=== PATIENT | male | born 1945 | race Caucasian/White ===

== ENCOUNTER → 2018-01-19 10:12 | Outpatient (CLI) | payer MEDICARE, OTHER, SELFPAY ==
[2018-01-19 12:08] LABS: Hemoglobin A1c 5.3 % (4.2-6.3)
[2018-01-19 12:09] LABS: Anion Gap 8 (5-15); BUN 17 mg/dL (7-18); BUN/Creat Ratio 15.7 RATIO (10-20); Calcium,Total 8.6 mg/dL (8.5-10.1); Chloride 106 mmol/L (98-107); Cholesterol 190 mg/dL (200); Creatinine, Serum 1.08 mg/dL (0.70-1.30); EST Glomerular Filtration Rate 71 mL/min (>60); Est Glom Filt Rate - Afr Amer 86 mL/min (>60); Glucose 92 mg/dL (74-106); High Density Lipoprotein 50 mg/dL; Sodium Level 140 mmol/L (136-145); Triglycerides 97 mg/dL; Very Low Density Lipoprotein 19 mg/dL (5-40)
== END ==
PROVIDERS: Family Provider Family Medicine; PCP Family Medicine; Visit Provider Family Medicine
DX: I10 Essential (primary) hypertension (principal); R73.09 Other abnormal glucose; E78.00 Pure hypercholesterolemia, unspecified
CPT/HCPCS: 36415; 80048; 80061; 83036

== ENCOUNTER → 2019-01-24 | Outpatient (CLI) | payer MEDICARE, OTHER, SELFPAY ==
[2019-01-24 10:56] LABS: Anion Gap 7 (5-15); BUN 27 mg/dL (7-18); BUN/Creat Ratio 25.7 RATIO (10-20); Calcium,Total 9.2 mg/dL (8.5-10.1); Chloride 109 mmol/L (98-107); Cholesterol 191 mg/dL (200); Creatinine, Serum 1.05 mg/dL (0.70-1.30); EST Glomerular Filtration Rate 73 mL/min (>60); Est Glom Filt Rate - Afr Amer 89 mL/min (>60); Glucose 107 mg/dL (74-106); High Density Lipoprotein 55 mg/dL; PSA,Total - Annual Screen 1.14 ng/mL (0.00-4.00); Potassium 4.3 mmol/L (3.5-5.1); Sodium Level 141 mmol/L (136-145); Triglycerides 72 mg/dL; Very Low Density Lipoprotein 14 mg/dL (5-40)
== END | disposition home or self-care (01) ==
LOC: MFPLAB 09:31
PROVIDERS: Family Medicine; Visit Provider Family Medicine
DX: R73.09 Other abnormal glucose (principal); E78.00 Pure hypercholesterolemia, unspecified; I10 Essential (primary) hypertension; Z12.5 Encounter for screening for malignant neoplasm of prostate
CPT/HCPCS: 36415; 80048; 80061; 83036; 84153; G0103

== ENCOUNTER → 2019-02-10 09:29 | Outpatient (CLI) | payer MEDICARE, OTHER, SELFPAY ==
[2019-02-10 10:43] LABS: Vitamin D,25 Hydroxy 49.8 ng/mL (29.95-100.01)
[2019-02-10 10:52] LABS: T4 Free Direct 0.88 ng/dL (0.76-1.46); Thyroid Stim Hormone (TSH) 1.64 uIU/mL (0.358-3.74)
== END ==
PROVIDERS: Family Provider Family Medicine; PCP Family Medicine; Referring Provider Family Medicine; Visit Provider Family Medicine
DX: E04.1 Nontoxic single thyroid nodule (principal); E55.9 Vitamin D deficiency, unspecified
CPT/HCPCS: 36415; 82306; 84439; 84443

== ENCOUNTER → 2019-02-15 11:06 | Outpatient (CLI) | payer MEDICARE, OTHER, SELFPAY ==
--- NOTE | 2019-02-15 11:08 | US_ITS ---
STUDY: THYROID ULTRASOUND REASON FOR EXAM: Male, 73 years old. TECHNIQUE: Ultrasound evaluation of the thyroid was performed with real-time and static cormier-scale imaging. COMPARISON: None. FINDINGS: RIGHT LOBE: The right lobe of the thyroid gland measures 5.2 x 1.9 x 1.2 cm cm. There is a heterogeneous echotexture. There is 1.5 x 1.2 x 0.9 cm nodule in the more inferior central echo-free area that is irregular in shape and vascular for which FNA is recommended. LEFT LOBE: The left lobe of the thyroid gland measures 4.6 x 1.7 x 1.8 cm cm. There is a heterogeneous echotexture. There are no demonstrated solid, cystic or complex lesions. ISTHMUS: The isthmus measures 0.2 mm . The regional lymph nodes are normal. US/Thyroid IMPRESSION: Small solid nodule upper aspect of the right lobe of the thyroid with central anechoic area. As mentioned. Electronically Signed: Margarette Wilkes, at 8:43 EST Tel , Service support ,
== END ==
PROVIDERS: Family Provider Family Medicine; PCP Family Medicine; Referring Provider Family Medicine; Visit Provider Family Medicine
DX: E04.1 Nontoxic single thyroid nodule (principal)
CPT/HCPCS: 76536

== ENCOUNTER → 2019-02-28 15:56 | Outpatient (CLI) | payer MEDICARE, OTHER, SELFPAY ==
--- NOTE | 2019-02-28 14:00 | ASPS_PTH ---
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 Jakob Jolly MD : 1945 BED: DIS: SPEC #: [id number] RECD: 02/28/19 15:35 STATUS: CHAD RAHEL #: [id number] CLEOPATRA: 02/28/19 14:[address]: Jakob Jolly DEPT: CYTOLOGY RECD BY: Donald Lynn ENTERED: 03/01/19 11:34 SP TYPE: ASPIRATION OTHR DR: Dr. Isaias Nuñez MD Tissues: Thyroid gland, NOS Procedures: Special Stain Group II Cytology Other HEADER OPERATION: Ultrasound guided fine needle aspiration, right thyroid PRE-OP DIAGNOSIS: Uninodular goiter E04.1 TISSUE SUBMITTED: Fine needle aspiration, right thyroid DIAGNOSIS CYTOLOGY Right thyroid nodule, ultrasound-guided fine needle aspiration (smear): Benign follicular nodule with cystic changes. Adequate for evaluation. See comment. SJ:penny 03/02/19 COMMENT Immediate cytologic evaluation to determine adequacy is not applicable. Correlation with clinical, radiologic findings and appropriate followup are necessary. CYTOLOGY STUDY Slides are reviewed. CYTOLOGY GROSS Received are 12 smears labeled with the patient's name and designated per the requisition as FNA right thyroid. Submitted for staining. RB:lizbeth 03/01/19 TC: 5 CPT: 01100
[2019-02-28 14:01] VITALS: BMI 32.6
== END ==
PROVIDERS: Family Provider Family Medicine; PCP Family Medicine; Referring Provider Surgery; Visit Provider Surgery
DX: E04.1 Nontoxic single thyroid nodule (principal)
CPT/HCPCS: 88161; 88313

== ENCOUNTER → 2019-12-05 09:45 | Outpatient (CLI) | payer MEDICARE, OTHER, SELFPAY ==
[2019-02-28 14:01] VITALS: BMI 32.6
[2019-12-05 09:51] LABS: Bacteria 0 SEEN /hpf (None Seen); Mucous, Urine 0 SEEN /hpf (<or=2+); Red Blood Cells-Urine 0 SEEN /hpf (0-5); White Blood Cells 0 SEEN /hpf (0-5)
[2019-12-05 12:13] LABS: Absolute Lymphocyte Count 1.06 X10^3/uL (0.83-4.51); Absolute Neutrophil Count 3.6 X10^3/uL (2.0-7.7); Basophil# 0.03 X10^3/uL; Basophil% 0.6 % (0-1); Eosinophil# 0.11 X10^3/uL; Eosinophils% 2.1 % (0-5); Hematocrit 42.7 % (40-54); Hemoglobin 14.2 g/dL (13.0-16.5); Lymphocyte # 1.06 X10^3/ul (4.0); Lymphocyte % 19.9 % (19-41); Mean Corp Hgb Conc 33.3 g/dL (32-36); Mean Corpuscular Hgb 32.1 pg (27.0-32.0); Mean Corpuscular Volume 96.6 fL (80-94); Mean Platelet Vol. 11.6 fl (6.2-12.0); Monocyte# 0.51 X10^3/uL; Monocyte% 9.6 % (0-10); NRBC Flagged by Analyzer 0 % (0-5); Neutrophil # 3.61 X10^3/uL (2.7-7.7); Neutrophil % 67.4 % (47-70); Platelet Count 151 K/mm3 (150-450); RBC Distribution Width CV 13.5 % (11.6-14.6); Red Blood Count 4.42 M/mm3 (4.6-6.2); White Blood Count 5.3 K/mm3 (4.4-11.0)
[2019-12-05 12:29] LABS: Color, Urine Yellow (Yellow); Glucose, Dipstick Normal (Normal); Ketone-Dipstick Negative (Negative); Leukocyte Esterase-Dipstick Negative /ul (Negative); Nitrite-Dipstick Negative (Negative); Occult Blood-Urine Negative /ul (Negative); Protein-Dipstick Negative (Negative); Urine Bilirubin Dipstick Negative (Negative); Urine Clarity Sl. Cloudy (Clear); Urine Urobilinogen Normal (Normal)
[2019-12-05 12:40] LABS: Squamous Epithelial Cells - UA 0-5 SEEN /hpf (0-5)
[2019-12-05 12:51] LABS: ALB/GLOB Ratio 1.1 RATIO (0.9-2.4); AST(SGOT) 30 U/L (15-37); Alanine Aminotransfer ALT/SGPT 46 U/L (16-61); Albumin, Serum 3.7 g/dL (3.2-5.0); Alkaline Phosphatase 68 U/L (45-117); Anion Gap 3 (5-15); BUN 25 mg/dL (7-18); BUN/Creat Ratio 21.2 RATIO (10-20); Calcium,Total 9.1 mg/dL (8.5-10.1); Chloride 111 mmol/L (98-107); Creatinine, Serum 1.18 mg/dL (0.70-1.30); EST Glomerular Filtration Rate 64 mL/min (>60); Est Glom Filt Rate - Afr Amer 77 mL/min (>60); Globulin 3.4 g/dL (2.2-4.2); Glucose 101 mg/dL (74-106); Potassium 4.8 mmol/L (3.5-5.1); Protein, Total 7.1 g/dL (6.4-8.2); Sodium Level 140 mmol/L (136-145)
== END ==
PROVIDERS: PCP Family Medicine; Referring Provider Family Medicine; Visit Provider Family Medicine
DX: I10 Essential (primary) hypertension (principal); E55.9 Vitamin D deficiency, unspecified
CPT/HCPCS: 36415; 80053; 81001; 82306; 85025

== ENCOUNTER → 2020-02-13 08:31 | Outpatient (CLI) | payer MEDICARE, OTHER, SELFPAY ==
[2019-02-28 14:01] VITALS: BMI 32.6
--- NOTE | 2020-02-13 08:38 | US_ITS ---
INDICATION: NODULE EXAMINATION: Ultrasound US Thyroid (eg thyroid, parathyroid, parotid) TECHNIQUE: Olmedo scale and color doppler imaging was performed of the thyroid gland. COMPARISON: Previous thyroid ultrasound obtained on 04/17/2018 FINDINGS: RIGHT THYROID LOBE: Measures 5.3 x 2.0 x 1.8 cm size.. Homogeneous echotexture with normal vascularity. A stable thyroid nodule measuring 1.6 x 0.9 cm in size seen in the mid right thyroid lobe which was previously identified and is unchanged. This probably represents a benign colloid nodule.. LEFT THYROID LOBE: Measures 4.7 x 2.2 x 1.8 cm in size.. Homogeneous echotexture with normal vascularity. [No thyroid nodules are present. ISTHMUS: Measures 0.4 cm in size . No thyroid nodules are present. US/Thyroid IMPRESSION: A stable probably benign thyroid colloid nodule is noted in the right thyroid lobe. Electronically Signed: Isaias Arias, at 16:23 EST Tel , Service support ,
== END ==
PROVIDERS: PCP Family Medicine; Referring Provider Family Medicine; Visit Provider Family Medicine
DX: E04.1 Nontoxic single thyroid nodule (principal)
CPT/HCPCS: 76536

== ENCOUNTER → 2020-06-13 08:47 | Outpatient (CLI) | payer MEDICARE, OTHER, SELFPAY ==
[2019-02-28 14:01] VITALS: BMI 32.6
[2020-06-13 11:00] LABS: PSA,Total - Annual Screen 1.05 ng/mL (0.00-4.00)
== END ==
PROVIDERS: PCP Family Medicine; Referring Provider Family Medicine; Visit Provider Family Medicine
DX: Z12.5 Encounter for screening for malignant neoplasm of prostate (principal)
CPT/HCPCS: 36415; 84153; G0103

== ENCOUNTER → 2020-10-15 09:58 | Outpatient (CLI) | payer MEDICARE, OTHER, SELFPAY ==
[2019-02-28 14:01] VITALS: BMI 32.6
[2020-10-15 12:17] LABS: Absolute Lymphocyte Count 0.94 X10^3/uL (0.83-4.51); Absolute Neutrophil Count 2.9 X10^3/uL (2.0-7.7); Basophil# 0.03 X10^3/uL; Basophil% 0.7 % (0-1); Eosinophil# 0.11 X10^3/uL; Eosinophils% 2.5 % (0-5); Hematocrit 42.2 % (40-54); Hemoglobin 14.3 g/dL (13.0-16.5); Lymphocyte # 0.94 X10^3/ul (0.83-4.51); Lymphocyte % 21.3 % (19-41); Mean Corp Hgb Conc 33.9 g/dL (32-36); Mean Corpuscular Volume 94.4 fL (80-94); Mean Platelet Vol. 11.6 fl (6.2-12.0); Monocyte# 0.43 X10^3/uL; Monocyte% 9.8 % (0-10); NRBC Flagged by Analyzer 0 % (0-5); Neutrophil # 2.89 X10^3/uL (2.7-7.7); Neutrophil % 65.5 % (47-70); Platelet Count 143 K/mm3 (150-450); RBC Distribution Width CV 13.8 % (11.6-14.6); RBC Distribution Width SD 47.6 fl (35.1-43.9); Red Blood Count 4.47 M/mm3 (4.6-6.2); White Blood Count 4.4 K/mm3 (4.4-11.0)
[2020-10-15 12:41] LABS: Vitamin D,25 Hydroxy 49.5 ng/mL
[2020-10-15 12:44] LABS: Hemoglobin A1c 5.1 % (3.8-5.6)
[2020-10-15 12:44] LABS: Microalbumin,Random Urine 16.2 mg/L (NO RANGE EST.)
[2020-10-15 13:05] LABS: ALB/GLOB Ratio 1.2 RATIO (0.9-2.4); AST(SGOT) 31 U/L (15-37); Alanine Aminotransfer ALT/SGPT 42 U/L (16-61); Albumin, Serum 3.8 g/dL (3.2-5.0); Alkaline Phosphatase 70 U/L (45-117); Anion Gap 7 (5-15); BUN 19 mg/dL (7-18); BUN/Creat Ratio 19.2 RATIO (10-20); Calcium,Total 8.9 mg/dL (8.5-10.1); Chloride 107 mmol/L (98-107); Cholesterol 182 mg/dL (200); Creatinine, Serum 0.99 mg/dL (0.70-1.30); EST Glomerular Filtration Rate 78 mL/min (>60); Est Glom Filt Rate - Afr Amer 94 mL/min (>60); Globulin 3.3 g/dL (2.2-4.2); Glucose 105 mg/dL (74-106); High Density Lipoprotein 60 mg/dL; Potassium 4.4 mmol/L (3.5-5.1); Protein, Total 7.1 g/dL (6.4-8.2); Sodium Level 136 mmol/L (136-145); Thyroid Stim Hormone (TSH) 1.43 uIU/mL (0.358-3.74); Triglycerides 60 mg/dL; Very Low Density Lipoprotein 12 mg/dL (5-40)
== END ==
PROVIDERS: PCP Family Medicine; Visit Provider Family Medicine
DX: I10 Essential (primary) hypertension (principal); R73.09 Other abnormal glucose; E55.9 Vitamin D deficiency, unspecified
CPT/HCPCS: 36415; 80053; 80061; 82043; 82306; 82570; 83036; 84443; 85025

== ENCOUNTER → 2021-03-18 17:15 | Outpatient (CLI) | payer MEDICARE, OTHER, SELFPAY | PROVIDERS: PCP Family Medicine; Referring Provider Family Medicine; Visit Provider Family Medicine | DX: U07.1 COVID-19 (principal) | CPT/HCPCS: 87635; U0005; U0003 ==

== ENCOUNTER 2021-03-20 08:27 | Outpatient (CLI) | payer MEDICARE, OTHER, SELFPAY ==
[2021-03-20 08:41] VITALS: BP 134/88; PULSE 77; RESP 16; TEMP 36.8; O2SAT 98; BMI 31.8
[2021-03-20] MEDS: 0.9% Saline Lock 10 ML Syringe IV (08:47)
[2021-03-20 09:25] VITALS: BP 135/79; PULSE 68; RESP 16; TEMP 36.9; O2SAT 98
[2021-03-20 10:27] VITALS: BP 139/82; PULSE 64; RESP 16; TEMP 36.9; O2SAT 99
== END 2021-03-20 10:37 | disposition home or self-care (01) ==
LOC: MS3OUT 08:28 → MS3 08:28
PROVIDERS: PCP Family Medicine; Visit Provider Nurse Practitioner Adult Health
DX: Z23 Encounter for immunization (principal); U07.1 COVID-19
CPT/HCPCS: J7050; M0245; Q0245; A4216

== ENCOUNTER 2021-04-18 14:34 | Outpatient (CLI) | payer MEDICARE, OTHER, SELFPAY ==
--- NOTE | 2021-04-18 14:40 | RAD_ITS ---
STUDY: X-RAY CHEST REASON FOR EXAM: Male, 75 years old. BRONCHITIS TECHNIQUE: PA and lateral views of the chest. COMPARISON: None. FINDINGS: There is hyperinflation of the lungs consistent with chronic obstructive lung disease (COPD). There is no demonstrated pleural abnormality. Fine rim calcification of the pericardium. Normal mediastinum and karmen. Normal visualized pulmonary arteries. There is atherosclerotic calcification of the aortic arch with tortuosity. There are diffuse degenerative changes of the visualized thoracic spine. Normal visualized ribs, clavicles, and shoulders. There is no demonstrated abnormality of the visualized soft tissue structures of the upper abdomen. RAD/Chest PA and Lateral IMPRESSION: Hyperinflation. The lungs are clear. Electronically Signed: Abhijeet Whiting MD at 14:28 EST ,
== END 2021-04-18 23:59 | disposition short-term general hospital (02) ==
PROVIDERS: PCP Family Medicine; Referring Provider Family Medicine; Visit Provider Family Medicine
DX: J40 Bronchitis, not specified as acute or chronic (principal)
CPT/HCPCS: 71046

== ENCOUNTER 2021-05-23 13:58 | Outpatient (CLI) | payer MEDICARE, OTHER, SELFPAY ==
[2021-05-23 15:27] LABS: Absolute Lymphocyte Count 0.99 X10^3/uL (0.83-4.51); Absolute Neutrophil Count 3.9 X10^3/uL (2.0-7.7); Basophil# 0.03 X10^3/uL; Basophil% 0.5 % (0-1); Eosinophil# 0.07 X10^3/uL; Eosinophils% 1.3 % (0-5); Hematocrit 42.7 % (40-54); Hemoglobin 14.3 g/dL (13.0-16.5); Lymphocyte # 0.99 X10^3/ul (0.83-4.51); Mean Corp Hgb Conc 33.5 g/dL (32-36); Mean Corpuscular Hgb 32.3 pg (27.0-32.0); Mean Corpuscular Volume 96.4 fL (80-94); Mean Platelet Vol. 11.1 fl (6.2-12.0); Monocyte# 0.46 X10^3/uL; Monocyte% 8.4 % (0-10); NRBC Flagged by Analyzer 0 % (0-5); Neutrophil # 3.93 X10^3/uL (2.7-7.7); Neutrophil % 71.4 % (47-70); Platelet Count 156 K/mm3 (150-450); RBC Distribution Width CV 13.7 % (11.6-14.6); Red Blood Count 4.43 M/mm3 (4.6-6.2); White Blood Count 5.5 K/mm3 (4.4-11.0)
[2021-05-23 15:46] LABS: Hemoglobin A1c 5.1 % (3.8-5.6)
[2021-05-23 16:12] LABS: AST(SGOT) 25 U/L (15-37); Alanine Aminotransfer ALT/SGPT 40 U/L (16-61); Albumin, Serum 3.6 g/dL (3.2-5.0); Alkaline Phosphatase 68 U/L (45-117); Anion Gap 4 (5-15); BUN 18 mg/dL (7-18); Calcium,Total 9.1 mg/dL (8.5-10.1); Chloride 107 mmol/L (98-107); EST Glomerular Filtration Rate 77 mL/min (>60); Est Glom Filt Rate - Afr Amer 93 mL/min (>60); Globulin 3.5 g/dL (2.2-4.2); Glucose 110 mg/dL (74-106); Potassium 4.4 mmol/L (3.5-5.1); Protein, Total 7.1 g/dL (6.4-8.2); Sodium Level 137 mmol/L (136-145); T4 Free Direct 0.93 ng/dL (0.76-1.46); Thyroid Stim Hormone (TSH) 1.34 uIU/mL (0.358-3.74)
[2021-05-23 16:15] LABS: Vitamin B12 317 pg/mL (211-911)
== END 2021-05-23 23:59 | disposition home or self-care (01) ==
PROVIDERS: PCP Family Medicine; Referring Provider Family Medicine; Visit Provider Family Medicine
DX: R53.83 Other fatigue (principal); R73.09 Other abnormal glucose
CPT/HCPCS: 36415; 80053; 82607; 83036; 84439; 84443; 85025

== ENCOUNTER 2021-05-29 11:13 | Outpatient (CLI) | payer MEDICARE, OTHER, SELFPAY ==
--- NOTE | 2021-05-29 11:15 | US_ITS ---
STUDY: THYROID ULTRASOUND REASON FOR EXAM: Male, 75 years old. Nodule TECHNIQUE: Ultrasound evaluation of the thyroid was performed with real-time and static cormier-scale imaging. COMPARISON: February 13, 2020 thyroid ultrasound FINDINGS: RIGHT LOBE: The right lobe of the thyroid gland measures 5.4 x 1.7 x 1.8 cm. There is a heterogeneous echotexture. There is a solid-appearing nodule right thyroid measuring 1.6 x 1.2 x 0.9 cm with visualized increased vascularity.. LEFT LOBE: The left lobe of the thyroid gland measures 4.5 x 1.7 x 1.9 cm. There is a heterogeneous echotexture. There are no demonstrated solid, cystic or complex lesions. ISTHMUS: The isthmus measures 3 mm . The regional lymph nodes are normal. US/Thyroid IMPRESSION: Borderline enlarged bilateral thyroid gland. Stable dominant vascular mixed echogenicity nodule right thyroid relatively unchanged since prior studies of February 15, 2019 allowing For differences in measuring technique. Electronically Signed: Maia Gregory MD at 3:06 EST ,
== END 2021-05-29 23:59 | disposition home or self-care (01) ==
LOC: US 11:15
PROVIDERS: PCP Family Medicine; Referring Provider Family Medicine; Visit Provider Family Medicine
DX: E04.1 Nontoxic single thyroid nodule (principal)
CPT/HCPCS: 76536

== ENCOUNTER → 2021-08-30 | Outpatient (CLI) | payer MEDICARE, OTHER, SELFPAY ==
[2021-08-30 09:11] LABS: Bacteria 0 SEEN /hpf (None Seen); Mucous, Urine 0 SEEN /hpf (<or=2+); Red Blood Cells-Urine 0 SEEN /hpf (0-5); Squamous Epithelial Cells - UA 0 SEEN /hpf (0-5); White Blood Cells 0 SEEN /hpf (0-5)
[2021-08-30 10:08] LABS: Color, Urine Yellow (Yellow); Glucose, Dipstick Normal (Normal); Ketone-Dipstick Negative (Negative); Leukocyte Esterase-Dipstick Negative /ul (Negative); Nitrite-Dipstick Negative (Negative); Occult Blood-Urine Negative /ul (Negative); Protein-Dipstick Negative (Negative); Urine Bilirubin Dipstick Negative (Negative); Urine Clarity Clear (Clear); Urine Urobilinogen Normal (Normal)
[2021-08-30 10:09] LABS: Absolute Lymphocyte Count 1.06 X10^3/uL (0.83-4.51); Absolute Neutrophil Count 2.7 X10^3/uL (2.0-7.7); Basophil# 0.03 X10^3/uL; Basophil% 0.7 % (0-1); Eosinophil# 0.13 X10^3/uL; Hematocrit 41.8 % (40-54); Hemoglobin 14.3 g/dL (13.0-16.5); Lymphocyte # 1.06 X10^3/ul (0.83-4.51); Lymphocyte % 24.1 % (19-41); Mean Corp Hgb Conc 34.2 g/dL (32-36); Mean Corpuscular Hgb 32.6 pg (27.0-32.0); Mean Corpuscular Volume 95.4 fL (80-94); Mean Platelet Vol. 11.4 fl (6.2-12.0); Monocyte# 0.45 X10^3/uL; Monocyte% 10.3 % (0-10); NRBC Flagged by Analyzer 0 % (0-5); Neutrophil # 2.71 X10^3/uL (2.7-7.7); Neutrophil % 61.7 % (47-70); Platelet Count 141 K/mm3 (150-450); RBC Distribution Width CV 13.5 % (11.6-14.6); RBC Distribution Width SD 47.5 fl (35.1-43.9); Red Blood Count 4.38 M/mm3 (4.6-6.2); White Blood Count 4.4 K/mm3 (4.4-11.0)
[2021-08-30 10:25] LABS: Vitamin D,25 Hydroxy 55.9 ng/mL
[2021-08-30 10:29] LABS: ALB/GLOB Ratio 1.2 RATIO (0.9-2.4); AST(SGOT) 26 U/L (15-37); Alanine Aminotransfer ALT/SGPT 43 U/L (16-61); Albumin, Serum 3.8 g/dL (3.2-5.0); Alkaline Phosphatase 63 U/L (45-117); BUN 18 mg/dL (7-18); BUN/Creat Ratio 16.7 RATIO (10-20); Calcium,Total 9.4 mg/dL (8.5-10.1); Chloride 109 mmol/L (98-107); Cholesterol 176 mg/dL (200); Creatinine, Serum 1.08 mg/dL (0.70-1.30); EST Glomerular Filtration Rate 70 mL/min (>60); Est Glom Filt Rate - Afr Amer 85 mL/min (>60); Globulin 3.2 g/dL (2.2-4.2); Glucose 112 mg/dL (74-106); Potassium 4.6 mmol/L (3.5-5.1); Sodium Level 140 mmol/L (136-145); Triglycerides 64 mg/dL
[2021-08-30 10:30] LABS: Anion Gap 5 (5-15); High Density Lipoprotein 60 mg/dL; PSA,Total - Annual Screen 1.83 ng/mL (0.00-4.00); Thyroid Stim Hormone (TSH) 1.85 uIU/mL (0.358-3.74); Very Low Density Lipoprotein 13 mg/dL (5-40)
[2021-09-02 15:54] LABS: Hemoglobin A1c 5.1 % (3.8-5.6)
== END | disposition home or self-care (01) ==
LOC: MFPLAB 08:52
PROVIDERS: PCP Family Medicine; Referring Provider Family Medicine; Visit Provider Family Medicine
DX: R73.09 Other abnormal glucose (principal); E55.9 Vitamin D deficiency, unspecified; I10 Essential (primary) hypertension; Z12.5 Encounter for screening for malignant neoplasm of prostate
CPT/HCPCS: 36415; 80053; 80061; 81001; 82306; 83036; 84153; 84443; 85025; G0103

== ENCOUNTER → 2022-08-26 | Outpatient (CLI) | payer MEDICARE, OTHER, SELFPAY ==
[2022-08-26 14:49] LABS: Bacteria 0 SEEN /hpf (None Seen); Mucous, Urine 0 SEEN /hpf (<or=2+); Red Blood Cells-Urine 0 SEEN /hpf (0-5); Squamous Epithelial Cells - UA 0 SEEN /hpf (0-5); White Blood Cells 0 SEEN /hpf (0-5)
[2022-08-26 17:48] LABS: Absolute Lymphocyte Count 1.18 X10^3/uL (0.83-4.51); Absolute Neutrophil Count 3.4 X10^3/uL (2.0-7.7); Basophil# 0.02 X10^3/uL; Basophil% 0.4 % (0-1); Eosinophil# 0.09 X10^3/uL; Eosinophils% 1.7 % (0-5); Hematocrit 43.2 % (40-54); Hemoglobin 14.8 g/dL (13.0-16.5); Lymphocyte # 1.18 X10^3/ul (0.83-4.51); Lymphocyte % 22.5 % (19-41); Mean Corp Hgb Conc 34.3 g/dL (32-36); Mean Corpuscular Hgb 32.8 pg (27.0-32.0); Mean Corpuscular Volume 95.8 fL (80-94); Mean Platelet Vol. 11.5 fl (6.2-12.0); Monocyte# 0.52 X10^3/uL; Monocyte% 9.9 % (0-10); NRBC Flagged by Analyzer 0 % (0-5); Neutrophil # 3.42 X10^3/uL (2.7-7.7); Neutrophil % 65.3 % (47-70); Platelet Count 149 K/mm3 (150-450); RBC Distribution Width CV 13.2 % (11.6-14.6); RBC Distribution Width SD 46.6 fl (35.1-43.9); Red Blood Count 4.51 M/mm3 (4.6-6.2); White Blood Count 5.2 K/mm3 (4.4-11.0)
[2022-08-26 17:58] LABS: Color, Urine Yellow (Yellow); Glucose, Dipstick Normal (Normal); Ketone-Dipstick Negative (Negative); Leukocyte Esterase-Dipstick Negative /ul (Negative); Nitrite-Dipstick Negative (Negative); Occult Blood-Urine Negative /ul (Negative); Protein-Dipstick Negative (Negative); Specific Gravity, Urine 1.015 (1.002-1.030); Urine Bilirubin Dipstick Negative (Negative); Urine Clarity Clear (Clear); Urine Urobilinogen Normal (Normal)
[2022-08-26 19:04] LABS: ALB/GLOB Ratio 1.2 RATIO (0.9-2.4); AST(SGOT) 34 U/L (15-37); Alanine Aminotransfer ALT/SGPT 53 U/L (16-61); Albumin, Serum 3.9 g/dL (3.2-5.0); Alkaline Phosphatase 76 U/L (45-117); Anion Gap 6 (5-15); BUN 23 mg/dL (7-18); BUN/Creat Ratio 21.9 RATIO (10-20); Calcium,Total 8.9 mg/dL (8.5-10.1); Chloride 105 mmol/L (98-107); Cholesterol 185 mg/dL (200); Creatinine, Serum 1.05 mg/dL (0.70-1.30); EST Glomerular Filtration Rate 72 mL/min (>60); Est Glom Filt Rate - Afr Amer 88 mL/min (>60); Globulin 3.3 g/dL (2.2-4.2); Glucose 92 mg/dL (74-106); High Density Lipoprotein 63 mg/dL; Potassium 4.7 mmol/L (3.5-5.1); Protein, Total 7.2 g/dL (6.4-8.2); Sodium Level 134 mmol/L (136-145); Thyroid Stim Hormone (TSH) 1.49 uIU/mL (0.358-3.74); Triglycerides 57 mg/dL; Very Low Density Lipoprotein 11 mg/dL (5-40)
[2022-08-26 19:11] LABS: Vitamin D,25 Hydroxy 61.3 ng/mL
== END | disposition home or self-care (01) ==
LOC: MFPLAB 14:44
PROVIDERS: PCP Family Medicine; Visit Provider Family Medicine
DX: I10 Essential (primary) hypertension (principal); E55.9 Vitamin D deficiency, unspecified
CPT/HCPCS: 36415; 80053; 80061; 81001; 82306; 84443; 85025

== ENCOUNTER → 2023-02-25 | Outpatient (CLI) | payer MEDICARE, OTHER, SELFPAY ==
[2023-02-25 09:09] LABS: Bacteria 0 SEEN /hpf (None Seen); Mucous, Urine 0 SEEN /hpf (<or=2+); Red Blood Cells-Urine 0 SEEN /hpf (0-5); White Blood Cells 0 SEEN /hpf (0-5)
[2023-02-25 10:43] LABS: Color, Urine Yellow (Yellow); Glucose, Dipstick Normal (Normal); Ketone-Dipstick 5 mg/dl (Negative); Leukocyte Esterase-Dipstick Negative /ul (Negative); Nitrite-Dipstick Negative (Negative); Occult Blood-Urine Negative /ul (Negative); Protein-Dipstick Negative (Negative); Urine Bilirubin Dipstick Negative (Negative); Urine Clarity Sl. Cloudy (Clear); Urine Urobilinogen Normal (Normal)
[2023-02-25 10:50] LABS: Squamous Epithelial Cells - UA 0-5 SEEN /hpf (0-5)
[2023-02-25 11:03] LABS: Absolute Lymphocyte Count 0.98 X10^3/uL (0.83-4.51); Absolute Neutrophil Count 3.2 X10^3/uL (2.0-7.7); Basophil# 0.04 X10^3/uL; Basophil% 0.8 % (0-1); Eosinophil# 0.12 X10^3/uL; Eosinophils% 2.5 % (0-5); Hematocrit 41.9 % (40-54); Hemoglobin 13.9 g/dL (13.0-16.5); Lymphocyte # 0.98 X10^3/ul (0.83-4.51); Lymphocyte % 20.5 % (19-41); Mean Corp Hgb Conc 33.2 g/dL (32-36); Mean Corpuscular Hgb 32.2 pg (27.0-32.0); Mean Platelet Vol. 11.7 fl (6.2-12.0); Monocyte# 0.46 X10^3/uL; Monocyte% 9.6 % (0-10); NRBC Flagged by Analyzer 0 % (0-5); Neutrophil # 3.17 X10^3/uL (2.7-7.7); Neutrophil % 66.2 % (47-70); Platelet Count 128 K/mm3 (150-450); RBC Distribution Width CV 13.7 % (11.6-14.6); RBC Distribution Width SD 48.8 fl (35.1-43.9); Red Blood Count 4.32 M/mm3 (4.6-6.2); White Blood Count 4.8 K/mm3 (4.4-11.0)
[2023-02-25 11:41] LABS: Vitamin D,25 Hydroxy 48.3 ng/mL
[2023-02-25 12:04] LABS: ALB/GLOB Ratio 1.1 RATIO (0.9-2.4); AST(SGOT) 32 U/L (15-37); Alanine Aminotransfer ALT/SGPT 41 U/L (16-61); Albumin, Serum 3.6 g/dL (3.2-5.0); Alkaline Phosphatase 70 U/L (45-117); Anion Gap 6 (5-15); BUN 16 mg/dL (7-18); BUN/Creat Ratio 15.8 RATIO (10-20); Calcium,Total 8.5 mg/dL (8.5-10.1); Chloride 109 mmol/L (98-107); Cholesterol 170 mg/dL (200); Creatinine, Serum 1.01 mg/dL (0.70-1.30); EST Glomerular Filtration Rate 76 mL/min (>60); Est Glom Filt Rate - Afr Amer 92 mL/min (>60); Globulin 3.2 g/dL (2.2-4.2); Glucose 110 mg/dL (74-106); High Density Lipoprotein 59 mg/dL; Potassium 4.3 mmol/L (3.5-5.1); Protein, Total 6.8 g/dL (6.4-8.2); Sodium Level 139 mmol/L (136-145); Triglycerides 62 mg/dL; Very Low Density Lipoprotein 12 mg/dL (5-40)
== END | disposition home or self-care (01) ==
LOC: MFPLAB 09:06
PROVIDERS: PCP Family Medicine; Visit Provider Family Medicine
DX: I10 Essential (primary) hypertension (principal); E55.9 Vitamin D deficiency, unspecified
CPT/HCPCS: 36415; 80053; 80061; 81001; 82306; 85025

== ENCOUNTER → 2023-03-05 | Outpatient (CLI) | payer MEDICARE, OTHER, SELFPAY ==
[2023-03-05 11:05] LABS: ALB/GLOB Ratio 1.2 RATIO (0.9-2.4); AST(SGOT) 34 U/L (15-37); Alanine Aminotransfer ALT/SGPT 42 U/L (16-61); Albumin, Serum 3.6 g/dL (3.2-5.0); Alkaline Phosphatase 76 U/L (45-117); Anion Gap 5 (5-15); BUN 29 mg/dL (7-18); Calcium,Total 9.5 mg/dL (8.5-10.1); Chloride 109 mmol/L (98-107); Creatinine, Serum 1.16 mg/dL (0.70-1.30); EST Glomerular Filtration Rate 65 mL/min (>60); Est Glom Filt Rate - Afr Amer 78 mL/min (>60); Globulin 3.1 g/dL (2.2-4.2); Glucose 128 mg/dL (74-106); Potassium 4.8 mmol/L (3.5-5.1); Protein, Total 6.7 g/dL (6.4-8.2); Sodium Level 140 mmol/L (136-145)
== END | disposition home or self-care (01) ==
LOC: MFPLAB 09:09
PROVIDERS: PCP Family Medicine; Visit Provider Family Medicine
DX: R73.09 Other abnormal glucose (principal); I10 Essential (primary) hypertension
CPT/HCPCS: 36415; 80053; 83036

== ENCOUNTER 2023-04-12 20:59 | Observation (INO) | payer MEDICARE, OTHER, SELFPAY ==
[2023-04-12] VITALS (9 sets, daily range): BP systolic 133–159; BP diastolic 73–78; PULSE 65–90; RESP 15–21; TEMP 36.6; O2SAT 94–98; BMI 31.9; BMI 32.1
--- NOTE | 2023-04-12 21:04 | ED.RN ---
PER DR UNDERWOOD AT BEDSIDE, NO STROKE ALERT.
--- NOTE | 2023-04-12 21:07 | CT_ITS ---
EXAM: CT HEAD WITHOUT INTRAVENOUS CONTRAST CLINICAL INDICATION: Neuro deficit, acute, stroke suspected TECHNIQUE: Multiple axial images were obtained of the head without intravenous contrast. CTDIvol = ( 45 ) mGy, DLP = ( 863 ) mGycm This CT exam was performed using one or more of the following dose reduction techniques: automated exposure control, adjustment of the mA and/or kV according to patient size, and/or use of iterative reconstruction technique. COMPARISON: No relevant prior studies available. FINDINGS: BRAIN AND EXTRA-AXIAL SPACES: Unremarkable. No intra- or extra-axial hemorrhage. No evidence of acute infarct. No intracranial mass or mass effect. There is preservation of the cormier/white matter interface. Posterior fossa structures are unremarkable. Ventricles are appropriate for age. No hydrocephalus. Basal cisterns are patent. BONES/JOINTS: Unremarkable. No discrete lytic or blastic abnormalities. SINUSES: Unremarkable as visualized. Clear. MASTOID AIR CELLS: Unremarkable. Clear. ORBITS: Visualized globes, extraocular muscles, optic nerves and retrobulbar fat appear unremarkable. CT/Brain/Head without Contrast IMPRESSION: Negative head/brain CT without intravenous contrast. Electronically Signed: Jake Bo MD at 22:27 EST ,
--- NOTE | 2023-04-12 21:07 | RAD_ITS ---
EXAM: XR CHEST, 1 VIEW CLINICAL INDICATION: Neuro deficit, acute, stroke suspected TECHNIQUE: Frontal view of the chest. COMPARISON: 04.18.21 FINDINGS: LUNGS AND PLEURAL SPACES: Unremarkable. No consolidation or edema. No pneumothorax. No effusion. HEART: Unremarkable. Cardiac silhouette not enlarged. MEDIASTINUM: Central airways and mediastinal contour are unremarkable. BONES/JOINTS: Unremarkable. No acute fracture. SOFT TISSUES: Unremarkable. RAD/Chest 1 View IMPRESSION: No radiographic evidence of acute cardiopulmonary disease. Electronically Signed: Roni Mensah MD at 21:32 EST ,
--- NOTE | 2023-04-12 21:08 | ED.VIS.STROK ---
HPI History of Present Illness Chief Complaint: Neuro S/Sx Narrative Narrative: 77-year-old male past medical history of hypertension, presents with dizziness and ataxic gait that he had started 45 minutes ago. He states that he had just gotten done eating dinner, and was trying to get up. He was trying to hide it from his son-in-law that he was dizzy and was having problems ambulating. He denies any headache. No chest pain, no other symptoms. PFSH PFSH Medical History HTN (hypertension) Pericardial calcification Uninodular goiter Vitamin D deficiency Home Medications aspirin 81 mg tablet,delayed release 81 mg PO DAILY 02/22/19 [History Last Taken Unknown] cholecalciferol (vitamin D3) 25 mcg (1,000 unit) capsule 1,000 unit PO DAILY 02/22/19 [History Last Taken Unknown] lisinopril 10 mg tablet 10 mg PO DAILY 02/22/19 [History Last Taken Unknown] omega-3 fatty acids 1,000 mg capsule (Fish Oil Concentrate) 1,000 mg PO DAILY 02/22/19 [History Last Taken Unknown] sod fluoride-Ca carbonate 3.75 mg (8.25)-145 mg (364) capsule (Florical) 1 cap PO DAILY 02/22/19 [History Last Taken Unknown] multivitamin (Daily Multi-Vitamin tablet) 1 tab PO DAILY 04/12/23 [History Last Taken Unknown] Allergy/AdvReac Type Severity Reaction Status Date / Time Sulfa (Sulfonamide Allergy Mild Rash Verified 03/19/21 15:23 Antibiotics) Family History Father Cancer Mother Hypertension Surgical History History of umbilical hernia History of uvulectomy s/p stapedectomy Social History Smoking Status: Former smoker alcohol intake: current alcohol intake frequency: holidays/special occasions only ROS ROS ED ROS Narrative Constitutional: No fever, no chills. HEENT: No sore throat. No neck pain. No loss of vision. No rhinorrhea. Cardiovascular: No chest pain. No palpitations. No pedal edema. Respiratory: No cough, no shortness of breath. Abdominal: No abdominal pain. No nausea. No vomiting. Genitourinary: No dysuria. No hematuria. Musculoskeletal: No myalgias. No arthralgias. Neurologic: No headaches. Positive dizziness, affecting gait. No lightheadedness. Skin: No rash. No change in color. Psychiatric: No depression. No anxiety. EXAM Physical Exam Narrative Exam Narrative: Afebrile. Vital signs noted. HEENT: Normocephalic. Atraumatic. PERRL, EOMI. Neck soft and supple. No point tenderness or step off. Cardiovascular: Regular rate and rhythm. No murmurs, rubs, or gallops appreciated. Respiratory: No tachypnea. Lungs clear to auscultation bilaterally. Gastrointestinal: Abdomen soft, nontender, with normoactive bowel sounds. No rebound or guarding. Neurological: Awake. Alert. Nonfocal, nonlateralizing. NIH stroke scale is 0. Skin: No rash. Normal color. No pallor. Musculoskeletal: No pedal edema. Full range of motion extremities. Const Vital Signs: 04/12/23 20:59 04/12/23 21:07 04/12/23 21:07 Temperature 97.8 F Temperature Source Temporal Pulse Rate 90 78 Respiratory Rate 20 H 15 Blood Pressure 159/73 H 159/73 H Blood Pressure Mean 101 101 Pulse Ox 94 95 95 Oxygen Delivery Method Room Air Room Air Room Air 04/12/23 21:37 04/12/23 22:07 04/12/23 22:30 Temperature Temperature Source Pulse Rate 80 72 70 Respiratory Rate 17 19 H 16 Blood Pressure 143/75 H 133/76 H 140/78 H Blood Pressure Mean 97 95 98 Pulse Ox 97 97 96 Oxygen Delivery Method Room Air Room Air Room Air 04/12/23 21:59 Temperature Temperature Source Pulse Rate 73 Respiratory Rate 16 Blood Pressure 140/78 H Blood Pressure Mean 98 Pulse Ox 95 Oxygen Delivery Method Room Air MDM MDM MDM Narrative Medical decision making narrative: I do not feel stroke team is indicated. Although his onset was approximately 45 minutes ago, his NIH stroke scale is 0. However, stroke order set will be utilized to obtain CT of the brain, and generalized workup for his reported gait instability. He was only slightly dizzy he said but he denies headache or other symptoms. Additionally, his cerebellar functioning is normal currently. EKG was obtained and interpreted by myself independently as normal sinus rhythm at 77 bpm without ectopy or acute ST changes. No STEMI. Reviewed his laboratory work and he has normal white count of 7.3, platelet count slightly low at 144 which I think is nonspecific, hemoglobin normal at 14.3. Sodium is normal at 138 with potassium 4.3, chloride 107, BUN is slightly elevated at 21 and creatinine 1.19. Glucose is appropriately elevated at 109. [id number] glucose was 111. High-sensitivity troponin is 6. I reviewed the radiology report of the CT of the brain which shows no acute process. While the patient was able to ambulate here in the emergency department, his daughter who is familiar with him states that he is not quite 100% and his gait may have. Slightly unsteady. She is concerned as the patient lives alone. Although his NIH is 0 as workup is negative, patient was discussed with Dr. Robb for observation in PCU. Patient is in stable condition. History & Record Review Discussion w/independent historian: Patient and Family Lab Data Attestation: I reviewed the patient's lab results. Labs: Laboratory Results - last 24 hr 04/12/23 04/12/23 21:00 21:02 WBC 7.3 RBC 4.33 L Hgb 14.3 Hct 41.6 MCV 96.1 H MCH 33.0 H MCHC 34.4 RDW Std Deviation 48.0 H RDW Coeff of Umm 13.6 Plt Count 144 L MPV 11.4 Immature Gran % (Auto) 0.300 Neut % (Auto) 67.5 Lymph % (Auto) 20.9 Sweet Grass % (Auto) 9.0 Eos % (Auto) 1.6 Baso % (Auto) 0.7 Absolute Neuts (auto) 4.9 Absolute Lymphs (auto) 1.53 Nucleated RBC % 0 PT 13.0 INR 1.0 APTT 24.2 Sodium 138 Potassium 4.3 Chloride 107 Carbon Dioxide 26.0 Anion Gap 5 BUN 21 H Creatinine 1.19 Estim Creat Clear Calc 67.29 Est GFR (MDRD) Af Amer 76 Est GFR (MDRD) Non-Af 63 BUN/Creatinine Ratio 17.6 Glucose 109 H Calcium 9.5 Troponin I High Sens 6 POC Glucose 111 H Radiography Diagnostic Testing: Clinical Impression(s) from Imaging Studies Brain CT 04/12/23 21:07 IMPRESSION: Negative head/brain CT without intravenous contrast. Electronically Signed: Jake Bo MD at 22:27 EST , Chest X-Ray 04/12/23 21:07 IMPRESSION: No radiographic evidence of acute cardiopulmonary disease. Electronically Signed: Roni Mensah MD at 21:32 EST , Management Discussion w/another healthcare provider: Hospitalist Discharge Plan Dx/Rx/DC Orders Clinical Impression: Dizziness, Gait disturbance Disposition Disposition: Acute Care [facility]
[2023-04-12 21:21] LABS: Bedside Glucose 111 mg/dL (74-106)
[2023-04-12 21:26] LABS: Absolute Lymphocyte Count 1.53 X10^3/uL (0.83-4.51); Absolute Neutrophil Count 4.9 X10^3/uL (2.0-7.7); Basophil# 0.05 X10^3/uL; Basophil% 0.7 % (0-1); Eosinophil# 0.12 X10^3/uL; Eosinophils% 1.6 % (0-5); Hematocrit 41.6 % (40-54); Hemoglobin 14.3 g/dL (13.0-16.5); Lymphocyte # 1.53 X10^3/ul (0.83-4.51); Lymphocyte % 20.9 % (19-41); Mean Corp Hgb Conc 34.4 g/dL (32-36); Mean Corpuscular Volume 96.1 fL (80-94); Mean Platelet Vol. 11.4 fl (6.2-12.0); Monocyte# 0.66 X10^3/uL; NRBC Flagged by Analyzer 0 % (0-5); Neutrophil # 4.94 X10^3/uL (2.7-7.7); Neutrophil % 67.5 % (47-70); Platelet Count 144 K/mm3 (150-450); RBC Distribution Width CV 13.6 % (11.6-14.6); Red Blood Count 4.33 M/mm3 (4.6-6.2); White Blood Count 7.3 K/mm3 (4.4-11.0)
[2023-04-12 21:37] LABS: Partial Thromboplast Time 24.2 Seconds (24.1-36.2)
--- OUTSIDE RECORDS SUMMARY | 2023-04-12 21:40 | XMS RPT_ITS | CCD ---
Author Name Unknown Address [address] [place] [address] Organization [facility] Care Team Providers Care Customer Relations Specialist Name Role Phone Isaias Walker Primary Care Provider Allergies Allergy Classification Reported Allergen(s) Allergy Type Date of Onset Reaction(s) Facility (1 source) Sulfonamides (Antibiotic) Propensity to adverse reactions 6 [facility] Problems Problem Classification Problem Date Documented Da te Episodic/Chronic Diverticulosis and diverticulitis (1 source) Diverticulosis of colon; Translations: [Diverticulosis of colon (without mention of hemorrhage)] 04-03-2006 Hemorrhoids (1 source) Internal hemorrhoids; Translations: [Internal hemorrhoids without mention of complication] 04-03-2006 Episodic Results Test Name Value Interpretation Reference Range Facil ity Encounters Encounter Date Encounter Type Care Provider Facility Start: 05-14-2000 End: 05-14-2000 Patient encounter procedure Josejolie Hickey Davymarily [facility] Start: 05-14-2000 Results Only [address] [facility] Procedures Date Procedure Procedure Detail Performing Clinician Start: 05-07-2016 Colonoscopy Jose Hinton Start: 05-14-2000 CONVERTED SURGICAL PATHOLOGY Jose Ruperto Davymarily Plan of Treatment Date Care Activity Detail Author Start: 05-07-2026 Colonoscopy COLONOSCOPY [facility] Start: 11-22-2019 Influenza vaccination INFLUENZA (#1) [facility] Start: 11-19-2018 DIABETES SCREEN DIABETES SCREEN [facility] Start: 09-19-2008 ADVANCE DIRECTIVE DISCUSSION ADVANCE DIRECTIVE DISCUSSION [facility] Start: 09-19-2008 PNEUMOVAX AGE 65 AND OVER WITH 5YR LOOKBACK (#1) PNEUMOVAX AGE 65 AND OVER WITH 5YR LOOKBACK (#1) [facility] Start: 09-19-1993 SHINGRIX VACCINE (1 of 2) MURRAY GRIX VACCINE (1 of 2) [facility] Start: 09-19-1978 LIPID SCREEN LIPID SCREEN [facility] Start: 09-19-1962 Urine microalbumin profile DTAP,TDAP ,TD (1 - Tdap) [facility] Start: 09-19-1961 HEPATITIS C SCREENING HEPATITIS C [facility] Social History Date Type Detail Facility Tobacco smoking status NHIS Unknown if ev er smoked [facility] Sex Assigned At Not on file [facility] Advance Directives Documents on File Type Date Recorded 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 This clinical summary was aggregated from multiple sources. Caution should be exercised in using it in the provision of clinical care. This summary normalizes information from multiple sources, and as a consequence, information in this document may materially change the coding, format and clinical context of patient data. In addition, data may be omitted in some cases. CLINICAL DECISIONS SHOULD BE BASED ON THE PRIMARY CLINICAL RECORDS. [employer] [facility]. provides no warranty or guarantee of the accuracy or completeness of information in this document.
[2023-04-12 21:57] LABS: Anion Gap 5 (5-15); BUN 21 mg/dL (7-18); BUN/Creat Ratio 17.6 RATIO (10-20); Calcium,Total 9.5 mg/dL (8.5-10.1); Chloride 107 mmol/L (98-107); Creatinine, Serum 1.19 mg/dL (0.70-1.30); EST Glomerular Filtration Rate 63 mL/min (>60); Est Glom Filt Rate - Afr Amer 76 mL/min (>60); Estimated Creatinine Clearance 67.29 ml/min; Glucose 109 mg/dL (74-106); Potassium 4.3 mmol/L (3.5-5.1); Sodium Level 138 mmol/L (136-145); Troponin-I HS 6 pg/mL (3.0-78.0)
--- NOTE | 2023-04-12 23:30 | PCM.HP.STD ---
[facility] - General General Date of Admission: 04/13/23 Date of Service: 04/12/23 Chief Complaint: Dizziness and ataxic gait. HPI Narrative INGE WEEMS, is a 77 M with a past medical history of essential hypertension, obesity; with BMI of 32 present on admission, history of tobacco abuse, history of unilobular goiter, history of uvulectomy, history of umbilical hernia, history of COVID-19 and history of (suspected right) stapedectomy (~1985); with chronic tinnitus and impaired hearing who presents to [facility] ER complaining of dizziness and ataxic gait. Mr. Weems reports his symptoms began approximately 45 minutes prior to arrival after he had just got done eating dinner and when he was trying to get up when he suddenly moved his head quickly and then became very dizzy and had obvious difficulty ambulating. He then quickly recovered with a complete resolution of his symptoms by the time he came to the ER. He denies associated fever, chills, nausea, vomiting, headache, chest pain or SOB but he does admit to a history of mild vertigo though he has never been formally diagnosed with a BPPV. He has an appointment to be evaluated by an employee operations examiner on April 28, 2023. In the ER he was noted to have a negative head CT and no signs of acute neurovascular insult with an NIH score of 0 and he was then admitted to the CDU under observation status for ongoing care and a TIA workup for a stay that is expected to be less than 48 hours. [facility] Medical History HTN (hypertension) Pericardial calcification Uninodular goiter Vitamin D deficiency Home Medications aspirin 81 mg tablet,delayed release 81 mg PO DAILY 02/22/19 [History Last Taken Unknown] cholecalciferol (vitamin D3) 25 mcg (1,000 unit) capsule 1,000 unit PO DAILY 02/22/19 [History Last Taken Unknown] lisinopril 10 mg tablet 10 mg PO DAILY 02/22/19 [History Last Taken Unknown] omega-3 fatty acids 1,000 mg capsule (Fish Oil Concentrate) 1,000 mg PO DAILY 02/22/19 [History Last Taken Unknown] sod fluoride-Ca carbonate 3.75 mg (8.25)-145 mg (364) capsule (Florical) 1 cap PO DAILY 02/22/19 [History Last Taken Unknown] multivitamin (Daily Multi-Vitamin tablet) 1 tab PO DAILY 04/12/23 [History Last Taken Unknown] Allergy/AdvReac Type Severity Reaction Status Date / Time Sulfa (Sulfonamide Allergy Mild Rash Verified 03/19/21 15:23 Antibiotics) Family History Father Cancer Mother Hypertension Surgical History History of umbilical hernia History of uvulectomy s/p stapedectomy Social History Smoking Status: Former smoker alcohol intake: current alcohol intake frequency: holidays/special occasions only ROS ROS Narrative Review of systems: General: Patient denies fever or chills. HENT: Patient admits to chronically impaired hearing and tinnitus in the right ear. Denies headache, denies stuffy nose, denies sore throat. EYES: Denies changes in vision Resp: Denies cough, denies shortness of breath Cardiac: Denies chest pain or palpitations GI: Denies abdominal pain, denies changes in bowel, Denies nausea or vomiting. : Denies changes in urination Extremity: Denies swelling Musculoskeletal: Patient denies arthralgias and myalgias. Neuro: Positive transient dizziness with ataxic gait but no headache or lightheadedness. Heme: Denies any bleeding or bruising Skin: Denies rashes Psychiatric: No complaints voiced related to uncontrolled depression or anxiety. Endocrine: No polyuria, polyphagia or polydipsia. The rest of the 14 point ROS was negative except for positives in HPI. Vital Signs Vital Signs Vital Signs: 04/12/23 20:59 04/12/23 21:07 04/12/23 21:07 Temperature 97.8 F Temperature Source Temporal Pulse Rate 90 78 Respiratory Rate 20 H 15 Blood Pressure 159/73 H 159/73 H Blood Pressure Mean 101 101 Pulse Ox 94 95 95 Oxygen Delivery Method Room Air Room Air Room Air 04/12/23 21:37 04/12/23 22:07 04/12/23 22:30 Temperature Temperature Source Pulse Rate 80 72 70 Respiratory Rate 17 19 H 16 Blood Pressure 143/75 H 133/76 H 140/78 H Blood Pressure Mean 97 95 98 Pulse Ox 97 97 96 Oxygen Delivery Method Room Air Room Air Room Air 04/12/23 21:59 Temperature Temperature Source Pulse Rate 73 Respiratory Rate 16 Blood Pressure 140/78 H Blood Pressure Mean 98 Pulse Ox 95 Oxygen Delivery Method Room Air Weight Weight: 249 lb 1.957 oz Body Mass Index (BMI) 31.9 Physical Exam Const alert, oriented x3, no apparent distress, average body habitus and healthy appearing General Appearance: cooperative HEENT normocephalic, head/scalp atraumatic, hearing grossly normal bilaterally and moist oral mucous membranes Eyes PERRL and EOMs intact bilaterally Neck no lymphadenopathy and supple Resp normal respiratory effort, no retractions, no use of accessory muscles and clear to auscultation bilaterally Cardio regular rate and regular rhythm GI normal to inspection, nondistended, normoactive bowel sounds, soft to palpation, non-tender and non-distended Extremity normal to inspection and full ROM Skin Skin Narrative: Patient has no evidence of rash or wounds at this time. Neuro oriented x3, CN's II-XII intact bilaterally, moves all extremities and no focal motor deficits Sensorium / Orientation: awake, alert, oriented to person, oriented to place and oriented to time Speech: speech normal Motor Exam: strength 5/5 throughout Psych affect normal Results Medical Records Data Attestation: I reviewed the patient's medical records Lab / Micro Data Attestation: I reviewed the patient's lab results. 04/12/23 21:00 04/12/23 21:00 Labs: Laboratory Results - last 24 hr 04/12/23 21:00: WBC 7.3, RBC 4.33 L, Hgb 14.3, Hct 41.6, MCV 96.1 H, MCH 33.0 H, MCHC 34.4, RDW Std Deviation 48.0 H, RDW Coeff of Umm 13.6, Plt Count 144 L, MPV 11.4, Immature Gran % (Auto) 0.300, Neut % (Auto) 67.5, Lymph % (Auto) 20.9, [place] % (Auto) 9.0, Eos % (Auto) 1.6, Baso % (Auto) 0.7, Absolute Neuts (auto) 4.9, Absolute Lymphs (auto) 1.53, Nucleated RBC % 0, PT 13.0, INR 1.0, APTT 24.2, Sodium 138, Potassium 4.3, Chloride 107, Carbon Dioxide 26.0, Anion Gap 5, BUN 21 H, Creatinine 1.19, Estim Creat Clear Calc 67.29, Est GFR (MDRD) Af Amer 76, Est GFR (MDRD) Non-Af 63, BUN/Creatinine Ratio 17.6, Glucose 109 H, Calcium 9.5, Troponin I High Sens 6 04/12/23 21:02: POC Glucose 111 H Imagaing Radiology Impression Brain CT 04/12/23 21:07 IMPRESSION: Negative head/brain CT without intravenous contrast. Electronically Signed: Jake Bo MD at 22:27 EST , Chest X-Ray 04/12/23 21:07 IMPRESSION: No radiographic evidence of acute cardiopulmonary disease. Electronically Signed: Roni Mensah MD at 21:32 EST , Assessment & Plan Assessment/Plan (1) Gait disturbance: (2) Dizziness: (3) TIA (transient ischemic attack): PLAN: Plan 1. TIA; with transient dizziness and ataxic gait - Admit to CDU under observation status. Check MRI of the brain to assess for evidence of potential injury. Check carotid doppler to evaluate for stenosis. Check echocardiogram to evaluate LVEF. Finally, we will consult [facility] to see this patient in the AM on-rounds with help appreciated in advance. 2. Suspected BPPV in the setting of previous stapedectomy on the right ear (~1985) with chronic tinnitus and impaired hearing in the right ear likely causing #1 - Give Antivert as needed breakthrough symptoms. Also give Zofran as needed nausea. Patient has verbalized that he would like a prescription for these medications to be able to manage his condition at home if possible. He may also benefit from vestibular rehabilitation. 3. Essential hypertension - Hold scheduled antihypertensives until CVA definitively ruled out on MRI. 4. Obesity; with BMI of 32 present on admission - Weight loss will be recommended. Check TSH. 5. History of tobacco abuse - Noted. 6. History of unilobular goiter - Noted. 7. History of uvulectomy - Noted. 8. History of umbilical hernia - Stable. 9. History of COVID-19 - Noted. 10. DVT prophylaxis - Lovenox 40 mg sq daily. Total time: Approximately 45 minutes. Charges/Coding Visit Charges OBSV E&M: 25874 Observ/hosp same date L1
[2023-04-13] VITALS (9 sets, daily range): BP systolic 127–152; BP diastolic 67–85; PULSE 63–76; RESP 15–18; TEMP 36.3–36.7; O2SAT 95–99; BMI 32.1
--- NOTE | 2023-04-13 01:10 | CDU_ITS ---
Reason For Study: TIA Rt. Velocities/BP Lt. Velocities/BP Prox CCA 112.1/23.7 cm/sec. Prox CCA 135.7/27.9 cm/sec. Mid CCA 98.6/20 cm/sec. Mid CCA 115.6/26.1 cm/sec. Dist CCA 83.9/22.5 cm/sec. Dist CCA 86.4/1.8.8 cm/sec. Prox ICA 55.3/14.6 cm/sec. Prox ICA 70/17 cm/sec. Mid ICA 67.4/23.4 cm/sec. Mid ICA 91.9/33.4 cm/sec. Dist ICA 88.3/33.3 cm/sec. Dist ICA 80.9/27.9 cm/sec. Rt. ICA/CCA = 0.90. Lt. ICA/CCA = 0.79. Prox ECA 83.9/12.6 cm/sec. Prox ECA 84.6/13.3 cm/sec. Rt. Vert. 51.3/13.5 cm/sec. Lt. Vert. 63.6/16.6 cm/sec. Right Extracranial There is homogeneous, smooth atherosclerotic plaque noted in the right common carotid artery. There is homogeneous, smooth atherosclerotic plaque noted in the right internal carotid artery. There is heterogeneous, irregular atherosclerotic plaque noted in the right external carotid artery. Antegrade flow is noted in the right vertebral artery. Left Extracranial There is homogeneous, smooth atherosclerotic plaque noted in the left common carotid artery. There is homogeneous, smooth atherosclerotic plaque noted in the left internal carotid artery. There is homogeneous, smooth atherosclerotic plaque noted in the left external carotid artery. Antegrade flow is noted in the left vertebral artery. Procedure Carotid Duplex 52036. This is a Carotid Duplex examination using B-mode, color flow and specral Doppler. Exam performed portable in patient room. VL/Carotid Duplex Ultrasound Interpretation Summary Mild (<50%) stenosis right extracranial internal carotid. Mild (<50%) stenosis left extracranial internal carotid. Patent and antegrade vertebrals bilaterally. Ordering Physician: Saji Erazo Referring Physician: Isaias Nuñez Performed By: Rosa Rodriguez RVT
--- NOTE | 2023-04-13 01:10 | ECHOD_ITS ---
Reason For Study: TIA/CVA Procedure This was a 2D Doppler, Color Flow transthoracic echocardiogram. Exam performed portable in patient room. Left Ventricle Normal LV size. Left ventricular systolic function is normal. The estimated ejection fraction is 55 %. No regional wall motion abnormalities noted. Right Ventricle Normal RV size. Normal systolic function. Atria Normal left atrium. Normal right atrium. Bubble contrast study negative for right to left interatrial shunt. Mitral Valve Normal mitral valve. Tricuspid Valve Normal tricuspid valve. Mild tricuspid valve insufficiency. Aortic Valve Trisinus/trileaflet aortic valve. Mild focal aortic valve calcification. Pulmonic Valve Normal pulmonic valve. Great Vessels Normal aortic root. The pulmonary artery is normal size. Normal inferior vena cava. Pericardium/Pleural No pericardial effusion. Medication Performed a rapid injection of agitated mix of 9 cc saline and 1cc air to assess for atrial septal defect. MMode/2D Measurements & Calculations LVIDd: 4.5 cm IVSd: 1.0 cm Ao root diam: 3.5 cm LVIDs: 2.7 cm LVPWd: 1.1 cm RVDd: 3.4 cm FS: 38.3 % LAV(MOD-bp): 43.7 ml LVAd ap4: 24.9 cm2 LVAd ap2: 27.5 cm2 LAV(MOD-bp) Indexed: 18.5 ml/m2 LVLd ap4: 8.3 cm LVLd ap2: 8.3 cm LAV(MOD-sp2): 49.6 ml EDV(MOD-sp4): 64.3 ml EDV(MOD-sp2): 76.2 ml LAV(MOD-sp4): 38.1 ml EDV(sp4-el): 63.5 ml EDV(sp2-el): 77.3 ml LVAs ap4: 15.4 cm2 LVAs ap2: 13.5 cm2 LVLs ap4: 7.3 cm LVLs ap2: 7.3 cm ESV(MOD-sp4): 28.8 ml ESV(MOD-sp2): 22.2 ml ESV(sp4-el): 27.7 ml ESV(sp2-el): 21.2 ml EF(MOD-sp4): 55.2 % EF(MOD-sp2): 70.9 % EF(sp4-el): 56.4 % SV(MOD-sp4): 35.5 ml SV(MOD-sp2): 54.0 ml SV(sp4-el): 35.8 ml LA A4 area: 16.2 cm2 LA dimension(2D): 4.0 cm RA A4 area: 17.9 cm2 TAPSE: 2.1 cm Time Measurements MV dec time: 0.21 sec Doppler Measurements & Calculations MV E max jarad: 55.9 cm/sec Lat Peak E' Jarad: 8.3 cm/sec Med Peak E' Jarad: 9.2 cm/sec MV A max jarad: 48.9 cm/sec E/E' lat: 6.7 E/E' med: 6.1 MV E/A: 1.1 Ao V2 max: 148.5 cm/sec LV V1 max: 103.9 cm/sec MV dec slope: 265.9 cm/sec2 Ao max P.8 mmHg LV V1 max P.3 mmHg PA V2 max: 76.4 cm/sec TR max jarad: 216.7 cm/sec TR max P.8 mmHg ECHO/Echo Complete Interpretation Summary Normal LV size. Left ventricular systolic function is normal. The estimated ejection fraction is 55 %. Mild tricuspid valve insufficiency. Bubble contrast study negative for right to left interatrial shunt. Ordering Physician: Saji Erazo Referring Physician: Isaias Nuñez Performed By: Alysha Vazquez RDCS
--- OUTSIDE RECORDS SUMMARY | 2023-04-13 01:22 | XMS RPT_ITS | CCD ---
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 Problems Problem Classification Problem Date Documented Da [...] 05-14-2000 Patient encounter procedure Josejolie Hickey Davymarily [facility] Start: 05-14-2000 Results Only Jose Sheppard [facility] Procedures Date Procedure Procedure Detail Performing Clinician Start: 05-07-2016 Colonoscopy Jose Hinton Start: 05-14-2000 CONVERTED SURGICAL PATHOLOGY Jose Ruperto Davymarily Plan of Treatment Date Care Activity Detail Author Start: 05-07-2026 Colonoscopy COLONOSCOPY [facility] Start: 11-22-2019 Influenza vaccination INFLUENZA (#1) [facility] Start: 11-19-2018 DIABETES SCREEN DIABETES SCREEN [facility] Start: 09-19-2008 ADVANCE DIRECTIVE DISCUSSION ADVANCE DIRECTIVE DISCUSSION [facility] Start: 09-19-2008 PNEUMOVAX AGE 65 AND OVER WITH 5YR LOOKBACK (#1) PNEUMOVAX AGE 65 AND OVER WITH 5YR LOOKBACK (#1) [facility] Start: 09-19-1993 SHINGRIX VACCINE (1 of 2) MURRAY GRIX VACCINE (1 of 2) [facility] Start: 09-19-1978 LIPID SCREEN LIPID SCREEN [facility] Start: 09-19-1962 Urine microalbumin profile DTAP,TDAP ,TD (1 - Tdap) [facility] Start: 09-19-1961 HEPATITIS C SCREENING HEPATITIS C [facility] Social History Date Type Detail Facility Tobacco smoking status NHIS Unknown if ev er smoked 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 FOR RECORDS PERTAINING TO PATIENTS WHO ARE [...] BE BASED ON THE PRIMARY CLINICAL RECORDS. [employer] [facility]. provides no warranty or guarantee of the accuracy or completeness of information in this document.
[2023-04-13 01:31] LABS: Alcohol, Blood (Medical)-Serum < 3.0 mg/dL
[2023-04-13 01:42] LABS: Thyroid Stim Hormone (TSH) 1.61 uIU/mL (0.358-3.74)
[2023-04-13] MEDS: 0.9% Normal Saline (1000mL) 1,000 ML 70 ML IV (03:20)
[2023-04-13 07:00] LABS: Cholesterol 198 mg/dL (200); High Density Lipoprotein 72 mg/dL; Triglycerides 97 mg/dL; Very Low Density Lipoprotein 19 mg/dL (5-40)
[2023-04-13] MEDS: Multivitamins,Therapeutic Tablet 1 TABLET PO (09:50)
[2023-04-13] MEDS: Omega-3 Acid Ethyl Esters 1 GM Capsule PO (09:50)
[2023-04-13] MEDS: Cholecalciferol (VIT D3) 25 MCG TABLET (1,000 UNITS) PO (09:50)
[2023-04-13] MEDS: Aspirin E.C. 81 MG Tablet PO (09:50)
--- NOTE | 2023-04-13 12:48 | NEURO.CONS ---
Assessment and Plan: Neuro Assessment/Plan INGE FISHER is a 77 M with a past medical history of HTN with a hx of R stapedectomy with impaired hearing loss and chronic tinnitus, being evaluated by Teleneurology for sudden onset of dizziness (head fogginess) with imbalance. symptoms resolved in 45 min after getting into the hospital Diagnosis: TIA is on the differential diagnosis but also need to rule out ear related etiology like BPPV vs labyrinthitis vs vestibular neuritis Plan: 1. Please obtain brain MRI Wo contrast and MRA head Wo contrast, MRA neck with contrast to complete TIA/Stroke evaluation 2. Follow up on TTE read 3. Continue ASA, LDL was 107, recommend Atorvastatin 40 mg qhs if no contraindications. Check Hgb A1c 4. Target normal BP 5. Patient has a follow up appointment with his ENT on 04/28, recommend keeping that appt I personally attended this patient and spent a total time of 71 minutes evaluating this patient including clinical assessment, review of chart, medical history imaging, and determining appropriate treatment and workup. HPI Consult Data Date of Consult: 04/13/23 HPI Narrative HPI Narrative: INGE FISHER, is a 77 M with a hx of HTN with a hx of R stapedectomy with impaired hearing loss and chronic tinnitus with LKW on 04/12/23 around 20:00. He was eating dinner and watching TV when he suddenly looked at the TV and reported a sudden onset of dizziness (head fogginess) with imbalance. He came in to the ED for further evaluation. CTH was negative for bleed or large territory infarction. He reported that his symptoms resolved in 45 min after getting into the hospital. No associated SOB, chest pain, weakness, numbness, nausea or emesis. Neurovascular was consulted for further evaluation [facility] Medical History HTN (hypertension) Pericardial calcification Uninodular goiter Vitamin D deficiency Home Medications aspirin 81 mg tablet,delayed release 81 mg PO DAILY 02/22/19 [History Last Taken Unknown] cholecalciferol (vitamin D3) 25 mcg (1,000 unit) capsule 1,000 unit PO DAILY 02/22/19 [History Last Taken Unknown] lisinopril 10 mg tablet 10 mg PO DAILY 02/22/19 [History Last Taken Unknown] omega-3 fatty acids 1,000 mg capsule (Fish Oil Concentrate) 1,000 mg PO DAILY 02/22/19 [History Last Taken Unknown] sod fluoride-Ca carbonate 3.75 mg (8.25)-145 mg (364) capsule (Florical) 1 cap PO DAILY 02/22/19 [History Last Taken Unknown] multivitamin (Daily Multi-Vitamin tablet) 1 tab PO DAILY 04/12/23 [History Last Taken Unknown] Allergy/AdvReac Type Severity Reaction Status Date / Time Sulfa (Sulfonamide Allergy Mild Rash Verified 03/19/21 15:23 Antibiotics) Family History Father Cancer Mother Hypertension Surgical History History of umbilical hernia History of uvulectomy s/p stapedectomy Social History Smoking Status: Former smoker alcohol intake: current alcohol intake frequency: holidays/special occasions only Vital Signs Vital Signs Vital Signs: 04/12/23 20:59 04/12/23 21:07 04/12/23 21:07 Temperature 97.8 F Temperature Source Temporal Pulse Rate 90 78 Respiratory Rate 20 H 15 Respiratory Effort Respiratory Depth Respiratory Pattern Blood Pressure 159/73 H 159/73 H Blood Pressure Mean 101 101 Blood Pressure Source Blood Pressure Position Blood Pressure Location Pulse Ox 94 95 95 Oxygen Delivery Method Room Air Room Air Room Air 04/12/23 21:37 04/12/23 22:07 04/12/23 22:30 Temperature Temperature Source Pulse Rate 80 72 70 Respiratory Rate 17 19 H 16 Respiratory Effort Respiratory Depth Respiratory Pattern Blood Pressure 143/75 H 133/76 H 140/78 H Blood Pressure Mean 97 95 98 Blood Pressure Source Blood Pressure Position Blood Pressure Location Pulse Ox 97 97 96 Oxygen Delivery Method Room Air Room Air Room Air 04/12/23 21:59 04/12/23 23:00 04/12/23 23:30 Temperature Temperature Source Pulse Rate 73 68 65 Respiratory Rate 16 21 H 15 Respiratory Effort Respiratory Depth Respiratory Pattern Blood Pressure 140/78 H 143/74 H 156/77 H Blood Pressure Mean 98 97 103 Blood Pressure Source Blood Pressure Position Blood Pressure Location Pulse Ox 95 96 98 Oxygen Delivery Method Room Air Room Air Room Air 04/12/23 23:44 04/13/23 00:00 04/13/23 00:30 Temperature 97.8 F Temperature Source Pulse Rate 70 66 67 Respiratory Rate 17 15 15 Respiratory Effort Respiratory Depth Respiratory Pattern Blood Pressure 156/77 H 151/74 H 146/83 H Blood Pressure Mean 103 99 104 Blood Pressure Source Blood Pressure Position Blood Pressure Location Pulse Ox 97 96 96 Oxygen Delivery Method Room Air Room Air 04/13/23 01:00 04/13/23 03:00 04/13/23 03:16 Temperature 97.5 F L Temperature Source Oral Pulse Rate 63 66 Respiratory Rate 15 16 Respiratory Effort Normal Non-Labored Respiratory Depth Normal Respiratory Pattern Normal Blood Pressure 136/82 H 152/85 H Blood Pressure Mean 100 107 Blood Pressure Source Monitor Blood Pressure Position Semi-Fowlers Blood Pressure Location Right Arm Pulse Ox 96 99 Oxygen Delivery Method Room Air Room Air Room Air 04/13/23 03:11 04/13/23 06:05 04/13/23 09:38 Temperature 97.4 F L Temperature Source Oral Pulse Rate 63 Respiratory Rate 18 Respiratory Effort Normal Non-Labored Respiratory Depth Normal Respiratory Pattern Normal Blood Pressure 127/68 H Blood Pressure Mean 87 Blood Pressure Source Monitor Blood Pressure Position Semi-Fowlers Blood Pressure Location Right Arm Pulse Ox 99 98 Oxygen Delivery Method Room Air Room Air Room Air 04/13/23 09:43 04/13/23 07:21 Temperature 97.8 F Temperature Source Oral Pulse Rate 67 Respiratory Rate 16 Respiratory Effort Respiratory Depth Respiratory Pattern Blood Pressure 137/77 H Blood Pressure Mean 97 Blood Pressure Source Monitor Blood Pressure Position Semi-Fowlers Blood Pressure Location Right Arm Pulse Ox 95 98 Oxygen Delivery Method Room Air Room Air Weight Weight: 110.5 kg Body Mass Index (BMI) 32.1 NIHSS NIHSS Nursing Documentation NIHSS Nursing Documentation: NIH Stroke Scale Start: 04/12/23 21:05 Freq: Status: Discharge Protocol: Activity Type Activity Date Activity User E-sign Co-sign Detail Recorded Client Recorded Date Recorded By Document 04/12/23 21:01 ML Desktop 04/12/23 21:06 ML 04/12/23 21:01 NIH Stroke Scale [NIHSS] A score of 0 is normal or asymptomatic . Total possible score is 42. Inpatient: RN or Physician to activate a stroke alert for onset of new stroke symptoms or with NIHSS increase >/= 3 points. Following change in neurological status, NIHSS will be performed per physician order or more frequently PRN. -1a. Level of Consciousness Alert; keenly responsive -1b. LOC Questions Answers BOTH questions correctly. -1c. LOC Commands Performs both tasks correctly . -2. Best Gaze Normal -3. Visual No visual loss -4. Facial Palsy Normal symmetrical movements -5a. Left Arm No drift; arm holds 90 (or 45 ) degrees for full 10 seconds -5b. Right Arm No drift; arm holds 90 (or 45 ) degrees for full 10 seconds -6a. Left Leg No drift; leg holds 30-degree position for full 5 seconds -6b. Right Leg No drift; leg holds 30-degree position for full 5 seconds -7. Limb Ataxia Absent -8. Sensory Normal; no sensory loss -9. Best Language No aphasia; normal -10. Dysarthria Normal -11. Extinction and Inattention No abnormality -Total 0 Query Text:A score of 0 is normal or asymptomatic. Total possible score is 42 . ED: Notify Physician for NIHSS increase by > / = 3 points. Inpatient: RN or Physician to activate a stroke alert for NIHSS increase of > / = 3 points. NIHSS: Ischemic Stroke/TIA Start: 04/13/23 02:29 Text: For PCU Patients: NIH and Neuro Check every 4 Status: Active hours and PRN Freq: [id number] Protocol: Activity Type Activity Date Activity User E-sign Co-sign Detail Recorded Client Recorded Date Recorded By Document 04/13/23 09:43 MS Desktop 04/13/23 09:48 MS 04/13/23 09:43 -1a. Level of Consciousness Alert; keenly responsive -1b. LOC Questions Answers BOTH questions correctly. -1c. LOC Commands Performs both tasks correctly . -2. Best Gaze Normal -3. Visual No visual loss -4. Facial Palsy Normal symmetrical movements -5a. Left Arm No drift; arm holds 90 (or 45 ) degrees for full 10 seconds -5b. Right Arm No drift; arm holds 90 (or 45 ) degrees for full 10 seconds -6a. Left Leg No drift; leg holds 30-degree position for full 5 seconds -6b. Right Leg No drift; leg holds 30-degree position for full 5 seconds -7. Limb Ataxia Absent -8. Sensory Normal; no sensory loss -9. Best Language No aphasia; normal -10. Dysarthria Normal -11. Extinction and Inattention No abnormality -Total 0 Query Text:A score of 0 is normal or asymptomatic. Total possible score is 42 . ED: Notify Physician for NIHSS increase by > / = 3 points. Inpatient: RN or Physician to activate a stroke alert for NIHSS increase of > / = 3 points. Coma Scale [Assess] -Eye Opening Spontaneous -Motor Obeys Commands -Verbal Oriented [Total] -Coma Scale Total 15 NIHSS 1a. Level of Consciousness: Alert; keenly responsive 1b. LOC Questions: Answers BOTH questions correctly. 1c. LOC Commands: Performs both tasks correctly. 2. Best Gaze: Normal 3. Visual: No visual loss 4. Facial Palsy: Normal symmetrical movements 5a. Left Arm: No drift; arm holds 90 (or 45) degrees for full 10 seconds 5b. Right Arm: No drift; arm holds 90 (or 45) degrees for full 10 seconds 6a. Left Leg: No drift; leg holds 30-degree position for full 5 seconds 6b. Right Leg: No drift; leg holds 30-degree position for full 5 seconds 8. Sensory: Normal; no sensory loss 9. Best Language: No aphasia; normal 10. Dysarthria: Normal 11. Extinction and Inattention: No abnormality Total: 0 Physical Exam Const General Appearance: cooperative and comfortable Neck General: normal visual inspection Neuro Neuro Narrative: R sided hearing loss Sensory Exam: double simultaneous stimulation for sensation normal Motor Exam: strength 5/5 throughout Coordination: [id number] test normal Lab / Micro Data 04/12/23 21:00 04/12/23 21:00 Labs: Laboratory Results - last 24 hr 04/12/23 21:00: WBC 7.3, RBC 4.33 L, Hgb 14.3, Hct 41.6, MCV 96.1 H, MCH 33.0 H, MCHC 34.4, RDW Std Deviation 48.0 H, RDW Coeff of Umm 13.6, Plt Count 144 L, MPV 11.4, Immature Gran % (Auto) 0.300, Neut % (Auto) 67.5, Lymph % (Auto) 20.9, Meigs % (Auto) 9.0, Eos % (Auto) 1.6, Baso % (Auto) 0.7, Absolute Neuts (auto) 4.9, Absolute Lymphs (auto) 1.53, Nucleated RBC % 0, PT 13.0, INR 1.0, APTT 24.2, Sodium 138, Potassium 4.3, Chloride 107, Carbon Dioxide 26.0, Anion Gap 5, BUN 21 H, Creatinine 1.19, Estim Creat Clear Calc 67.29, Est GFR (MDRD) Af Amer 76, Est GFR (MDRD) Non-Af 63, BUN/Creatinine Ratio 17.6, Glucose 109 H, Calcium 9.5, Troponin I High Sens 6, TSH 1.61, Ethyl Alcohol < 3.0 04/12/23 21:02: POC Glucose 111 H 04/13/23 05:20: Triglycerides 97, Cholesterol 198, LDL Cholesterol 107, VLDL Cholesterol 19, HDL Cholesterol 72 Imagaing Radiology Impression Brain CT 04/12/23 21:07 IMPRESSION: Negative head/brain CT without intravenous contrast. Electronically Signed: Jake Bo MD at 22:27 EST Reading Location ID and State: [facility] - [place] / [place] Tel , Service support , ADDENDUM: 04/13/23 0836 IMPRESSION: undefined Chest X-Ray 04/12/23 21:07 IMPRESSION: No radiographic evidence of acute cardiopulmonary disease. Electronically Signed: Roni Mensah MD at 21:32 EST , Active Medications Active Medications Active Medications: Current Medications Generic Name Dose Route Start Last Admin Trade Name Freq PRN Reason Stop Dose Admin Acetaminophen 650 mg 04/13/23 02:29 Acetaminophen 325 Mg Tablet PO Q4H PRN PRN Pain 1-10 Or Fever>99.6 Aspirin 81 mg 04/13/23 08:00 04/13/23 09:50 Aspirin E.C. 81 Mg Tablet PO 81 mg DAILYCM [facility] Administration Atorvastatin Calcium 40 mg 04/13/23 22:00 Atorvastatin Calcium 40 Mg Tablet PO QHS [facility] Cholecalciferol 25 mcg 04/13/23 10:00 04/13/23 09:50 Cholecalciferol (Vit D3) 25 Mcg Tablet (1,000 Units) PO 25 mcg DAILY [facility] Administration Sodium Chloride 1,000 mls @ 70 mls/hr 04/13/23 02:29 04/13/23 03:20 IV 70 mls/hr .[id number] [facility] Administration Meclizine HCl 25 mg 04/13/23 06:44 Meclizine Hcl 25 Mg Tablet PO TID PRN PRN VERTIGO Multivitamins 1 tablet 04/13/23 08:00 04/13/23 09:50 Multivitamins,Therapeutic Tablet PO 1 tablet DAILYCM [facility] Administration Qcoci-4-Ixqm Ethyl Esters 1 gm 04/13/23 10:00 04/13/23 09:50 Ferriday-3 Acid Ethyl Esters 1 Gm Capsule PO 1 gm DAILY [facility] Administration Ondansetron HCl 4 mg 04/13/23 06:45 Ondansetron Odt 4 Mg Tablet PO Q8H PRN PRN NAUSEA Sodium Chloride 10 - 40 ml 04/13/23 02:37 0.9% Saline Lock 10 Ml Syringe IV UD PRN SALINE FLUSH
--- NOTE | 2023-04-13 14:50 | PN_ITS ---
Subjective Subjective Patient seen and examined. He had no active complaints. He was admitted with a complaint of dizziness and unsteady gait. These have resolved. He is being managed for TIA. CT of the brain showed no acute intracranial pathology. Objective Data Objective Data Vital Signs: Vital Signs Temp Pulse Resp BP Pulse Ox O2 Del Method 98.0 F 76 16 143/67 H 95 Room Air 04/13/23 13:32 04/13/23 13:32 04/13/23 13:32 04/13/23 13:32 04/13/23 13:32 04/13/23 13:32 Oxygen Delivery Method Room Air Weight: 243 lb 9.773 oz Body Mass Index (BMI) 32.1 Intake & Output: Intake and Output for Last 24 Hours 04/11/23 04/12/23 04/13/23 23:59 23:59 23:59 Intake Total 150 / 150 Balance 150 / 150 Lab / Micro Data 04/12/23 21:00 04/12/23 21:00 Labs: Laboratory Results - last 24 hr 04/12/23 21:00: WBC 7.3, RBC 4.33 L, Hgb 14.3, Hct 41.6, MCV 96.1 H, MCH 33.0 H, MCHC 34.4, RDW Std Deviation 48.0 H, RDW Coeff of Umm 13.6, Plt Count 144 L, MPV 11.4, Immature Gran % (Auto) 0.300, Neut % (Auto) 67.5, Lymph % (Auto) 20.9, Morrison % (Auto) 9.0, Eos % (Auto) 1.6, Baso % (Auto) 0.7, Absolute Neuts (auto) 4.9, Absolute Lymphs (auto) 1.53, Nucleated RBC % 0, PT 13.0, INR 1.0, APTT 24.2, Sodium 138, Potassium 4.3, Chloride 107, Carbon Dioxide 26.0, Anion Gap 5, BUN 21 H, Creatinine 1.19, Estim Creat Clear Calc 67.29, Est GFR (MDRD) Af Amer 76, Est GFR (MDRD) Non-Af 63, BUN/Creatinine Ratio 17.6, Glucose 109 H, Calcium 9.5, Troponin I High Sens 6, TSH 1.61, Ethyl Alcohol < 3.0 04/12/23 21:02: POC Glucose 111 H 04/13/23 05:20: Triglycerides 97, Cholesterol 198, LDL Cholesterol 107, VLDL Cholesterol 19, HDL Cholesterol 72 Radiography Diagnostic Testing: Radiology Impression Brain CT 04/12/23 21:07 IMPRESSION: Negative head/brain CT without intravenous contrast. Electronically Signed: Jake Bo MD at 22:27 EST , ADDENDUM: 04/13/23 0836 IMPRESSION: undefined Chest X-Ray 04/12/23 21:07 IMPRESSION: No radiographic evidence of acute cardiopulmonary disease. Electronically Signed: Roni Mensah MD at 21:32 EST , Physical Exam Const alert, oriented x3, no apparent distress and well nourished General Appearance: cooperative and well developed HEENT normocephalic, head/scalp atraumatic, moist oral mucous membranes and oropharynx normal Eyes PERRL and EOMs intact bilaterally Neck no lymphadenopathy, supple and no JVD Lymph Lymphatic: no lymphadenopathy noted and no lymphedema noted Resp normal respiratory effort, normal air movement and clear to auscultation b ilaterally Cardio regular rate, regular rhythm, S1 normal heart sound, S2 normal heart sound and no murmurs Peripheral Pulses: pulses 2+ throughout GI normal to inspection, nondistended, normoactive bowel sounds, soft to palpation, non-tender and non-distended Extremity normal capillary refill, no clubbing, cyanosis or edema and no calf tenderness General Extremity: no tenderness to palpation of joints or extremities Neuro CN's II-XII intact bilaterally, no focal motor deficits, no sensory deficits noted and deep tendon reflexes 2+ bilaterally Motor Exam: strength 5/5 throughout and general weakness Psych thought process normal, cooperative and affect normal Appearance: appropriate Assessment & Plan Assessment/Plan (1) TIA (transient ischemic attack): PLAN: Plan #TIA * admitted with transient dizziness and ataxic gait. * CT of the brain showed no evidence of any stroke. * Patient cannot have an MRI because of presence of evette from remote surgery many years ago. He is unable to give any further information about that. He cannot have an MRI of the head and neck either. * Will get a repeat CT of the brain after 24 hours as well as a CT of the head and neck * 2D echo also ordered. PT OT on board. Fall precautions. * Neurology consulted and recommended MRI of the brain. However, patient cannot have MRI as stated above. 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 * IV Zofran also. * Will benefit from vestibular rehabilitation * #Benign essential hypertension: Blood pressure meds on hold while stroke is being ruled out. #Obesity: BMI is 32. Complicates acute care, expected recovery and prognosis. #History of umbilical hernia: Stable #DVT prophylaxis: Lovenox * . Charges/Coding Visit Charges Inpatient E&M: 89501 Subs Hosp L2
--- NOTE | 2023-04-13 16:20 | CASEMGMT ---
Met with?patietn ? ?to complete TALBERT form. TALBERT form explained to? ? ?who voiced understanding and signed form. Original form placed in pt?s chart and copy provided to? Ju Allison, Discharge Planning Asst
--- NOTE | 2023-04-13 16:20 | CASEMGMT ---
Met with patient to complete TALBERT form. TALBERT form explained to?patient who voiced understanding and signed form. Original form placed in pt?s chart and copy provided to?patient. Ju Allison, Discharge Planning Asst
--- NOTE | 2023-04-13 16:43 | DCINST_ITS ---
Discharge Instructions Diet Discharge Diet: Low fat / Low cholesterol Activity Discharge Activity: Return to Normal Activity Weight Bearing Status: Weight bearing as tolerated Dressing / Incision Call your doctor if you observe: Fever of 101 or Higher, Shortness of breath, Dizziness, Swelling in the ankles and Chest pain Follow Up Care Test Results: Test results from this visit will be discussed in further detail at your follow- up appointment, if applicable. Discharge Plan Admission Admit Date/Time: 04/13/23 01:02 Primary Reason for Your Visit: dizziness, unsteady gait Attending Provider: Adela Salazar Primary Care Provider: Isaias Nuñez Consulting Providers: Dusty Aleman; Nithin Ribeiro; Noelle Kingston; Linda Brown; Ana Hess; Sherman Craft; Rabia Watts; Enmanuel Drew; Elias Blandon; Swati Meeks; Christophe Cervantes; Jeri Jerome; Perez Bates; Amalia Puentes; Toby Harris; Viktor Sauer; Lj Santos; Steffany Andrade; Dora Sauceda; Saji Erazo Instructions Patient Instructions: Dizziness Fainting Causes, BPPV Discharge Orders/Prescriptions Prescriptions: Continued aspirin 81 mg tablet,delayed release (DR/EC) 81 mg PO DAILY omega-3 fatty acids [Fish Oil Concentrate] 1,000 mg capsule 1,000 mg PO DAILY Florical 3.75 (8.25)-145 (364) mg capsule 1 cap PO DAILY lisinopril 10 mg tablet 10 mg PO DAILY cholecalciferol (vitamin D3) 1,000 unit capsule 1,000 unit PO DAILY multivitamin [Daily Multi-Vitamin] Tablet 1 tab PO DAILY Referrals / Follow Up: Isaias Nuñez MD [Primary Care Provider] - Within 1 Week Disposition Disposition (needs filled in before D/C Order can be placed): Home, Self Care
--- NOTE | 2023-04-13 16:44 | DS.PCM_ITS ---
Providers Date of Admission: 04/13/23 Date of Discharge: 04/13/23 Primary Care Physician: Dr. Isaias Nuñez MD Consultations 04/13/23 02:29 Consult: Tele-Neurology Routine Consulting Provider: [facility] Reason for Consult: Acute Ischemic Stroke/TIA EMERGENT Consult: No Notified: Yes Date Notified: 04/13/23 Time Notified: 02:47 Method of Notification: Answering Service Method of Consult:: Telemedicine Comments:: [facility] answering service notified Nursing Unit Staff Notify [facility] of Tele-Neurology Consult: Yes Reason For Visit: TIA Diagnosis Discharge Diagnosis (1) TIA (transient ischemic attack): Status: Acute Code(s): G45.9 - Transient cerebral ischemic attack, unspecified Plan #TIA * admitted with transient dizziness and ataxic gait. * CT of the brain showed no evidence of any stroke. * Patient cannot have an MRI because of presence of evette from remote surgery many years ago. He is unable to give any further information about that. He cannot have an MRI of the head and neck either. * Will get a repeat CT of the brain after 24 hours as well as a CT of the head and neck * 2D echo also ordered. PT OT on board. Fall precautions. * Neurology consulted and recommended MRI of the brain. However, patient cannot have MRI as stated above. 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 * IV Zofran also. * Will benefit from vestibular rehabilitation * #Benign essential hypertension: Blood pressure meds on hold while stroke is being ruled out. #Obesity: BMI is 32. Complicates acute care, expected recovery and prognosis. #History of umbilical hernia: Stable #DVT prophylaxis: Lovenox * . Medications at Discharge Home Medications aspirin 81 mg tablet,delayed release 81 mg PO DAILY 02/22/19 cholecalciferol (vitamin D3) 25 mcg (1,000 unit) capsule 1,000 unit PO DAILY 02/22/19 lisinopril 10 mg tablet 10 mg PO DAILY 02/22/19 omega-3 fatty acids 1,000 mg capsule (Fish Oil Concentrate) 1,000 mg PO DAILY 02/22/19 sod fluoride-Ca carbonate 3.75 mg (8.25)-145 mg (364) capsule (Florical) 1 cap PO DAILY 02/22/19 multivitamin (Daily Multi-Vitamin tablet) 1 tab PO DAILY 04/12/23 meclizine 25 mg tablet 25 mg PO BID PRN dizziness #30 tabs 04/13/23 Hospital Course Operations None Procedures 2-D Echocardiogram Summary of Care Provided Minutes Spent on Discharge: 55 Hospital Course: Patient is a 77-year-old male with a past medical history as outlined was admitted through the ED on 04/13/2023 with a complaint of dizziness and ataxic gait. His symptoms are started about 45 minutes prior to his arrival after he had just finished eating dinner. He tried to get up and moved his head and suddenly started feeling very dizzy and had difficulty ambulation. His symptoms had resolved by the time he came into the ED. He had no associated symptoms. He had never been diagnosed with BPPV. 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 He was supposed to see his ENT physician on April 25, 2023. NIH stroke scale was [address] of the brain was negative. He was admitted and managed for dizziness and ataxia to rule out a stroke. His symptoms were thought to be more in line with TIA and possible BPPV. Patient symptoms did not recur during this admission. Due to his history of stapedectomy with evette from 1985, radiology did not clear patient for MRI. [facility] was consulted and reviewed patient. They had recommended an MRI but after I spoke to the physician who saw him and informed him that patient could not have MRI. Radiology, the neurologist stated that the symptoms were more likely due to BPPV and less likely due to TIA. Neurology therefore did not recommend a repeat CT scan but recommended carotid ultrasound and 2D echo. This had already been ordered. Carotid ultrasound showed less than 50% stenosis of the right and left extracranial internal carotid and patent antegrade vertebrals bilaterally. 2D echo done showed EF of 55% with normal EF and no regional wall motion abnormalities noted. Bubble study was also negative. Patient did well with physical therapy and remained stable. He was discharged home on 04/13/2023. He was discharged on p.o. aspirin 81 mg daily. He is follow-up with his primary care doctor and ENT physician within 1 to 2 weeks. Patient was seen and examined prior to discharge. He felt well and had no complaints. He had an uneventful night. Review of systems otherwise negative. Labs and vitals reviewed. Home medication reviewed and reconciled. Physical Exam Const alert, oriented x3, no apparent distress, average body habitus, healthy appearing and well nourished General Appearance: cooperative, comfortable, well kempt and well developed HEENT normocephalic, head/scalp atraumatic, hearing grossly normal bilaterally, moist oral mucous membranes and oropharynx normal Mouth: oral and palatal mucosa normal Eyes PERRL and EOMs intact bilaterally Neck no lymphadenopathy, supple and no JVD Lymph Lymphatic: no lymphadenopathy noted and no lymphedema noted Resp normal respiratory effort, normal air movement, no retractions, no use of accessory muscles and clear to auscultation bilaterally Cardio regular rate, regular rhythm, S1 normal heart sound, S2 normal heart sound and no murmurs Peripheral Pulses: pulses 2+ throughout GI normal to inspection, nondistended, normoactive bowel sounds, soft to palpation, non-tender and non-distended Extremity normal to inspection, full ROM, normal capillary refill, no clubbing, cyanosis or edema and no calf tenderness General Extremity: no tenderness to palpation of joints or extremities Skin no rashes or lesions noted and no wounds Neuro oriented x3, CN's II-XII intact bilaterally, moves all extremities, no focal motor deficits, no sensory deficits noted and deep tendon reflexes 2+ bilaterally Sensorium / Orientation: awake, alert, oriented to person, oriented to place and oriented to time Speech: speech normal Motor Exam: strength 5/5 throughout and general weakness Psych thought process normal, cooperative and affect normal Appearance: appropriate Weight / BMI Weight Weight: 243 lb 9.773 oz Body Mass Index (BMI) 32.1 ABG / Lab / Microbiology Data 04/12/23 21:00 04/12/23 21:00 Laboratory: Laboratory Results - last 24 hr 04/12/23 21:00: WBC 7.3, RBC 4.33 L, Hgb 14.3, Hct 41.6, MCV 96.1 H, MCH 33.0 H, MCHC 34.4, RDW Std Deviation 48.0 H, RDW Coeff of Umm 13.6, Plt Count 144 L, MPV 11.4, Immature Gran % (Auto) 0.300, Neut % (Auto) 67.5, Lymph % (Auto) 20.9, M luke % (Auto) 9.0, Eos % (Auto) 1.6, Baso % (Auto) 0.7, Absolute Neuts (auto) 4.9, Absolute Lymphs (auto) 1.53, Nucleated RBC % 0, PT 13.0, INR 1.0, APTT 24.2, Sodium 138, Potassium 4.3, Chloride 107, Carbon Dioxide 26.0, Anion Gap 5, BUN 21 H, Creatinine 1.19, Estim Creat Clear Calc 67.29, Est GFR (MDRD) Af Amer 76, Est GFR (MDRD) Non-Af 63, BUN/Creatinine Ratio 17.6, Glucose 109 H, Calcium 9.5, Troponin I High Sens 6, TSH 1.61, Ethyl Alcohol < 3.0 04/12/23 21:02: POC Glucose 111 H 04/13/23 05:20: Triglycerides 97, Cholesterol 198, LDL Cholesterol 107, VLDL Cholesterol 19, HDL Cholesterol 72 Radiography Diagnostic Testing: Radiology Impression Brain CT 04/12/23 21:07 IMPRESSION: Negative head/brain CT without intravenous contrast. Electronically Signed: Jake Bo MD at 22:27 EST , ADDENDUM: 04/13/23 0836 IMPRESSION: undefined Chest X-Ray 04/12/23 21:07 IMPRESSION: No radiographic evidence of acute cardiopulmonary disease. Electronically Signed: Roni Mensah MD at 21:32 EST , Carotid Duplex 04/13/23 01:10 Interpretation Summary Mild (<50%) stenosis right extracranial internal carotid. Mild (<50%) stenosis left extracranial internal carotid. Patent and antegrade vertebrals bilaterally. Ordering Physician: Saji Erazo Referring Physician: Isaias Nuñez Performed By: Rosa Rodriguez RVT Echocardiogram 04/13/23 01:10 Interpretation Summary Normal LV size. Left ventricular systolic function is normal. The estimated ejection fraction is 55 %. Mild tricuspid valve insufficiency. Bubble contrast study negative for right to left interatrial shunt. Ordering Physician: Saji Erazo Referring Physician: Isaias Nuñez Performed By: Alysha Vazquez RDCS D/C Instructions Discharge Diet: Low fat / Low cholesterol Weight Bearing Status: Weight bearing as tolerated Call your doctor if you observe: Fever of 101 or Higher, Shortness of breath, Dizziness, Swelling in the ankles and Chest pain Meaningful Use Info Meaningful Use Diagnoses (Choose all that apply): None applicable Discharge Plan Admission Admit Date/Time: 04/13/23 01:02 Primary Reason for Your Visit: dizziness, unsteady gait Attending Provider: Adela Salazar Primary Care Provider: Isaias Nuñez Consulting Providers: Dusty Aleman; Nithin Ribeiro; Noelle Kingston; Linda Brown; Ana Hess; Sherman Craft; Rabia Watts; Enmanuel Drew; Elias Blandon; Swati Meeks; Christophe Cervantes; Jeri Jerome; Perez Bates; Amalia Puentes; Toby Harris; Viktor Sauer; Lj Santos; Steffany Andrade; Dora Suaceda; Saji Erazo Instructions Patient Instructions: Dizziness Fainting Causes, BPPV Discharge Orders/Prescriptions Prescriptions: New meclizine 25 mg tablet 25 mg PO BID PRN (Reason: dizziness) Qty: 30 1RF Continued aspirin 81 mg tablet,delayed release (DR/EC) 81 mg PO DAILY omega-3 fatty acids [Fish Oil Concentrate] 1,000 mg capsule 1,000 mg PO DAILY Florical 3.75 (8.25)-145 (364) mg capsule 1 cap PO DAILY lisinopril 10 mg tablet 10 mg PO DAILY cholecalciferol (vitamin D3) 1,000 unit capsule 1,000 unit PO DAILY multivitamin [Daily Multi-Vitamin] Tablet 1 tab PO DAILY Referrals / Follow Up: Isaias Nuñez MD [Primary Care Provider] - Within 1 Week Disposition Disposition (needs filled in before D/C Order can be placed): Home, Self Care Charges/Coding Visit Charges Inpatient E&M: 94580 Disch Hosp >30min
== END 2023-04-13 16:43 | disposition home or self-care (01) ==
LOC: ED 23:36 → PCU 04-13 01:20
PROVIDERS: Admitting Provider Internal Medicine; Emergency Provider Emergency Medicine; PCP Family Medicine; Visit Provider Student in an Organized Health Care Education/Training Program
DX: G45.9 Transient cerebral ischemic attack, unspecified (principal); I10 Essential (primary) hypertension; H91.90 Unspecified hearing loss, unspecified ear; Z79.82 Long term (current) use of aspirin; Z87.891 Personal history of nicotine dependence; H93.19 Tinnitus, unspecified ear; R26.81 Unsteadiness on feet; R26.0 Ataxic gait; Z86.16 Personal history of COVID-19; E55.9 Vitamin D deficiency, unspecified; Z79.899 Other long term (current) drug therapy; E66.9 Obesity, unspecified; Z68.32 Body mass index [BMI] 32.0-32.9, adult
CPT/HCPCS: 36415; 70450; 71045; 80048; 80061; 80320; 82962; 84443; 84484; 85025; 85610; 85730; 93005; 93306; 93880; 94762; 97165; 99221; 99284; J7030; A4216; G0378; G0480

== ENCOUNTER → 2023-08-26 | Outpatient (CLI) | payer MEDICARE, OTHER, SELFPAY ==
[2023-08-26 10:14] LABS: Absolute Lymphocyte Count 0.99 X10^3/uL (0.83-4.51); Absolute Neutrophil Count 2.5 X10^3/uL (2.0-7.7); Basophil# 0.02 X10^3/uL; Basophil% 0.5 % (0-1); Eosinophil# 0.17 X10^3/uL; Eosinophils% 4.1 % (0-5); Hematocrit 42.1 % (40-54); Hemoglobin 14.4 g/dL (13.0-16.5); Lymphocyte # 0.99 X10^3/ul (0.83-4.51); Lymphocyte % 24.1 % (19-41); Mean Corp Hgb Conc 34.2 g/dL (32-36); Mean Corpuscular Volume 96.6 fL (80-94); Mean Platelet Vol. 11.4 fl (6.2-12.0); Monocyte% 9.7 % (0-10); NRBC Flagged by Analyzer 0 % (0-5); Neutrophil # 2.52 X10^3/uL (2.7-7.7); Neutrophil % 61.4 % (47-70); Platelet Count 133 K/mm3 (150-450); RBC Distribution Width CV 13.3 % (11.6-14.6); RBC Distribution Width SD 46.7 fl (35.1-43.9); Red Blood Count 4.36 M/mm3 (4.6-6.2); White Blood Count 4.1 K/mm3 (4.4-11.0)
[2023-08-26 10:45] LABS: Vitamin D,25 Hydroxy 55.4 ng/mL
[2023-08-26 10:52] LABS: Cholesterol 169 mg/dL (200); High Density Lipoprotein 55 mg/dL; PSA,Total - Annual Screen 1.65 ng/mL (0.00-4.00); Triglycerides 132 mg/dL; Very Low Density Lipoprotein 26 mg/dL (5-40)
== END | disposition home or self-care (01) ==
LOC: MFPLAB 08:43
PROVIDERS: PCP Family Medicine; Visit Provider Family Medicine
DX: E55.9 Vitamin D deficiency, unspecified (principal); Z12.5 Encounter for screening for malignant neoplasm of prostate; I10 Essential (primary) hypertension
CPT/HCPCS: 36415; 80061; 82306; 84153; 85025; G0103

== ENCOUNTER 2023-09-26 05:24 | Emergency (ER) | payer MEDICARE, OTHER, SELFPAY ==
[2023-09-26 05:25] VITALS: BP 153/84; PULSE 78; RESP 20; TEMP 37.2; O2SAT 90; BMI 31.1
--- NOTE | 2023-09-26 05:40 | CT_ITS ---
STUDY: CT ABDOMEN AND PELVIS WITH CONTRAST REASON FOR EXAM: Male, 78 years old. Abdominal pain and bloating RADIATION DOSAGE (If Supplied By Facility): CTDIvol = ( 21.24 ) mGy, DLP = ( 1206.10 ) mGycm TECHNIQUE: IV 100mL Isovue-300 was administered. Transaxial images were obtained from the dome of the diaphragm to the symphysis pubis. Multiplanar coronal and sagittal images were reformatted. The protocol utilizes one or more of the following dose reduction techniques: automated exposure control, adjustment of mA and/or kV according to patient size,and/or use of iterative reconstruction technique. COMPARISON: No relevant prior comparison study available FINDINGS: The visualized lung bases are unremarkable. Normal heart size. Pericardial calcifications. Nonspecific few small low density lesions in the liver measuring about 5 mm difficult to characterize and likely representing small cysts. Small gallstones are seen Normal spleen. Normal pancreas. Normal bilateral adrenal glands. Small bilateral simple cysts measuring about 1.2 cm on the right side and smaller on the left side for which no further follow-up exam is needed. No evidence of hydronephrosis. Distended stomach. Normal in caliber small bowel loops. Diverticulosis without evidence of acute diverticulitis. The appendix is visualized and appears normal. Atherosclerotic calcifications of the abdominal aorta without evidence of aneurysm. No retroperitoneal adenopathy. Normal urinary bladder. Slightly prominent prostate. No pelvic mass. Normal abdominal wall. Degenerative changes of the spine. CT/Abdomen/Pelvis W IV Cont ONLY IMPRESSION: 1. Distended stomach. 2. Diverticulosis without evidence of acute diverticulitis. 3. Cholelithiasis. 4. Otherwise no focal acute inflammatory process. Electronically Signed: Cuauhtemoc Rea MD at 8:15 EDT ,
[2023-09-26 05:49] LABS: Absolute Lymphocyte Count 1.02 X10^3/uL (0.83-4.51); Absolute Neutrophil Count 3.4 X10^3/uL (2.0-7.7); Basophil# 0.03 X10^3/uL; Basophil% 0.6 % (0-1); Eosinophil# 0.15 X10^3/uL; Hematocrit 42.4 % (40-54); Hemoglobin 14.3 g/dL (13.0-16.5); Lymphocyte # 1.02 X10^3/ul (0.83-4.51); Lymphocyte % 20.3 % (19-41); Mean Corp Hgb Conc 33.7 g/dL (32-36); Mean Corpuscular Hgb 32.8 pg (27.0-32.0); Mean Corpuscular Volume 97.2 fL (80-94); Mean Platelet Vol. 11.2 fl (6.2-12.0); Monocyte# 0.45 X10^3/uL; Monocyte% 8.9 % (0-10); NRBC Flagged by Analyzer 0 % (0-5); Neutrophil # 3.36 X10^3/uL (2.7-7.7); Neutrophil % 66.8 % (47-70); Platelet Count 120 K/mm3 (150-450); RBC Distribution Width CV 13.8 % (11.6-14.6); RBC Distribution Width SD 49.1 fl (35.1-43.9); Red Blood Count 4.36 M/mm3 (4.6-6.2)
[2023-09-26] MEDS: 0.9% Normal Saline (1000mL) 1,000 ML 999 ML IV (05:49)
[2023-09-26] MEDS: Ondansetron 4 MG/2 ML Vial IV (05:49)
[2023-09-26] MEDS: Dicyclomine 20 MG/2 ML Vial IM (05:49)
--- NOTE | 2023-09-26 05:56 | EDS_ITS ---
HPI History of Present Illness Chief Complaint: Abd Pain Informant: patient and family Narrative Narrative: Patient is an 78-year-old male with history of hypertension. He states he went out to eat last night with family and then they went to a theater show. He states he did eat more food than he is typically accustomed to because they were out celebrating his birthday which was [birth year]. He states he went to bed feeling normal then awoke around 2 in the morning with abdominal pain and sensation of distention. He states there has been no vomiting or diarrhea or constipation he denies any dysuria or hematuria. He denies any fevers or chills. He states however that the persistent distention and discomfort sensation has not resolved over the last few hours and secondary to his he comes in for evaluation. He does note that his daughter and grandkids who were present at the dinner and ate essentially the same thing have not had any type of symptoms. [facility] Medical History Uninodular goiter HTN (hypertension) Pericardial calcification Vitamin D deficiency Home Medications ?Medication ?Instructions ?Recorded ?Last Taken ?Type aspirin 81 mg tablet,delayed 81 mg PO DAILY 02/22/19 Unknown History release cholecalciferol (vitamin D3) 25 1,000 unit PO DAILY 02/22/19 Unknown History mcg (1,000 unit) capsule lisinopril 10 mg tablet 10 mg PO DAILY 02/22/19 Unknown History omega-3 fatty acids 1,000 mg 1,000 mg PO DAILY 02/22/19 Unknown History capsule (Fish Oil Concentrate) sod fluoride-Ca carbonate 3.75 mg 1 cap PO DAILY 02/22/19 Unknown History (8.25)-145 mg (364) capsule (Florical) multivitamin (Daily Multi-Vitamin 1 tab PO DAILY 04/12/23 Unknown History tablet) meclizine 25 mg tablet 25 mg PO BID PRN dizziness #30 tabs 04/13/23 Unknown Rx ondansetron 4 mg disintegrating 4 mg PO TID PRN nausea and 09/26/23 Unknown Rx tablet vomiting #21 tabs oxycodone-acetaminophen 5 mg-325 1 tab PO Q6H PRN pain 3 days #12 09/26/23 Unknown Rx mg tablet (Percocet) tabs Allergy/AdvReac Type Severity Reaction Status Date / Time Sulfa (Sulfonamide Allergy Mild Rash Verified 09/26/23 05:31 Antibiotics) Family History Father Cancer Mother Hypertension Surgical History History of umbilical hernia History of uvulectomy s/p stapedectomy Social History Smoking Status: Former smoker alcohol intake: current alcohol intake frequency: holidays/special occasions only ROS ROS ED Constitutional Constitutional ED: Denies chills or fever(s) Eyes Eyes: Denies change in vision ENT ENT ED: Denies rhinorrhea or sore throat Cardiovascular Cardiovascular: Denies chest pain Respiratory/Chest Respiratory/Chest: Denies cough or dyspnea Gastrointestinal Gastrointestinal: Reports abdominal pain and nausea; Denies constipation, diarrhea or vomiting Genitourinary Genitourinary ED: Denies dysuria or hematuria Musculoskeletal Musculoskeletal: Denies back pain or myalgias Integumentary Denies rash Neurologic Neurologic: Denies headache(s) Hematologic/Lymphatic Hematologic/Lymphatic: Denies easy bleeding or easy bruising EXAM Physical Exam Const Vital Signs: 09/26/23 05:25 09/26/23 07:26 09/26/23 07:38 Temperature 99 F 97.3 F L Temperature Source Oral Oral Pulse Rate 78 87 Respiratory Rate 20 H 16 Blood Pressure 153/84 H 168/105 H 129/61 H Blood Pressure Mean 107 126 83 Pulse Ox 90 97 Oxygen Delivery Method Room Air Room Air Positive well nourished, well developed and obese General Appearance ED: well developed; Negative for pallor Nutritional Appearance: obese HEENT Reports moist mucous membranes HEENT Narrative: No tongue or lip swelling no oral lesions no airway edema or compromise No signs of infection noted in the posterior pharynx Eyes PERRL and EOMs intact bilaterally General Eye ED: Negative for scleral icterus Neck supple Neck Narrative: No nuchal rigidity or meningeal signs noted Resp normal respiratory effort and clear to auscultation bilaterally Cardio regular rate and regular rhythm Rate: other Other Details: Heart is regular rate and rhythm without murmurs rubs or gallop Radial and carotid pulses are equal and symmetric GI non-distended and no masses GI Narrative: Abdomen is soft and nondistended with normal active bowel sounds. Patient has pain with palpation mainly in the right upper quadrant with mild/slight vol untary guarding but negative Calvillo sign No pulsatile mass or fluid wave noted. No peritoneal signs Auscultation: normoactive bowel sounds Palpation: soft Back/Spine no CVA tenderness Extremity normal to inspection Neuro oriented x3, CN's II-XII intact bilaterally and no sensory deficits noted Sensorium / Orientation: alert Motor Exam: strength 5/5 throughout Psych mental status grossly normal Skin no rashes or lesions noted General Skin Exam: Negative for jaundice or pallor MDM MDM MDM Narrative Medical decision making narrative: Patient arrived to the ER slightly hypertensive but otherwise with stable vitals. With patient reporting he went out to dinner last night eating a large amount of foods he does not normally ingest and then woke with abdominal pain greatest in the right upper quadrant concern is for biliary colic versus acute cholecystitis versus pancreatitis. There is also potential for atypical kidney stone or UTI/pyelonephritis. There is potential for ileus versus obstruction but patient denies any previous abdominal surgeries placing him at risk for this. Patient blood work with urine sample and CT scan were obtained secondary to this differential. Blood work and urine sample revealed no clinically significant finding. CT scan was performed and it does show gallstones within the gallbladder but no surrounding findings to suggest acute cholecystitis or pancreatitis or obstruction. After receiving morphine patient had resolution of pain. Therefore at this time with blood work showing no elevation to his liver enzymes or leukocytosis or left shift and CT scan showing gallstones without secondary findings to suggest acute cholecystitis and the fact patient is pain- free I feel he can follow-up with the general surgeon on outpatient basis. History & Record Review Discussion w/independent historian: Patient and Family Lab Data Attestation: I reviewed the patient's lab results. Labs: Laboratory Results - last 24 hr 09/26/23 09/26/23 05:35 05:54 WBC 5.0 RBC 4.36 L Hgb 14.3 Hct 42.4 MCV 97.2 H MCH 32.8 H MCHC 33.7 RDW Std Deviation 49.1 H RDW Coeff of Umm 13.8 Plt Count 120 L MPV 11.2 Immature Gran % (Auto) 0.400 Neut % (Auto) 66.8 Lymph % (Auto) 20.3 [place] % (Auto) 8.9 Eos % (Auto) 3.0 Baso % (Auto) 0.6 Absolute Neuts (auto) 3.4 Absolute Lymphs (auto) 1.02 Nucleated RBC % 0 Sodium 141 Potassium 4.0 Chloride 109 H Carbon Dioxide 24.0 Anion Gap 8 BUN 20 H Creatinine 1.08 Estim Creat Clear Calc 70.11 Est GFR (MDRD) Af Amer 85 Est GFR (MDRD) Non-Af 70 BUN/Creatinine Ratio 18.5 Glucose 162 H Calcium 8.8 Total Bilirubin 0.30 Direct Bilirubin 0.09 AST 38 H ALT 43 Alkaline Phosphatase 68 Total Protein 7.0 Albumin 3.7 Globulin 3.3 Lipase 48 Urine Color Yellow Urine Clarity Clear Urine pH 7.0 Ur Specific Rice 1.015 Urine Protein Negative Urine Glucose (UA) 50 H Urine Ketones Negative Urine Occult Blood Negative Urine Nitrite Negative Urine Bilirubin Negative Urine Urobilinogen Normal Ur Leukocyte Esterase Negative Urine RBC 0 SEEN Urine WBC 0 SEEN Ur Squamous Epith Cells 0 SEEN Urine Bacteria 0 SEEN Urine Mucus 0 SEEN Discharge Plan Triage Chief Complaint: Abd Pain ED Provider: Jake Russell Dx/Rx/DC Orders Clinical Impression: Biliary colic, Cholelithiasis, Hypertension Instructions: ED Gallstones with Biliary Colic Prescriptions: New oxycodone-acetaminophen [Percocet] 5-325 mg tablet 1 tab PO Q6H PRN (Reason: pain) 3 Days Qty: 12 0RF ondansetron 4 mg tablet,disintegrating 4 mg PO TID PRN (Reason: nausea and vomiting) Qty: 21 0RF No Action aspirin 81 mg tablet,delayed release (DR/EC) 81 mg PO DAILY omega-3 fatty acids [Fish Oil Concentrate] 1,000 mg capsule 1,000 mg PO DAILY Florical 3.75 (8.25)-145 (364) mg capsule 1 cap PO DAILY lisinopril 10 mg tablet 10 mg PO DAILY cholecalciferol (vitamin D3) 1,000 unit capsule 1,000 unit PO DAILY multivitamin [Daily Multi-Vitamin] Tablet 1 tab PO DAILY meclizine 25 mg tablet 25 mg PO BID PRN (Reason: dizziness) Qty: 30 1RF Primary Care Provider: Isaias Nuñez Referrals: Isaias Nuñez MD [Primary Care Provider] - Ana Martel MD [Med Staff - Active Staff] - Activity Restrictions/Additional Instructions: Please eat smaller more frequent meals that are bland in nature to prevent reoccurrence of your gallbladder spasm. Follow-up with general surgery to discuss further testing such as ultrasound and/or HIDA scan if needed or potential surgical removal of your gallbladder. If your symptoms persist or worsen and do not improve with the prescribed medication or you have any further concerns please return to the ER for repeat evaluation. Print Language: French Disposition Disposition: Home, Self Care
[2023-09-26 06:03] LABS: Bacteria 0 SEEN /hpf (None Seen); Mucous, Urine 0 SEEN /hpf (<or=2+); Red Blood Cells-Urine 0 SEEN /hpf (0-5); Squamous Epithelial Cells - UA 0 SEEN /hpf (0-5); White Blood Cells 0 SEEN /hpf (0-5)
[2023-09-26 06:05] LABS: Color, Urine Yellow (Yellow); Glucose, Dipstick 50 mg/dl (Normal); Ketone-Dipstick Negative (Negative); Leukocyte Esterase-Dipstick Negative /ul (Negative); Nitrite-Dipstick Negative (Negative); Occult Blood-Urine Negative /ul (Negative); Protein-Dipstick Negative (Negative); Specific Gravity, Urine 1.015 (1.002-1.030); Urine Bilirubin Dipstick Negative (Negative); Urine Clarity Clear (Clear); Urine Urobilinogen Normal (Normal)
[2023-09-26 06:07] LABS: AST(SGOT) 38 U/L (15-37); Alanine Aminotransfer ALT/SGPT 43 U/L (16-61); Albumin, Serum 3.7 g/dL (3.2-5.0); Alkaline Phosphatase 68 U/L (45-117); Anion Gap 8 (5-15); BUN 20 mg/dL (7-18); BUN/Creat Ratio 18.5 RATIO (10-20); Bilirubin, Direct 0.09 mg/dL (0.00-0.30); Calcium,Total 8.8 mg/dL (8.5-10.1); Chloride 109 mmol/L (98-107); Creatinine, Serum 1.08 mg/dL (0.70-1.30); EST Glomerular Filtration Rate 70 mL/min (>60); Est Glom Filt Rate - Afr Amer 85 mL/min (>60); Estimated Creatinine Clearance 70.11 ml/min; Globulin 3.3 g/dL (2.2-4.2); Glucose 162 mg/dL (74-106); Lipase 48 U/L (13-75); Sodium Level 141 mmol/L (136-145)
[2023-09-26] MEDS: Morphine 4 MG/ML Syringe IV (06:44)
[2023-09-26 07:26] VITALS: BP 168/105; PULSE 87; RESP 16; TEMP 36.3; O2SAT 97
[2023-09-26 07:38] VITALS: BP 129/61
[2023-09-26 08:38] VITALS: BP 127/66; PULSE 68; RESP 15; TEMP 36.7; O2SAT 98
== END 2023-09-26 08:40 | disposition home or self-care (01) ==
PROVIDERS: Emergency Provider Emergency Medicine; PCP Family Medicine; Visit Provider Emergency Medicine
DX: K80.70 Calculus of gallbladder and bile duct without cholecystitis without obstruction (principal); I10 Essential (primary) hypertension; E55.9 Vitamin D deficiency, unspecified; E66.9 Obesity, unspecified; Z79.899 Other long term (current) drug therapy; Z79.82 Long term (current) use of aspirin; Z87.891 Personal history of nicotine dependence
CPT/HCPCS: 74177; 80048; 80076; 81001; 83690; 85025; 96361; 96372; 96374; 96375; 96376; 99283; J7030; Q9967; A4216; J2405

== ENCOUNTER 2023-09-28 10:44 | Emergency (ER) | payer MEDICARE, OTHER, SELFPAY ==
[2023-09-28 10:44] VITALS: BP 143/84; PULSE 74; RESP 15; TEMP 36.2; O2SAT 94; BMI 31.6
--- NOTE | 2023-09-28 10:54 | US_ITS ---
STUDY: ABDOMINAL ULTRASOUND - RIGHT UPPER QUADRANT REASON FOR VISIT: Male, 78 years old abd pain and hx of gallstones TECHNIQUE: Ultrasound evaluation of the right upper quadrant was performed with real-time and static cormier-scale imaging. TECHNICAL QUALITY: Adequate. COMPARISON: Comparison is made with prior CT scan of the abdomen and pelvis dated September 26, 2023. FINDINGS: Liver: The liver is enlarged and measures 17.6 cm. There is increased echogenicity consistent with fatty infiltration. The bile ducts are within normal limits. There is hepatic color flow. The direction of portal flow is hepatopetal. There is no demonstrated mass lesion. Gallbladder: Normal distended gallbladder. The gallbladder wall is mildly thickened and measures 3.3 mm. There is a negative sonographic Calvillo''s sign. There is no pericholecystic fluid. There are multiple echogenic structures within the gallbladder, consistent with multiple gallstones. Sludge is seen within the gallbladder lumen. Common Bile Duct (C.B.D.): The common bile duct measures 3.9 mm. Pancreas: Normal size of the head, body and tail of the pancreas. There is normal echogenicity of the pancreas. There is no demonstrated pancreatic mass or cyst. Right Kidney: Normal size of the right kidney. The right kidney measures 11.3 cm x 5.2 cm x 5.6 cm. Normal renal cortex. The right cortex measures 1.5 cm. There is a 1.4 cm x 1.4 cm x 1.2 cm right renal cyst. There is no right hydronephrosis. US/Gallbladder IMPRESSION: Mild hepatomegaly and fatty infiltration of the liver. Multiple gallstones and sludge within the gallbladder lumen. Right renal cyst. Electronically Signed: Abhijeet Whiting MD at 12:43 EDT ,
--- NOTE | 2023-09-28 10:55 | EDS_ITS ---
HPI HPI - GI History of Present Illness Chief Complaint: Abd Pain Informant: patient and family Abdominal Pain/Flank Pain Onset: Today Context: Gradual Onset Timing: Continuous Quality: - (Bloating) Location: Diffuse Current Severity: Mild Maximum Severity: Mild Worsened by: Nothing Relieved by: Nothing Nausea/Vomiting/Emesis GI Symptom: Negative for Nausea or Vomiting Diarrhea/Melena/Hematochezia GI Symptom: Negative for Diarrhea, Melena or Hematochezia Associated Symptoms Associated Symptoms: Negative for Dysuria, Frequency, Hematuria or Urgency Narrative Narrative: 78-year-old gentleman complaining of abdominal bloating. Denies nausea, vom iting or diarrhea. No constipation or dysuria. Was seen in the ER on Thursday diagnosed with gallstones. Has a follow-up appointment to see Dr. Dubose her bottom. After eating pizza and a piece of birthday cake ice had more bloating and some upper abdominal cramping today. Denies any fever. Prior similar symptoms: Yes Recent Illness/Hospitalization: No PFSH PFSH Medical History Uninodular goiter HTN (hypertension) Pericardial calcification Vitamin D deficiency Home Medications ?Medication ?Instructions ?Recorded ?Last Taken ?Type aspirin 81 mg tablet,delayed 81 mg PO DAILY 02/22/19 Unknown History release cholecalciferol (vitamin D3) 25 1,000 unit PO DAILY 02/22/19 Unknown History mcg (1,000 unit) capsule lisinopril 10 mg tablet 10 mg PO DAILY 02/22/19 Unknown History omega-3 fatty acids 1,000 mg 1,000 mg PO DAILY 02/22/19 Unknown History capsule (Fish Oil Concentrate) sod fluoride-Ca carbonate 3.75 mg 1 cap PO DAILY 02/22/19 Unknown History (8.25)-145 mg (364) capsule (Florical) multivitamin (Daily Multi-Vitamin 1 tab PO DAILY 04/12/23 Unknown History tablet) meclizine 25 mg tablet 25 mg PO BID PRN dizziness #30 tabs 04/13/23 Unknown Rx ondansetron 4 mg disintegrating 4 mg PO TID PRN nausea and 09/26/23 Unknown Rx tablet vomiting #21 tabs oxycodone-acetaminophen 5 mg-325 1 tab PO Q6H PRN pain 3 days #12 07/06/24 Unknown Rx mg tablet (Percocet) tabs Allergy/AdvReac Type Severity Reaction Status Date / Time Sulfa (Sulfonamide Allergy Mild Rash Verified 09/28/23 10:46 Antibiotics) Family History Father Cancer Mother Hypertension Surgical History s/p stapedectomy History of uvulectomy History of umbilical hernia Social History Smoking Status: Former smoker alcohol intake: current alcohol intake frequency: holidays/special occasions only ROS ROS ED ROS Narrative Abdominal bloating. Review of Systems ROS Unobtainable: Denies due to encephalopathy or other Constitutional Constitutional ED: Denies chills or fever(s) ENT ENT ED: Denies ear pain Cardiovascular Cardiovascular: Denies chest pain or palpitations Respiratory/Chest Respiratory/Chest: Denies cough or dyspnea Gastrointestinal Gastrointestinal: Reports abdominal pain; Denies diarrhea, melena, nausea or vomiting Genitourinary Genitourinary ED: Denies dysuria or hematuria Musculoskeletal Musculoskeletal: Denies arthralgias Integumentary Denies abscess Neurologic Neurologic: Denies headache(s) Psychiatric Psychiatric: Denies anxiety Endocrine Endocrinology: Denies polydipsia or polyphagia Hematologic/Lymphatic Hematologic/Lymphatic: Denies easy bleeding or easy bruising Allergic/Immunologic Allergic/Immunologic ED: Denies mouth swelling, tongue swelling or urticaria EXAM Physical Exam Narrative Exam Narrative: Well-appearing 78-year-old gentleman vital signs stable afebrile. HEENT exam unremarkable. Mytrex membranes. Lungs clear to auscultation bilaterally. Heart regular rhythm no murmur rate about 70. Chest wall and ribs nontender. Abdomen soft nondistended normal bowel sounds no peritoneal signs. Really no reproducible abdominal pain. No pulsatile mass. No hernias. No distention. No specific right upper or right lower quadrant tenderness no Calvillo sign or McBurney's point tenderness. Moving all 4 extremities. Nontender no edema. Back nontender. He is awake and alert. Const Vital Signs: 09/28/23 10:44 09/28/23 12:44 Temperature 97.1 F L Temperature Source Temporal Pulse Rate 74 89 Respiratory Rate 15 17 Blood Pressure 143/84 H 135/75 H Blood Pressure Mean 103 95 Pulse Ox 94 98 Oxygen Delivery Method Room Air Positive well nourished and well developed; Negative for cachectic, contractures or unkempt General Appearance ED: well developed and NAD; Negative for unkempt, cachectic, contractures or pallor Nutritional Appearance: Negative for cachectic HEENT Reports moist mucous membranes normocephalic and atraumatic; Negative for trauma or tenderness Eyes PERRL and EOMs intact bilaterally General Eye ED: Negative for pale conjunctiva or scleral icterus Neck no lymphadenopathy, supple and no JVD General: Negative for tenderness Carotids: Negative for other Lymph Lymphatic: Negative for other Resp normal respiratory effort and clear to auscultation bilaterally Effort and Inspection: Negative for respiratory distress Auscultation: Negative for rales, rhonchi, wheezes or diminished lung sounds Cardio regular rate, regular rhythm, S1 normal heart sound, S2 normal heart sound and no murmurs Rate: Negative for bradycardia or tachycardic Rhythm: Negative for abnormal rhythm GI non-tender, non-distended and no masses Inspection: Negative for abdominal distention Auscultation: normoactive bowel sounds Palpation: soft; Negative for tender, guarding, hernia or rebound tenderness present Back/Spine no CVA tenderness General Back: Negative for CVA tenderness Cervical Spine: Negative for cervical spine tenderness Thoracic Spine / Upper Back: Negative for thoracic spinal tenderness Lumbar Spine / Lower Back: Negative for lumbar spinal tenderness Extremity full ROM General Extremety ED: Negative for edema or tenderness General Extremity: Negative for edema Neuro CN's II-XII intact bilaterally and moves all extremities Sensorium / Orientation: alert, oriented to person, oriented to place and oriented to time; Negative for orientation impaired or confused Motor Exam: strength 5/5 throughout Psych mental status grossly normal and thought process normal Appearance: Negative for unkempt Attitude: No agitated Mood & Affect: Negative for depressed, anxious or tearful Skin no wounds General Skin Exam: Negative for jaundice or pallor Lesions: no lesions Rashes: no rashes Trauma: Negative for abrasion Nails: Negative for discolored MDM MDM MDM Narrative Medical decision making narrative: 78-year-old male diagnosed with gallstones on Thursday with a CAT scan. Having some abdominal bloating. He denies any significant pain. Benign exam. LABS PENDING. HE DID NOT WANT ANYTHING FOR PAIN NOR NAUSEA. Repeat exam patient is doing well at 1:05 PM. Abdomen is completely nontender. Went over his test results. To be discharged home to follow-up with the general surgeon Dr. Em rosen for him to discuss cholecystectomy. He does return if increasing pain fever or intractable vomiting. Currently has no signs of infection or biliary obstruction. History & Record Review Discussion w/independent historian: Patient and Family Additional record(s) reviewed:: Prior inpatient record, Prior outpatient record, Prior ED visit and Prior labs Lab Data Attestation: I reviewed the patient's lab results. Lab results narrative: CBC unremarkable. White count of 4. H&H 14 and 40. Platelets are slightly low at 115. Electrolytes show a gap of 8. Normal BUN and creatinine. Glucose 97. Liver enzymes normal. Lipase normal at 35. Labs: Laboratory Results - last 24 hr 09/28/23 10:55 WBC 4.6 RBC 4.24 L Hgb 14.0 Hct 40.4 MCV 95.3 H MCH 33.0 H MCHC 34.7 RDW Std Deviation 48.2 H RDW Coeff of Umm 13.8 Plt Count 115 L MPV 11.2 Immature Gran % (Auto) 0.400 Neut % (Auto) 66.7 Lymph % (Auto) 21.1 [place] % (Auto) 8.2 Eos % (Auto) 3.0 Baso % (Auto) 0.6 Absolute Neuts (auto) 3.1 Absolute Lymphs (auto) 0.98 Nucleated RBC % 0 Sodium 139 Potassium 4.2 Chloride 108 H Carbon Dioxide 23.0 Anion Gap 8 BUN 17 Creatinine 1.13 Estim Creat Clear Calc 67.47 Est GFR (MDRD) Af Amer 80 Est GFR (MDRD) Non-Af 66 BUN/Creatinine Ratio 15.0 Glucose 97 Calcium 9.5 Total Bilirubin 0.70 AST 39 H ALT 39 Alkaline Phosphatase 71 Total Protein 7.0 Albumin 3.8 Globulin 3.2 Albumin/Globulin Ratio 1.2 Lipase 35 Radiography Diagnostic Testing: Clinical Impression(s) from Imaging Studies Gallbladder Ultrasound 09/28/23 10:54 IMPRESSION: Mild hepatomegaly and fatty infiltration of the liver. Multiple gallstones and sludge within the gallbladder lumen. Right renal cyst. Electronically Signed: Abhijeet Whiting MD at 12:43 EDT , Discharge Plan Triage Chief Complaint: Abd Pain ED Provider: Flo Kennedy Dx/Rx/DC Orders Clinical Impression: Biliary colic, Cholelithiasis Instructions: ED Gallstones with Biliary Colic Prescriptions: No Action aspirin 81 mg tablet,delayed release (DR/EC) 81 mg PO DAILY omega-3 fatty acids [Fish Oil Concentrate] 1,000 mg capsule 1,000 mg PO DAILY Florical 3.75 (8.25)-145 (364) mg capsule 1 cap PO DAILY lisinopril 10 mg tablet 10 mg PO DAILY cholecalciferol (vitamin D3) 1,000 unit capsule 1,000 unit PO DAILY multivitamin [Daily Multi-Vitamin] Tablet 1 tab PO DAILY meclizine 25 mg tablet 25 mg PO BID PRN (Reason: dizziness) Qty: 30 1RF oxycodone-acetaminophen [Percocet] 5-325 mg tablet 1 tab PO Q6H PRN (Reason: pain) 3 Days Qty: 12 0RF ondansetron 4 mg tablet,disintegrating 4 mg PO TID PRN (Reason: nausea and vomiting) Qty: 21 0RF Primary Care Provider: Isaias Nuñez Referrals: Isaias Nuñez MD [Primary Care Provider] - Ana Martel MD [Med Staff - Active Staff] - As soon as possible Activity Restrictions/Additional Instructions: Your labs and ultrasound look good. Call and follow-up with Dr. Ana Madrid and the general surgeon soon as possible. Return if increasing pain, fever or intractable vomiting. Print Language: [place] Disposition Disposition: Home, Self Care
[2023-09-28 11:06] LABS: Absolute Lymphocyte Count 0.98 X10^3/uL (0.83-4.51); Absolute Neutrophil Count 3.1 X10^3/uL (2.0-7.7); Basophil# 0.03 X10^3/uL; Basophil% 0.6 % (0-1); Eosinophil# 0.14 X10^3/uL; Hematocrit 40.4 % (40-54); Lymphocyte # 0.98 X10^3/ul (0.83-4.51); Lymphocyte % 21.1 % (19-41); Mean Corp Hgb Conc 34.7 g/dL (32-36); Mean Corpuscular Volume 95.3 fL (80-94); Mean Platelet Vol. 11.2 fl (6.2-12.0); Monocyte# 0.38 X10^3/uL; Monocyte% 8.2 % (0-10); NRBC Flagged by Analyzer 0 % (0-5); Neutrophil # 3.09 X10^3/uL (2.7-7.7); Neutrophil % 66.7 % (47-70); Platelet Count 115 K/mm3 (150-450); RBC Distribution Width CV 13.8 % (11.6-14.6); RBC Distribution Width SD 48.2 fl (35.1-43.9); Red Blood Count 4.24 M/mm3 (4.6-6.2); White Blood Count 4.6 K/mm3 (4.4-11.0)
[2023-09-28 11:25] LABS: ALB/GLOB Ratio 1.2 RATIO (0.9-2.4); AST(SGOT) 39 U/L (15-37); Alanine Aminotransfer ALT/SGPT 39 U/L (16-61); Albumin, Serum 3.8 g/dL (3.2-5.0); Alkaline Phosphatase 71 U/L (45-117); Anion Gap 8 (5-15); BUN 17 mg/dL (7-18); Calcium,Total 9.5 mg/dL (8.5-10.1); Chloride 108 mmol/L (98-107); Creatinine, Serum 1.13 mg/dL (0.70-1.30); EST Glomerular Filtration Rate 66 mL/min (>60); Est Glom Filt Rate - Afr Amer 80 mL/min (>60); Estimated Creatinine Clearance 67.47 ml/min; Globulin 3.2 g/dL (2.2-4.2); Glucose 97 mg/dL (74-106); Lipase 35 U/L (13-75); Potassium 4.2 mmol/L (3.5-5.1); Sodium Level 139 mmol/L (136-145)
[2023-09-28 12:44] VITALS: BP 135/75; PULSE 89; RESP 17; O2SAT 98
[2023-09-28 13:31] VITALS: BP 155/74; PULSE 64; RESP 17; TEMP 36.3; O2SAT 98
== END 2023-09-28 13:32 | disposition home or self-care (01) ==
PROVIDERS: Emergency Provider Emergency Medicine; PCP Family Medicine; Visit Provider Emergency Medicine
DX: K80.70 Calculus of gallbladder and bile duct without cholecystitis without obstruction (principal); Z87.891 Personal history of nicotine dependence
CPT/HCPCS: 76705; 80053; 83690; 85025; 99283; A4216

== ENCOUNTER → 2024-04-04 | Outpatient (CLI) | payer MEDICARE, OTHER, SELFPAY ==
[2024-04-04 08:58] LABS: Red Blood Cells-Urine 0 SEEN /hpf (0-5); Squamous Epithelial Cells - UA 0 SEEN /hpf (0-5)
[2024-04-04 10:20] LABS: Color, Urine Yellow (Yellow); Glucose, Dipstick Normal (Normal); Ketone-Dipstick Negative (Negative); Leukocyte Esterase-Dipstick 25 /ul (Negative); Nitrite-Dipstick Negative (Negative); Occult Blood-Urine Negative /ul (Negative); Protein-Dipstick 15 mg/dl (Negative); Urine Bilirubin Dipstick Negative (Negative); Urine Clarity Clear (Clear); Urine Urobilinogen Normal (Normal)
[2024-04-04 10:25] LABS: Absolute Lymphocyte Count 0.96 X10^3/uL (0.83-4.51); Absolute Neutrophil Count 3.4 X10^3/uL (2.0-7.7); Basophil# 0.02 X10^3/uL; Basophil% 0.4 % (0-1); Eosinophil# 0.21 X10^3/uL; Eosinophils% 4.1 % (0-5); Hematocrit 39.7 % (40-54); Hemoglobin 13.6 g/dL (13.0-16.5); Lymphocyte # 0.96 X10^3/ul (0.83-4.51); Lymphocyte % 18.8 % (19-41); Mean Corp Hgb Conc 34.3 g/dL (32-36); Mean Corpuscular Hgb 32.9 pg (27.0-32.0); Mean Corpuscular Volume 95.9 fL (80-94); Mean Platelet Vol. 11.9 fl (6.2-12.0); Monocyte# 0.56 X10^3/uL; Monocyte% 10.9 % (0-10); NRBC Flagged by Analyzer 0 % (0-5); Neutrophil # 3.36 X10^3/uL (2.7-7.7); Neutrophil % 65.6 % (47-70); Platelet Count 145 K/mm3 (150-450); RBC Distribution Width SD 48.7 fl (35.1-43.9); Red Blood Count 4.14 M/mm3 (4.6-6.2); White Blood Count 5.1 K/mm3 (4.4-11.0)
[2024-04-04 10:40] LABS: White Blood Cells 0-5 SEEN /hpf (0-5)
[2024-04-04 10:41] LABS: Mucous, Urine 1+ /hpf (<or=2+)
[2024-04-04 10:42] LABS: Bacteria RARE /hpf (None Seen)
[2024-04-04 11:08] LABS: ALB/GLOB Ratio 1.1 RATIO (0.9-2.4); AST(SGOT) 36 U/L (15-37); Alanine Aminotransfer ALT/SGPT 43 U/L (16-61); Albumin, Serum 3.6 g/dL (3.2-5.0); Alkaline Phosphatase 73 U/L (45-117); Anion Gap 4 (5-15); BUN 29 mg/dL (7-18); BUN/Creat Ratio 23.2 RATIO (10-20); Calcium,Total 9.3 mg/dL (8.5-10.1); Chloride 109 mmol/L (98-107); Cholesterol 175 mg/dL (200); Creatinine, Serum 1.25 mg/dL (0.70-1.30); EST Glomerular Filtration Rate 59 mL/min (>60); Est Glom Filt Rate - Afr Amer 71 mL/min (>60); Globulin 3.4 g/dL (2.2-4.2); Glucose 111 mg/dL (74-106); High Density Lipoprotein 61 mg/dL; Magnesium 2.6 mg/dL (1.6-2.6); Potassium 4.5 mmol/L (3.5-5.1); Sodium Level 138 mmol/L (136-145); Triglycerides 86 mg/dL; Very Low Density Lipoprotein 17 mg/dL (5-40)
[2024-04-04 17:22] LABS: Hemoglobin A1c 5.2 % (3.8-5.6)
== END | disposition home or self-care (01) ==
LOC: MFPLAB 08:55
PROVIDERS: PCP Family Medicine; Referring Provider Family Medicine; Visit Provider Family Medicine
DX: I10 Essential (primary) hypertension (principal); R73.09 Other abnormal glucose; E55.9 Vitamin D deficiency, unspecified
CPT/HCPCS: 36415; 80053; 80061; 81001; 82306; 83036; 83735; 84443; 85025

== ENCOUNTER → 2024-05-03 | Outpatient (CLI) | payer MEDICARE, OTHER, SELFPAY ==
--- NOTE | 2024-05-03 10:27 | US_ITS ---
PROCEDURE: THYROID REASON FOR EXAM: 78-year-old male, follow-up thyroid nodule. TECHNIQUE: Thyroid ultrasound COMPARISON: None. FINDINGS: Right thyroid lobe measures 4.9 x 1.9 x 2.3 cm. Left thyroid lobe measures 4.1 x 1.8 x 2.3 cm. Isthmus thickness is0.3 cm. Thyroid Size: Normal Background Echotexture: Normal Thyroid Nodules: Right: One thyroid nodule identified -solid, isoechoic, wider than tall, smooth margins without echogenic foci. Measures 1.9 x 1.2 x 1.4 cm. TR3. US/Thyroid IMPRESSION: Single TI-RADS 3 right thyroid nodule, which meets criteria for 1 year follow-u p. Reading Location: [id number]
== END | disposition home or self-care (01) ==
LOC: US 10:27
PROVIDERS: PCP Family Medicine; Referring Provider Family Medicine; Visit Provider Family Medicine
DX: E04.1 Nontoxic single thyroid nodule (principal)
CPT/HCPCS: 76536

== ENCOUNTER → 2024-06-02 | Outpatient (CLI) | payer MEDICARE, OTHER, SELFPAY ==
--- NOTE | 2024-06-02 09:36 | CDU_ITS ---
Reason For Study Reason For Study: Carotid stenosis Rt. Velocities/BP Lt. Velocities/BP Prox CCA 108.4/18.8 cm/sec. Prox CCA 143/31.6 cm/sec. Mid CCA 97.4/21.2 cm/sec. Mid CCA 119.3/31.6 cm/sec. Dist CCA 75.3/16.3 cm/sec. Dist CCA 84.6/17 cm/sec. Prox ICA 41.9/15.4 cm/sec. Prox ICA 56.4/17.9 cm/sec. Mid ICA 68.3/23.9 cm/sec. Mid ICA 68.5/24.5 cm/sec. Dist ICA 105.8/36.6 cm/sec. Dist ICA 78.4/27.8 cm/sec. Rt. ICA/CCA = 1.09. Lt. ICA/CCA = 0.66. Prox ECA 97.4/17.6 cm/sec. Prox ECA 90/17 cm/sec. Rt. Vert. 48.5/11.6 cm/sec. Lt. Vert. 57.5/20.1 cm/sec. Right Extracranial There is homogeneous, smooth atherosclerotic plaque noted in the right common carotid artery. There is heterogeneous, irregular atherosclerotic plaque noted in the right internal carotid artery. There is intimal thickening but no significant atherosclerotic plaque noted in the right external carotid artery. Antegrade flow is noted in the right vertebral artery. Left Extracranial There is homogeneous, smooth atherosclerotic plaque noted in the left common carotid artery. There is homogeneous, smooth atherosclerotic plaque noted in the left internal carotid artery. There is intimal thickening but no significant atherosclerotic plaque noted in the left external carotid artery. Antegrade flow is noted in the left vertebral artery. Procedure Carotid Duplex [id number]. This is a Carotid Duplex examination using B-mode, color flow and specral Doppler. Exam performed in department. VL/Carotid Duplex Ultrasound Interpretation Summary Mild (<50%) stenosis right extracranial internal carotid. Mild (<50%) stenosis left extracranial internal carotid. Flow within the vertebral arteries is antegrade bilaterally. Ordering Physician: Isaias Nuñez Referring Physician: Isaias Nuñez Performed By: Rosa Rodriguez RVT
== END | disposition home or self-care (01) ==
PROVIDERS: PCP Family Medicine; Referring Provider Family Medicine; Visit Provider Family Medicine
DX: I65.23 Occlusion and stenosis of bilateral carotid arteries (principal)
CPT/HCPCS: 93880

== ENCOUNTER 2024-09-10 14:30 | Emergency (ER) | payer MEDICARE, OTHER, SELFPAY ==
[2024-09-10 14:33] VITALS: BP 153/76; PULSE 86; RESP 18; TEMP 36.7; O2SAT 96
--- NOTE | 2024-09-10 15:10 | ED.RN ---
FAMILY UPSET D/T PT HAVING TO WAIT IN THE WAITING ROOM
[2024-09-10 15:36] VITALS: BP 124/65; PULSE 82; RESP 16; O2SAT 98
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
[2024-09-10 16:00] VITALS: BP 120/80; PULSE 67; RESP 12; O2SAT 98
--- OUTSIDE RECORDS SUMMARY | 2024-09-10 16:13 | XMS RPT_ITS | CCD ---
Author Organization [facility] Care Team Providers Care Circus Hand Name Role Phone Isaias Walker Primary Care Provider Dr. Isaias Nuñez Primary Care Provider Dr. Shekhar Delong Attending Provider Dr. Luis Enrique Avalos Attending Provider [phone] MD Bart Romero Emergency Provider [phone] Saji Erazo Admit Provider Unavailabl e Dr. Saji Erazo Other Provider Unavailabl e MD Dusty Aleman Other Provider Unavailable Dr. Nithin Ribeiro Other Provider MD Noelle Kingston Other Provider Unavailable Dr. Linda Brown Other Provider Dr. Ana Hess Other Provider Dr. Sherman Craft Other Provider [phone] Rabia Watts Other Provider Dr. Enmanuel Drew Other Provider Dr. Elias Blandon Other Provider MD Swati Meeks Other Provider Dr. Christophe Cervantes Other Provider [phone] Jeri Jerome Other Provider Dr. Perez Bates Other Provider Dr. Amalia Puentes Other Provider Dr. Toby Harris Other Provider Dr. Viktor Sauer Other Provider Dr. Lj Santos Other Provider [phone] Steffany Andrade Other Provider Unavailable MD Dora Sauceda Other Provider Unavailable Dr. Adela Salazar Attending Provider [phone] Dr. Adela Salazar Other Provider Savannah HUBBARD, Dr. Isaias Marie Primary Care Provider Savannah HUBBARD, Dr. Isaias Marie Attending Provider [phone] Dr. Isaias Nuñez MD Referring Provider [phone] Isaias Nuñez Attending Unavailable Isaias Nuñez Referring Unavailable Isaias Nuñez Primary Care Unavailable Isaias Nuñez Attending Unavailable Isaias Nuñez Referring Unavailable Isaias Nuñez Primary Care Unavailable Ana Martel Attending Unavailable Isaias Nuñez Referring Unavailable Isaias Nuñez Primary Care Unavailable Ana Martel Attending Unavailable Isaias Nuñez Referring Unavailable Isaias Nuñez Primary Care Unavailable Isaias Nuñez Primary Care Unavailable Isaias Nuñez Attending Unavailable Jake Russell Attending Unavailable Isaias Nuñez Primary Care Unavailable Flo Kennedy Attending Unavailable Isaias Nuñez Primary Care Unavailable Isaias Nuñez Attending Unavailable Isaias Nuñez Referring Unavailable Isaias Nuñez Primary Care Unavailable Allergies Allergy Classification Reported Allergen(s) Allergy Type Date of Onset Reaction(s) Facility (8 sources) Sulfonamides (Antibiotic); Translations: [Sulfa (Sulfonamide Antibiotics)] Propensity to adverse reactions [phone] 6 Rash [facility] Medications Current Medications Medication Drug Class(es) Dates Sig (Normalized) Sig (Original) aspirin 81 mg delayed release oral tablet (6 sources) Platelet Aggregation Inhibitor, Nonsteroidal Anti-inflammatory Drug Start: 02-22-2019 take 1 tablet by mouth once daily Aspirin 81 mg tablet,delayed release (DR/EC) Active 81 mg PO DAILY February 22, 2019 1:00am lisinopril 10 mg oral tablet (6 sources) Angiotensin Converting Enzyme Inhibitor Start: 02-22-2019 take 1 tablet by mouth once daily Lisinopril 10 mg tablet Active 10 mg PO DAILY February 22, 2019 1:00am Multivitamin (Daily Multi-Vitamin) tablet (3 sources) Start: 04-12-2023 Multivitamin (Daily Multi-Vitamin) tablet Active 1 {tbl} PO DAILY April 12, 2023 1:00am Start: 04-12-2023 take 1 tablet by yaz once daily Multivitamin (Daily Multi-Vitamin) tablet Active 1 TABLET PO DAILY April 12, 2023 12:00am [place]-3 Fatty Acids (Fish Oil Concentrate) 1,000 mg capsule (6 sources) Start: 02-22-2019 take 1 capsule by mouth once daily [place]-3 Fatty Acids (Fish Oil Concentrate) 1,000 mg capsule Active 1000 MG PO DAILY February 22, 2019 9:14am Start: 02-22-2019 End: 10-09-2023 take 1 capsule by mouth once daily [place]-3 Fatty Acids (Fish Oil Concentrate) 1,000 mg capsule Discontinued 1000 mg PO DAILY February 22, 2019 1:00am October 09, 2023 9:44am Start: 02-22-2019 take 1 capsule by [facility] once daily [place]-3 Fatty Acids (Fish Oil Concentrate) 1,000 mg capsule Active 1000 MG PO DAILY February 22, 2019 12:00am Start: 02-22-2019 take 1 capsule by [facility] once daily [place]-3 Fatty Acids (Fish Oil Concentrate) 1,000 mg capsule Active 1000 MG PO DAILY February 22, 2019 1:00am omeprazole 40 mg delayed release oral capsule (1 source) Proton Pump Inhibitor Start: 10-09-2023 take 1 capsule by mouth once daily Omeprazole 40 mg capsule,delayed release(DR/EC) Active 40 mg PO daily October 09, 2023 12:00am swallow whole; do not crush, chew, dissolve, cut, break Completed/Discontinued Medications Medication Drug Class(es) Dates Sig (Normalized) Sig (Original) acetaminophen 325 mg / oxyCODONE hydrochloride 5 mg oral tablet (1 source) Opioid Agonist Start: 09-26-2023 End: 10-09-2023 Oxycodone-Acetaminop hen (Percocet) 5-325 mg tablet Discontinued 1 {tbl} PO EVERY 6 HOURS as needed for pain 02 22September 26, 2023 October 09, 2023 9:44am calcium carbonate 364 mg / sodium fluoride 8.3 mg oral capsule (6 sources) Start: 02-22-2019 End: 10-09-2023 take 3.75-145 mg by mouth once daily Sod Fluoride-Ca Carbonate (Florical) 3.75 (8.25)-145 (364) mg capsule Discontinued 1 NMA PO DAILY February 22, 2019 1:00am October 09, 2023 9:44am cholecalciferol 0.025 mg oral capsule (6 sources) Vitamin D Start: 02-22-2019 End: 10-09-2023 take 1 capsule by mouth once daily Cholecalciferol (Vitamin D3) 1,000 unit capsule Discontinued 1000 U PO DAILY February 22, 2019 1:00am October 09, 2023 9:45am meclizine hydrochloride 25 mg oral tablet (2 sources) Antiemetic Start: 04-13-2023 End: 10-09-2023 take 1 tablet by mouth twice daily as needed for dizziness Meclizine 25 mg tablet Discontinued 25 mg PO TWICE A DAY as needed for dizziness April 13, 2023 1:00am October 09, 2023 9:44am ondansetron 4 mg disintegrating oral tablet (1 source) Serotonin-3 Receptor Antagonist Start: 09-26-2023 End: 10-09-2023 take 1 tablet by mouth three times daily as needed for nausea and vomiting Ondansetron 4 mg tablet,disintegratin g Discontinued 4 mg PO THREE TIMES A DAY as needed for nausea and vomiting September 26, 2023 7:23am October 09, 2023 9:44am Problems Active Problems Problem Classification Problem Date Documented Da te Episodic/Chronic Biliary tract disease (3 sources) Gallstone; Translations: [Calculus of gallbladder without cholecystitis without obstruction] 10-09-2023 Episodic Conditions associated with dizziness or vertigo (5 sources) Dizziness; Translations: [Dizziness and giddiness] 04-12-2023 Episodic Diverticulosis and diverticulitis (1 source) Diverticulosis of colon; Translations: [Diverticulosis of colon (without mention of hemorrhage)] 04-03-2006 Essential hypertension (2 sources) Hypertensive disorder; Translations: [Essential (primary) hypertension] Onset: 04-26-2024 10-04-2023 Chronic Hemorrhoids (1 source) Internal hemorrhoids; Translations: [Internal hemorrhoids without mention of complication] 04-03-2006 Episodic Nutritional deficiencies (1 source) Vitamin D deficiency, unspecified; Translations: [Vitamin D deficiency, unspecified] Onset: 09-11-2023 Chronic Occlusion or stenosis of precerebral arteries (1 source) Occlusion and stenosis of bilateral carotid arteries; Translations: [Occlusion and stenosis of bilateral carotid arteries] Onset: 06-11-2024 Chronic Other gastrointestinal disorders (1 source) Abdominal bloating; Translations: [Abdominal distension (gaseous)] 10-28-2023 Episodic Comment on above: Resolved Other nervous system disorders (3 sources) Abnormal gait; Translations: [Unspecified abnormalities of gait and mobility] 04-12-2023 Episodic Other nervous system disorders (2 sources) Unspecified abnormalities of gait and mobility; Translations: [Abnormality of gait] 04-13-2023 Episodic Thyroid disorders (1 source) Nontoxic single thyroid nodule; Translations: [Nontoxic single thyroid nodule] Onset: 05-19-2024 Chronic Transient cerebral ischemia (5 sources) Transient cerebral ischemia; Translations: [Transient cerebral ischemic attack, unspecified] 04-13-2023 Chronic Unclassified (6 sources) Age more than 65 years; Translations: [Over 65 years old] 03-19-2021 Viral infection (6 sources) Disease caused by 2019-nCoV; Translations: [COVID-19] 03-19-2021 Episodic Past or Other Problems Problem Classification Problem Date Documented Da te Episodic/Chronic Abdominal pain (2 sources) Tenderness of epigastrium; Translations: [Epigastric abdominal tenderness] Onset: 10-12-2023 10-28-2023 Episodic Comment on above: Resolved Other gastrointestinal disorders (1 source) Abdominal distension (gaseous); Translations: [Abdominal distension (gaseous)] Onset: 10-15-2023 Episodic Unclassified (5 sources) s/p stapedectomy 10-16-2021 Results Test Name Value Interpretation Reference Range Facility Carotid Duplex Ultrasoundon 06-02-2024 Carotid Duplex Ultrasound [facility] [address] [place] [address] Carotid Duplex Ultrasound 06/02/24 0938 MR#: [id number] Acct: [id number] Name: INGE WEEMS Rep #: [id number] : 1945 78 From: Javon Lieberman MD Attending Dr: Dr. Isaias Nuñez MD Status[facility] Order[facility] Dr: Isaias Nuñez MD Date: 06/02/24 Location: [facility] Sex: M C Admitted: Reason For Study Reason For Study: Carotid stenosis Rt. Velocities/BP Lt. Velocities/BP Prox CCA 108.4/18.8 cm/sec. Prox CCA 143/31.6 cm/sec. Mid CCA 97.4/21.2 cm/sec. Mid CCA 119.3/31.6 cm/sec. Dist CCA 75.3/16.3 cm/sec. Dist CCA 84.6/17 cm/sec. Prox ICA 41.9/15.4 cm/sec. Prox ICA 56.4/17.9 cm/sec. Mid ICA 68.3/23.9 cm/sec. Mid ICA 68.5/24.5 cm/sec. Dist ICA 105.8/36.6 cm/sec. Dist ICA 78.4/27.8 cm/sec. Rt. ICA/CCA = 1.09. Lt. ICA/CCA = 0.66. Prox ECA 97.4/17.6 cm/sec. Prox ECA 90/17 cm/sec. Rt. Vert. 48.5/11.6 cm/sec. Lt. Vert. 57.5/20.1 cm/sec. Right Extracranial There is homogeneous, smooth atherosclerotic plaque noted in the right common carotid artery. There is heterogeneous, irregular atherosclerotic plaque noted in the right internal carotid artery. There is intimal thickening but no significant atherosclerotic plaque noted in the right external carotid artery. Antegrade flow is noted in the right vertebral artery. Left Extracranial There is homogeneous, smooth atherosclerotic plaque noted in the left common carotid artery. There is homogeneous, smooth atherosclerotic plaque noted in the left internal carotid artery. There is intimal thickening but no significant atherosclerotic plaque noted in the left external carotid artery. Antegrade flow is noted in the left vertebral artery. Procedure Carotid Duplex 84771. This is a Carotid Duplex examination using B-mode, color flow and specral Doppler. Exam performed in department. VL/Carotid Duplex Ultrasound Interpretation Summary Mild (<50%) stenosis right extracranial internal carotid. Mild (<50%) stenosis left extracranial internal carotid. Flow within the vertebral arteries is antegrade bilaterally. __ Ordering Physician: Isaias Nuñez Referring Physician: Isaias Nuñez Performed By: Rosa Rodriguez, T 06/02/241641 Date Javon Lieberman MD CC: Dr. Isaias Nuñez MD Date Dictated: 06/02/24937 Date Transcribed: 06/02/241641 Clinical Appeals Auditor: Signed Normal [facility] Duplex ultrasound of carotid artery reportOrdered By: Javon Lieberman on 06-02-2024 Study report [facility] [address] [place] [address] Carotid Duplex Ultrasound 06/02/24937 MR#: [id number] Acct: [id number] Name: INGE WEEMS Rep #:[id number] : 1945 78 From: Javon Lieberman MD Attending Dr: Dr. Isaias Nuñez MD Status: REG CLI Ordering Dr: Isaias Nuñez MD Date: 06/02/24 Location: [facility] Sex: M C Admitted: Reason For Study Reason For Study: Carotid stenosis Rt. Velocities/BP Lt. Velocities/BP Prox CCA 108.4/18.8 cm/sec. Prox CCA 143/31.6 cm/sec. Mid CCA 97.4/21.2 cm/sec. Mid CCA 119.3/31.6 cm/sec. Dist CCA 75.3/16.3 cm/sec. Dist CCA 84.6/17 cm/sec. Prox ICA 41.9/15.4 cm/sec. Prox ICA 56.4/17.9 cm/sec. Mid ICA 68.3/23.9 cm/sec. Mid ICA 68.5/24.5 cm/sec. Dist ICA 105.8/36.6 cm/sec. Dist ICA 78.4/27.8 cm/sec. Rt. ICA/CCA = 1.09. Lt. ICA/CCA = 0.66. Prox ECA 97.4/17.6 cm/sec. Prox ECA 90/17 cm/sec. Rt. Vert. 48.5/11.6 cm/sec. Lt. Vert. 57.5/20.1 cm/sec. Right Extracranial There is homogeneous, smooth atherosclerotic plaque noted in the right common carotid artery. There is heterogeneous, irregular atherosclerotic plaque noted in the right internal carotid artery. There is intimal thickening but no significant atherosclerotic plaque noted in the right external carotid artery. Antegrade flow is noted in the right vertebral artery. Left Extracranial There is homogeneous, smooth atherosclerotic plaque noted in the left common carotid artery. There is homogeneous, smooth atherosclerotic plaque noted in the left internal carotid artery. There is intimal thickening but no significant atherosclerotic plaque noted in the left external carotid artery. Antegrade flowis noted in the left vertebral artery. Procedure Carotid Duplex [id number]. This is a Carotid Duplex examination using B-mode, color flow and specral Doppler. Exam performed in department. VL/Carotid Duplex Ultrasound Interpretation Summary Mild (<50%) stenosis right extracranial internal carotid. Mild (<50%) stenosis left extracranial internal carotid. Flow within the vertebral arteries is antegrade bilaterally. __ Ordering Physician: Isaias Nuñez Referring Physician: Isaias Nuñez Performed By: Rosa Rodriguez RVT 06/02/241641 Date _ Javon Lieberman MD CC: Dr. Isaias Nuñez MD ~ Date Dictated: 06/02/24 0938 Date Transcribed: 06/02/24 164 Clinical Appeals Auditor: Signed [facility] Other Thyroidon 05-03-2024 Thyroid [facility] Imaging Services [address] [place], [place] [address] Thyroid MR#: [id number] Acct: [id number] Name: INGE WEEMS Rep #: [id number] : 1945 M 78 From: Fe Montague nd, MD PCP: Dr. Isaias Nuñez MD Status: DEP CLI Study: Thyroid Date of Exam: 05/03/24 Exam# [id number] Ordering Dr: Isaias Nuñez MD ADDENDUM by Dr. Fe Corado MD on 06/22/24 at 1326 Comparison images obtained and reviewed. No change to follow-up recommendations. Reading Location: [facility] 06/22/24 1327 Date cc: Dr. Isaias Nuñez MD * Signed PROCEDURE: THYROID REASON FOR EXAM: 78-year-old male, follow-up thyroid nodule. TECHNIQUE: Thyroid ultrasound COMPARISON: None. FINDINGS: Right thyroid lobe measures 4.9 x 1.9 x 2.3 cm. Left thyroid lobe measures 4.1 x 1.8 x 2.3 cm. Isthmus thickness is0.3 cm. Thyroid Size: Normal Background Echotexture: Normal Thyroid Nodules: Right: One thyroid nodule identified -solid, isoechoic, wider than tall, smooth margins without echogenic foci. Measures 1.9 x 1.2 x 1.4 cm. TR3. US/Thyroid IMPRESSION: Single TI-RADS 3 right thyroid nodule, which meets criteria for 1 year follow-up. Reading Location: [facility] CC: Dr. Isaias Nuñez MD Clinical Appeals Auditor: Signed Normal [facility] [id number] DOrdered By: Ravi Nuñez on 04-04-2024 Vitamin D 25-Hydroxy 43.0 ng/mL [facility] Comment on above: Vitamin D 25(OH) Sta tus Range Deficiency <20 ng/mL (50nmol/L) Insufficiency 20 - 30 ng/mL (50 - 75 nmol/L) Sufficiency 30 - 100 ng/mL (75 - 250 nmol/L) Toxicity >100 ng/mL (>250 nmol/L) Absolute neutrophil countOrd ered By: Isaias Nuñez on 04-04-2024 Neutrophils (Bld) [#/Vol] 3.4 10*3/uL 2.0-7.7 [facility] Albumin to globulin ratioOrd ered By: Isaisa Nuñez on 04-04-2024 Albumin/Globulin [Mass ratio] 1.1 {ratio} 0.9-2.4 [facility] Bacteria LM.HPF (Urine sed) [#/Area]Ordered By: Isaias Nuñez on 04-04-2024 Urine Bacteria RARE /hpf None Seen [facility] Basophil percentageOrdered B y: Isaias Nuñez on 04-04-2024 Basophils/100 WBC (Bld) 0.4 % 0-1 [facility] Bilirubin Test strip Ql (U)O rdered By: Isaias Nuñez on 04-04-2024 Bilirubin Ql (U) Negative Negative [facility] Bilirubin, totalOrdered By: Isaias Nuñez on 04-04-2024 Bilirubin [Mass/Vol] 0.50 mg/dL 0.20-1.00 [facility] Comment on above: For patients on eltr ombopag therapy, use of Dimension [place] TBIL is not recommended. Blood urea nitrogen (BUN)/cr eatinine ratioOrdered By: Isaias Nuñez on 04-04-2024 Urea nitrogen/Creatinine [Mass ratio] 23.2 mg/mg High 10-20 [facility] CBC W/Diff, Automatedon 03-23 Absolute Lymph 0.96 X10 3/uL Normal 0.83-4.51 [facility] Comment on above: Order Comment: Order Date: 10/13/23 Order Info: [id number] - CBCD Performed By: #### L 506.1000, L501.5200, L501.9520, L500.4050, L500.4100, L100.0100 #### [facility] [address] [place], [address] Absolute Neut 3.4 X10 3/uL Normal 2.0-7.7 [facility] Comment on above: Order Comment: Order Date: 10/13/23 Order Info: 0184-1 - CBCD Performed By: #### L 506.1000, L501.5200, L501.9520, L500.4050, L500.4100, L100.0100 #### [facility] [address] [place], [address] Basophils/100 WBC (Bld) 0.4 % Normal 0-1 [facility] Comment on above: Order Comment: Order Date: 10/13/23 Order Info: 0184-1 - CBCD Performed By: #### L 506.1000, L501.5200, L501.9520, L500.4050, L500.4100, L100.0100 #### [facility] [address] [place], [address] Eosinophils/100 WBC (Bld) 4.1 % Normal 0-5 [facility] Comment on above: Order Comment: Order Date: 10/13/23 Order Info: 0184-1 - CBCD Performed By: #### L 506.1000, L501.5200, L501.9520, L500.4050, L500.4100, L100.0100 #### [facility] [address] [place], [address] Erythrocyte distribution width (RBC) [Ratio] 14.0 % Normal 11.6-14.6 [facility] Comment on above: Order Comment: Order Date: 10/13/23 Order Info: 0184-1 - CBCD Performed By: #### L 506.1000, L501.5200, L501.9520, L500.4050, L500.4100, L100.0100 #### [facility] [address] [place], [address] Hematocrit (Bld) [Volume fraction] 39.7 % Low 40-54 [facility] Comment on above: Order Comment: Order Date: 10/13/23 Order Info: 0184-1 - CBCD Performed By: #### L 506.1000, L501.5200, L501.9520, L500.4050, L500.4100, L100.0100 #### [facility] [address] [place], [address] Hemoglobin (Bld) [Mass/Vol] 13.6 g/dL Normal 13.0-16.5 [facility] Comment on above: Order Comment: Order Date: 10/13/23 Order Info: 0184-1 - CBCD Performed By: #### L 506.1000, L501.5200, L501.9520, L500.4050, L500.4100, L100.0100 #### [facility] [address] [place], [address] IG% 0.200 Normal 0.0-0.9 [facility] Comment on above: Order Comment: Order Date: 10/13/23 Order Info: 0184-1 - CBCD Result Comment: IG% - Immature Granulocytes (promyelocytes, myelocytes and metamyelocytes) > 1% indicates that a LEFT SHIFT is Present. Performed By: #### L 506.1000, L501.5200, L501.9520, L500.4050, L500.4100, L100.0100 #### [facility] [address] [place], [address] Lymphocytes/100 WBC (Bld) 18.8 % Low 19-41 [facility] Comment on above: Order Comment: Order Date: 10/13/23 Order Info: 0184-1 - CBCD Performed By: #### L 506.1000, L501.5200, L501.9520, L500.4050, L500.4100, L100.0100 #### [facility] [address] [place], [address] MCH (RBC) [Entitic mass] 32.9 pg High 27.0-32.0 [facility] Comment on above: Order Comment: Order Date: 10/13/23 Order Info: 0184-1 - CBCD Performed By: #### L 506.1000, L501.5200, L501.9520, L500.4050, L500.4100, L100.0100 #### [facility] [address] [place], [address] MCHC (RBC) [Mass/Vol] 34.3 g/dL Normal 32-36 [facility] Comment on above: Order Comment: Order Date: 10/13/23 Order Info: 0184-1 - CBCD Performed By: #### L 506.1000, L501.5200, L501.9520, L500.4050, L500.4100, L100.0100 #### [facility] [address] [place], [address] MCV (RBC) [Entitic vol] 95.9 fL High 80-94 [facility] Comment on above: Order Comment: Order Date: 10/13/23 Order Info: 0184- - CBCD Performed By: #### L 506.1000, L501.5200, L501.9520, L500.4050, L500.4100, L100.0100 #### [facility] [address] [place], [address] Monocytes/100 WBC (Bld) 10.9 % High 0-10 [facility] Comment on above: Order Comment: Order Date: 10/13/23 Order Info: 0184- - CBCD Performed By: #### L 506.1000, L501.5200, L501.9520, L500.4050, L500.4100, L100.0100 #### [facility] [address] [place], [address] Neutrophils/100 WBC (Bld) 65.6 % Normal 47-70 [facility] Comment on above: Order Comment: Order Date: 10/13/23 Order Info: 0184-1 - CBCD Performed By: #### L 506.1000, L501.5200, L501.9520, L500.4050, L500.4100, L100.0100 #### [facility] [address] [place], [address] Nucleated RBC (Bld) [#/Vol] 0 10*3/uL Normal 0-5 [facility] Comment on above: Order Comment: Order Date: 10/13/23 Order Info: 0184-1 - CBCD Performed By: #### L 506.1000, L501.5200, L501.9520, L500.4050, L500.4100, L100.0100 #### [facility] [address] [place], [address] Platelet mean volume (Bld) [Entitic vol] 11.9 fL Normal 6.2-12.0 [facility] Comment on above: Order Comment: Order Date: 10/13/23 Order Info: 0184-1 - CBCD Performed By: #### L 506.1000, L501.5200, L501.9520, L500.4050, L500.4100, L100.0100 #### [facility] [address] [place], [address] Platelets (Bld) [#/Vol] 145 10*3/uL Low 150-450 [facility] Comment on above: Order Comment: Order Date: 10/13/23 Order Info: 0184-1 - CBCD Performed By: #### L 506.1000, L501.5200, L501.9520, L500.4050, L500.4100, L100.0100 #### [facility] [address] [place], [address] RBC (Bld) [#/Vol] 4.14 10*6/uL Low 4.6-6.2 [facility] Comment on above: Order Comment: Order Date: 10/13/23 Order Info: 0184-1 - CBCD Performed By: #### L 506.1000, L501.5200, L501.9520, L500.4050, L500.4100, L100.0100 #### [facility] [address] [place], [address] RDW SD 48.7 fl High 35.1-43.9 [facility] Comment on above: Order Comment: Order Date: 10/13/23 Order Info: 0184- - CBCD Performed By: #### L 506.1000, L501.5200, L501.9520, L500.4050, L500.4100, L100.0100 #### [facility] [address] [place], [address] WBC (Bld) [#/Vol] 5.1 10*3/uL Normal 4.4-11.0 [facility] Comment on above: Order Comment: Order Date: 10/13/23 Order Info: 0184-1 - CBCD Performed By: #### L 506.1000, L501.5200, L501.9520, L500.4050, L500.4100, L100.0100 #### [facility] [address] [place], [address] Carbon dioxide measurementOr dered By: Isaias Nuñez on 04-04-2024 CO2 [Moles/Vol] 25.0 mmol/L 21.0-32.0 [facility] Chloride measurementOrdered By: Isaias Nuñez on 04-04-2024 Chloride [Moles/Vol] 109 mmol/L High 98-107 [facility] Comprehensive Metabolic Prof ilon 04-04-2024 Albumin [Mass/Vol] 3.6 g/dL Normal 3.2-5.0 [facility] Comment on above: Order Comment: Order Date: 10/13/23 Order Info: [id number] - CMP Order Info: [id number] - LIPID Order Info: [id number] - MG Order Info: 3 - TSH Performed By: #### L 506.1000, L501.5200, L501.9520, L500.4050, L500.4100, L100.0100 #### [facility] [address] [place], [address] Albumin/Globulin [Mass ratio] 1.1 {ratio} Normal 0.9-2.4 [facility] Comment on above: Order Comment: Order Date: 10/13/23 Order Info: 785- - CMP Order Info: - LIPID Order Info: [id number] - MG Order Info: 3 - TSH Performed By: #### L 506.1000, L501.5200, L501.9520, L500.4050, L500.4100, L100.0100 #### [facility] [address] [place], [address] ALK P 73 U/L Normal 45-117 [facility] Comment on above: Order Comment: Order Date: 10/13/23 Order Info: [id number] - CMP Order Info: - LIPID Order Info: [id number] - MG Order Info: 3 - TSH Performed By: #### L 506.1000, L501.5200, L501.9520, L500.4050, L500.4100, L100.0100 #### [facility] [address] [place], [address] ALT [Catalytic activity/Vol] 43 U/L Normal 16-61 [facility] Comment on above: Order Comment: Order Date: 10/13/23 Order Info: 785- - CMP Order Info: - LIPID Order Info: [id number] - MG Order Info: 3 - TSH Performed By: #### L 506.1000, L501.5200, L501.9520, L500.4050, L500.4100, L100.0100 #### [facility] [address] [place], [address] AST [Catalytic activity/Vol] 36 U/L Normal 15-37 [facility] Comment on above: Order Comment: Order Date: 10/13/23 Order Info: 86-1 - CMP Order Info: [id number] - LIPID Order Info: [id number] - MG Order Info: 3016-3 - TSH Performed By: #### L 506.1000, L501.5200, L501.9520, L500.4050, L500.4100, L100.0100 #### [facility] [address] [place], [address] Bilirubin [Mass/Vol] 0.50 mg/dL Normal 0.20-1.00 [facility] Comment on above: Order Comment: Order Date: 10/13/23 Order Info: 785- - CMP Order Info: [id number] - LIPID Order Info: [id number] - MG Order Info: 3016-3 - TSH Result Comment: For patients on eltrombopag therapy, use of Dimension [place] TBIL is not recommended. Performed By: #### L 506.1000, L501.5200, L501.9520, L500.4050, L500.4100, L100.0100 #### [facility] [address] [place], [address] BUN/CRE 23.2 RATIO High 10-20 [facility] Comment on above: Order Comment: Order Date: 10/13/23 Order Info: 785-1 - CMP Order Info: [id number] - LIPID Order Info: [id number] - MG Order Info: 3016-3 - TSH Performed By: #### L 506.1000, L501.5200, L501.9520, L500.4050, L500.4100, L100.0100 #### [facility] [address] [place], [address] CA,Total 9.3 mg/dL Normal 8.5-10.1 [facility] Comment on above: Order Comment: Order Date: 10/13/23 Order Info: 785-1 - CMP Order Info: [id number] - LIPID Order Info: [id number] - MG Order Info: 6-3 - TSH Performed By: #### L 506.1000, L501.5200, L501.9520, L500.4050, L500.4100, L100.0100 #### [facility] [address] [place], [address] Chloride [Moles/Vol] 109 mmol/L High 98-107 [facility] Comment on above: Order Comment: Order Date: 10/13/23 Order Info: 785- - CMP Order Info: - LIPID Order Info: [id number] - MG Order Info: 3015-3 - TSH Performed By: #### L 506.1000, L501.5200, L501.9520, L500.4050, L500.4100, L100.0100 #### [facility] [address] [place], [address] CO2 [Moles/Vol] 25.0 mmol/L Normal 21.0-32.0 [facility] Comment on above: Order Comment: Order Date: 10/13/23 Order Info: 785- - CMP Order Info: [id number] - LIPID Order Info: [id number] - MG Order Info: 6-3 - TSH Performed By: #### L 506.1000, L501.5200, L501.9520, L500.4050, L500.4100, L100.0100 #### [facility] [address] [place], [address] Creatinine [Mass/Vol] 1.25 mg/dL Normal 0.70-1.30 [facility] Comment on above: Order Comment: Order Date: 10/13/23 Order Info: 86-1 - CMP Order Info: [id number] - LIPID Order Info: [id number] - MG Order Info: 3016-3 - TSH Result Comment: The validity of the calculated GFR GFRAA in patients over 70 years has not been determined. Clinical correlation is essential. Performed By: #### L 506.1000, L501.5200, L501.9520, L500.4050, L500.4100, L100.0100 #### [facility] [address] [place], [place], [address] EST GFR - AA 71 mL/min Normal >60 [facility] Comment on above: Order Comment: Order Date: 10/13/23 Order Info: 0786-1 - CMP Order Info: [id number] - LIPID Order Info: [id number] - MG Order Info: 3016-3 - TSH Result Comment: Afri can Libyan GFR Calc Performed By: #### L 506.1000, L501.5200, L501.9520, L500.4050, L500.4100, L100.0100 #### [facility] [address] [place], [place], [address] GAP 4 Low 5-15 [facility] Comment on above: Order Comment: Order Date: 10/13/23 Order Info: 07- - CMP Order Info: [id number] - LIPID Order Info: [id number] - MG Order Info: 3016-3 - TSH Performed By: #### L 506.1000, L501.5200, L501.9520, L500.4050, L500.4100, L100.0100 #### [facility] [address] [place], [place], [address] GFR/1.73 sq M.predicted among non-blacks MDRD (S/P/Bld) [Vol rate/Area] 59 mL/min/{1.73_m2} Low >60 [facility] Comment on above: Order Comment: Order Date: 10/13/23 Order Info: 0786-1 - CMP Order Info: [id number] - LIPID Order Info: [id number] - MG Order Info: 3016-3 - TSH Result Comment: Non- GFR Calc Performed By: #### L 506.1000, L501.5200, L501.9520, L500.4050, L500.4100, L100.0100 #### [facility] [address] [place], [address] Globulin (S) [Mass/Vol] 3.4 g/dL Normal 2.2-4.2 [facility] Comment on above: Order Comment: Order Date: 10/13/23 Order Info: 785-1 - CMP Order Info: [id number] - LIPID Order Info: [id number] - MG Order Info: 3015-3 - TSH Performed By: #### L 506.1000, L501.5200, L501.9520, L500.4050, L500.4100, L100.0100 #### [facility] [address] [place], [address] Glucose [Mass/Vol] 111 mg/dL High 74-106 [facility] Comment on above: Order Comment: Order Date: 10/13/23 Order Info: 785-03 - CMP Order Info: [id number] - LIPID Order Info: [id number] - MG Order Info: 3015-3 - TSH Result Comment: Fast ing Glucose result from 100 to 125 mg/dL suggests IMPAIRED HOMEOSTASIS per A.D.A. criteria. Performed By: #### L 506.1000, L501.5200, L501.9520, L500.4050, L500.4100, L100.0100 #### [facility] [address] [place], [address] Potassium [Moles/Vol] 4.5 mmol/L Normal 3.5-5.1 [facility] Comment on above: Order Comment: Order Date: 10/13/23 Order Info: 785-1 - CMP Order Info: [id number] - LIPID Order Info: [id number] - MG Order Info: 301-3 - TSH Performed By: #### L 506.1000, L501.5200, L501.9520, L500.4050, L500.4100, L100.0100 #### [facility] [address] [place], [address] Sodium [Moles/Vol] 138 mmol/L Normal 136-145 [facility] Comment on above: Order Comment: Order Date: 10/13/23 Order Info: 785-1 - CMP Order Info: [id number] - LIPID Order Info: [id number] - MG Order Info: 6-3 - TSH Performed By: #### L 506.1000, L501.5200, L501.9520, L500.4050, L500.4100, L100.0100 #### [facility] [address] [place], [place], [address] T PROT 7.0 g/dL Normal 6.4-8.2 [facility] Comment on above: Order Comment: Order Date: 10/13/23 Order Info: 785-03 - CMP Order Info: [id number] - LIPID Order Info: [id number] - MG Order Info: 3 - TSH Performed By: #### L 506.1000, L501.5200, L501.9520, L500.4050, L500.4100, L100.0100 #### [facility] [address] [place], [place], [address] Urea nitrogen [Mass/Vol] 29 mg/dL High 7-18 [facility] Comment on above: Order Comment: Order Date: 10/13/23 Order Info: 785-03 - CMP Order Info: [id number] - LIPID Order Info: [id number] - MG Order Info: 3015-3 - TSH Performed By: #### L 506.1000, L501.5200, L501.9520, L500.4050, L500.4100, L100.0100 #### [facility] [address] [place], [place], [address] Eosinophil percentageOrdered By: Isaias Nuñez on 04-04-2024 Eosinophils/100 WBC (Bld) 4.1 % 0-5 [facility] Epithelial cells.squamous LM Ql (Urine sed)Ordered By: Isaias Nuñez on 04-04-2024 Epithelial cells.squamous LM.HPF (Urine sed) [#/Area] 0 /[HPF] 0-5 [facility] Erythrocyte distribution wid th ratioOrdered By: Isaias Nuñez on 04-04-2024 Erythrocyte distribution width (RBC) [Ratio] 14.0 % 11.6-14.6 [facility] Erythrocyte distribution wid th standard deviationOrdered By: Isaias Nuñez on 04-04-2024 Erythrocyte distribution width (RBC) [Entitic vol] 48.7 fL High 35.1-43.9 [facility] Estimated glomerular filtrat ion rate (GFR) AmericanOrdered By: Isaias Nuñez on 04-04-2024 Estimated GFR (MDRD) Amer 71 mL/min >60 [facility] Comment on above: GFR Calc Glomerular filtration rate ( GFR) estimationOrdered By: Isaias Nuñez on 04-04-2024 Estimated GFR (MDRD) Non-Af Amer 59 mL/min Low >60 [facility] Comment on above: Non- GFR Calc Glucose Ql (U)Ordered By: Gertrude Nuñez on 04-04-2024 Urine Glucose (UA) Normal mg/dl Normal [facility] Glucose measurementOrdered B y: Isaias Nuñez on 04-04-2024 Glucose [Mass/Vol] 111 mg/dL High 74-106 [facility] Comment on above: Fasting Glucose resu lt from 100 to 125 mg/dL suggests IMPAIRED HOMEOSTASIS per A.D.A. criteria. Hematocrit Auto (Bld) [Volum e fraction]Ordered By: Isaias Nuñez on 04-04-2024 Hematocrit (Bld) [Volume fraction] 39.7 % Low 40-54 [facility] Hemoglobin A1con 04-04-2024 HbA1c (Bld) [Mass fraction] 5.2 % Normal 3.8-5.6 [facility] Comment on above: Order Comment: PLEAS E ADD A1C Result Comment: Norm al < 5.7 % Prediabetic 5.7 - 6.4 % Diabetic >or= 6.5 % Please note range changes. Performed By: #### L 400.0001, L501.9985 ####[facility] [address] [place], [place], [address] Hemoglobin A1c percentageOrd ered By: Isaias Nuñez on 04-04-2024 HbA1c (Bld) [Mass fraction] 5.2 % 3.8-5.6 [facility] Comment on above: Normal < 5.7 % Predi abetic 5.7 - 6.4 % Diabetic >or= 6.5 % Please note range changes. Hemoglobin measurementOrdere d By: Isaias Nuñez on 04-04-2024 Hemoglobin (Bld) [Mass/Vol] 13.6 g/dL 13.0-16.5 [facility] High density lipoprotein (HD L) measurementOrdered By: Isaias Nuñez on 04-04-2024 Cholesterol in HDL [Mass/Vol] 61 mg/dL >40 [facility] Comment on above: The drugs N-Acetylcy steine and Metamizole may falsely depress this assay. Reference Range HDL <40 mg/dL Low HDL Cholesterol HDL >or= 60 mg/dL High HDL Cholesterol Immature granulocytes/100 WB C Auto (Bld)Ordered By: Isaias Nuñez on 04-04-2024 Immature granulocytes/100 WBC (Bld) 0.200 % 0.0-0.9 [facility] Comment on above: IG% - Immature Granu locytes (promyelocytes, myelocytes and metamyelocytes) > 1% indicates that a LEFT SHIFT is Present. Ketones Test strip Ql (U)Ord ered By: Isaias Nuñez on 04-04-2024 Ketones Ql (U) Negative Negative [facility] - Chemistry and C hemistry - challengeOrdered By: Isaias Nuñez on 04-04-2024 AST [Catalytic activity/Vol] 36 U/L 15-37 [facility] Lipid Profileon 04-04-2024 Cholesterol [Mass/Vol] 175 mg/dL Normal 200 [facility] Comment on above: Order Comment: Order Date: 10/13/23 Order Info: [id number] - CMP Order Info: [id number] - LIPID Order Info: [id number] - MG Order Info: 3016-3 - TSH Result Comment: <200 mg/dL Desirable 200-240 mg/dL Borderline >240 mg/dL High Risk Performed By: #### L 506.1000, L501.5200, L501.9520, L500.4050, L500.4100, L100.0100 #### [facility] [address] [place], [address] Cholesterol in HDL [Mass/Vol] 61 mg/dL Normal [facility] Comment on above: Order Comment: Order Date: 10/13/23 Order Info: 07-1 - CMP Order Info: [id number] - LIPID Order Info: [id number] - MG Order Info: 3016-3 - TSH Result Comment: The drugs N-Acetylcysteine and Metamizole may falsely depress this assay. Reference Range HDL <40 mg/dL Low HDL Cholesterol HDL >or= 60 mg/dL High HDL Cholesterol Performed By: #### L 506.1000, L501.5200, L501.9520, L500.4050, L500.4100, L100.0100 #### [facility] [address] [place], [address] Cholesterol in LDL [Mass/Vol] 97 mg/dL Normal 0-130 [facility] Comment on above: Order Comment: Order Date: 10/13/23 Order Info: [id number] - CMP Order Info: - LIPID Order Info: [id number] - MG Order Info: [id number] - TSH Performed By: #### L 506.1000, L501.5200, L501.9520, L500.4050, L500.4100, L100.0100 #### [facility] [address] [place], [address] Cholesterol in VLDL [Mass/Vol] 17 mg/dL Normal 5-40 [facility] Comment on above: Order Comment: Order Date: 10/13/23 Order Info: [id number] - CMP Order Info: [id number] - LIPID Order Info: [id number] - MG Order Info: 3016-3 - TSH Performed By: #### L 506.1000, L501.5200, L501.9520, L500.4050, L500.4100, L100.0100 #### [facility] [address] [place], [address] Triglyceride [Mass/Vol] 86 mg/dL Normal [facility] Comment on above: Order Comment: Order Date: 10/13/23 Order Info: [id number] - CMP Order Info: [id number] - LIPID Order Info: [id number] - MG Order Info: 301-3 - TSH Result Comment: The drugs N-Acetylcysteine and Metamizole may falsely depress this assay. Serum Triglycerides Reference Interval Normal <150 mg/dL Borderline high 150 - 199 mg/dL High 200 - 499 mg/dL Very High > or = 500 mg/dL Performed By: #### L 506.1000, L501.5200, L501.9520, L500.4050, L500.4100, L100.0100 #### [facility] [address] [place], [address] Low density lipoprotein (LDL ) cholesterol measurementOrdered By: Isaias Nuñez on 04-04-2024 Cholesterol in LDL [Mass/Vol] 97 mg/dL 0-130 [facility] Lymphocytes Auto (Unsp spec) [#/Vol]Ordered By: Isaias Nuñez on 04-04-2024 Lymphocytes (Bld) [#/Vol] 0.96 10*3/uL 0.83-4.5 1 [facility] Lymphocytes/100 WBC Auto (Un sp spec)Ordered By: Isaias Nuñez on 04-04-2024 Lymphocytes/100 WBC (Bld) 18.8 % Low 19-41 [facility] MCV (mean corpuscular volume ) determinationOrdered By: Isaias Nuñez on 04-04-2024 MCV (RBC) [Entitic vol] 95.9 fL High 80-94 [facility] Magnesiumon 04-04-2024 Magnesium [Mass/Vol] 2.6 mg/dL Normal 1.6-2.6 [facility] Comment on above: Order Comment: Order Date: 10/13/23Order Info: [id number]- - CMPOrder Info: [id number] - LIPIDOrder Info: - MGOrder Info: 301-3 - TSH Performed By: #### L 506.1000, L501.5200, L501.9520, L500.4050, L500.4100, L100.0100 ####[facility] [address] [place], [address] Magnesium measurementOrdered By: Isaias Nuñez on 04-04-2024 Magnesium [Mass/Vol] 2.6 mg/dL 1.6-2.6 [facility] Mean corpuscular hemoglobin (MCH) determinationOrdered By: Isaias Nuñez on 04-04-2024 MCH (RBC) [Entitic mass] 32.9 pg High 27.0-32.0 [facility] Mean corpuscular hemoglobin concentration (MCHC) determinationOrdered By: Isaias Nuñez on 04-04-2024 MCHC (RBC) [Mass/Vol] 34.3 g/dL 32-36 [facility] Mean platelet volume determi nationOrdered By: Isaias Nuñez on 04-04-2024 Platelet mean volume (Bld) [Entitic vol] 11.9 fL 6.2-12.0 [facility] Microscopic analysis of urin e for red blood cells (RBC)Ordered By: Isaias Nuñez on 04-04-2024 Urine RBC 0 SEEN /hpf 0-5 [facility] Monocyte percentageOrdered B y: Isaias Nuñez on 04-04-2024 Monocytes/100 WBC (Bld) 10.9 % High 0-10 [facility] Mucus LM Ql (Urine sed)Order ed By: Isaias Nuñez on 04-04-2024 Mucus Ql (Urine sed) 1+ /hpf [facility] Neutrophil percentageOrdered By: Isaias Nuñez on 04-04-2024 Neutrophils/100 WBC (Bld) 65.6 % 47-70 [facility] Nitrite Test strip Ql (U)Ord ered By: Isaias Nuñez on 04-04-2024 Nitrite Ql (U) Negative Negative [facility] Nucleated red blood cell per centageOrdered By: Isaias Nuñez on 04-04-2024 Nucleated RBC/100 WBC (Bld) [Ratio] 0 % 0-5 [facility] Platelet countOrdered By: Gertrude Nuñez on 04-04-2024 Platelets (Bld) [#/Vol] 145 10*3/uL Low 150-450 [facility] Potassium measurementOrdered By: Isaias Nuñez on 04-04-2024 Potassium [Moles/Vol] 4.5 mmol/L 3.5-5.1 [facility] Protein Test strip Ql (U)Ord ered By: Isaias Nuñez on 04-04-2024 Protein Ql (U) 15 mg/dl High Negative [facility] RBC Auto (Bld) [#/Vol]Ordere d By: Isaias Nuñez on 04-04-2024 RBC (Bld) [#/Vol] 4.14 10*6/uL Low 4.6-6.2 [facility] Serum anion gap measurementO rdered By: Isaias Nuñez on 04-04-2024 Anion gap [Moles/Vol] 4 mmol/L Low 5-15 [facility] Serum globulin measurementOr dered By: Isaias Nuñez on 04-04-2024 Globulin (S) [Mass/Vol] 3.4 g/dL 2.2-4.2 [facility] Serum or plasma alanine castaneda otransferase (ALT) measurementOrdered By: Isaias Nuñez on 04-04-2024 ALT [Catalytic activity/Vol] 43 U/L 16-61 [facility] Serum or plasma albumin mt urement (mass/volume)Ordered By: Isaias Nuñez on 04-04-2024 Albumin [Mass/Vol] 3.6 g/dL 3.2-5.0 [facility] Serum or plasma alkaline koki sphatase measurementOrdered By: Isaias Nuñez on 04-04-2024 ALP [Catalytic activity/Vol] 73 U/L 45-117 [facility] Serum or plasma calcium mt urement (mass/volume)Ordered By: Isaias Nuñez on 04-04-2024 Calcium [Mass/Vol] 9.3 mg/dL 8.5-10.1 [facility] Serum or plasma cholesterol measurement (mass/volume)Ordered By: Isaias Nuñez on 04-04-2024 Cholesterol [Mass/Vol] 175 mg/dL <200 [facility] Comment on above: <200 mg/dL Desirable 200-240 mg/dL Borderline >240 mg/dL High Risk Serum or plasma creatinine m easurement (mass/volume)Ordered By: Isaias Nuñez on 04-04-2024 Creatinine [Mass/Vol] 1.25 mg/dL 0.70-1.30 [facility] Comment on above: The validity of the calculated GFR & GFRAA in patients over 70 years has not been determined. Clinical correlation is essential. Serum or plasma urea nitroge n measurement (mass/volume)Ordered By: Isaias Nuñez on 04-04-2024 Urea nitrogen [Mass/Vol] 29 mg/dL High 7-18 [facility] Sodium levelOrdered By: Isaias Nuñez on 04-04-2024 Sodium [Moles/Vol] 138 mmol/L 136-145 [facility] TSH QnOrdered By: Isaias paul on 04-04-2024 Thyroid Stimulating Hormone (TSH) 1.710 uIU/mL 0.358-3.740 [facility] Thyroid Stim Hormone (TSH)on 04-04-2024 TSH 1.710 uIU/mL Normal 0.358-3.740 [facility] Comment on above: Order Comment: Order Date: 10/13/23Order Info: [id number] - CMPOrder Info: [id number] - LIPIDOrder Info: [id number] - MGOrder Info: [id number] - TSH Performed By: #### L 506.1000, L501.5200, L501.9520, L500.4050, L500.4100, L100.0100 ####[facility] [address] [place], [address] Total proteinOrdered By: Meir Nuñez on 04-04-2024 Protein [Mass/Vol] 7.0 g/dL 6.4-8.2 [facility] Triglycerides measurementOrd ered By: Isaias Nuñez on 04-04-2024 Triglyceride [Mass/Vol] 86 mg/dL <199 [facility] Comment on above: The drugs N-Acetylcy steine and Metamizole may falsely depress this assay.Serum Triglycerides Reference Interval Normal <150 mg/dL Borderline high 150 - 199 mg/dL High 200 - 499 mg/dL Very High > or = 500 mg/dL Urinalysis, Completeon 04-04 BACTERIA RARE Normal None Seen [facility] Comment on above: Order Comment: CLEAN CATCH Performed By: #### L 400.0001, L501.9985 ####[facility] [address] [place], [address] Mucus Ql (Urine sed) 1+ /hpf Normal [facility] Comment on above: Order Comment: CLEAN CATCH Performed By: #### L 400.0001, L501.9985 ####[facility] [address] [place], [address] WBC 0-5 SEEN Normal 0-5 [facility] Comment on above: Order Comment: CLEAN CATCH Performed By: #### L 400.0001, L501.9985 ####[facility] [address] [place], [address] EPI,SQUAMOUS 0 SEEN Normal 0-5 [facility] Comment on above: Order Comment: CLEAN CATCH Performed By: #### L 400.0001, L501.9985 ####[facility] [address] [place], [address] RBC 0 SEEN Normal 0-5 [facility] Comment on above: Order Comment: CLEAN CATCH Performed By: #### L 400.0001, L501.9985 ####[facility] [address] [place], [address] Urine blood detectionOrdered By: Isaias Nuñez on 04-04-2024 Urine Occult Blood Negative Negative [facility] Urine clarityOrdered By: Meir Nuñez on 04-04-2024 Clarity (U) Clear Clear [facility] Urine color determinationOrd ered By: Isaias Nuñez on 04-04-2024 Color (U) Yellow Yellow [facility] Urine leukocyte esterase det ection by dipstickOrdered By: Isaias Nuñez on 04-04-2024 Leukocyte esterase Test strip Ql (U) 25 /ul High Negative [facility] Urine pHOrdered By: Isaias flor on 04-04-2024 pH (U) 5.0 [pH] 5.0 - 8.0 [facility] Urine specific gravity measu rementOrdered By: Isaias Nuñez on 04-04-2024 Specific gravity (U) [Rel density] 1.020 1.002-1.030 [facility] Urobilinogen Ql (U)Ordered B y: Isaias Nuñez on 04-04-2024 Urine Urobilinogen Normal mg/dl Normal [facility] Very low density lipoprotein (VLDL) cholesterol measurementOrdered By: Isaias Nuñez on 04-04-2024 VLDL Cholesterol 17 mg/dL 5-40 [facility] Vitamin D,25 Hydroxyon 04-04 Vitamin D 25-OH 43.0 ng/mL Normal [facility] Comment on above: Order Comment: Order Date: 10/13/23Order Info: [id number] - VITD25 Result Comment: Isabel min D 25(OH) Status Range Deficiency <20 ng/mL (50nmol/L) Insufficiency 20 - 30 ng/mL (50 - 75 nmol/L) Sufficiency 30 - 100 ng/mL (75 - 250 nmol/L) Toxicity >100 ng/mL (>250 nmol/L) Performed By: #### L 506.1000, L501.5200, L501.9520, L500.4050, L500.4100, L100.0100 ####[facility] [address] [place], [address] White blood cell (WBC) count Ordered By: Isaias Nuñez on 04-04-2024 WBC (Bld) [#/Vol] 5.1 10*3/uL 4.4-11.0 [facility] White blood cell countOrdere d By: Isaias Nuñez on 04-04-2024 Urine WBC 0-5 SEEN /hpf 0-5 [facility] Surgery Visit Reporton 10-26 Surgery Visit Report [facility] [address] [place], [place] [address] OFFICE VISIT Date of Service: 10/27/23 MR#: [id number] Acct: [id number] Name: INGE WEEMS Rep #: [id number] : 1945 Provider: Dr. Ana parker MD Age/Sex: 78/M Location: [facility] Status: Signed Intake Vital Signs 10/09/23 09:43 Height 6 ft Weight: 233 lb BMI 31.6 BP 150/87 H Blood Pressure Location Rt brachial Position Sitting Respiration 18 Pulse 72 Pulse Source Monitor Temp 97.5 F L Temp Source Temporal Pulse Oximetry (%) 97 Oxygen Delivery Method room air Intake Visit Reasons: MEDICATION CHK Chief Complaint: med check Is patient in pain?: No Allergies Sulfa (Sulfonamide Antibiotics) Allergy (Mild, Verified 10/27/23 14:44) Rash Medications ???Medication ???Instructions ???Recorded ???Confirmed ???Type aspirin 81 mg tablet,delayed 81 mg PO DAILY 02/22/19 10/27/23 History release lisinopril 10 mg tablet 10 mg PO DAILY 02/22/19 10/27/23 History multivitamin (Daily Multi-Vitamin 1 tab PO DAILY 04/12/23 10/27/23 History tablet) omeprazole 40 mg capsule,delayed 40 mg PO QDAY #30 caps 10/09/23 10/27/23 Rx release Have you fallen in the past year?: No PFSH Medical History Uninodular goiter HTN (hypertension) Pericardial calcification Vitamin D deficiency Surgical History s/p stapedectomy History of uvulectomy History of umbilical hernia Family History Father Cancer Mother Hypertension Social History (Updated 10/09/23 @ 09:43 by Palma Collazo LPN) Smoking Status: Former smoker alcohol intake: current alcohol intake frequency: holidays/special occasions only substance use type: does not use HPI HPI HPI: 78-year-old male presents for med check as he was put on omeprazole due to having some bloating in the epigastric region. Patient found that the medication did help the bloating. Patient does have known gallstones however denies any right upper quadrant pain nausea or vomiting after eating fatty greasy foods. ROS General General: No weight change, appetite, fatigue, colon cancer, breast cancer or weakness HEENT HEENT: Yes eye surgery; No difficulty swallowing, eye injury, swollen glands or hoarseness Additional Details: cataract Endo Endocrine: No thyroid disease, diabetes mellitus, thyroid cancer, Hair loss, heat intolerance or cold intolerance Skin Skin: No rash or changing moles Cardio Cardiovascular: Yes high blood pressure; No murmur, pacemaker, heart disease, atrial fibrillation, heart attack, heart stent, palpitations, shortness of breat with exertion or chest pain Psych Psychiatric: No depression, anxiety or hearing voices Resp Respiratory: No shortness of breath, No sleep apnea, No cough, No COPD, No asthma, No emphysema and No wheezing Gastro Gastrointestinal: No abdominal pain, No nausea or vomiting, No diarrhea, No constipation, No blood in stool, No acid reflux, No hemorrhoids, No ulcers, No gallbladder problem and No black,tarry stools Catracho Hematologic: Yes blood thinners, No blood disorders, No bleeding, No anemia and No blood clots Additional Details: 81mg aspirin Neuro Neurologic: No numbness, No tingling and No weakness Exam Const General: cooperative, healthy appearing, comfortable and no acute distress HENTN Head: normocephalic and atraumatic Neck Neck: supple Resp Effort Inspection: normal respiratory effort Cardio Rate: regular rate GI Inspection: non-distended Palpation: soft and nontender Skin General: no rashes or lesions noted Neuro General: CN's II-XI intact bilaterally Extrem General: normal to inspection Psych Mental Status: mental status grossly normal Attitude: cooperative Assessment and Plan Assessment and Plan (1) Epigastric abdominal tenderness: Status: Acute Comment: Resolved (2) Abdominal bloating: Status: Acute Comment: Resolved (3) Gallstones: Status: Acute Plan Patient is doing well on the omeprazole denies any pain or bloating. Patient continue okay to come off medication however if he continues to have symptoms may need to go back on. Also discussed with patient that if he begins to have right upper quadrant pain nausea or vomiting after eating fatty greasy foods he does have gallstones and thus he may need his gallbladder removed at that time. Patient expressed understanding and had no further question this time. Ana Martel M.D. Pager: [phone] [facility] [address] [place] [address], [facility], [address] [place] [address] Office: [phone]. (more content not included)... Normal [facility] Surgery Visit Reporton 10-08 Surgery Visit Report [facility] [address] [place] [address] OFFICE VISIT Date of Service: 10/09/23 MR#: [id number] Acct: [id number] Name: INGE WEEMS Rep #: [id number] : 1945 Provider: Dr. Ana parker MD Age/Sex: 78/M Location: [facility] Status: Signed Intake Vital Signs 09/28/23 10:44 10/09/23 09:43 Height 6 ft 1 in 6 ft Weight: 233 lb BMI 31.6 BP 150/87 H Blood Pressure Location Rt brachial Position Sitting Respiration 18 Pulse 72 Pulse Source Monitor Temp 97.5 F L Temp Source Temporal Pulse Oximetry (%) 97 Oxygen Delivery Method room air Intake Visit Reasons: GALLSTONES Chief Complaint: gallstones Is patient in pain?: No Allergies Sulfa (Sulfonamide Antibiotics) Allergy (Mild, Verified 10/09/23 09:44) Rash Medications ???Medication ???Instructions ???Recorded ???Confirmed ???Type aspirin 81 mg tablet,delayed 81 mg PO DAILY 02/22/19 10/09/23 History release lisinopril 10 mg tablet 10 mg PO DAILY 02/22/19 10/09/23 History multivitamin (Daily Multi-Vitamin 1 tab PO DAILY 04/12/23 10/09/23 History tablet) omeprazole 40 mg capsule,delayed 40 mg PO QDAY #30 caps 10/09/23 10/09/23 Rx release Have you fallen in the past year?: No PFSH Medical History Uninodular goiter HTN (hypertension) Pericardial calcification Vitamin D deficiency Surgical History s/p stapedectomy History of uvulectomy History of umbilical hernia Family History Father Cancer Mother Hypertension Social History (Updated 10/09/23 @ 09:43 by Palma Collazo LPN) Smoking Status: Former smoker alcohol intake: current alcohol intake frequency: holidays/special occasions only substance use type: does not use HPI HPI HPI: 78-year-old male presents for follow-up from ER due to bloating and cholelithiasis. Patient states that he had 2 visits to the ER mainly complains of bloating, in the epigastric region. Patient states the first time he woke up at 1 AM after eating at 6 to 7 PM and almost the other and came to the ER and then a couple days later patient had pizza and birthday cake the night before and the next morning was having again that bloating sensation. Patient denies any further episodes since to her ER visits. Patient denies any burning up his esophagus. Patient states he has been able to eat Tanvi[employer] salad with salad dressing and a frosty without any issues. Patient had an ultrasound done that showed he had multiple small gallstones and normal gallbladder wall on normal labs at the ER for both visits. ROS General General: No weight change, appetite, fatigue, colon cancer, breast cancer or weakness HEENT HEENT: Yes eye surgery; No difficulty swallowing, eye injury, swollen glands or hoarseness Additional Details: cataract Endo Endocrine: No thyroid disease, diabetes mellitus, thyroid cancer, Hair loss, heat intolerance or cold intolerance Skin Skin: No rash or changing moles Cardio Cardiovascular: Yes high blood pressure; No murmur, pacemaker, heart disease, atrial fibrillation, heart attack, heart stent, palpitations, shortness of breat with exertion or chest pain Psych Psychiatric: No depression, anxiety or hearing voices Resp Respiratory: No shortness of breath, No sleep apnea, No cough, No COPD, No asthma, No emphysema and No wheezing Gastro Gastrointestinal: No abdominal pain, No nausea or vomiting, No diarrhea, No constipation, No blood in stool, No acid reflux, No hemorrhoids, No ulcers, Yes gallbladder problem and No black,tarry stools Catracho Hematologic: Yes blood thinners, No blood disorders, No bleeding, No anemia and No blood clots Additional Details: 81mg aspirin Neuro Neurologic: No numbness, No tingling and No weakness Exam Const General: cooperative, healthy appearing, comfortable and no acute distress HENMT Head: normocephalic and atraumatic Neck Neck: supple Resp Effort Inspection: normal respiratory effort Cardio Rate: regular rate GI Inspection: non-distended Palpation: soft and nontender Skin General: no rashes or lesions noted Neuro General: CN's II-XI intact bilaterally Extrem General: normal to inspection Psych Mental Status: mental status grossly normal Attitude: cooperative Assessment and Plan Assessment and Plan (1) Epigastric abdominal tenderness: Status: Acute (2) Abdominal bloating: Status: Acute (3) Gallstones: Status: Acute Medications: New omeprazole swallow whole; do not crush, chew, dissolve, cut, break 40 mg PO QDAY 30 caps 1RF Plan Did personally review pa (more content not included)... Normal [facility] CBC W/Diff, Automatedon 07-0 8-2023 Absolute Lymph 0.98 X10 3/uL Normal 0.83-4.51 [facility] Comment on above: Performed By: #### L 500.4050, L100.0100, L501.2450 ####[facility] [address] [place], [address] Absolute Neut 3.1 X10 3/uL Normal 2.0-7.7 [facility] Comment on above: Performed By: #### L 500.4050, L100.0100, L501.2450 ####[facility] [address] [place], [address] Basophils/100 WBC (Bld) 0.6 % Normal 0-1 [facility] Comment on above: Performed By: #### L 500.4050, L100.0100, L501.2450 ####[facility] [address] [place], [address] Eosinophils/100 WBC (Bld) 3.0 % Normal 0-5 [facility] Comment on above: Performed By: #### L 500.4050, L100.0100, L501.2450 ####[facility] [address] [place], [address] Erythrocyte distribution width (RBC) [Ratio] 13.8 % Normal 11.6-14.6 [facility] Comment on above: Performed By: #### L 500.4050, L100.0100, L501.2450 ####[facility] [address] [place], [address] Hematocrit (Bld) [Volume fraction] 40.4 % Normal 40-54 [facility] Comment on above: Performed By: #### L 500.4050, L100.0100, L501.2450 ####[facility] [address] [place], [address] Hemoglobin (Bld) [Mass/Vol] 14.0 g/dL Normal 13.0-16.5 [facility] Comment on above: Performed By: #### L 500.4050, L100.0100, L501.2450 ####[facility] [address] [place], [address] IG% 0.400 Normal 0.0-0.9 [facility] Comment on above: Result Comment: IG% - Immature Granulocytes (promyelocytes, myelocytes and metamyelocytes) > 1% indicates that a LEFT SHIFT is Present. Performed By: #### L 500.4050, L100.0100, L501.2450 ####[facility] [address] [place], [address] Lymphocytes/100 WBC (Bld) 21.1 % Normal 19-41 [facility] Comment on above: Performed By: #### L 500.4050, L100.0100, L501.2450 ####[facility] [address] [place], [address] MCH (RBC) [Entitic mass] 33.0 pg High 27.0-32.0 [facility] Comment on above: Performed By: #### L 500.4050, L100.0100, L501.2450 ####[facility] [address] [place], [address] MCHC (RBC) [Mass/Vol] 34.7 g/dL Normal 32-36 [facility] Comment on above: Performed By: #### L 500.4050, L100.0100, L501.2450 ####[facility] [address] [place], [address] MCV (RBC) [Entitic vol] 95.3 fL High 80-94 [facility] Comment on above: Performed By: #### L 500.4050, L100.0100, L501.2450 ####[facility] [address] [place], [address] Monocytes/100 WBC (Bld) 8.2 % Normal 0-10 [facility] Comment on above: Performed By: #### L 500.4050, L100.0100, L501.2450 ####[facility] [address] [place], [address] Neutrophils/100 WBC (Bld) 66.7 % Normal 47-70 [facility] Comment on above: Performed By: #### L 500.4050, L100.0100, L501.2450 ####[facility] [address] [place], [address] Nucleated RBC (Bld) [#/Vol] 0 10*3/uL Normal 0-5 [facility] Comment on above: Performed By: #### L 500.4050, L100.0100, L501.2450 ####[facility] [address] [place], [address] Platelet mean volume (Bld) [Entitic vol] 11.2 fL Normal 6.2-12.0 [facility] Comment on above: Performed By: #### L 500.4050, L100.0100, L501.2450 ####[facility] [address] [place], [address] Platelets (Bld) [#/Vol] 115 10*3/uL Low 150-450 [facility] Comment on above: Performed By: #### L 500.4050, L100.0100, L501.2450 ####[facility] [address] [place], [address] RBC (Bld) [#/Vol] 4.24 10*6/uL Low 4.6-6.2 [facility] Comment on above: Performed By: #### L 500.4050, L100.0100, L501.2450 ####[facility] [address] [place], [address] RDW SD 48.2 fl High 35.1-43.9 [facility] Comment on above: Performed By: #### L 500.4050, L100.0100, L501.2450 ####[facility] [address] [place], [address] WBC (Bld) [#/Vol] 4.6 10*3/uL Normal 4.4-11.0 [facility] Comment on above: Performed By: #### L 500.4050, L100.0100, L501.2450 ####[facility] [address] [place], [address] Comprehensive Metabolic [facility] 09-28-2023 Albumin [Mass/Vol] 3.8 g/dL Normal 3.2-5.0 [facility] Comment on above: Performed By: #### L 500.4050, L100.0100, L501.2450 ####[facility] [address] [place], [address] Albumin/Globulin [Mass ratio] 1.2 {ratio} Normal 0.9-2.4 [facility] Comment on above: Performed By: #### L 500.4050, L100.0100, L501.2450 ####[facility] [address] [place], [address] ALK P 71 U/L Normal 45-117 [facility] Comment on above: Performed By: #### L 500.4050, L100.0100, L501.2450 ####[facility] [address] [place], [address] ALT [Catalytic activity/Vol] 39 U/L Normal 16-61 [facility] Comment on above: Performed By: #### L 500.4050, L100.0100, L501.2450 ####[facility] [address] [place], [address] AST [Catalytic activity/Vol] 39 U/L High 15-37 [facility] Comment on above: Performed By: #### L 500.4050, L100.0100, L501.2450 ####[facility] [address] [place], [address] Bilirubin [Mass/Vol] 0.70 mg/dL Normal 0.20-1.00 [facility] Comment on above: Result Comment: For patients on eltrombopag therapy, use of Dimension [place] TBIL is not recommended. Performed By: #### L 500.4050, L100.0100, L501.2450 ####[facility] [address] [place], [address] BUN/CRE 15.0 RATIO Normal 10-20 [facility] Comment on above: Performed By: #### L 500.4050, L100.0100, L501.2450 ####[facility] [address] [place], [address] CA,Total 9.5 mg/dL Normal 8.5-10.1 [facility] Comment on above: Performed By: #### L 500.4050, L100.0100, L501.2450 ####[facility] [address], [address] Chloride [Moles/Vol] 108 mmol/L High 98-107 [facility] Comment on above: Performed By: #### L 500.4050, L100.0100, L501.2450 ####[facility] [address] [place], [address] CO2 [Moles/Vol] 23.0 mmol/L Normal 21.0-32.0 [facility] Comment on above: Performed By: #### L 500.4050, L100.0100, L501.2450 ####[facility] [address] [place], [address] Creatinine [Mass/Vol] 1.13 mg/dL Normal 0.70-1.30 [facility] Comment on above: Result Comment: The validity of the calculated GFR GFRAA in patients over 70 years has not been determined. Clinical correlation is essential. Performed By: #### L 500.4050, L100.0100, L501.2450 ####[facility] [address] [place], [address] ECRCL 67.47 ml/min Normal [facility] Comment on above: Performed By: #### L 500.4050, L100.0100, L501.2450 ####[facility] [address] [place], [address] EST GFR - AA 80 mL/min Normal >60 [facility] Comment on above: Result Comment: Afri can [place]yan GFR Calc Performed By: #### L 500.4050, L100.0100, L501.2450 ####[facility] [address] [place], [address] GAP 8 Normal 5-15 [facility] Comment on above: Performed By: #### L 500.4050, L100.0100, L501.2450 ####[facility] [address] [place], [address] GFR/1.73 sq M.predicted among non-blacks MDRD (S/P/Bld) [Vol rate/Area] 66 mL/min/{1.73_m2} Normal >60 [facility] Comment on above: Result Comment: Non- GFR Calc Performed By: #### L 500.4050, L100.0100, L501.2450 ####[facility] [address] [place], [address] Globulin (S) [Mass/Vol] 3.2 g/dL Normal 2.2-4.2 [facility] Comment on above: Performed By: #### L 500.4050, L100.0100, L501.2450 ####[facility] [address] [place], [address] Glucose [Mass/Vol] 97 mg/dL Normal 74-106 [facility] Comment on above: Performed By: #### L 500.4050, L100.0100, L501.2450 ####[facility] [address] [place], [address] Potassium [Moles/Vol] 4.2 mmol/L Normal 3.5-5.1 [facility] Comment on above: Performed By: #### L 500.4050, L100.0100, L501.2450 ####[facility] [address] [place], [address] Sodium [Moles/Vol] 139 mmol/L Normal 136-145 [facility] Comment on above: Performed By: #### L 500.4050, L100.0100, L501.2450 ####[facility] [address] [place], [address] T PROT 7.0 g/dL Normal 6.4-8.2 [facility] Comment on above: Performed By: #### L 500.4050, L100.0100, L501.2450 ####[facility] [address] [place], [address] Urea nitrogen [Mass/Vol] 17 mg/dL Normal 7-18 [facility] Comment on above: Performed By: #### L 500.4050, L100.0100, L501.2450 ####[facility] [address] [place], [address] Emergency Department Summary on 09-28-2023 Emergency Department Summary [facility] Medical Records Department [address] [place] [address] Emergency Department Summary 09/28/23 MR#: [id number] Acct: [id number] Name: INGE WEEMS Rep #: [id number] : 1945 78 From: Flo Kennedy MD PCP: Dr. Isaias Nuñez MD Status:DEP ER Location: ED HPI HPI - GI History of Present Illness Chief Complaint: Abd Pain Informant: patient and family Abdominal Pain/Flank Pain Onset: Today Context: Gradual Onset Timing: Continuous Quality: - (Bloating) Location: Diffuse Current Severity: Mild Maximum Severity: Mild Worsened by: Nothing Relieved by: Nothing Nausea/Vomiting/Neelam sis GI Symptom: Negative for Nausea or Vomiting Diarrhea/Melena/Hem atochezia GI Symptom: Negative for Diarrhea, Melena or Hematochezia Associated Symptoms Associated Symptoms: Negative for Dysuria, Frequency, Hematuria or Urgency Narrative Narrative: 78-year-old gentleman complaining of abdominal bloating. Denies nausea, vomiting or diarrhea. No constipation or dysuria. Was seen in the ER on Thursday diagnosed with gallstones. Has a follow-up appointment to see Dr. Dubose her bottom. After eating pizza and a piece of birthday cake ice had more bloating and some upper abdominal cramping today. Denies any fever. Prior similar symptoms: Yes Recent Illness/Hospitaliza tion: No PFSH PFSH Medical History Uninodular goiter HTN (hypertension) Pericardial calcification Vitamin D deficiency Home Medications ???Medication ???Instructions ???Recorded ???Last Taken ???Type aspirin 81 mg tablet,delayed 81 mg PO DAILY 02/22/19 Unknown History release cholecalciferol (vitamin D3) 25 1,000 unit PO DAILY 02/22/19 Unknown History mcg (1,000 unit) capsule lisinopril 10 mg tablet 10 mg PO DAILY 02/22/19 Unknown History omega-3 fatty acids 1,000 mg 1,000 mg PO DAILY 02/22/19 Unknown History capsule (Fish Oil Concentrate) sod fluoride-Ca carbonate 3.75 mg 1 cap PO DAILY 02/22/19 Unknown History (8.25)-145 mg (364) capsule (Florical) multivitamin (Daily Multi-Vitamin 1 tab PO DAILY 04/12/23 Unknown History tablet) meclizine 25 mg tablet 25 mg PO BID PRN dizziness #30 tabs 04/13/23 Unknown Rx ondansetron 4 mg disintegrating 4 mg PO TID PRN nausea and 09/26/23 Unknown Rx tablet vomiting #21 tabs oxycodone-acetamino phen 5 mg-325 1 tab PO Q6H PRN pain 3 days #12 09/26/23 Unknown Rx mg tablet (Percocet) tabs Allergy/AdvReac Type Severity Reaction Status Date / Time Sulfa (Sulfonamide Allergy Mild Rash Verified 09/28/23 10:46 Antibiotics) Family History Father Cancer Mother Hypertension Surgical History s/p stapedectomy History of uvulectomy History of umbilical hernia Social History Smoking Status: Former smoker alcohol intake: current alcohol intake frequency: holidays/special occasions only ROS ROS ED ROS Narrative Abdominal bloating. Review of Systems ROS Unobtainable: Denies due to encephalopathy or other Constitutional Constitutional ED: Denies chills or fever(s) ENT ENT ED: Denies ear pain Cardiovascular Cardiovascular: Denies chest pain or palpitations Respiratory/Chest Respiratory/Chest: Denies cough or dyspnea Gastrointestinal Gastrointestinal: Reports abdominal pain; Denies diarrhea, melena, nausea or vomiting Genitourinary Genitourinary ED: Denies dysuria or hematuria Musculoskeletal Musculoskeletal: Denies arthralgias Integumentary Denies abscess Neurologic Neurologic: Denies headache(s) Psychiatric Psychiatric: Denies anxiety Endocrine Endocrinology: Denies polydipsia or polyphagia Hematologic/Lymphat ic Hematologic/Lymphat ic: Denies easy bleeding or easy bruising Allergic/Immunologi c Allergic/Immunologi c ED: Denies mouth swelling, tongue swelling or urticaria EXAM Physical Exam Narrative Exam Narrative: Well-appearing 78-year-old gentleman vital signs stable afebrile. HEENT exam unremarkable. Mytrex membranes. Lungs clear to auscultation bilaterally. Heart regular rhythm no murmur rate about 70. Chest wall and ribs nontender. Abdomen soft nondistended normal bowel sounds no peritoneal signs. Really no reproducible abdominal pain. No pulsatile mass. No hernias. No distention. No specific right upper or right lower quadrant tenderness no Calvillo sign or McBurney's point tenderness. Moving all 4 extremities. Nontender no edema. Back nontender. He is awake and alert. Const Vital Signs: 09/28/23 10:44 09/28/23 12:44 Temperature 97.1 F L Temperature Source Temporal Pulse Rate 74 89 Respiratory Rate 15 17 Blood Pressure 143/84 H 135/75 H Blood P (more content not included)... Normal [facility] Gallbladderon 09-28-2023 Gallbladder [facility] Services [address] [place], [place] [address] Gallbladder MR#: [id number] Acct: [id number] Name: INGE WEEMS Rep #: [id number] : 1945 M 78 From: Abhijeet cruz MD PCP: Dr. Isaias Nuñez MD Status: REG ER Study: Gallbladder Date of Exam: 09/28/23 Exam# [id number] Ordering Dr: Flo Kennedy MD -[id number] STUDY: ABDOMINAL ULTRASOUND - RIGHT UPPER QUADRANT REASON FOR VISIT: Male, 78 years old abd pain and hx of gallstones TECHNIQUE: Ultrasound evaluation of the right upper quadrant was performed with real-time and static cormier-scale imaging. TECHNICAL QUALITY: Adequate. COMPARISON: Comparison is made with prior CT scan of the abdomen and pelvis dated September 26, 2023. FINDINGS: Liver: The liver is enlarged and measures 17.6 cm. There is increased echogenicity consistent with fatty infiltration. The bile ducts are within normal limits. There is hepatic color flow. The direction of portal flow is hepatopetal. There is no demonstrated mass lesion. Gallbladder: Normal distended gallbladder. The gallbladder wall is mildly thickened and measures 3.3 mm. There is a negative sonographic Calvillo''s sign. There is no pericholecystic fluid. There are multiple echogenic structures within the gallbladder, consistent with multiple gallstones. Sludge is seen within the gallbladder lumen. Common Bile Duct (C.B.D.): The common bile duct measures 3.9 mm. Pancreas: Normal size of the head, body and tail of the pancreas. There is normal echogenicity of the pancreas. There is no demonstrated pancreatic mass or cyst. Right Kidney: Normal size of the right kidney. The right kidney measures 11.3 cm x 5.2 cm x 5.6 cm. Normal renal cortex. The right cortex measures 1.5 cm. There is a 1.4 cm x 1.4 cm x 1.2 cm right renal cyst. There is no right hydronephrosis. US/Gallbladder IMPRESSION: Mild hepatomegaly and fatty infiltration of the liver. Multiple gallstones and sludge within the gallbladder lumen. Right renal cyst. Electronically Signed: Abhijeet Whiting MD at 12:43 EDT , CC: Dr. Flo Kennedy MD; Dr. Isaias Nuñez MD Clinical Appeals Auditor: Signed Normal [facility] Lipaseon 09-28-2023 Lipase [Catalytic activity/Vol] 35 U/L Normal 13-75 [facility] Comment on above: Result Comment: Mag nichols note: LIPASE revised reference range effective 22. New Lipase methodology. Expected to produce lower values than the previous assay method. NEW Reference Range: 13 - 75 U/L Performed By: #### L 500.4050, L100.0100, L501.2450 ####[facility] [address] [place], [address] Abdomen/Pelvis W IV Cont ONL Yon 09-26-2023 Abdomen/Pelvis W IV Cont ONLY [facility] Imaging Services [address] [place] [address] Abdomen/Pelvis W IV Cont ONLY MR#: [id number] Acct: [id number] Name: INGE WEEMS Rep #: [id number] : 1945 M 78 From: Cuauhtemoc Steven PCP: Dr. Isaias Nuñez MD Status: [facility] ER Study: Abdomen/Pelvis W IV Cont ONLY Date of Exam: Exam# [id number] Ordering Dr: Jake Russell DO -[id number] STUDY: CT ABDOMEN AND PELVIS WITH CONTRAST REASON FOR EXAM: Male, 78 years old. Abdominal pain and bloating RADIATION DOSAGE (If Supplied By Facility): CTDIvol = ( 21.24 ) mGy, DLP = ( 1206.10 ) mGycm TECHNIQUE: IV 100mL Isovue-300 was administered. Transaxial images were obtained from the dome of the diaphragm to the symphysis pubis. Multiplanar coronal and sagittal images were reformatted. The protocol utilizes one or more of the following dose reduction techniques: automated exposure control, adjustment of mA and/or kV according to patient size,and/or use of iterative reconstruction technique. COMPARISON: No relevant prior comparison study available FINDINGS: The visualized lung bases are unremarkable. Normal heart size. Pericardial calcifications. Nonspecific few small low density lesions in the liver measuring about 5 mm difficult to characterize and likely representing small cysts. Small gallstones are seen Normal spleen. Normal pancreas. Normal bilateral adrenal glands. Small bilateral simple cysts measuring about 1.2 cm on the right side and smaller on the left side for which no further follow-up exam is needed. No evidence of hydronephrosis. Distended stomach. Normal in caliber small bowel loops. Diverticulosis without evidence of acute diverticulitis. The appendix is visualized and appears normal. Atherosclerotic calcifications of the abdominal aorta without evidence of aneurysm. No retroperitoneal adenopathy. Normal urinary bladder. Slightly prominent prostate. No pelvic mass. Normal abdominal wall. Degenerative changes of the spine. CT/Abdomen/Pelvis W IV Cont ONLY IMPRESSION: 1. Distended stomach. 2. Diverticulosis without evidence of acute diverticulitis. 3. Cholelithiasis. 4. Otherwise no focal acute inflammatory process. Electronically Signed: Cuauhtemoc Rea MD at 8:15 EDT , CC: Dr. Isaias Nuñez MD; Jake Russell DO Clinical Appeals Auditor: Signed Normal [facility] Basic Metabolic Profile (BMP )on 09-26-2023 BUN/CRE 18.5 RATIO Normal 10-20 [facility] Comment on above: Performed By: #### L 501.2450, L500.2500, L500.3400, L100.0100 #### [facility] [address] [place], [address] CA,Total 8.8 mg/dL Normal 8.5-10.1 [facility] Comment on above: Performed By: #### L 501.2450, L500.2500, L500.3400, L100.0100 #### [facility] [address] [place], [address] Chloride [Moles/Vol] 109 mmol/L High 98-107 [facility] Comment on above: Performed By: #### L 501.2450, L500.2500, L500.3400, L100.0100 #### [facility] [address] [place], [address] CO2 [Moles/Vol] 24.0 mmol/L Normal 21.0-32.0 [facility] Comment on above: Performed By: #### L 501.2450, L500.2500, L500.3400, L100.0100 #### [facility] [address] [place], [address] Creatinine [Mass/Vol] 1.08 mg/dL Normal 0.70-1.30 [facility] Comment on above: Result Comment: The validity of the calculated GFR GFRAA in patients over 70 years has not been determined. Clinical correlation is essential. Performed By: #### L 501.2450, L500.2500, L500.3400, L100.0100 #### [facility] [address] [place], [address] ECRCL 70.11 ml/min Normal [facility] Comment on above: Performed By: #### L 501.2450, L500.2500, L500.3400, L100.0100 #### [facility] [address] [place], [address] EST GFR - AA 85 mL/min Normal >60 [facility] Comment on above: Result Comment: Afri can Libyan GFR Calc Performed By: #### L 501.2450, L500.2500, L500.3400, L100.0100 #### [facility] [address] [place], [address] GAP 8 Normal 5-15 [facility] Comment on above: Performed By: #### L 501.2450, L500.2500, L500.3400, L100.0100 #### [facility] [address] [place], [address] GFR/1.73 sq M.predicted among non-blacks MDRD (S/P/Bld) [Vol rate/Area] 70 mL/min/{1.73_m2} Normal >60 [facility] Comment on above: Result Comment: Non- GFR Calc Performed By: #### L 501.2450, L500.2500, L500.3400, L100.0100 #### [facility] [address] [place], [address] Glucose [Mass/Vol] 162 mg/dL High 74-106 [facility] Comment on above: Result Comment: Fast ing Glucose result greater than or equal to 126 mg/dL suggests DIABETES MELLITUS per A.D.A. criteria. Performed By: #### L 501.2450, L500.2500, L500.3400, L100.0100 #### [facility] [address] [place], [address] Potassium [Moles/Vol] 4.0 mmol/L Normal 3.5-5.1 [facility] Comment on above: Result Comment: Slig ht Hemolysis, Result may be falsely increased. Performed By: #### L 501.2450, L500.2500, L500.3400, L100.0100 #### [facility] [address] [place], [address] Sodium [Moles/Vol] 141 mmol/L Normal 136-145 [facility] Comment on above: Performed By: #### L 501.2450, L500.2500, L500.3400, L100.0100 #### [facility] [address] [place], [address] Urea nitrogen [Mass/Vol] 20 mg/dL High 7-18 [facility] Comment on above: Performed By: #### L 501.2450, L500.2500, L500.3400, L100.0100 #### [facility] [address] [place], [address] CBC W/Diff, Automatedon 07-0 -2023 Absolute Lymph 1.02 X10 3/uL Normal 0.83-4.51 [facility] Comment on above: Performed By: #### L 501.2450, L500.2500, L500.3400, L100.0100 #### [facility] [address] [place], [address] Absolute Neut 3.4 X10 3/uL Normal 2.0-7.7 [facility] Comment on above: Performed By: #### L 501.2450, L500.2500, L500.3400, L100.0100 #### [facility] [address] [place] [place], [address] Basophils/100 WBC (Bld) 0.6 % Normal 0-1 [facility] Comment on above: Performed By: #### L 501.2450, L500.2500, L500.3400, L100.0100 #### [facility] [address] [place], [address] Eosinophils/100 WBC (Bld) 3.0 % Normal 0-5 [facility] Comment on above: Performed By: #### L 501.2450, L500.2500, L500.3400, L100.0100 #### [facility] [address] [place], [address] Erythrocyte distribution width (RBC) [Ratio] 13.8 % Normal 11.6-14.6 [facility] Comment on above: Performed By: #### L 501.2450, L500.2500, L500.3400, L100.0100 #### [facility] [address] [place], [address] Hematocrit (Bld) [Volume fraction] 42.4 % Normal 40-54 [facility] Comment on above: Performed By: #### L 501.2450, L500.2500, L500.3400, L100.0100 #### [facility] [address] [place] [place], [address] Hemoglobin (Bld) [Mass/Vol] 14.3 g/dL Normal 13.0-16.5 [facility] Comment on above: Performed By: #### L 501.2450, L500.2500, L500.3400, L100.0100 #### [facility] [address] [place], [address] IG% 0.400 Normal 0.0-0.9 [facility] Comment on above: Result Comment: IG% - Immature Granulocytes (promyelocytes, myelocytes and metamyelocytes) > 1% indicates that a LEFT SHIFT is Present. Performed By: #### L 501.2450, L500.2500, L500.3400, L100.0100 #### [facility] [address] [place], [address] Lymphocytes/100 WBC (Bld) 20.3 % Normal 19-41 [facility] Comment on above: Performed By: #### L 501.2450, L500.2500, L500.3400, L100.0100 #### [facility] [address] [place], [address] MCH (RBC) [Entitic mass] 32.8 pg High 27.0-32.0 [facility] Comment on above: Performed By: #### L 501.2450, L500.2500, L500.3400, L100.0100 #### [facility] [address] [place], [address] MCHC (RBC) [Mass/Vol] 33.7 g/dL Normal 32-36 [facility] Comment on above: Performed By: #### L 501.2450, L500.2500, L500.3400, L100.0100 #### [facility] [address] [place], [address] MCV (RBC) [Entitic vol] 97.2 fL High 80-94 [facility] Comment on above: Performed By: #### L 501.2450, L500.2500, L500.3400, L100.0100 #### [facility] [address] [place], [address] Monocytes/100 WBC (Bld) 8.9 % Normal 0-10 [facility] Comment on above: Performed By: #### L 501.2450, L500.2500, L500.3400, L100.0100 #### [facility] [address] [place], [address] Neutrophils/100 WBC (Bld) 66.8 % Normal 47-70 [facility] Comment on above: Performed By: #### L 501.2450, L500.2500, L500.3400, L100.0100 #### [facility] [address] [place], [address] Nucleated RBC (Bld) [#/Vol] 0 10*3/uL Normal 0-5 [facility] Comment on above: Performed By: #### L 501.2450, L500.2500, L500.3400, L100.0100 #### [facility] [address] [place], [address] Platelet mean volume (Bld) [Entitic vol] 11.2 fL Normal 6.2-12.0 [facility] Comment on above: Performed By: #### L 501.2450, L500.2500, L500.3400, L100.0100 #### [facility] [address] [place], [address] Platelets (Bld) [#/Vol] 120 10*3/uL Low 150-450 [facility] Comment on above: Performed By: #### L 501.2450, L500.2500, L500.3400, L100.0100 #### [facility] [address] [place], [address] RBC (Bld) [#/Vol] 4.36 10*6/uL Low 4.6-6.2 [facility] Comment on above: Performed By: #### L 501.2450, L500.2500, L500.3400, L100.0100 #### [facility] [address] [place], [address] RDW SD 49.1 fl High 35.1-43.9 [facility] Comment on above: Performed By: #### L 501.2450, L500.2500, L500.3400, L100.0100 #### [facility] [address] [place], [address] WBC (Bld) [#/Vol] 5.0 10*3/uL Normal 4.4-11.0 [facility] Comment on above: Performed By: #### L 501.2450, L500.2500, L500.3400, L100.0100 #### [facility] [address] [place], [address] Emergency Department Summary on 09-26-2023 Emergency Department Summary [facility] Medical Records Department [address] [facility] [place] [address] Emergency Department Summary 09/26/23 MR#: [id number] Acct: [id number] Name: INGE WEEMS Rep #: [id number] : 1945 78 From: Jake Russell DO PCP: Dr. Isaias Nuñez MD Status:REG ER Location: ED HPI History of Present Illness Chief Complaint: Abd Pain Informant: patient and family Narrative Narrative: Patient is an 78-year-old male with history of hypertension. He states he went out to eat last night with family and then they went to a theater show. He states he did eat more food than he is typically accustomed to because they were out celebrating his birthday which was [birth year]. He states he went to bed feeling normal then awoke around 2 in the morning with abdominal pain and sensation of distention. He states there has been no vomiting or diarrhea or constipation he denies any dysuria or hematuria. He denies any fevers or chills. He states however that the persistent distention and discomfort sensation has not resolved over the last few hours and secondary to his he comes in for evaluation. He does note that his daughter and grandkids who were present at the dinner and ate essentially the same thing have not had any type of symptoms. [facility] Medical History Uninodular goiter HTN (hypertension) Pericardial calcification Vitamin D deficiency Home Medications ???Medication ???Instructions ???Recorded ???Last Taken ???Type aspirin 81 mg tablet,delayed 81 mg PO DAILY 02/22/19 Unknown History release cholecalciferol (vitamin D3) 25 1,000 unit PO DAILY 02/22/19 Unknown History mcg (1,000 unit) capsule lisinopril 10 mg tablet 10 mg PO DAILY 02/22/19 Unknown History omega-3 fatty acids 1,000 mg 1,000 mg PO DAILY 02/22/19 Unknown History capsule (Fish Oil Concentrate) sod fluoride-Ca carbonate 3.75 mg 1 cap PO DAILY 02/22/19 Unknown History (8.25)-145 mg (364) capsule (Florical) multivitamin (Daily Multi-Vitamin 1 tab PO DAILY 04/12/23 Unknown History tablet) meclizine 25 mg tablet 25 mg PO BID PRN dizziness #30 tabs 04/13/23 Unknown Rx ondansetron 4 mg disintegrating 4 mg PO TID PRN nausea and 09/26/23 Unknown Rx tablet vomiting #21 tabs oxycodone-acetamino phen 5 mg-325 1 tab PO Q6H PRN pain 3 days #12 09/26/23 Unknown Rx mg tablet (Percocet) tabs Allergy/AdvReac Type Severity Reaction Status Date / Time Sulfa (Sulfonamide Allergy Mild Rash Verified 09/26/23 05:31 Antibiotics) Family History Father Cancer Mother Hypertension Surgical History History of umbilical hernia History of uvulectomy s/p stapedectomy Social History Smoking Status: Former smoker alcohol intake: current alcohol intake frequency: holidays/special occasions only ROS ROS ED Constitutional Constitutional ED: Denies chills or fever(s) Eyes Eyes: Denies change in vision ENT ENT ED: Denies rhinorrhea or sore throat Cardiovascular Cardiovascular: Denies chest pain Respiratory/Chest Respiratory/Chest: Denies cough or dyspnea Gastrointestinal Gastrointestinal: Reports abdominal pain and nausea; Denies constipation, diarrhea or vomiting Genitourinary Genitourinary ED: Denies dysuria or hematuria Musculoskeletal Musculoskeletal: Denies back pain or myalgias Integumentary Denies rash Neurologic Neurologic: Denies headache(s) Hematologic/Lymphat ic Hematologic/Lymphat ic: Denies easy bleeding or easy bruising EXAM Physical Exam Const Vital Signs: 09/26/23 05:25 09/26/23 07:26 09/26/23 07:38 Temperature 99 F 97.3 F L Temperature Source Oral Oral Pulse Rate 78 87 Respiratory Rate 20 H 16 Blood Pressure 153/84 H 168/105 H 129/61 H Blood Pressure Mean 107 126 83 Pulse Ox 90 97 Oxygen Delivery Method Room Air Room Air Positive well nourished, well developed and obese General Appearance ED: well developed; Negative for pallor Nutritional Appearance: obese HEENT Reports moist mucous membranes HEENT Narrative: No tongue or lip swelling no oral lesions no airway edema or compromise No signs of infection noted in the posterior pharynx Eyes PERRL and EOMs intact bilaterally General Eye ED: Negative for scleral icterus Neck supple Neck Narrative: No nuchal rigidity or meningeal signs noted Resp normal respiratory effort and clear to auscultation bilaterally Cardio regular rate and regular rhythm Rate: other Other Details: Heart is regular rate and rhythm without murmurs rubs or gallop Radial and carotid pulses are equal and symmetric GI non-distended (more content not included)... Normal [facility] Lipaseon 09-26-2023 Lipase [Catalytic activity/Vol] 48 U/L Normal 13-75 [facility] Comment on above: Result Comment: Mag nichols note: LIPASE revised reference range effective 22. New Lipase methodology. Expected to produce lower values than the previous assay method. NEW Reference Range: 13 - 75 U/L Performed By: #### L 501.2450, L500.2500, L500.3400, L100.0100 #### [facility] [address] [place], [address] Liver Profileon 09-26-2023 Albumin [Mass/Vol] 3.7 g/dL Normal 3.2-5.0 [facility] Comment on above: Performed By: #### L 501.2450, L500.2500, L500.3400, L100.0100 #### [facility] [address] [place], [address] ALK P 68 U/L Normal 45-117 [facility] Comment on above: Performed By: #### L 501.2450, L500.2500, L500.3400, L100.0100 #### [facility] [address] [place], [address] ALT [Catalytic activity/Vol] 43 U/L Normal 16-61 [facility] Comment on above: Performed By: #### L 501.2450, L500.2500, L500.3400, L100.0100 #### [facility] [address] [place], [address] AST [Catalytic activity/Vol] 38 U/L High 15-37 [facility] Comment on above: Result Comment: Slig ht Hemolysis, Result may be falsely increased. Performed By: #### L 501.2450, L500.2500, L500.3400, L100.0100 #### [facility] [address] [place], [address] Bilirubin [Mass/Vol] 0.30 mg/dL Normal 0.20-1.00 [facility] Comment on above: Result Comment: For patients on eltrombopag therapy, use of Dimension [place] TBIL is not recommended. Performed By: #### L 501.2450, L500.2500, L500.3400, L100.0100 #### [facility] [address] [place], [address] Bilirubin.direct [Mass/Vol] 0.09 mg/dL Normal 0.00-0.30 [facility] Comment on above: Performed By: #### L 501.2450, L500.2500, L500.3400, L100.0100 #### [facility] [address] [place], [address] Globulin (S) [Mass/Vol] 3.3 g/dL Normal 2.2-4.2 [facility] Comment on above: Performed By: #### L 501.2450, L500.2500, L500.3400, L100.0100 #### [facility] [address] [place], [address] T PROT 7.0 g/dL Normal 6.4-8.2 [facility] Comment on above: Performed By: #### L 501.2450, L500.2500, L500.3400, L100.0100 #### [facility] [address] [place], [address] Urinalysis, Completeon 09-25 BACTERIA 0 SEEN Normal None Seen [facility] Comment on above: Order Comment: CLEAN CATCH Performed By: #### L 400.0001 ####[facility] [address] [place], [address] EPI,SQUAMOUS 0 SEEN Normal 0-5 [facility] Comment on above: Order Comment: CLEAN CATCH Performed By: #### L 400.0001 ####[facility] [address] [place], [address] Mucus Ql (Urine sed) 0 SEEN Normal [facility] Comment on above: Order Comment: CLEAN CATCH Performed By: #### L 400.0001 ####[facility] [address] [place], [address] RBC 0 SEEN Normal 0-5 [facility] Comment on above: Order Comment: CLEAN CATCH Performed By: #### L 400.0001 ####[facility] [address] [place], [address] WBC 0 SEEN Normal 0-5 [facility] Comment on above: Order Comment: CLEAN CATCH Performed By: #### L 400.0001 ####[facility] [address] [place], [address] CBC W/Diff, Automatedon 06-0 5-2024 Absolute Lymph 0.99 X10 3/uL Normal 0.83-4.51 [facility] Comment on above: Order Comment: Order Date: 03/03/23Order Info: 0184-1 - CBCD Performed By: #### L 506.1000, L100.0100, L501.9910, L500.4100 ####[facility] [address] [place], [address] Absolute Neut 2.5 X10 3/uL Normal 2.0-7.7 [facility] Comment on above: Order Comment: Order Date: 03/03/23Order Info: 0184-1 - CBCD Performed By: #### L 506.1000, L100.0100, L501.9910, L500.4100 ####[facility] [address] [place], [address] Basophils/100 WBC (Bld) 0.5 % Normal 0-1 [facility] Comment on above: Order Comment: Order Date: 03/03/23Order Info: 0184-1 - CBCD Performed By: #### L 506.1000, L100.0100, L501.9910, L500.4100 ####[facility] [address] [place], [address] Eosinophils/100 WBC (Bld) 4.1 % Normal 0-5 [facility] Comment on above: Order Comment: Order Date: 03/03/23Order Info: 0184-1 - CBCD Performed By: #### L 506.1000, L100.0100, L501.9910, L500.4100 ####[facility] [address] [place], [address] Erythrocyte distribution width (RBC) [Ratio] 13.3 % Normal 11.6-14.6 [facility] Comment on above: Order Comment: Order Date: 03/03/23Order Info: 0184-1 - CBCD Performed By: #### L 506.1000, L100.0100, L501.9910, L500.4100 ####[facility] [address] [place], [address] Hematocrit (Bld) [Volume fraction] 42.1 % Normal 40-54 [facility] Comment on above: Order Comment: Order Date: 03/03/23Order Info: 018- - CBCD Performed By: #### L 506.1000, L100.0100, L501.9910, L500.4100 ####[facility] [address] [place], [address] Hemoglobin (Bld) [Mass/Vol] 14.4 g/dL Normal 13.0-16.5 [facility] Comment on above: Order Comment: Order Date: 03/03/23Order Info: 0184-1 - CBCD Performed By: #### L 506.1000, L100.0100, L501.9910, L500.4100 ####[facility] [address] [place], [address] IG% 0.200 Normal 0.0-0.9 [facility] Comment on above: Order Comment: Order Date: 03/03/23Order Info: 0184-1 - CBCD Result Comment: IG% - Immature Granulocytes (promyelocytes, myelocytes and metamyelocytes) > 1% indicates that a LEFT SHIFT is Present. Performed By: #### L 506.1000, L100.0100, L501.9910, L500.4100 ####[facility] [address] [place], [address] Lymphocytes/100 WBC (Bld) 24.1 % Normal 19-41 [facility] Comment on above: Order Comment: Order Date: 03/03/23Order Info: [id number] - CBCD Performed By: #### L 506.1000, L100.0100, L501.9910, L500.4100 ####[facility] [address] [place], [address] MCH (RBC) [Entitic mass] 33.0 pg High 27.0-32.0 [facility] Comment on above: Order Comment: Order Date: 03/03/23Order Info: [id number] - CBCD Performed By: #### L 506.1000, L100.0100, L501.9910, L500.4100 ####[facility] [address] [place], [address] MCHC (RBC) [Mass/Vol] 34.2 g/dL Normal 32-36 [facility] Comment on above: Order Comment: Order Date: 03/03/23Order Info: [id number] - CBCD Performed By: #### L 506.1000, L100.0100, L501.9910, L500.4100 ####[facility] [address] [place], [address] MCV (RBC) [Entitic vol] 96.6 fL High 80-94 [facility] Comment on above: Order Comment: Order Date: 03/03/23Order Info: [id number] - CBCD Performed By: #### L 506.1000, L100.0100, L501.9910, L500.4100 ####[facility] [address] [place], [address] Monocytes/100 WBC (Bld) 9.7 % Normal 0-10 [facility] Comment on above: Order Comment: Order Date: 03/03/23Order Info: [id number] - CBCD Performed By: #### L 506.1000, L100.0100, L501.9910, L500.4100 ####[facility] [address] [place], [address] Neutrophils/100 WBC (Bld) 61.4 % Normal 47-70 [facility] Comment on above: Order Comment: Order Date: 03/03/23Order Info: [id number] - CBCD Performed By: #### L 506.1000, L100.0100, L501.9910, L500.4100 ####[facility] [address] [place], [address] Nucleated RBC (Bld) [#/Vol] 0 10*3/uL Normal 0-5 [facility] Comment on above: Order Comment: Order Date: 03/03/23Order Info: [id number] - CBCD Performed By: #### L 506.1000, L100.0100, L501.9910, L500.4100 ####[facility] [address] [place], [address] Platelet mean volume (Bld) [Entitic vol] 11.4 fL Normal 6.2-12.0 [facility] Comment on above: Order Comment: Order Date: 03/03/23Order Info: [id number] - CBCD Performed By: #### L 506.1000, L100.0100, L501.9910, L500.4100 ####[facility] [address] [place], [address] Platelets (Bld) [#/Vol] 133 10*3/uL Low 150-450 [facility] Comment on above: Order Comment: Order Date: 03/03/23Order Info: [id number] - CBCD Performed By: #### L 506.1000, L100.0100, L501.9910, L500.4100 ####[facility] [address] [place], [address] RBC (Bld) [#/Vol] 4.36 10*6/uL Low 4.6-6.2 [facility] Comment on above: Order Comment: Order Date: 03/03/23Order Info: [id number] - CBCD Performed By: #### L 506.1000, L100.0100, L501.9910, L500.4100 ####[facility] [address] [place], [address] RDW SD 46.7 fl High 35.1-43.9 [facility] Comment on above: Order Comment: Order Date: 03/03/23Order Info: [id number] - CBCD Performed By: #### L 506.1000, L100.0100, L501.9910, L500.4100 ####[facility] [address] [place], [address] WBC (Bld) [#/Vol] 4.1 10*3/uL Low 4.4-11.0 [facility] Comment on above: Order Comment: Order Date: 03/03/23Order Info: [id number] - CBCD Performed By: #### L 506.1000, L100.0100, L501.9910, L500.4100 ####[facility] [address] [place], [address] Lipid Profileon 08-26-2023 Cholesterol [Mass/Vol] 169 mg/dL Normal 200 [facility] Comment on above: Order Comment: Order Date: 03/03/23Order Info: [id number] - LIPIDOrder Info: [id number] - PSA Result Comment: <200 mg/dL Desirable 200-240 mg/dL Borderline >240 mg/dL High Risk Performed By: #### L 506.1000, L100.0100, L501.9910, L500.4100 ####[facility] [address] [place], [address] Cholesterol in HDL [Mass/Vol] 55 mg/dL Normal [facility] Comment on above: Order Comment: Order Date: 03/03/23Order Info: [id number] - LIPIDOrder Info: [id number] - PSA Result Comment: The drugs N-Acetylcysteine and Metamizole may falsely depress this assay. Reference Range HDL <40 mg/dL Low HDL Cholesterol HDL >or= 60 mg/dL High HDL Cholesterol Performed By: #### L 506.1000, L100.0100, L501.9910, L500.4100 ####[facility] [address] [place], [address] Cholesterol in LDL [Mass/Vol] 88 mg/dL Normal 0-130 [facility] Comment on above: Order Comment: Order Date: 03/03/23Order Info: [id number] - LIPIDOrder Info: [id number] - PSA Performed By: #### L 506.1000, L100.0100, L501.9910, L500.4100 ####[facility] [address] [place], [address] Cholesterol in VLDL [Mass/Vol] 26 mg/dL Normal 5-40 [facility] Comment on above: Order Comment: Order Date: 03/03/23Order Info: [id number] - LIPIDOrder Info: [id number] - PSA Performed By: #### L 506.1000, L100.0100, L501.9910, L500.4100 ####[facility] [address] [place], [address] Triglyceride [Mass/Vol] 132 mg/dL Normal [facility] Comment on above: Order Comment: Order Date: 03/03/23Order Info: [id number] - LIPIDOrder Info: [id number] - PSA Result Comment: The drugs N-Acetylcysteine and Metamizole may falsely depress this assay. Serum Triglycerides Reference Interval Normal <150 mg/dL Borderline high 150 - 199 mg/dL High 200 - 499 mg/dL Very High > or = 500 mg/dL Performed By: #### L 506.1000, L100.0100, L501.9910, L500.4100 ####[facility] [address] [place], [address] PSA,Total - Annual Screenon 08-26-2023 PSA,TOT SCREEN 1.65 ng/mL Normal 0.00-4.00 [facility] Comment on above: Order Comment: Order Date: 03/03/23Order Info: [id number] - LIPIDOrder Info: [id number] - PSA Result Comment: This test was performed using the TPSA assay method for the [employer] chemistry system. Values obtained with different assay methods cannot be used interchangably. When changing PSA assays in the course of monitoring a patient, additional sequential testing should be carried out to confirm baseline values. Performed By: #### L 506.1000, L100.0100, L501.9910, L500.4100 ####[facility] [address] [place], [place], [address] Vitamin D,25 Hydroxyon 08-25 Vitamin D 25-OH 55.4 ng/mL Normal [facility] Comment on above: Order Comment: Order Date: 03/03/23Order Info: [id number] - [id number] Result Comment: Isabel min D 25(OH) Status Range Deficiency <20 ng/mL (50nmol/L) Insufficiency 20 - 30 ng/mL (50 - 75 nmol/L) Sufficiency 30 - 100 ng/mL (75 - 250 nmol/L) Toxicity >100 ng/mL (>250 nmol/L) Performed By: #### L 506.1000, L100.0100, L501.9910, L500.4100 ####[facility] [address] [place], [address] Basophil percentageOrdered B y: Saji Miguel on 04-13-2023 Cholesterol [Mass/Vol] 198 mg/dL <200 [facility] Comment on above: <200 mg/dL Desirable 200-240 mg/dL Borderline >240 mg/dL High Risk Triglyceride [Mass/Vol] 97 mg/dL <199 [facility] Comment on above: The drugs N-Acetylcy steine and Metamizole may falsely depress this assay.Serum Triglycerides Reference Interval Normal <150 mg/dL Borderline high 150 - 199 mg/dL High 200 - 499 mg/dL Very High > or = 500 mg/dL High density lipoprotein (HD L) measurementOrdered By: Saji Rivera on 04-13-2023 Cholesterol in HDL (Body fld) [Mass/Vol] 72 mg/dL >40 [facility] Comment on above: The drugs N-Acetylcy steine and Metamizole may falsely depress this assay. Reference Range HDL <40 mg/dL Low HDL Cholesterol HDL >or= 60 mg/dL High HDL Cholesterol Low density lipoprotein (LDL ) cholesterol measurementOrdered By: Saji Rivera on 04-13-2023 Cholesterol in LDL (Body fld) [Moles/Vol] 107 mg/dL 0-130 [facility] Very low density lipoprotein (VLDL) cholesterol measurementOrdered By: Saji Rivera on 04-13-2023 Cholesterol in VLDL Calc [Moles/Vol] 19 mg/dL 5-40 [facility] Absolute lymphocyte countOrd ered By: Bart Romero on 04-12-2023 Lymphocytes Auto (Unsp spec) [#/Vol] 1.53 10*3/uL 0.83-4.51 [facility] Activated partial thrombopla stin time (aPTT) in platelet poor plasma by coagulation aOrdered By: Bart Romero on 04-12-2023 aPTT Coag (PPP) [Time] 24.2 s 24.1-36.2 [facility] Automated lymphocyte count a s percentage of total leukocytesOrdered By: Bart Romero on 04-12-2023 Lymphocytes/100 WBC Auto (Unsp spec) 20.9 % 19-41 [facility] Basophil percentageOrdered B y: Bart Romero on 04-12-2023 Basophils/100 WBC (Bld) 0.7 % 0-1 [facility] Chloride [Moles/Vol] 107 mmol/L 98-107 [facility] Eosinophils/100 WBC (Bld) 1.6 % 0-5 [facility] Glucose [Mass/Vol] 109 mg/dL 74-106 [facility] Comment on above: Fasting Glucose resu lt from 100 to 125 mg/dL suggests IMPAIRED HOMEOSTASIS per A.D.A. criteria. Hemoglobin (Bld) [Mass/Vol] 14.3 g/dL 13.0-16.5 [facility] Monocytes/100 WBC (Bld) 9.0 % 0-10 [facility] Neutrophils (Bld) [#/Vol] 4.9 10*3/uL 2.0-7.7 [facility] Neutrophils/100 WBC (Bld) 67.5 % 47-70 [facility] Potassium [Moles/Vol] 4.3 mmol/L 3.5-5.1 [facility] Sodium [Moles/Vol] 138 mmol/L 136-145 [facility] WBC (Bld) [#/Vol] 7.3 10*3/uL 4.4-11.0 [facility] Determination of erythrocyte mean corpuscular volume (MCV)Ordered By: Bart Romero on 04-12-2023 MCV (RBC) [Entitic vol] 96.1 fL 80-94 [facility] Erythrocyte distribution wid th ratioOrdered By: Bart Romero on 04-12-2023 Erythrocyte distribution width (RBC) [Ratio] 13.6 % 11.6-14.6 [facility] Erythrocyte distribution wid th standard deviationOrdered By: Bart Romero on 04-12-2023 Erythrocyte distribution width (RBC) [Entitic vol] 48.0 fL 35.1-43.9 [facility] Hematocrit Auto (Bld) [Volum e fraction]Ordered By: Bart Romero on 04-12-2023 Hematocrit (Bld) [Volume fraction] 41.6 % 40-54 [facility] Immature granulocytes/100 WB C Auto (Bld)Ordered By: Bart Romero on 04-12-2023 Immature granulocytes/100 WBC (Bld) 0.300 % 0.0-0.9 [facility] Comment on above: IG% - Immature Granu locytes (promyelocytes, myelocytes and metamyelocytes) > 1% indicates that a LEFT SHIFT is Present. International normalized rat io (INR) calculationOrdered By: Bart Romero on 04-12-2023 INR Coag (PPP) [Relative time] 1.0 {INR} [facility] Laboratory - Chemistry and C hemistry - challengeOrdered By: Bart Romero on 04-12-2023 CO2 [Moles/Vol] 26.0 mmol/L 21.0-32.0 [facility] Urea nitrogen/Creatinine [Mass ratio] 17.6 mg/mg 10-20 [facility] Laboratory - CoagulationOrde red By: Bart Romero on 04-12-2023 PT Coag (PPP) [Time] 13.0 s 11.7-14.9 [facility] Laboratory - Hematology and Cell countsOrdered By: Bart Romero on 04-12-2023 MCH (RBC) [Entitic mass] 33.0 pg 27.0-32.0 [facility] MCHC (RBC) [Mass/Vol] 34.4 g/dL 32-36 [facility] Nucleated RBC/100 WBC (Bld) [Ratio] 0 % 0-5 [facility] Platelets (Bld) [#/Vol] 144 10*3/uL 150-450 [facility] No Panel InformationOrdered By: Bart Romero on 04-12-2023 Estimated Creatinine Clearance Calc 67.29 ml/min [facility] Estimated GFR (MDRD) Amer 76 mL/min >60 [facility] Comment on above: GFR Calc Estimated GFR (MDRD) Non-Af Amer 63 mL/min >60 [facility] Comment on above: Non- GFR Calc Troponin I High Sensitivity 6 pg/mL 3.0-78.0 [facility] Comment on above: Please Note: New Mary t Units and Gender Specific Reference Ranges. For more information see Policy Stat Procedure [place] High Sensitivity Troponin (TNIH) and attachments. No Panel InformationOrdered By: Saji Rivera on 04-12-2023 Ethyl Alcohol Level < 3.0 mg/dL [facility] Comment on above: The serum:whole bloo d ethanol ratio is approximately 1.14and varies slightly with hematocrit. Medical Alcohol reference interval and critical value innon-tolerant individuals; 50 - 100 Impairment 100 Intoxication 100 - 250 Severe Poisoning 250 - 400 Deep/possible fatal coma Platelet mean volume Cabrera-Ec ker (Bld) [Entitic vol]Ordered By: Bart Romero on 04-12-2023 Platelet mean volume (Bld) [Entitic vol] 11.4 fL 6.2-12.0 [facility] RBC Auto (Bld) [#/Vol]Ordere d By: Bart Romero on 04-12-2023 RBC (Bld) [#/Vol] 4.33 10*6/uL 4.6-6.2 [facility] Serum or plasma calcium mt urement (mass/volume)Ordered By: Bart Romero on 04-12-2023 Calcium [Mass/Vol] 9.5 mg/dL 8.5-10.1 [facility] Serum or plasma creatinine m easurement (mass/volume)Ordered By: Bart Romero on 04-12-2023 Creatinine [Mass/Vol] 1.19 mg/dL 0.70-1.30 [facility] Comment on above: The validity of the calculated GFR & GFRAA in patients over 70 years has not been determined. Clinical correlation is essential. Serum or plasma thyroid stim ulating hormone (TSH) measurement (units/volume)Ordered By: Saji Rivera on 04-12-2023 TSH Qn 1.61 uIU/mL 0.358-3.74 [facility] Serum or plasma urea nitroge n measurement (mass/volume)Ordered By: Bart Romero on 04-12-2023 Urea nitrogen [Mass/Vol] 21 mg/dL 7-18 [facility] Thin prep Papanicolaou smear with manual screeningOrdered By: Bart Romero on 04-12-2023 Thin prep Papanicolaou smear with manual screening 111 mg/dL 74-106 [facility] Comment on above: MANAGEMENT OF PATIEN T CARE PER NURSING PROTOCOL Thin prep Papanicolaou smear with manual screening 5 5-15 [facility] Basophil percentageOrdered B y: Isaias Nuñez on 03-05-2023 Bilirubin [Mass/Vol] 0.40 mg/dL 0.20-1.00 [facility] Comment on above: For patients on eltr ombopag therapy, use of Dimension [place] TBIL is not recommended. Chloride [Moles/Vol] 109 mmol/L 98-107 [facility] Glucose [Mass/Vol] 128 mg/dL 74-106 [facility] Comment on above: Fasting Glucose resu lt greater than or equal to 126 mg/dL suggests DIABETES MELLITUS per A.D.A. criteria. Potassium [Moles/Vol] 4.8 mmol/L 3.5-5.1 [facility] Comment on above: Moderate Hemolysis, Result may be falsely increased. Protein [Mass/Vol] 6.7 g/dL 6.4-8.2 [facility] Sodium [Moles/Vol] 140 mmol/L 136-145 [facility] Laboratory - Chemistry and C hemistry - challengeOrdered By: Isaias Nuñez on 03-05-2023 ALP [Catalytic activity/Vol] 76 U/L 45-117 [facility] ALT [Catalytic activity/Vol] 42 U/L 16-61 [facility] CO2 [Moles/Vol] 26.0 mmol/L 21.0-32.0 [facility] Globulin (S) [Mass/Vol] 3.1 g/dL 2.2-4.2 [facility] Urea nitrogen/Creatinine [Mass ratio] 25.0 mg/mg 10-20 [facility] No Panel InformationOrdered By: Isaias Nuñez on 03-05-2023 Estimated GFR (MDRD) Amer 78 mL/min >60 [facility] Comment on above: GFR Calc Estimated GFR (MDRD) Non-Af Amer 65 mL/min >60 [facility] Comment on above: Non- GFR Calc Serum or plasma albumin mt urement (mass/volume)Ordered By: Isaias Nuñez on 03-05-2023 Albumin [Mass/Vol] 3.6 g/dL 3.2-5.0 [facility] Serum or plasma albumin/glob ulin mass ratioOrdered By: Isaias Nuñez on 03-05-2023 Albumin/Globulin [Mass ratio] 1.2 {ratio} 0.9-2.4 [facility] Serum or plasma calcium mt urement (mass/volume)Ordered By: Isaias Nuñez on 03-05-2023 Calcium [Mass/Vol] 9.5 mg/dL 8.5-10.1 [facility] Serum or plasma creatinine m easurement (mass/volume)Ordered By: Isaias Nuñez on 03-05-2023 Creatinine [Mass/Vol] 1.16 mg/dL 0.70-1.30 [facility] Comment on above: The validity of the calculated GFR & GFRAA in patients over 70 years has not been determined. Clinical correlation is essential. Serum or plasma urea nitroge n measurement (mass/volume)Ordered By: Isaias Nuñez on 03-05-2023 Urea nitrogen [Mass/Vol] 29 mg/dL 7-18 [facility] Thin prep Papanicolaou smear with manual screeningOrdered By: Isaias Nuñez on 03-05-2023 Thin prep Papanicolaou smear with manual screening 34 U/L - [facility] Comment on above: Moderate Hemolysis, Result may be falsely increased. Thin prep Papanicolaou smear with manual screening 5 5-15 [facility] Whole blood hemoglobin A1c/t otal hemoglobin ratio (mass fraction)Ordered By: Isaias Nuñez on 03-05-2023 HbA1c (Bld) [Mass fraction] 5.0 % 3.8-5.6 [facility] Comment on above: Normal < 5.7 % Predi abetic 5.7 - 6.4 % Diabetic >or= 6.5 % Please note range changes. Absolute lymphocyte countOrd ered By: Isaias Nuñez on 02-25-2023 Lymphocytes Auto (Unsp spec) [#/Vol] 0.98 10*3/uL 0.83-4.51 [facility] Basophil percentageOrdered B y: Isaias Nuñez on 02-25-2023 Basophil percentage 0 SEEN /hpf 0-5 [facility] Basophils/100 WBC (Bld) 0.8 % 0-1 [facility] Bilirubin [Mass/Vol] 0.40 mg/dL 0.20-1.00 [facility] Comment on above: For patients on eltr ombopag therapy, use of Dimension [place] TBIL is not recommended. Chloride [Moles/Vol] 109 mmol/L 98-107 [facility] Cholesterol [Mass/Vol] 170 mg/dL <200 [facility] Comment on above: <200 mg/dL Desirable 200-240 mg/dL Borderline >240 mg/dL High Risk Eosinophils/100 WBC (Bld) 2.5 % 0-5 [facility] Glucose [Mass/Vol] 110 mg/dL 74-106 [facility] Comment on above: Fasting Glucose resu lt from 100 to 125 mg/dL suggests IMPAIRED HOMEOSTASIS per A.D.A. criteria. Neutrophils (Bld) [#/Vol] 3.2 10*3/uL 2.0-7.7 [facility] Neutrophils/100 WBC (Bld) 66.2 % 47-70 [facility] Potassium [Moles/Vol] 4.3 mmol/L 3.5-5.1 [facility] Protein [Mass/Vol] 6.8 g/dL 6.4-8.2 [facility] Sodium [Moles/Vol] 139 mmol/L 136-145 [facility] Triglyceride [Mass/Vol] 62 mg/dL <199 [facility] Comment on above: The drugs N-Acetylcy steine and Metamizole may falsely depress this assay.Serum Triglycerides Reference Interval Normal <150 mg/dL Borderline high 150 - 199 mg/dL High 200 - 499 mg/dL Very High > or = 500 mg/dL WBC (Bld) [#/Vol] 4.8 10*3/uL 4.4-11.0 [facility] Bilirubin Test strip Ql (U)O rdered By: Isaias Nuñez on 02-25-2023 Bilirubin Ql (U) Negative Negative [facility] Blood erythrocytes count (nu mber/volume)Ordered By: Isaias Nuñez on 02-25-2023 RBC (Bld) [#/Vol] 4.32 10*6/uL 4.6-6.2 [facility] Blood hemoglobin measurement (mass/volume)Ordered By: Isaias Nuñez on 02-25-2023 Hemoglobin (Bld) [Mass/Vol] 13.9 g/dL 13.0-16.5 [facility] Blood lymphocytes/100 leukoc ytesOrdered By: Isaias Nuñez on 02-25-2023 Lymphocytes/100 WBC (Bld) 20.5 % 19-41 [facility] Blood monocytes/100 leukocyt esOrdered By: Isaias Nuñez on 02-25-2023 Monocytes/100 WBC (Bld) 9.6 % 0-10 [facility] Blood platelet mean volumeOr dered By: Isaias Nuñez on 02-25-2023 Platelet mean volume (Bld) [Entitic vol] 11.7 fL 6.2-12.0 [facility] Determination of erythrocyte mean corpuscular volume (MCV)Ordered By: Isaias Nuñez on 02-25-2023 MCV (RBC) [Entitic vol] 97.0 fL 80-94 [facility] Hematocrit Auto (Bld) [Volum e fraction]Ordered By: Isaias Nuñez on 02-25-2023 Hematocrit (Bld) [Volume fraction] 41.9 % 40-54 [facility] Ketones Test strip Ql (U)Ord ered By: Isaias Nuñez on 02-25-2023 Ketones Ql (U) 5 mg/dl Negative [facility] Laboratory - Chemistry and C hemistry - challengeOrdered By: Isaias Nuñez on 02-25-2023 ALP [Catalytic activity/Vol] 70 U/L 45-117 [facility] ALT [Catalytic activity/Vol] 41 U/L 16-61 [facility] CO2 [Moles/Vol] 24.0 mmol/L 21.0-32.0 [facility] Globulin (S) [Mass/Vol] 3.2 g/dL 2.2-4.2 [facility] Urea nitrogen/Creatinine [Mass ratio] 15.8 mg/mg 10-20 [facility] Laboratory - Hematology and Cell countsOrdered By: Isaias Nuñez on 02-25-2023 Erythrocyte distribution width (RBC) [Entitic vol] 48.8 fL 35.1-43.9 [facility] Erythrocyte distribution width (RBC) [Ratio] 13.7 % 11.6-14.6 [facility] Immature granulocytes/100 WBC (Bld) 0.400 % 0.0-0.9 [facility] Comment on above: IG% - Immature Granu locytes (promyelocytes, myelocytes and metamyelocytes) > 1% indicates that a LEFT SHIFT is Present. MCH (RBC) [Entitic mass] 32.2 pg 27.0-32.0 [facility] Nucleated RBC/100 WBC (Bld) [Ratio] 0 % 0-5 [facility] MCHC Auto (RBC) [Mass/Vol]Or dered By: Isaias Nuñez on 02-25-2023 MCHC (RBC) [Mass/Vol] 33.2 g/dL 32-36 [facility] Mucus LM Ql (Urine sed)Order ed By: Isaias Nuñez on 02-25-2023 Mucus Ql (Urine sed) 0 SEEN /hpf [facility] Nitrite Test strip Ql (U)Ord ered By: Isaias Nuñez on 02-25-2023 Nitrite Ql (U) Negative Negative [facility] No Panel InformationOrdered By: Isaias Nuñez on 02-25-2023 Estimated GFR (MDRD) Amer 92 mL/min >60 [facility] Comment on above: GFR Calc Estimated GFR (MDRD) Non-Af Amer 76 mL/min >60 [facility] Comment on above: Non- GFR Calc Vitamin D 25-Hydroxy 48.3 ng/mL [facility] Comment on above: Vitamin D 25(OH) Sta tus Range Deficiency <20 ng/mL (50nmol/L) Insufficiency 20 - 30 ng/mL (50 - 75 nmol/L) Sufficiency 30 - 100 ng/mL (75 - 250 nmol/L) Toxicity >100 ng/mL (>250 nmol/L) Platelets bldOrdered By: Meir Nuñez on 02-25-2023 Platelets (Bld) [#/Vol] 128 10*3/uL 150-450 [facility] Protein Test strip Ql (U)Ord ered By: Isaias Nuñez on 02-25-2023 Protein Ql (U) Negative Negative [facility] Serum or plasma albumin mt urement (mass/volume)Ordered By: Isaias Nuñez on 02-25-2023 Albumin [Mass/Vol] 3.6 g/dL 3.2-5.0 [facility] Serum or plasma albumin/glob ulin mass ratioOrdered By: Isaias Nuñez on 02-25-2023 Albumin/Globulin [Mass ratio] 1.1 {ratio} 0.9-2.4 [facility] Serum or plasma calcium mt urement (mass/volume)Ordered By: Isaias Nuñez on 02-25-2023 Calcium [Mass/Vol] 8.5 mg/dL 8.5-10.1 [facility] Serum or plasma cholesterol in HDL measurement (mass/volume)Ordered By: Isaias Nuñez on 02-25-2023 Cholesterol in HDL [Mass/Vol] 59 mg/dL >40 [facility] Comment on above: The drugs N-Acetylcy steine and Metamizole may falsely depress this assay. Reference Range HDL <40 mg/dL Low HDL Cholesterol HDL >or= 60 mg/dL High HDL Cholesterol Serum or plasma cholesterol in VLDL measurement (mass/volume)Ordered By: Isaias Nuñez on 02-25-2023 Cholesterol in VLDL [Mass/Vol] 12 mg/dL 5-40 [facility] Serum or plasma creatinine m easurement (mass/volume)Ordered By: Isaias Nuñez on 02-25-2023 Creatinine [Mass/Vol] 1.01 mg/dL 0.70-1.30 [facility] Comment on above: The validity of the calculated GFR & GFRAA in patients over 70 years has not been determined. Clinical correlation is essential. Serum or plasma low density lipoprotein (LDL) cholesterol measurement (mass/volume)Ordered By: Isaias Nuñez on 02-25-2023 Cholesterol in LDL [Mass/Vol] 99 mg/dL 0-130 [facility] Serum or plasma urea nitroge n measurement (mass/volume)Ordered By: Isaias Nuñez on 02-25-2023 Urea nitrogen [Mass/Vol] 16 mg/dL 7-18 [facility] Squamous epithelial cells de tection in urine sediment by light microscopyOrdered By: Isaias Nuñez on 02-25-2023 Epithelial cells.squamous LM Ql (Urine sed) 0-5 SEEN /hpf 0-5 [facility] Thin prep Papanicolaou smear with manual screeningOrdered By: Isaias Nuñez on 02-25-2023 Thin prep Papanicolaou smear with manual screening 32 U/L 15-37 [facility] Thin prep Papanicolaou smear with manual screening 6 5-15 [facility] Urine blood detectionOrdered By: Isaias Nuñez on 02-25-2023 RBC Ql (U) Negative Negative [facility] RBC Ql (U) 0 SEEN /hpf 0-5 [facility] Urine clarityOrdered By: Meir Nuñez on 02-25-2023 Clarity (U) Sl. Cloudy Clear [facility] Urine color determinationOrd ered By: Isaias Nuñez on 02-25-2023 Color (U) Yellow Yellow [facility] Urine glucose detectionOrder ed By: Isaias Nuñez on 02-25-2023 Glucose Ql (U) Normal mg/dl Normal [facility] Urine leukocyte esterase det ection by dipstickOrdered By: Isaias Nuñez on 02-25-2023 Leukocyte esterase Test strip Ql (U) Negative Negative [facility] Urine pHOrdered By: Isaias flor on 02-25-2023 pH (U) 6.0 [pH] 5.0 - 8.0 [facility] Urine sediment bacteria coun t by microscopy (number/high power field)Ordered By: Isaias Nuñez on 02-25-2023 Bacteria LM.HPF (Urine sed) [#/Area] 0 /[HPF] None Seen [facility] Urine specific gravity measu rementOrdered By: Isaias Nuñez on 02-25-2023 Specific gravity (U) [Rel density] 1.010 1.002-1.030 [facility] Urobilinogen Auto test strip Ql (U)Ordered By: Isaias Nuñez on 02-25-2023 Urobilinogen Ql (U) Normal mg/dl Normal [facility] Absolute lymphocyte countOrd ered By: Dr. Nuñez on 08-26-2022 Lymphocytes Auto (Unsp spec) [#/Vol] 1.18 10*3/uL 0.83-4.51 [facility] Basophil percentageOrdered B y: Dr. Nuñez on 08-26-2022 Basophil percentage 0 SEEN /hpf 0-5 [facility] Basophils/100 WBC (Bld) 0.4 % 0-1 [facility] Bilirubin [Mass/Vol] 0.70 mg/dL 0.20-1.00 [facility] Comment on above: For patients on eltr ombopag therapy, use of Dim[place] TBIL is not recommended. Chloride [Moles/Vol] 105 mmol/L 98-107 [facility] Cholesterol [Mass/Vol] 185 mg/dL <200 [facility] Comment on above: <200 mg/dL Desirable 200-240 mg/dL Borderline >240 mg/dL High Risk Eosinophils/100 WBC (Bld) 1.7 % 0-5 [facility] Glucose [Mass/Vol] 92 mg/dL 74-106 [facility] Neutrophils (Bld) [#/Vol] 3.4 10*3/uL 2.0-7.7 [facility] Neutrophils/100 WBC (Bld) 65.3 % 47-70 [facility] Potassium [Moles/Vol] 4.7 mmol/L 3.5-5.1 [facility] Protein [Mass/Vol] 7.2 g/dL 6.4-8.2 [facility] Sodium [Moles/Vol] 134 mmol/L 136-145 [facility] Triglyceride [Mass/Vol] 57 mg/dL <199 [facility] Comment on above: The drugs N-Acetylcy steine and Metamizole may falsely depress this assay.Serum Triglycerides Reference Interval Normal <150 mg/dL Borderline high 150 - 199 mg/dL High 200 - 499 mg/dL Very High > or = 500 mg/dL WBC (Bld) [#/Vol] 5.2 10*3/uL 4.4-11.0 [facility] Bilirubin Test strip Ql (U)O rdered By: Dr. Nuñez on 08-26-2022 Bilirubin Ql (U) Negative Negative [facility] Blood erythrocytes count (nu mber/volume)Ordered By: Dr. Nuñez on 08-26-2022 RBC (Bld) [#/Vol] 4.51 10*6/uL 4.6-6.2 [facility] Blood hemoglobin measurement (mass/volume)Ordered By: Dr. Nuñez on 08-26-2022 Hemoglobin (Bld) [Mass/Vol] 14.8 g/dL 13.0-16.5 [facility] Blood lymphocytes/100 leukoc ytesOrdered By: Dr. Nuñez on 08-26-2022 Lymphocytes/100 WBC (Bld) 22.5 % 19-41 [facility] Blood monocytes/100 leukocyt esOrdered By: Dr. Nuñez on 08-26-2022 Monocytes/100 WBC (Bld) 9.9 % 0-10 [facility] Blood platelet mean volumeOr dered By: Dr. Nuñez on 08-26-2022 Platelet mean volume (Bld) [Entitic vol] 11.5 fL 6.2-12.0 [facility] Determination of erythrocyte mean corpuscular volume (MCV)Ordered By: Dr. Nuñez on 08-26-2022 MCV (RBC) [Entitic vol] 95.8 fL 80-94 [facility] Hematocrit Auto (Bld) [Volum e fraction]Ordered By: Dr. Nuñez on 08-26-2022 Hematocrit (Bld) [Volume fraction] 43.2 % 40-54 [facility] Ketones Test strip Ql (U)Ord ered By: Dr. Nuñez on 08-26-2022 Ketones Ql (U) Negative Negative [facility] Laboratory - Chemistry and C hemistry - challengeOrdered By: Dr. Nuñez on 08-26-2022 ALP [Catalytic activity/Vol] 76 U/L 45-117 [facility] ALT [Catalytic activity/Vol] 53 U/L 16-61 [facility] CO2 [Moles/Vol] 23.0 mmol/L 21.0-32.0 [facility] Globulin (S) [Mass/Vol] 3.3 g/dL 2.2-4.2 [facility] Urea nitrogen/Creatinine [Mass ratio] 21.9 mg/mg 10-20 [facility] Laboratory - Hematology and Cell countsOrdered By: Dr. Nuñez on 08-26-2022 Erythrocyte distribution width (RBC) [Entitic vol] 46.6 fL 35.1-43.9 [facility] Erythrocyte distribution width (RBC) [Ratio] 13.2 % 11.6-14.6 [facility] Immature granulocytes/100 WBC (Bld) 0.200 % 0.0-0.9 [facility] Comment on above: IG% - Immature Granu locytes (promyelocytes, myelocytes and metamyelocytes) > 1% indicates that a LEFT SHIFT is Present. MCH (RBC) [Entitic mass] 32.8 pg 27.0-32.0 [facility] Nucleated RBC/100 WBC (Bld) [Ratio] 0 % 0-5 [facility] MCHC Auto (RBC) [Mass/Vol]Or dered By: Dr. Nuñez on 08-26-2022 MCHC (RBC) [Mass/Vol] 34.3 g/dL 32-36 [facility] Mucus LM Ql (Urine sed)Order ed By: Dr. Nuñez on 08-26-2022 Mucus Ql (Urine sed) 0 SEEN /hpf [facility] Nitrite Test strip Ql (U)Ord ered By: Dr. Nuñez on 08-26-2022 Nitrite Ql (U) Negative Negative [facility] No Panel InformationOrdered By: Dr. Nuñez on 08-26-2022 Estimated GFR (MDRD) Amer 88 mL/min >60 [facility] Comment on above: GFR Calc Estimated GFR (MDRD) Non-Af Amer 72 mL/min >60 [facility] Comment on above: Non- GFR Calc Thyroid Stimulating Hormone (TSH) 1.49 uIU/mL 0.358-3.74 [facility] Vitamin D 25-Hydroxy 61.3 ng/mL [facility] Comment on above: Vitamin D 25(OH) Sta tus Range Deficiency <20 ng/mL (50nmol/L) Insufficiency 20 - 30 ng/mL (50 - 75 nmol/L) Sufficiency 30 - 100 ng/mL (75 - 250 nmol/L) Toxicity >100 ng/mL (>250 nmol/L) Platelets bldOrdered By: Dr. Nuñez on 08-26-2022 Platelets (Bld) [#/Vol] 149 10*3/uL 150-450 [facility] Protein Test strip Ql (U)Ord ered By: Dr. Nuñez on 08-26-2022 Protein Ql (U) Negative Negative [facility] Serum or plasma albumin mt urement (mass/volume)Ordered By: Dr. Nuñez on 08-26-2022 Albumin [Mass/Vol] 3.9 g/dL 3.2-5.0 [facility] Serum or plasma albumin/glob ulin mass ratioOrdered By: Dr. Nuñez on 08-26-2022 Albumin/Globulin [Mass ratio] 1.2 {ratio} 0.9-2.4 [facility] Serum or plasma calcium mt urement (mass/volume)Ordered By: Dr. Nuñez on 08-26-2022 Calcium [Mass/Vol] 8.9 mg/dL 8.5-10.1 [facility] Serum or plasma cholesterol in HDL measurement (mass/volume)Ordered By: Dr. Nuñez on 08-26-2022 Cholesterol in HDL [Mass/Vol] 63 mg/dL >40 [facility] Comment on above: The drugs N-Acetylcy steine and Metamizole may falsely depress this assay. Reference Range HDL <40 mg/dL Low HDL Cholesterol HDL >or= 60 mg/dL High HDL Cholesterol Serum or plasma cholesterol in VLDL measurement (mass/volume)Ordered By: Dr. Nuñez on 08-26-2022 Cholesterol in VLDL [Mass/Vol] 11 mg/dL 5-40 [facility] Serum or plasma creatinine m easurement (mass/volume)Ordered By: Dr. Nuñez on 08-26-2022 Creatinine [Mass/Vol] 1.05 mg/dL 0.70-1.30 [facility] Comment on above: The validity of the calculated GFR & GFRAA in patients over 70 years has not been determined. Clinical correlation is essential. Serum or plasma low density lipoprotein (LDL) cholesterol measurement (mass/volume)Ordered By: Dr. Nuñez on 08-26-2022 Cholesterol in LDL [Mass/Vol] 111 mg/dL 0-130 [facility] Serum or plasma urea nitroge n measurement (mass/volume)Ordered By: Dr. Nuñez on 08-26-2022 Urea nitrogen [Mass/Vol] 23 mg/dL 7-18 [facility] Squamous epithelial cells de tection in urine sediment by light microscopyOrdered By: Dr. Nuñez on 08-26-2022 Epithelial cells.squamous LM Ql (Urine sed) 0 SEEN /hpf 0-5 [facility] Thin prep Papanicolaou smear with manual screeningOrdered By: Dr. Nuñez on 08-26-2022 Thin prep Papanicolaou smear with manual screening 34 U/L 15-37 [facility] Thin prep Papanicolaou smear with manual screening 6 5-15 [facility] Urine blood detectionOrdered By: Dr. Nuñez on 08-26-2022 RBC Ql (U) Negative Negative [facility] RBC Ql (U) 0 SEEN /hpf 0-5 [facility] Urine clarityOrdered By: Dr. Nuñez on 08-26-2022 Clarity (U) Clear Clear [facility] Urine color determinationOrd ered By: Dr. Nuñez on 08-26-2022 Color (U) Yellow Yellow [facility] Urine glucose detectionOrder ed By: Dr. Nuñez on 08-26-2022 Glucose Ql (U) Normal mg/dl Normal [facility] Urine leukocyte esterase det ection by dipstickOrdered By: Dr. Nuñez on 08-26-2022 Leukocyte esterase Test strip Ql (U) Negative Negative [facility] Urine pHOrdered By: Dr. Joaquín miller on 08-26-2022 pH (U) 6.0 [pH] 5.0 - 8.0 [facility] Urine sediment bacteria coun t by microscopy (number/high power field)Ordered By: Dr. Nuñez on 08-26-2022 Bacteria LM.HPF (Urine sed) [#/Area] 0 /[HPF] None Seen [facility] Urine specific gravity measu rementOrdered By: Dr. Nuñez on 08-26-2022 Specific gravity (U) [Rel density] 1.015 1.002-1.030 [facility] Urobilinogen Auto test strip Ql (U)Ordered By: Dr. Nuñez on 08-26-2022 Urobilinogen Ql (U) Normal mg/dl Normal [facility] Whole blood hemoglobin A1c/t otal hemoglobin ratio (mass fraction)on 09-02-2021 HbA1c (Bld) [Mass fraction] 5.1 % 3.8-5.6 [facility] Work Phone: Comment on above: Normal < 5.7 % Predi abetic 5.7 - 6.4 % Diabetic >or= 6.5 % Please note range changes. Absolute lymphocyte counton 08-30-2021 Lymphocytes Auto (Unsp spec) [#/Vol] 1.06 10*3/uL 0.83-4.51 [facility] Work Phone: Basophil percentageon 2021 Basophil percentage 0 SEEN /hpf [facility] Work Phone: Basophils/100 WBC (Bld) 0.7 % 0-1 [facility] Work Phone: Bilirubin [Mass/Vol] 0.30 mg/dL 0.20-1.00 [facility] Work Phone: Comment on above: For patients on eltr ombopag therapy, use of Dim[place] TBIL is not recommended. Chloride [Moles/Vol] 109 mmol/L 98-107 [facility] Work Phone: Cholesterol [Mass/Vol] 176 mg/dL <200 [facility] Work Phone: Comment on above: <200 mg/dL Desirable 200-240 mg/dL Borderline >240 mg/dL High Risk Eosinophils/100 WBC (Bld) 3.0 % 0-5 [facility] Work Phone: Glucose [Mass/Vol] 112 mg/dL 74-106 [facility] Work Phone: Comment on above: Fasting Glucose resu lt from 100 to 125 mg/dL suggests IMPAIRED HOMEOSTASIS per A.D.A. criteria. Neutrophils (Bld) [#/Vol] 2.7 10*3/uL 2.0-7.7 [facility] Work Phone: Neutrophils/100 WBC (Bld) 61.7 % 47-70 [facility] Work Phone: Potassium [Moles/Vol] 4.6 mmol/L 3.5-5.1 [facility] Work Phone: Protein [Mass/Vol] 7.0 g/dL 6.4-8.2 [facility] Work Phone: Sodium [Moles/Vol] 140 mmol/L 136-145 [facility] Work Phone: Triglyceride [Mass/Vol] 64 mg/dL [facility] Work Phone: Comment on above: The drugs N-Acetylcy steine and Metamizole may falsely depress this assay.Serum Triglycerides Reference Interval Normal <150 mg/dL Borderline high 150 - 199 mg/dL High 200 - 499 mg/dL Very High > or = 500 mg/dL WBC (Bld) [#/Vol] 4.4 10*3/uL 4.4-11.0 [facility] Work Phone: Bilirubin Test strip Ql (U)o n 08-30-2021 Bilirubin Ql (U) Negative Negative [facility] Work Phone: Blood erythrocytes count (nu mber/volume)on 08-30-2021 RBC (Bld) [#/Vol] 4.38 10*6/uL 4.6-6.2 [facility] Work Phone: Blood hemoglobin measurement (mass/volume)on 08-30-2021 Hemoglobin (Bld) [Mass/Vol] 14.3 g/dL 13.0-16.5 [facility] Work Phone: Blood lymphocytes/100 leukoc yteson 08-30-2021 Lymphocytes/100 WBC (Bld) 24.1 % 19-41 [facility] Work Phone: Blood monocytes/100 leukocyt eson 08-30-2021 Monocytes/100 WBC (Bld) 10.3 % 0-10 [facility] Work Phone: Blood platelet mean volumeon 08-30-2021 Platelet mean volume (Bld) [Entitic vol] 11.4 fL 6.2-12.0 [facility] Work Phone: Determination of erythrocyte mean corpuscular volume (MCV)on 08-30-2021 MCV (RBC) [Entitic vol] 95.4 fL 80-94 [facility] Work Phone: Hematocrit Auto (Bld) [Volum e fraction]on 08-30-2021 Hematocrit (Bld) [Volume fraction] 41.8 % 40-54 [facility] Work Phone: Ketones Test strip Ql (U)on 08-30-2021 Ketones Ql (U) Negative Negative [facility] Work Phone: Laboratory - Chemistry and C hemistry - challengeon 08-30-2021 ALP [Catalytic activity/Vol] 63 U/L 45-117 [facility] Work Phone: ALT [Catalytic activity/Vol] 43 U/L 16-61 [facility] Work Phone: CO2 [Moles/Vol] 26.0 mmol/L 21.0-32.0 [facility] Work Phone: Globulin (S) [Mass/Vol] 3.2 g/dL 2.2-4.2 [facility] Work Phone: Urea nitrogen/Creatinine [Mass ratio] 16.7 mg/mg 10-20 [facility] Work Phone: Laboratory - Hematology and Cell countson 08-30-2021 Erythrocyte distribution width (RBC) [Entitic vol] 47.5 fL 35.1-43.9 [facility] Work Phone: Erythrocyte distribution width (RBC) [Ratio] 13.5 % 11.6-14.6 [facility] Work Phone: Immature granulocytes/100 WBC (Bld) 0.200 % 0.0-0.9 [facility] Work Phone: Comment on above: IG% - Immature Granu locytes (promyelocytes, myelocytes and metamyelocytes) > 1% indicates that a LEFT SHIFT is Present. MCH (RBC) [Entitic mass] 32.6 pg 27.0-32.0 [facility] Work Phone: Nucleated RBC/100 WBC (Bld) [Ratio] 0 % 0-5 [facility] Work Phone: MCHC Auto (RBC) [Mass/Vol]on 08-30-2021 MCHC (RBC) [Mass/Vol] 34.2 g/dL 32-36 [facility] Work Phone: Mucus LM Ql (Urine sed)on Mucus Ql (Urine sed) 0 SEEN /hpf [facility] Work Phone: Nitrite Test strip Ql (U)on 08-30-2021 Nitrite Ql (U) Negative Negative [facility] Work Phone: No Panel Informationon 08-30 Estimated GFR (MDRD) Amer 85 mL/min >60 [facility] Work Phone: Comment on above: GFR Calc Estimated GFR (MDRD) Non-Af Amer 70 mL/min >60 [facility] Work Phone: Comment on above: Non- GFR Calc Prostate Specific Antigen Screen 1.83 ng/mL 0.00-4.00 [facility] Work Phone: Comment on above: This test was perfor med using the TPSA assay method for [employer] chemistry system. Values obtained with differentassay methods cannot be used interchangably.When changing PSA assays in the course of monitoring apatient, additional sequential testing should be carriedout to confirm baseline values. Thyroid Stimulating Hormone (TSH) 1.85 uIU/mL 0.358-3.74 [facility] Work Phone: Vitamin D 25-Hydroxy 55.9 ng/mL [facility] Work Phone: Comment on above: Vitamin D 25(OH) Sta tus Range Deficiency <20 ng/mL (50nmol/L) Insufficiency 20 - 30 ng/mL (50 - 75 nmol/L) Sufficiency 30 - 100 ng/mL (75 - 250 nmol/L) Toxicity >100 ng/mL (>250 nmol/L) Platelets bldon 08-30-2021 Platelets (Bld) [#/Vol] 141 10*3/uL 150-450 [facility] Work Phone: Protein Test strip Ql (U)on 08-30-2021 Protein Ql (U) Negative Negative [facility] Work Phone: Serum or plasma albumin mt urement (mass/volume)on 08-30-2021 Albumin [Mass/Vol] 3.8 g/dL 3.2-5.0 [facility] Work Phone: Serum or plasma albumin/glob ulin mass ratioon 08-30-2021 Albumin/Globulin [Mass ratio] 1.2 {ratio} 0.9-2.4 [facility] Work Phone: Serum or plasma calcium mt urement (mass/volume)on 08-30-2021 Calcium [Mass/Vol] 9.4 mg/dL 8.5-10.1 [facility] Work Phone: Serum or plasma cholesterol in HDL measurement (mass/volume)on 08-30-2021 Cholesterol in HDL [Mass/Vol] 60 mg/dL [facility] Work Phone: Comment on above: The drugs N-Acetylcy steine and Metamizole may falsely depress this assay. Reference Range HDL <40 mg/dL Low HDL Cholesterol HDL >or= 60 mg/dL High HDL Cholesterol Serum or plasma cholesterol in VLDL measurement (mass/volume)on 08-30-2021 Cholesterol in VLDL [Mass/Vol] 13 mg/dL 5-40 [facility] Work Phone: Serum or plasma creatinine m easurement (mass/volume)on 08-30-2021 Creatinine [Mass/Vol] 1.08 mg/dL 0.70-1.30 [facility] Work Phone: Comment on above: The validity of the calculated GFR & GFRAA in patients over 70 years has not been determined. Clinical correlation is essential. Serum or plasma low density lipoprotein (LDL) cholesterol measurement (mass/volume)on 08-30-2021 Cholesterol in LDL [Mass/Vol] 103 mg/dL 0-130 [facility] Work Phone: Serum or plasma urea nitroge n measurement (mass/volume)on 08-30-2021 Urea nitrogen [Mass/Vol] 18 mg/dL 7-18 [facility] Work Phone: Squamous epithelial cells de tection in urine sediment by light microscopyon 08-30-2021 Epithelial cells.squamous LM Ql (Urine sed) 0 SEEN /hpf [facility] Work Phone: Thin prep Papanicolaou smear with manual screeningon 08-30-2021 Thin prep Papanicolaou smear with manual screening 26 U/L 15-37 [facility] Work Phone: Thin prep Papanicolaou smear with manual screening 5 5-15 [facility] Work Phone: Urine blood detectionon 08-21 RBC Ql (U) Negative Negative [facility] Work Phone: RBC Ql (U) 0 SEEN /hpf [facility] Work Phone: Urine clarityon 08-30-2021 Clarity (U) Clear Clear [facility] Work Phone: Urine color determinationon 08-30-2021 Color (U) Yellow Yellow [facility] Work Phone: Urine glucose detectionon Glucose Ql (U) Normal mg/dl Normal [facility] Work Phone: Urine leukocyte esterase det ection by dipstickon 08-30-2021 Leukocyte esterase Test strip Ql (U) Negative Negative [facility] Work Phone: Urine pHon 08-30-2021 pH (U) 5.0 [pH] [facility] Work Phone: Urine sediment bacteria coun t by microscopy (number/high power field)on 08-30-2021 Bacteria LM.HPF (Urine sed) [#/Area] 0 /[HPF] None Seen [facility] Work Phone: Urine specific gravity measu rementon 08-30-2021 Specific gravity (U) [Rel density] 1.020 [facility] Work Phone: Urobilinogen Auto test strip Ql (U)on 08-30-2021 Urobilinogen Ql (U) Normal mg/dl Normal [facility] Work Phone: Absolute lymphocyte counton 05-23-2021 Lymphocytes Auto (Unsp spec) [#/Vol] 0.99 10*3/uL 0.83-4.51 [facility] Work Phone: Basophil percentageon 2021 Basophils/100 WBC (Bld) 0.5 % 0-1 [facility] Work Phone: Bilirubin [Mass/Vol] 0.60 mg/dL 0.20-1.00 [facility] Work Phone: Comment on above: For patients on eltr ombopag therapy, use of Dim[place] TBIL is not recommended. Chloride [Moles/Vol] 107 mmol/L 98-107 [facility] Work Phone: Eosinophils/100 WBC (Bld) 1.3 % 0-5 [facility] Work Phone: Glucose [Mass/Vol] 110 mg/dL 74-106 [facility] Work Phone: Comment on above: Fasting Glucose resu lt from 100 to 125 mg/dL suggests IMPAIRED HOMEOSTASIS per A.D.A. criteria. Neutrophils (Bld) [#/Vol] 3.9 10*3/uL 2.0-7.7 [facility] Work Phone: Neutrophils/100 WBC (Bld) 71.4 % 47-70 [facility] Work Phone: Potassium [Moles/Vol] 4.4 mmol/L 3.5-5.1 [facility] Work Phone: Protein [Mass/Vol] 7.1 g/dL 6.4-8.2 [facility] Work Phone: Sodium [Moles/Vol] 137 mmol/L 136-145 [facility] Work Phone: WBC (Bld) [#/Vol] 5.5 10*3/uL 4.4-11.0 [facility] Work Phone: Blood erythrocytes count (nu mber/volume)on 05-23-2021 RBC (Bld) [#/Vol] 4.43 10*6/uL 4.6-6.2 [facility] Work Phone: Blood hemoglobin measurement (mass/volume)on 05-23-2021 Hemoglobin (Bld) [Mass/Vol] 14.3 g/dL 13.0-16.5 [facility] Work Phone: Blood lymphocytes/100 leukoc yteson 05-23-2021 Lymphocytes/100 WBC (Bld) 18.0 % 19-41 [facility] Work Phone: [phone] Blood monocytes/100 leukocyt eson 05-23-2021 Monocytes/100 WBC (Bld) 8.4 % 0-10 [facility] Work Phone: Blood platelet mean volumeon 05-23-2021 Platelet mean volume (Bld) [Entitic vol] 11.1 fL 6.2-12.0 [facility] Work Phone: Determination of erythrocyte mean corpuscular volume (MCV)on 05-23-2021 MCV (RBC) [Entitic vol] 96.4 fL 80-94 [facility] Work Phone: Hematocrit Auto (Bld) [Volum e fraction]on 05-23-2021 Hematocrit (Bld) [Volume fraction] 42.7 % 40-54 [facility] Work Phone: Laboratory - Chemistry and C hemistry - challengeon 05-23-2021 ALP [Catalytic activity/Vol] 68 U/L 45-117 [facility] Work Phone: ALT [Catalytic activity/Vol] 40 U/L 16-61 [facility] Work Phone: CO2 [Moles/Vol] 26.0 mmol/L 21.0-32.0 [facility] Work Phone: Cobalamin (Vitamin B12) [Mass/Vol] 317 pg/mL 211-911 [facility] Work Phone: Free T4 [Mass/Vol] 0.93 ng/dL 0.76-1.46 [facility] Work Phone: Globulin (S) [Mass/Vol] 3.5 g/dL 2.2-4.2 [facility] Work Phone: Urea nitrogen/Creatinine [Mass ratio] 18.0 mg/mg 10-20 [facility] Work Phone: Laboratory - Hematology and Cell countson 05-23-2021 Erythrocyte distribution width (RBC) [Entitic vol] 49.0 fL 35.1-43.9 [facility] Work Phone: Erythrocyte distribution width (RBC) [Ratio] 13.7 % 11.6-14.6 [facility] Work Phone: Immature granulocytes/100 WBC (Bld) 0.400 % 0.0-0.9 [facility] Work Phone: Comment on above: IG% - Immature Granu locytes (promyelocytes, myelocytes and metamyelocytes) > 1% indicates that a LEFT SHIFT is Present. MCH (RBC) [Entitic mass] 32.3 pg 27.0-32.0 [facility] Work Phone: Nucleated RBC/100 WBC (Bld) [Ratio] 0 % 0-5 [facility] Work Phone: MCHC Auto (RBC) [Mass/Vol]on 05-23-2021 MCHC (RBC) [Mass/Vol] 33.5 g/dL 32-36 [facility] Work Phone: No Panel Informationon 05-23 Estimated GFR (MDRD) Amer 93 mL/min >60 [facility] Work Phone: Comment on above: GFR Calc Estimated GFR (MDRD) Non-Af Amer 77 mL/min >60 [facility] Work Phone: Comment on above: Non- GFR Calc Thyroid Stimulating Hormone (TSH) 1.34 uIU/mL 0.358-3.74 [facility] Work Phone: Platelets bldon 05-23-2021 Platelets (Bld) [#/Vol] 156 10*3/uL 150-450 [facility] Work Phone: Serum or plasma albumin mt urement (mass/volume)on 05-23-2021 Albumin [Mass/Vol] 3.6 g/dL 3.2-5.0 [facility] Work Phone: Serum or plasma albumin/glob ulin mass ratioon 05-23-2021 Albumin/Globulin [Mass ratio] 1.0 {ratio} 0.9-2.4 [facility] Work Phone: Serum or plasma calcium mt urement (mass/volume)on 05-23-2021 Calcium [Mass/Vol] 9.1 mg/dL 8.5-10.1 [facility] Work Phone: Serum or plasma creatinine m easurement (mass/volume)on 05-23-2021 Creatinine [Mass/Vol] 1.00 mg/dL 0.70-1.30 [facility] Work Phone: Comment on above: The validity of the calculated GFR & GFRAA in patients over 70 years has not been determined. Clinical correlation is essential. Serum or plasma urea nitroge n measurement (mass/volume)on 05-23-2021 Urea nitrogen [Mass/Vol] 18 mg/dL 7-18 [facility] Work Phone: Thin prep Papanicolaou smear with manual screeningon 05-23-2021 Thin prep Papanicolaou smear with manual screening 25 U/L 15-37 [facility] Work Phone: Thin prep Papanicolaou smear with manual screening 4 5-15 [facility] Work Phone: Whole blood hemoglobin A1c/t otal hemoglobin ratio (mass fraction)on 05-23-2021 HbA1c (Bld) [Mass fraction] 5.1 % 3.8-5.6 [facility] Work Phone: Comment on above: Normal < 5.7 % Predi abetic 5.7 - 6.4 % Diabetic >or= 6.5 % Please note range changes. Otheron 05-15-2000 CONVERTED ELECTRONIC SIGNATURE ROHIT GRAY M.D., PATHOLOGIST (Electronic signature on file) Final Signed Out: 05/15/2000 12:55 [facility] CONVERTED FINAL DIAGNOSIS A) LEFT TONSIL AND UVULA, EXCISION - TONSIL WITH REACTIVE LYMPHOID HYPERPLASIA AND CHRONIC INFLAMMATION. UVULA WITH EDEMA AND VASCULAR CONGESTION. B) RIGHT TONSIL, EXCISION - REACTIVE LYMPHOID HYPERPLASIA. [facility] CONVERTED ORDERING PROVIDER Ordering Provider: JOSE MOSLEY [facility] Vital Signs Date Time Vital Sign Value Performing Clinician Elodiai mikki 04-13-2023 16:53-0500 Body mass index (BMI) [Ratio] 32.1 kg/m2 Dr. Isaias Nuñez Work Phone: [facility] 04-13-2023 13:32-0500 Body temperature 98 [degF] Dr. Isaias Nuñez Work Phone: [facility] 04-13-2023 13:32-0500 Diastolic blood pressure 67 mm[Hg] Dr. Isaias Nuñez Work Phone: [facility] 04-13-2023 13:32-0500 Heart rate 76 /min Dr. Isaias Nuñez Work Phone: [facility] 04-13-2023 13:32-0500 Respiratory rate 16 /min Dr. Isaias Nuñez Work Phone: [facility] 04-13-2023 13:32-0500 SaO2% (BldA) [Mass fraction] 95 % Dr. Isaias Nuñez Work Phone: [facility] 04-13-2023 13:32-0500 Systolic blood pressure 143 mm[Hg] Dr. Isaias Nuñez Work Phone: [facility] 04-13-2023 01:23-0500 Body height 185.[address] Isaias Nuñez Work Phone: [facility] 04-13-2023 01:23-0500 Body weight 110.[address] Isaias Nuñez Work Phone: [facility] 04-13-2023 01:00-0500 Diastolic blood pressure 82 mm[Hg] [facility] 04-13-2023 01:00-0500 Heart rate 63 /min [facility] 04-13-2023 01:00-0500 Respiratory rate 15 /min [facility] 04-13-2023 01:00-0500 SaO2% (BldA) [Mass fraction] 96 % [facility] 04-13-2023 01:00-0500 Systolic blood pressure 136 mm[Hg] [facility] 04-12-2023 23:44-0500 Body temperature 97.8 [degF] [facility] 04-12-2023 21:04-0500 Body height 187.96 cm [facility] 04-12-2023 21:040500 Body mass index (BMI) [Ratio] 31.9 kg/m2 [facility] 04-12-2023 21:04050 Body weight 113 kg [facility] Encounters Encounter Date Encounter Type Care Provider Facility Start: 06-02-2024 End: 06-02-[address] Isaias Nuñez MD Work Phone: [facility] Work Phone: Start: 06-02-2024 End: 06-02-[address] Isaias Nuñez MD -Cardiovascular Services Work Phone: Start: 06-02-2024 End: 06-02-2024 ambulatory Isaias Nuñez Facility:[facility] Start: 05-03-2024 End: 05-03-[address] Isaias Nuñez MD -Ultrasound, [facility] Work Phone: Start: 05-03-2024 End: 05-03-2024 ambulatory Isaias Nuñez Facility:[facility] Start: 04-04-2024 End: 04-04-[address] Isaias Nuñez MD -Laboratory, [facility] Start: 04-04-2024 End: 04-04-2024 ambulatory Isaias Nuñez Facility:[facility] Start: 10-27-2023 End: 10-27-2023 ambulatory [facility] Facility:[facility] Start: 10-09-2023 End: 10-09-2023 ambulatory [facility] Facility:[facility] Start: 09-28-2023 End: 09-28-2023 Emergency department patient visit Flo Kennedy Facility:[facility] Start: 09-26-2023 End: 09-26-2023 Emergency department patient visit Jake Russell Facility:[facility] Start: 08-26-2023 End: 08-26-2023 ambulatory Isaias Nuñze Facility:[facility] Start: 04-13-2023 Non-patient / Non-visit Dr. Gertrude Nuñez Work Phone: [facility] Work Phone: Start: 04-13-2023 Non-patient / Non-visit Dr. Gertrude Nuñez Work Phone: [facility] Start: 04-13-2023 Non-patient / Non-visit Dr. Gertrude Nuñez Work Phone: [facility] Start: 04-13-2023 End: 04-13-2023 Evaluation and management of inpatient [facility] Work Phone: Start: 04-13-2023 End: 04-13-[address] Isaias Nuñez Work Phone: [facility] Work Phone: Start: 03-05-2023 End: 03-05-2023 Patient encounter procedure [facility] Start: 02-25-2023 End: 02-25-2023 ambulatory [facility] Work Phone: Start: 02-25-2023 End: 02-25-2023 Patient encounter procedure [facility] Start: 08-26-2022 End: 08-26-2022 ambulatory [facility] Work Phone: Start: 08-26-2022 End: 08-26-2022 Patient encounter procedure [facility] Start: 08-30-2021 End: 08-30-2021 Patient encounter procedure [facility] Start: 05-29-2021 End: 05-29-2021 Patient encounter procedure [facility]-Ultrasound, [facility] Start: 05-23-2021 End: 05-23-2021 Patient encounter procedure [facility] Start: 05-14-2000 End: 05-14-2000 Patient encounter procedure Jose Mosley [facility] Start: 05-14-2000 [facility] Date Procedure Procedure Detail Performing Clinician Start: 02-11-2025 US scan of thyroid Dr. Isaias Nuñez MD Work Phone: Start: 04-12-2023 CT of head without contrast Start: 04-12-2023 Plain chest X-ray Start: 05-29-2021 US scan of thyroid Start: 05-07-2016 Colonoscopy Jose Hinton Start: 05-14-2000 CONVERTED SURGICAL PATHOLOGY Jose Mosley Plan of Treatment Date Care Activity Detail Author Start: 05-07-2026 Colonoscopy COLONOSCOPY [facility] Start: 04-13-2023 Patient discharge [facility] Start: 04-13-2023 Following clinical pathway protocol [facility] Start: 04-13-2023 Cardiac monitoring [facility] Start: 04-13-2023 Catheterization of vein [facility] Start: 04-13-2023 Continuous pulse oximetry [facility] Start: 04-13-2023 Elevation of head of bed [facility] Start: 04-13-2023 Exercises [facility] Start: 04-13-2023 Implementation of planned interventions [facility] Start: 04-13-2023 Notification of physician [facility] Start: 04-13-2023 Oxygen therapy [facility] Start: 04-13-2023 Referral to occupational therapist [facility] Start: 04-13-2023 Referral to service [facility] Start: 04-13-2023 Speech therapy assessment [facility] Start: 04-13-2023 Telemedicine consultation with patient [facility] Start: 04-13-2023 Tobacco use cessation education [facility] Start: 04-13-2023 [facility] Start: 04-13-2023 Vital signs measurements [facility] Start: 04-13-2023 MRI of brain without contrast Brain without Contrast [facility] Start: 04-13-2023 Admission procedure [facility] Start: 04-12-2023 Hospital admission, emergency, from emergency room, medical nature [facility] Start: 04-12-2023 Oxygen therapy [facility] Start: 04-12-2023 [facility] Start: 11-22-2019 Influenza vaccination INFLUENZA (#1) [facility] Start: 11-19-2018 DIABETES SCREEN DIABETES SCREEN [facility] Start: 09-19-2008 ADVANCE DIRECTIVE DISCUSSION ADVANCE DIRECTIVE DISCUSSION [facility] Start: 09-19-2008 PNEUMOVAX AGE 65 AND OVER WITH 5YR LOOKBACK (#1) PNEUMOVAX AGE 65 AND OVER WITH 5YR LOOKBACK (#1) [facility] Start: 09-19-1993 SHINGRIX VACCINE (1 of 2) SHINGRIX VACCINE (1 of 2) [facility] Start: 09-19-1978 LIPID SCREEN LIPID SCREEN [facility] Start: 09-19-1962 Urine microalbumin profile DTAP,TDAP,TD (1 - Tdap) [facility] Start: 09-19-1961 HEPATITIS C SCREENING HEPATITIS C SCREENING [facility] Patient Education Dizziness Premarmando goyal Causes BPPV [facility] Work Phone: Patient referral [facility] Work Phone: Payers Date Payer Category Payer Self-pay [id number] 2020 Unknown [id number] 2008 Medicare [id number] Unknown [id number] 2.16.8 [id number] Unknown [id number] 2.16.8 [id number] Unknown [id number] 2.16.8 [id number] Unknown [id number] 2.16.8 [id number] Unknown [id number] 2.16.8 [id number] Unknown [id number] 2.16.8 [id number] Unknown [id number] 2.16.8 [id number] Unknown [id number] 2.16.8 [id number] Social History Date Type Detail Facility Tobacco smoking stat [email or web address] Unknown if ever smoked [facility] Sex Assigned At Not on file [facility] Start: 03-19-2021 End: 04-13-2023 Tobacco smoking status NHIS Unknown if ever smoked [facility] Start: 1945 Sex Assigned At Male [facility] Start: 04-13-2023 Non-smoker [facility] Start: 10-09-2023 Tobacco smoking stat [email or web address] Ex-smoker (finding) [facility] Start: 06-11-2024 Sex Male (finding) [facility] Medical Equipment Procedure Code Equipment Code Equipment Origin al Text Equipment Identifier Dates STAPES IMPLANT F ROM SURGERY ?1985 FDA Start: 03-23-1985 Goals Date Patient Goal Desired Activity /State Functional Status Date Assessment Result Facility 04-13-2023 Functional status Ambulates;Fei r;Bathroom Privilege [facility] Work Phone: Mental Status Date Assessment Result Facility 04-13-2023 Cognitive function Voice/Name [facility] Work Phone: 04-12-2023 Cognitive function Voice/Name [facility] Work Phone: Progress note 04-13-2023 Note Date & Type Note Facility 04-13-2023 Progress note Note Date/Time April 13, 2023 2:52pm [facility] Medical Records Department [address] [place] [id number] Progress Note 04/13/23 1450 MR#: [id number] Acct: [id number] Name: INGE WEEMS Rep #:[id number] : 1945 77 From: Adela Salazar MD PCP: Dr. Isaias Nuñez MD Status:AD M MONIQUE Location: [place] [address] Subjective Subjective Patient seen and examined. He had no active complaints. He was admitted with a complaint of dizziness and unsteady gait. These have resolved. He is being managed for TIA. CT of the brain showed no acute intracranial pathology. Objective Data Objective Data Vital Signs: Vital Signs Temp Pulse Resp BP Pulse Ox O2 Del Method 98.0 F 76 16 143/67 H 95 Room Air 01/22/24 13:32 04/13/23 13:32 04/13/23 13:32 04/13/23 13:32 04/13/23 13:32 04/13/23 13:32 Oxygen Delivery Method Room Air Weight: 243 lb 9.773 oz Body Mass Index (BMI) 32.1 Intake & Output: Intake and Output for Last 24 Hours 04/11/23 04/12/23 04/13/23 23:59 23:59 23:59 Intake Total 150 / 150 Balance 150 / 150 Lab / Micro Data 04/12/23 21:00 04/12/23 21:00 Labs: Laboratory Results - last 24 hr 04/12/23 21:00: WBC 7.3, RBC 4.33 L, Hgb 14.3, Hct 41.6, MCV 96.1 H, MCH 33.0 H,MCHC 34.4, RDW Std Deviation 48.0 H, RDW Coeff of Umm 13.6, Plt Count 144 L, MPV11.4, Immature Gran % (Auto) 0.300, Neut % (Auto) 67.5, Lymph % (Auto) 20.9, [place] % (Auto) 9.0, Eos % (Auto) 1.6, Baso % (Auto) 0.7, Absolute Neuts (auto) 4.9, Absolute Lymphs (auto) 1.53, Nucleated RBC % 0, PT 13.0, INR 1.0, APTT 24.2, Sodium 138, Potassium 4.3, Chloride 107, Carbon Dioxide 26.0, Anion Gap 5,BUN 21 H, Creatinine 1.19, Estim Creat Clear Calc 67.29, Est GFR (MDRD) Af Amer 76, Est GFR (MDRD) Non-Af 63, BUN/Creatinine Ratio 17.6, Glucose 109 H, Calcium 9.5, Troponin I High Sens 6, TSH 1.61, Ethyl Alcohol < 3.0 04/12/23 21:02: POC Glucose 111 H 04/13/23 05:20: Triglycerides 97, Cholesterol 198, LDL Cholesterol 107, VLDL Cholesterol 19, HDL Cholesterol 72 Radiography Diagnostic Testing: Radiology Impression Brain CT 04/12/23 21:07 IMPRESSION: Negative head/brain CT without intravenous contrast. Electronically Signed: Jake Bo MD at 22:27 EST , ADDENDUM: 04/13/23 0836 IMPRESSION: undefined Chest X-Ray 04/12/23 21:07 IMPRESSION: No radiographic evidence of acute cardiopulmonary disease. Electronically Signed: Roni Mensah MD at 21:32 EST , Physical Exam Const alert, oriented x3, no apparent distress and well nourished General Appearance: cooperative and well developed HEENT normocephalic, head/scalp atraumatic, moist oral mucous membranes and oropharynxnormal Eyes PERRL and EOMs intact bilaterally Neck no lymphadenopathy, supple and no JVD Lymph Lymphatic: no lymphadenopathy noted and no lymphedema noted Resp normal respiratory effort, normal air movement and clear to auscultation bilaterally Cardio regular rate, regular rhythm, S1 normal heart sound, S2 normal heart sound and no murmurs Peripheral Pulses: pulses 2+ throughout GI normal to inspection, nondistended, normoactive bowel sounds, soft to palpation,non-tender and non-distended Extremity normal capillary refill, no clubbing, cyanosis or edema and no calf tenderness General Extremity: no tenderness to palpation of joints or extremities Neuro CN's II-XII intact bilaterally, no focal motor deficits, no sensory deficits noted and deep tendon reflexes 2+ bilaterally Motor Exam: strength 5/5 throughout and general weakness Psych thought process normal, cooperative and affect normal Appearance: appropriate Assessment & Plan Assessment/Plan (1) TIA (transient ischemic attack): PLAN: Plan #TIA * admitted with transient dizziness and ataxic gait. * CT of the brain showed no evidence of any stroke. * Patient cannot have an MRI because of presence of evette from remote surgery many years ago. He is unable to give any further information about that. He cannot have an MRI of the head and neck either. * Will get a repeat CT of the brain after 24 hours as well as a CT of the head and neck * 2D echo also ordered. PT OT on board. Fall precautions. * Neurology consulted and recommended MRI of the brain. However, patient cannot have MRI as stated above. 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 * IV Zofran also. * Will benefit from vestibular rehabilitation * #Benign essential hypertension: Blood pressure meds on hold while stroke is being ruled out. #Obesity: BMI is 32. Complicates acute care, expected recovery and prognosis. #History of umbilical hernia: Stable #DVT prophylaxis: Lovenox * . Charges/Coding Visit Charges Inpatient E&M: 95198 Subs Hosp L2 04/13/23 1626 <Electronically signed by Adela Salazar MD> Adela Salazar MD Cosigner Signature (if applicable): CC: ~ Signed [facility] Work Phone: Consult note 04-13-2023 Note Date & Type Note Facility 04-13-2023 Consult note Note Date/Time April 13, 2023 1:04pm [facility] Medical Records Department [address] [place] [id number] Consultation - Neurology 04/13/23 1248 MR#: [id number] Acct: [id number] Name: INGE WEEMS Rep #:[id number] : 1945 77 From: Enmanuel Drew MD PCP: Dr. Isaias Nuñez MD Status:[facility] Location: [place] [address] Assessment and Plan: Neuro Assessment/Plan INGE WEEMS is a 77 M with a past medical history of HTN with a hx of Rstapedectomy with impaired hearing loss and chronic tinnitus, being evaluated byTeleneurology for sudden onset of dizziness (head fogginess) with imbalance. symptoms resolved in 45 min after getting into the hospital Diagnosis: TIA is on the differential diagnosis but also need to rule out ear related etiology like BPPV vs labyrinthitis vs vestibular neuritis Plan: 1. Please obtain brain MRI Wo contrast and MRA head Wo contrast, MRA neck with contrast to complete TIA/Stroke evaluation 2. Follow up on TTE read 3. Continue ASA, LDL was 107, recommend Atorvastatin 40 mg qhs if no contraindications. Check Hgb A1c 4. Target normal BP 5. Patient has a follow up appointment with his ENT on 04/28, recommend keeping that appt I personally attended this patient and spent a total time of 71 minutes evaluating this patient including clinical assessment, review of chart, medical history imaging, and determining appropriate treatment and workup. HPI Consult Data Date of Consult: 04/13/23 HPI Narrative HPI Narrative: INGE WEEMS, is a 77 M with a hx of HTN with a hx of R stapedectomy with impaired hearing loss and chronic tinnitus with LKW on 04/12/23 around 20:00. He was eating dinner and watching TV when he suddenly looked at the TV and reporteda sudden onset of dizziness (head fogginess) with imbalance. He came in to the ED for further evaluation. CTH was negative for bleed or large territory infarction. He reported that his symptoms resolved in 45 min after getting into the hospital. No associated SOB, chest pain, weakness, numbness, nausea or emesis. Neurovascular was consulted for further evaluation PFSH Medical History HTN (hypertension) Pericardial calcification Uninodular goiter Vitamin D deficiency Home Medications aspirin 81 mg tablet,delayed release 81 mg PO DAILY 02/22/19 [History Last Taken Unknown] cholecalciferol (vitamin D3) 25 mcg (1,000 unit) capsule 1,000 unit PO DAILY 02/22/19 [History Last Taken Unknown] lisinopril 10 mg tablet 10 mg PO DAILY 02/22/19 [History Last Taken Unknown] omega-3 fatty acids 1,000 mg capsule (Fish Oil Concentrate) 1,000 mg PO DAILY 02/22/19 [History Last Taken Unknown] sod fluoride-Ca carbonate 3.75 mg (8.25)-145 mg (364) capsule (Florical) 1 cap PO DAILY 02/22/19 [History Last Taken Unknown] multivitamin (Daily Multi-Vitamin tablet) 1 tab PO DAILY 04/12/23 [History Last Taken Unknown] Allergy/AdvReac Type Severity Reaction Status Date / Time Sulfa (Sulfonamide Allergy Mild Rash Verified 03/19/21 15:23 Antibiotics) Family History Father Cancer Mother Hypertension Surgical History History of umbilical hernia History of uvulectomy s/p stapedectomy Social History Smoking Status: Former smoker alcohol intake: current alcohol intake frequency: holidays/special occasions only Vital Signs Vital Signs Vital Signs: 04/12/23 20:59 04/12/23 21:07 04/12/23 21:07 Temperature 97.8 F Temperature Source Temporal Pulse Rate 90 78 Respiratory Rate 20 H 15 Respiratory Effort Respiratory Depth Respiratory Pattern Blood Pressure 159/73 H 159/73 H Blood Pressure Mean 101 101 Blood Pressure Source Blood Pressure Position Blood Pressure Location Pulse Ox 94 95 95 Oxygen Delivery Method Room Air Room Air Room Air 04/12/23 21:37 04/12/23 22:07 04/12/23 22:30 Temperature Temperature Source Pulse Rate 80 72 70 Respiratory Rate 17 19 H 16 Respiratory Effort Respiratory Depth Respiratory Pattern Blood Pressure 143/75 H 133/76 H 140/78 H Blood Pressure Mean 97 95 98 Blood Pressure Source Blood Pressure Position Blood Pressure Location Pulse Ox 97 97 96 Oxygen Delivery Method Room Air Room Air Room Air 04/12/23 21:59 04/12/23 23:00 04/12/23 23:30 Temperature Temperature Source Pulse Rate 73 68 65 Respiratory Rate 16 21 H 15 Respiratory Effort Respiratory Depth Respiratory Pattern Blood Pressure 140/78 H 143/74 H 156/77 H Blood Pressure Mean 98 97 103 Blood Pressure Source Blood Pressure Position Blood Pressure Location Pulse Ox 95 96 98 Oxygen Delivery Method Room Air Room Air Room Air 04/12/23 23:44 04/13/23 00:00 04/13/23 00:30 Temperature 97.8 F Temperature Source Pulse Rate 70 66 67 Respiratory Rate 17 15 15 Respiratory Effort Respiratory Depth Respiratory Pattern Blood Pressure 156/77 H 151/74 H 146/83 H Blood Pressure Mean 103 99 104 Blood Pressure Source Blood Pressure Position Blood Pressure Location Pulse Ox 97 96 96 Oxygen Delivery Method Room Air Room Air 04/13/23 01:00 04/13/23 03:00 04/13/23 03:16 Temperature 97.5 F L Temperature Source Oral Pulse Rate 63 66 Respiratory Rate 15 16 Respiratory Effort Normal Non-Labored Respiratory Depth Normal Respiratory Pattern Normal Blood Pressure 136/82 H 152/85 H Blood Pressure Mean 100 107 Blood Pressure Source Monitor Blood Pressure Position Semi-Fowlers Blood Pressure Location Right Arm Pulse Ox 96 99 Oxygen Delivery Method Room Air Room Air Room Air 04/13/23 03:11 04/13/23 06:05 04/13/23 09:38 Temperature 97.4 F L Temperature Source Oral Pulse Rate 63 Respiratory Rate 18 Respiratory Effort Normal Non-Labored Respiratory Depth Normal Respiratory Pattern Normal Blood Pressure 127/68 H Blood Pressure Mean 87 Blood Pressure Source Monitor Blood Pressure Position Semi-Fowlers Blood Pressure Location Right Arm Pulse Ox 99 98 Oxygen Delivery Method Room Air Room Air Room Air 04/13/23 09:43 04/13/23 07:21 Temperature 97.8 F Temperature Source Oral Pulse Rate 67 Respiratory Rate 16 Respiratory Effort Respiratory Depth Respiratory Pattern Blood Pressure 137/77 H Blood Pressure Mean 97 Blood Pressure Source Monitor Blood Pressure Position Semi-Fowlers Blood Pressure Location Right Arm Pulse Ox 95 98 Oxygen Delivery Method Room Air Room Air Weight Weight: 110.5 kg Body Mass Index (BMI) 32.1 NIHSS NIHSS Nursing Documentation NIHSS Nursing Documentation: NIH Stroke Scale Start: 04/12/23 21:05 Freq: Status: Discharge Protocol: Activity Type Activity Date Activity User E-sign Co-sign Detail Recorded Client Recorded Date Recorded By Document 04/12/23 21:01 MLM Desktop 04/12/23 21:06 MLM 04/12/23 21:01 NIH Stroke Scale [NIHSS] A score of 0 is normal or asymptomatic . Total possible score is 42. Inpatient: RN or Physician to activate a stroke alert for onset of new stroke symptoms or with NIHSS increase >/= 3 points. Following change in neurological status, NIHSS will be performed per physician order or more frequently PRN. -1a. Level of Consciousness Alert; keenly responsive -1b. LOC Questions Answers BOTH questions correctly. -1c. LOC Commands Performs both tasks correctly . -2. Best Gaze Normal -3. Visual No visual loss -4. Facial Palsy Normal symmetrical movements -5a. Left Arm No drift; arm holds 90 (or 45 ) degrees for full 10 seconds -5b. Right Arm No drift; arm holds 90 (or 45 ) degrees for full 10 seconds -6a. Left Leg No drift; leg holds 30-degree position for full 5 seconds -6b. Right Leg No drift; leg holds 30-degree position for full 5 seconds -7. Limb Ataxia Absent -8. Sensory Normal; no sensory loss -9. Best Language No aphasia; normal -10. Dysarthria Normal -11. Extinction and Inattention No abnormality -Total 0 Query Text:A score of 0 is normal or asymptomatic. Total possible score is 42 . ED: Notify Physician for NIHSS increase by > / = 3 points. Inpatient: RN or Physician to activate a stroke alert for NIHSS increase of > / = 3 points. NIHSS: Ischemic Stroke/TIA Start: 04/13/23 02:29 Text: For PCU Patients: NIH and Neuro Check every 4 Status: Active hours and PRN Freq: [id number] Protocol: Activity Type Activity Date Activity User E-sign Co-sign Detail Recorded Client Recorded Date Recorded By Document 04/13/23 09:43 MS Desktop 04/13/23 09:48 MS 04/13/23 09:43 -1a. Level of Consciousness Alert; keenly responsive -1b. LOC Questions Answers BOTH questions correctly. -1c. LOC Commands Performs both tasks correctly . -2. Best Gaze Normal -3. Visual No visual loss -4. Facial Palsy Normal symmetrical movements -5a. Left Arm No drift; arm holds 90 (or 45 ) degrees for full 10 seconds -5b. Right Arm No drift; arm holds 90 (or 45 ) degrees for full 10 seconds -6a. Left Leg No drift; leg holds 30-degree position for full 5 seconds -6b. Right Leg No drift; leg holds 30-degree position for full 5 seconds -7. Limb Ataxia Absent -8. Sensory Normal; no sensory loss -9. Best Language No aphasia; normal -10. Dysarthria Normal -11. Extinction and Inattention No abnormality -Total 0 Query Text:A score of 0 is normal or asymptomatic. Total possible score is 42 . ED: Notify Physician for NIHSS increase by > / = 3 points. Inpatient: RN or Physician to activate a stroke alert for NIHSS increase of > / = 3 points. Coma Scale [Assess] -Eye Opening Spontaneous -Motor Obeys Commands -Verbal Oriented [Total] -Coma Scale Total 15 NIHSS 1a. Level of Consciousness: Alert; keenly responsive 1b. LOC Questions: Answers BOTH questions correctly. 1c. LOC Commands: Performs both tasks correctly. 2. Best Gaze: Normal 3. Visual: No visual loss 4. Facial Palsy: Normal symmetrical movements 5a. Left Arm: No drift; arm holds 90 (or 45) degrees for full 10 seconds 5b. Right Arm: No drift; arm holds 90 (or 45) degrees for full 10 seconds 6a. Left Leg: No drift; leg holds 30-degree position for full 5 seconds 6b. Right Leg: No drift; leg holds 30-degree position for full 5 seconds 8. Sensory: Normal; no sensory loss 9. Best Language: No aphasia; normal 10. Dysarthria: Normal 11. Extinction and Inattention: No abnormality Total: 0 Physical Exam Const General Appearance: cooperative and comfortable Neck General: normal visual inspection Neuro Neuro Narrative: R sided hearing loss Sensory Exam: double simultaneous stimulation for sensation normal Motor Exam: strength 5/5 throughout Coordination: [id number] test normal Lab / Micro Data 04/12/23 21:00 04/12/23 21:00 Labs: Laboratory Results - last 24 hr 04/12/23 21:00: WBC 7.3, RBC 4.33 L, Hgb 14.3, Hct 41.6, MCV 96.1 H, MCH 33.0 H, MCHC 34.4, RDW Std Deviation 48.0 H, RDW Coeff of Umm 13.6, Plt Count 144 L, MPV 11.4, Immature Gran % (Auto) 0.300, Neut % (Auto) 67.5, Lymph % (Auto) 20.9, [place] % (Auto) 9.0, Eos % (Auto) 1.6, Baso % (Auto) 0.7, Absolute Neuts (auto) 4.9, Absolute Lymphs (auto) 1.53, Nucleated RBC % 0, PT 13.0, INR 1.0, APTT 24.2, Sodium 138, Potassium 4.3, Chloride 107, Carbon Dioxide 26.0, Anion Gap 5, BUN 21 H, Creatinine 1.19, Estim Creat Clear Calc 67.29, Est GFR (MDRD) Af Amer 76, Est GFR (MDRD) Non-Af 63, BUN/Creatinine Ratio 17.6, Glucose 109 H, Calcium 9.5, Troponin I High Sens 6, TSH 1.61, Ethyl Alcohol < 3.0 04/12/23 21:02: POC Glucose 111 H 04/13/23 05:20: Triglycerides 97, Cholesterol 198, LDL Cholesterol 107, VLDL Cholesterol 19, HDL Cholesterol 72 Imagaing Rad[address] Imp[address] CT 04/12/23 21:07 IMPRESSION: Negative head/brain CT without intravenous contrast. Electronically Signed: Jake Bo MD at 22:27 EST , ADDENDUM: 04/13/23 0836 IMPRESSION: undefined Chest X-Ray 04/12/23 21:07 IMPRESSION: No radiographic evidence of acute cardiopulmonary disease. Electronically Signed: Roni Mensah MD at 21:32 EST , Active Medications Active Medications Active Medications: Current Medications Generic Name Dose Route Start Last Admin Trade Name Freq PRN Reason Stop Dose Admin Acetaminophen 650 mg 04/13/23 02:29 Acetaminophen 325 Mg Tablet PO Q4H PRN PRN Pain 1-10 Or Fever>99.6 Aspirin 81 mg 04/13/23 08:00 04/13/23 09:50 Aspirin E.C. 81 Mg Tablet PO 81 mg DAILYCM PAYTON Administration Atorvastatin Calcium 40 mg 04/13/23 22:00 Atorvastatin Calcium 40 Mg Tablet PO QHS PAYTON Cholecalciferol 25 mcg 04/13/23 10:00 04/13/23 09:50 Cholecalciferol (Vit D3) 25 Mcg Tablet (1,000 Units) PO 25 mcg DAILY PAYTON Administration Sodium Chloride 1,000 mls @ 70 mls/hr 04/13/23 02:29 04/13/23 03:20 IV 70 mls/hr .[id number] PAYTON Administration Meclizine HCl 25 mg 04/13/23 06:44 Meclizine Hcl 25 Mg Tablet PO TID PRN PRN VERTIGO Multivitamins 1 tablet 04/13/23 08:00 04/13/23 09:50 Multivitamins,Therapeutic Tablet PO 1 tablet DAILYCM PAYTON Administration [id number] Ethyl Esters 1 gm 04/13/23 10:00 04/13/23 09:50 [place]-3 Acid Ethyl Esters 1 Gm Capsule PO 1 gm DAILY PAYTON Administration Ondansetron HCl 4 mg 04/13/23 06:45 Ondansetron Odt 4 Mg Tablet PO Q8H PRN PRN NAUSEA Sodium Chloride 10 - 40 ml 04/13/23 02:37 0.9% Saline Lock 10 Ml Syringe IV UD PRN SALINE FLUSH 04/13/23 1314 <Electronically signed by Enmanuel Drew MD> Cosigner Signature (if applicable): CC: Linda Brown; Nithin Ribeiro; Jeri Jerome; Toby Dempsey; Ana Hess MD; Noelle Kingston MD; Dusty Aleman MD; Dr. Saji Erazo DO; Dr. Sherman Craft MD; Dr. Rabia Watts MD; Dr. Elias Blandon MD; Dr. Enmanuel Drew MD; Dr. Isaias Nuñez MD; Dr. Christophe Cervantes DO; Dr. Amalia Puentes MD; Dr. Perez Bates MD; Dr. Viktor Sauer MD; Dr. Lj Santos MD; Dr. Steffany Andrade MD; Swati Meeks DO; Dora Sauceda MD~ Signed [facility] Work Phone: History and physical note 04-13-2023 Note Date & Type Note Facility 04-13-2023 History and physi humberto note Note Date/Time April 12, 2023 11:31pm [facility] Medical Records Department [address] [place] [id number] H&P Exam - Hospitalist 04/12/23 2330 MR#: [id number] Acct: [id number] Name: INGE WEEMS Rep #:[id number] : 1945 77 From: Saji Bryan DO PCP: Dr. Isaias Nuñez MD Status:AD M [facility] - General General Date of Admission: 04/13/23 Date of Service: 04/12/23 Chief Complaint: Dizziness and ataxic gait. 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 Mr. Weems reports his symptoms began approximately 45 minutes prior to arrival after he had just got done eating dinner and when he was trying to get up when he suddenly moved his head quickly and then became very dizzy and had obvious difficulty ambulating. He then quickly recovered with a complete resolution of his symptoms by the time hecame to the ER. He denies associated fever, chills, nausea, vomiting, headache,chest pain or SOB but he does admit to a history of mild vertigo though he has never been formally diagnosed with a BPPV. He has an appointment to be evaluated by an loss prevention leader on April 28, 2023. In the ER he was noted to havea negative head CT and no signs of acute neurovascular insult with an NIH score of 0 and he was then admitted to the CDU under observation status for ongoing care and a TIA workup for a stay that is expected to be less than 48 hours. [facility] Medical History HTN (hypertension) Pericardial calcification Uninodular goiter Vitamin D deficiency Home Medications aspirin 81 mg tablet,delayed release 81 mg PO DAILY 02/22/19 [History Last Taken Unknown] cholecalciferol (vitamin D3) 25 mcg (1,000 unit) capsule 1,000 unit PO DAILY 02/22/19 [History Last Taken Unknown] lisinopril 10 mg tablet 10 mg PO DAILY 02/22/19 [History Last Taken Unknown] omega-3 fatty acids 1,000 mg capsule (Fish Oil Concentrate) 1,000 mg PO DAILY 02/22/19 [History Last Taken Unknown] sod fluoride-Ca carbonate 3.75 mg (8.25)-145 mg (364) capsule (Florical) 1 cap PO DAILY 02/22/19 [History Last Taken Unknown] multivitamin (Daily Multi-Vitamin tablet) 1 tab PO DAILY 04/12/23 [History Last Taken Unknown] Allergy/AdvReac Type Severity Reaction Status Date / Time Sulfa (Sulfonamide Allergy Mild Rash Verified 03/19/21 15:23 Antibiotics) Family History Father Cancer Mother Hypertension Surgical History History of umbilical hernia History of uvulectomy s/p stapedectomy Social History Smoking Status: Former smoker alcohol intake: current alcohol intake frequency: holidays/special occasions only ROS ROS Narrative Review of systems: General: Patient denies fever or chills. HENT: Patient admits to chronically impaired hearing and tinnitus in the right ear. Denies headache, denies stuffy nose, denies sore throat. EYES: Denies changes in vision Resp: Denies cough, denies shortness of breath Cardiac: Denies chest pain or palpitations GI: Denies abdominal pain, denies changes in bowel, Denies nausea or vomiting. : Denies changes in urination Extremity: Denies swelling Musculoskeletal: Patient denies arthralgias and myalgias. Neuro: Positive transient dizziness with ataxic gait but no headache or lightheadedness. Heme: Denies any bleeding or bruising Skin: Denies rashes Psychiatric: No complaints voiced related to uncontrolled depression or anxiety. Endocrine: No polyuria, polyphagia or polydipsia. The rest of the 14 point ROS was negative except for positives in HPI. Vital Signs Vital Signs Vital Signs: 04/12/23 20:59 04/12/23 21:07 04/12/23 21:07 Temperature 97.8 F Temperature Source Temporal Pulse Rate 90 78 Respiratory Rate 20 H 15 Blood Pressure 159/73 H 159/73 H Blood Pressure Mean 101 101 Pulse Ox 94 95 95 Oxygen Delivery Method Room Air Room Air Room Air 04/12/23 21:37 04/12/23 22:07 04/12/23 22:30 Temperature Temperature Source Pulse Rate 80 72 70 Respiratory Rate 17 19 H 16 Blood Pressure 143/75 H 133/76 H 140/78 H Blood Pressure Mean 97 95 98 Pulse Ox 97 97 96 Oxygen Delivery Method Room Air Room Air Room Air 04/12/23 21:59 Temperature Temperature Source Pulse Rate 73 Respiratory Rate 16 Blood Pressure 140/78 H Blood Pressure Mean 98 Pulse Ox 95 Oxygen Delivery Method Room Air Weight Weight: 249 lb 1.957 oz Body Mass Index (BMI) 31.9 Physical Exam Const alert, oriented x3, no apparent distress, average body habitus and healthy appearing General Appearance: cooperative HEENT normocephalic, head/scalp atraumatic, hearing grossly normal bilaterally and moist oral mucous membranes Eyes PERRL and EOMs intact bilaterally Neck no lymphadenopathy and supple Resp normal respiratory effort, no retractions, no use of accessory muscles and clearto auscultation bilaterally Cardio regular rate and regular rhythm GI normal to inspection, nondistended, normoactive bowel sounds, soft to palpation,non-tender and non-distended Extremity normal to inspection and full ROM Skin Skin Narrative: Patient has no evidence of rash or wounds at this time. Neuro oriented x3, CN's II-XII intact bilaterally, moves all extremities and no focal motor deficits Sensorium / Orientation: awake, alert, oriented to person, oriented to place andoriented to time Speech: speech normal Motor Exam: strength 5/5 throughout Psych affect normal Results Medical Records Data Attestation: I reviewed the patient's medical records Lab / Micro Data Attestation: I reviewed the patient's lab results. 04/12/23 21:00 04/12/23 21:00 Labs: Laboratory Results - last 24 hr 04/12/23 21:00: WBC 7.3, RBC 4.33 L, Hgb 14.3, Hct 41.6, MCV 96.1 H, MCH 33.0 H,MCHC 34.4, RDW Std Deviation 48.0 H, RDW Coeff of Umm 13.6, Plt Count 144 L, MPV11.4, Immature Gran % (Auto) 0.300, Neut % (Auto) 67.5, Lymph % (Auto) 20.9, [place] % (Auto) 9.0, Eos % (Auto) 1.6, Baso % (Auto) 0.7, Absolute Neuts (auto) 4.9, Absolute Lymphs (auto) 1.53, Nucleated RBC % 0, PT 13.0, INR 1.0, APTT 24.2, Sodium 138, Potassium 4.3, Chloride 107, Carbon Dioxide 26.0, Anion Gap 5,BUN 21 H, Creatinine 1.19, Estim Creat Clear Calc 67.29, Est GFR (MDRD) Af Amer 76, Est GFR (MDRD) Non-Af 63, BUN/Creatinine Ratio 17.6, Glucose 109 H, Calcium 9.5, Troponin I High Sens 6 04/12/23 21:02: POC Glucose 111 H Imagaing Radiology Impression Brain CT 04/12/23 21:07 IMPRESSION: Negative head/brain CT without intravenous contrast. Electronically Signed: Jake Bo MD at 22:27 EST , Chest X-Ray 04/12/23 21:07 IMPRESSION: No radiographic evidence of acute cardiopulmonary disease. Electronically Signed: Roni Mensah MD at 21:32 EST , Assessment & Plan Assessment/Plan (1) Gait disturbance: (2) Dizziness: (3) TIA (transient ischemic attack): PLAN: Plan 1. TIA; with transient dizziness and ataxic gait - Admit to CDU under observation status. Check MRI of the brain to assess for evidence of potential injury. Check carotid doppler to evaluate for stenosis. Check echocardiogram to evaluate LVEF. Finally, we will consult [facility] to see this patient in the AM on-rounds with help appreciated in advance. 2. Suspected BPPV in the setting of previous stapedectomy on the right ear (~1985) with chronic tinnitus and impaired hearing in the right ear likely causing #1 - Give Antivert as needed breakthrough symptoms. Also give Zofran asneeded nausea. Patient has verbalized that he would like a prescription for these medications to be able to manage his condition at home if possible. He may also benefit from vestibular rehabilitation. 3. Essential hypertension - Hold scheduled antihypertensives until CVA definitively ruled out on MRI. 4. Obesity; with BMI of 32 present on admission - Weight loss will be recommended. Check TSH. 5. History of tobacco abuse - Noted. 6. History of unilobular goiter - Noted. 7. History of uvulectomy - Noted. 8. History of umbilical hernia - Stable. 9. History of COVID-19 - Noted. 10. DVT prophylaxis - Lovenox 40 mg sq daily. Total time: Approximately 45 minutes. Charges/Coding Visit Charges OBSV E&M: 29104 Observ/hosp same date L1 04/13/23 0644 <Electronically signed by Saji Erazo DO> Cosigner Signature (if applicable): CC: Dr. Saji Erazo DO; Dr. Isaias Nuñez MD~ Signed [facility] Work Phone: Discharge summary 04-13-2023 Note Date & Type Note Facility 04-13-2023 Discharge summary Note Date/Time April 12, 2023 9:11pm [facility] Medical Records Department [address] [place] [address] Emergency Department Summary 04/12/23 MR#: [id number] Acct: [id number] Name: INGE WEEMS Rep #:[id number] : 1945 77 From: Bart Romero MD PCP: Dr. Isaias Nuñez MD Status:RE G ER Location: ED HPI History of Present Illness Chief Complaint: Neuro S/Sx Narrative Narrative: 77-year-old male past medical history of hypertension, presents with dizziness and ataxic gait that he had started 45 minutes ago. He states that he had just gotten done eating dinner, and was trying to get up. He was trying to hide it from his son-in-law that he was dizzy and was having problems ambulating. He denies any headache. No chest pain, no other symptoms. [facility] Medical History HTN (hypertension) Pericardial calcification Uninodular goiter Vitamin D deficiency Home Medications aspirin 81 mg tablet,delayed release 81 mg PO DAILY 02/22/19 [History Last Taken Unknown] cholecalciferol (vitamin D3) 25 mcg (1,000 unit) capsule 1,000 unit PO DAILY 02/22/19 [History Last Taken Unknown] lisinopril 10 mg tablet 10 mg PO DAILY 02/22/19 [History Last Taken Unknown] omega-3 fatty acids 1,000 mg capsule (Fish Oil Concentrate) 1,000 mg PO DAILY 02/22/19 [History Last Taken Unknown] sod fluoride-Ca carbonate 3.75 mg (8.25)-145 mg (364) capsule (Florical) 1 cap PO DAILY 02/22/19 [History Last Taken Unknown] multivitamin (Daily Multi-Vitamin tablet) 1 tab PO DAILY 04/12/23 [History Last Taken Unknown] Allergy/AdvReac Type Severity Reaction Status Date / Time Sulfa (Sulfonamide Allergy Mild Rash Verified 03/19/21 15:23 Antibiotics) Family History Father Cancer Mother Hypertension Surgical History History of umbilical hernia History of uvulectomy s/p stapedectomy Social History Smoking Status: Former smoker alcohol intake: current alcohol intake frequency: holidays/special occasions only ROS ROS ED ROS Narrative Constitutional: No fever, no chills. HEENT: No sore throat. No neck pain. No loss of vision. No rhinorrhea. Cardiovascular: No chest pain. No palpitations. No pedal edema. Respiratory: No cough, no shortness of breath. Abdominal: No abdominal pain. No nausea. No vomiting. Genitourinary: No dysuria. No hematuria. Musculoskeletal: No myalgias. No arthralgias. Neurologic: No headaches. Positive dizziness, affecting gait. No lightheadedness. Skin: No rash. No change in color. Psychiatric: No depression. No anxiety. EXAM Physical Exam Narrative Exam Narrative: Afebrile. Vital signs noted. HEENT: Normocephalic. Atraumatic. PERRL, EOMI. Neck soft and supple. No pointtenderness or step off. Cardiovascular: Regular rate and rhythm. No murmurs, rubs, or gallops appreciated. Respiratory: No tachypnea. Lungs clear to auscultation bilaterally. Gastrointestinal: Abdomen soft, nontender, with normoactive bowel sounds. No rebound or guarding. Neurological: Awake. Alert. Nonfocal, nonlateralizing. NIH stroke scale is 0. Skin: No rash. Normal color. No pallor. Musculoskeletal: No pedal edema. Full range of motion extremities. Const Vital Signs: 04/12/23 20:59 04/12/23 21:07 04/12/23 21:07 Temperature 97.8 F Temperature Source Temporal Pulse Rate 90 78 Respiratory Rate 20 H 15 Blood Pressure 159/73 H 159/73 H Blood Pressure Mean 101 101 Pulse Ox 94 95 95 Oxygen Delivery Method Room Air Room Air Room Air 04/12/23 21:37 04/12/23 22:07 04/12/23 22:30 Temperature Temperature Source Pulse Rate 80 72 70 Respiratory Rate 17 19 H 16 Blood Pressure 143/75 H 133/76 H 140/78 H Blood Pressure Mean 97 95 98 Pulse Ox 97 97 96 Oxygen Delivery Method Room Air Room Air Room Air 04/12/23 21:59 Temperature Temperature Source Pulse Rate 73 Respiratory Rate 16 Blood Pressure 140/78 H Blood Pressure Mean 98 Pulse Ox 95 Oxygen Delivery Method Room Air MDM MDM MDM Narrative Medical decision making narrative: I do not feel stroke team is indicated. Although his onset was approximately 45minutes ago, his NIH stroke scale is 0. However, stroke order set will be utilized to obtain CT of the brain, and generalized workup for his reported gaitinstability. He was only slightly dizzy he said but he denies headache or othersymptoms. Additionally, his cerebellar functioning is normal currently. EKG was obtained and interpreted by myself independently as normal sinus rhythm at 77 bpm without ectopy or acute ST changes. No STEMI. Reviewed his laboratory work and he has normal white count of 7.3, platelet count slightly low at 144 which I think is nonspecific, hemoglobin normal at 14.3. Sodium is normal at 138 with potassium 4.3, chloride 107, BUN is slightly elevated at 21 and creatinine 1.19. Glucose is appropriately elevated at 109. [id number]-cp-[id number] glucose was 111. High-sensitivity troponin is 6. I reviewed the radiology report of the CT of the brain which shows no acute process. While the patient was able to ambulate here in the emergency department, his daughter who is familiar with him states that he is not quite 100% and his gait may have. Slightly unsteady. She is concerned as the patient lives alone. Although his NIH is 0 as workup is negative, patient was discussed with Dr. Robb for observation in PCU. Patient is in stable condition. History & Record Review Discussion w/independent historian: Patient and Family Lab Data Attestation: I reviewed the patient's lab results. Labs: Laboratory Results - last 24 hr 04/12/23 04/12/23 21:00 21:02 WBC 7.3 RBC 4.33 L Hgb 14.3 Hct 41.6 MCV 96.1 H MCH 33.0 H MCHC 34.4 RDW Std Deviation 48.0 H RDW Coeff of Umm 13.6 Plt Count 144 L MPV 11.4 Immature Gran % (Auto) 0.300 Neut % (Auto) 67.5 Lymph % (Auto) 20.9 [place] % (Auto) 9.0 Eos % (Auto) 1.6 Baso % (Auto) 0.7 Absolute Neuts (auto) 4.9 Absolute Lymphs (auto) 1.53 Nucleated RBC % 0 PT 13.0 INR 1.0 APTT 24.2 Sodium 138 Potassium 4.3 Chloride 107 Carbon Dioxide 26.0 Anion Gap 5 BUN 21 H Creatinine 1.19 Estim Creat Clear Calc 67.29 Est GFR (MDRD) Af Amer 76 Est GFR (MDRD) Non-Af 63 BUN/Creatinine Ratio 17.6 Glucose 109 H Calcium 9.5 Troponin I High Sens 6 POC Glucose 111 H Radiography Diagnostic Testing: Clinical Impression(s) from Imaging Studies Brain CT 04/12/23 21:07 IMPRESSION: Negative head/brain CT without intravenous contrast. Electronically Signed: Jake Bo MD at 22:27 EST , Chest X-Ray 04/12/23 21:07 IMPRESSION: No radiographic evidence of acute cardiopulmonary disease. Electronically Signed: Roni Mensah MD at 21:32 EST , Management Discussion w/another healthcare provider: Hospitalist Discharge Plan Dx/Rx/DC Orders Clinical Impression: Dizziness, Gait disturbance Disposition Disposition: Acute Care [facility] What to do if you have Problems For any increased pain, shortness of breath, bleeding, nausea or vomiting, chestpain, or any unexpected problems, contact your Primary Care Provider. Call [facility] [facility] ([phone]) or report to the closest Emergency Room. Call 911 if necessary. 04/12/23 4545 <Electronically signed by Bart Romero MD> Cosigner Signature (if applicable): CC: Dr. Isaias Nuñez MD ~ Signed [facility] Work Phone: Discharge summary 04-13-2023 Note Date & Type Note Facility 04-13-2023 Discharge summary Note Date/Time April 12, 2023 9:11pm [facility] Medical Records Department [address] [place] [address] Emergency Department Summary 04/12/23 MR#: [id number] Acct: [id number] Name: INGE WEEMS Rep #:[id number] : 1945 77 From: Bart Romero MD PCP: Dr. Isaias Nuñez MD Status:RE G ER Location: ED HPI History of Present Illness Chief Complaint: Neuro S/Sx Narrative Narrative: 77-year-old male past medical history of hypertension, presents with dizziness and ataxic gait that he had started 45 minutes ago. He states that he had just gotten done eating dinner, and was trying to get up. He was trying to hide it from his son-in-law that he was dizzy and was having problems ambulating. He denies any headache. No chest pain, no other symptoms. [facility] Medical History HTN (hypertension) Pericardial calcification Uninodular goiter Vitamin D deficiency Home Medications aspirin 81 mg tablet,delayed release 81 mg PO DAILY 02/22/19 [History Last Taken Unknown] cholecalciferol (vitamin D3) 25 mcg (1,000 unit) capsule 1,000 unit PO DAILY 02/22/19 [History Last Taken Unknown] lisinopril 10 mg tablet 10 mg PO DAILY 02/22/19 [History Last Taken Unknown] omega-3 fatty acids 1,000 mg capsule (Fish Oil Concentrate) 1,000 mg PO DAILY 02/22/19 [History Last Taken Unknown] sod fluoride-Ca carbonate 3.75 mg (8.25)-145 mg (364) capsule (Florical) 1 cap PO DAILY 02/22/19 [History Last Taken Unknown] multivitamin (Daily Multi-Vitamin tablet) 1 tab PO DAILY 04/12/23 [History Last Taken Unknown] Allergy/AdvReac Type Severity Reaction Status Date / Time Sulfa (Sulfonamide Allergy Mild Rash Verified 03/19/21 15:23 Antibiotics) Family History Father Cancer Mother Hypertension Surgical History History of umbilical hernia History of uvulectomy s/p stapedectomy Social History Smoking Status: Former smoker alcohol intake: current alcohol intake frequency: holidays/special occasions only ROS ROS ED ROS Narrative Constitutional: No fever, no chills. HEENT: No sore throat. No neck pain. No loss of vision. No rhinorrhea. Cardiovascular: No chest pain. No palpitations. No pedal edema. Respiratory: No cough, no shortness of breath. Abdominal: No abdominal pain. No nausea. No vomiting. Genitourinary: No dysuria. No hematuria. Musculoskeletal: No myalgias. No arthralgias. Neurologic: No headaches. Positive dizziness, affecting gait. No lightheadedness. Skin: No rash. No change in color. Psychiatric: No depression. No anxiety. EXAM Physical Exam Narrative Exam Narrative: Afebrile. Vital signs noted. HEENT: Normocephalic. Atraumatic. PERRL, EOMI. Neck soft and supple. No pointtenderness or step off. Cardiovascular: Regular rate and rhythm. No murmurs, rubs, or gallops appreciated. Respiratory: No tachypnea. Lungs clear to auscultation bilaterally. Gastrointestinal: Abdomen soft, nontender, with normoactive bowel sounds. No rebound or guarding. Neurological: Awake. Alert. Nonfocal, nonlateralizing. NIH stroke scale is 0. Skin: No rash. Normal color. No pallor. Musculoskeletal: No pedal edema. Full range of motion extremities. Const Vital Signs: 04/12/23 20:59 04/12/23 21:07 04/12/23 21:07 Temperature 97.8 F Temperature Source Temporal Pulse Rate 90 78 Respiratory Rate 20 H 15 Blood Pressure 159/73 H 159/73 H Blood Pressure Mean 101 101 Pulse Ox 94 95 95 Oxygen Delivery Method Room Air Room Air Room Air 04/12/23 21:37 04/12/23 22:07 04/12/23 22:30 Temperature Temperature Source Pulse Rate 80 72 70 Respiratory Rate 17 19 H 16 Blood Pressure 143/75 H 133/76 H 140/78 H Blood Pressure Mean 97 95 98 Pulse Ox 97 97 96 Oxygen Delivery Method Room Air Room Air Room Air 04/12/23 21:59 Temperature Temperature Source Pulse Rate 73 Respiratory Rate 16 Blood Pressure 140/78 H Blood Pressure Mean 98 Pulse Ox 95 Oxygen Delivery Method Room Air MDM MDM MDM Narrative Medical decision making narrative: I do not feel stroke team is indicated. Although his onset was approximately 45minutes ago, his NIH stroke scale is 0. However, stroke order set will be utilized to obtain CT of the brain, and generalized workup for his reported gaitinstability. He was only slightly dizzy he said but he denies headache or othersymptoms. Additionally, his cerebellar functioning is normal currently. EKG was obtained and interpreted by myself independently as normal sinus rhythm at 77 bpm without ectopy or acute ST changes. No STEMI. Reviewed his laboratory work and he has normal white count of 7.3, platelet count slightly low at 144 which I think is nonspecific, hemoglobin normal at 14.3. Sodium is normal at 138 with potassium 4.3, chloride 107, BUN is slightly elevated at 21 and creatinine 1.19. Glucose is appropriately elevated at 109. Hnirp-kf-hkzm glucose was 111. High-sensitivity troponin is 6. I reviewed the radiology report of the CT of the brain which shows no acute process. While the patient was able to ambulate here in the emergency department, his daughter who is familiar with him states that he is not quite 100% and his gait may have. Slightly unsteady. She is concerned as the patient lives alone. Although his NIH is 0 as workup is negative, patient was discussed with Dr. Robb for observation in PCU. Patient is in stable condition. History & Record Review Discussion w/independent historian: Patient and Family Lab Data Attestation: I reviewed the patient's lab results. Labs: Laboratory Results - last 24 hr 04/12/23 04/12/23 21:00 21:02 WBC 7.3 RBC 4.33 L Hgb 14.3 Hct 41.6 MCV 96.1 H MCH 33.0 H MCHC 34.4 RDW Std Deviation 48.0 H RDW Coeff of Umm 13.6 Plt Count 144 L MPV 11.4 Immature Gran % (Auto) 0.300 Neut % (Auto) 67.5 Lymph % (Auto) 20.9 [place] % (Auto) 9.0 Eos % (Auto) 1.6 Baso % (Auto) 0.7 Absolute Neuts (auto) 4.9 Absolute Lymphs (auto) 1.53 Nucleated RBC % 0 PT 13.0 INR 1.0 APTT 24.2 Sodium 138 Potassium 4.3 Chloride 107 Carbon Dioxide 26.0 Anion Gap 5 BUN 21 H Creatinine 1.19 Estim Creat Clear Calc 67.29 Est GFR (MDRD) Af Amer 76 Est GFR (MDRD) Non-Af 63 BUN/Creatinine Ratio 17.6 Glucose 109 H Calcium 9.5 Troponin I High Sens 6 POC Glucose 111 H Radiography Diagnostic Testing: Clinical Impression(s) from Imaging Studies Brain CT 04/12/23 21:07 IMPRESSION: Negative head/brain CT without intravenous contrast. Electronically Signed: Jake Bo MD at 22:27 EST , Chest X-Ray 04/12/23 21:07 IMPRESSION: No radiographic evidence of acute cardiopulmonary disease. Electronically Signed: Roni Mensah MD at 21:32 EST , Management Discussion w/another healthcare provider: Hospitalist Discharge Plan Dx/Rx/DC Orders Clinical Impression: Dizziness, Gait disturbance Disposition Disposition: Acute Care Hospital [facility] What to do if you have Problems For any increased pain, shortness of breath, bleeding, nausea or vomiting, chestpain, or any unexpected problems, contact your Primary Care Provider. Call [facility] ([phone]) or report to the closest Emergency Room. Call 911 if necessary. 04/12/23 6163 <Electronically signed by Bart Romero MD> Cosigner Signature (if applicable): CC: Dr. Isaias Nuñez MD ~ Signed [facility] Work Phone: Discharge summary Note Date & Type Note Facility Discharge summary Note Date/Time April 13, 2023 4:44pm [facility] Medical Records Department [address] [place] [address] Instructions for Home/Discharge Instructions 04/13/23 1643 MR#: [id number] Acct: [id number] Name: INGE WEEMS Rep #:[id number] : 1945 77 From: Adela Salazar MD PCP: Dr. Isaias Nuñez MD Status:AD M MONIQUE Discharge Instructions Diet Discharge Diet: Low fat / Low cholesterol Activity Discharge Activity: Return to Normal Activity Weight Bearing Status: Weight bearing as tolerated Dressing / Incision Call your doctor if you observe: Fever of 101 or Higher, Shortness of breath, Dizziness, Swelling in the ankles and Chest pain Follow Up Care Test Results: Test results from this visit will be discussed in further detail at your follow-up appointment, if applicable. Discharge Plan Admission Admit Date/Time: 04/13/23 01:02 Primary Reason for Your Visit: dizziness, unsteady gait Attending Provider: Adela Salazar Primary Care Provider: Isaias Nuñez Consulting Providers: Dusty Aleman; Nithin Ribeiro; Noelle Kingston; Linda Brown; Ana Hess; Sherman Craft; Rabia Watts; Enmanuel Drew; Elias Blandon; Swati Meeks; Christophe Cervantes; Jeri Jerome; Perez Bates; Amalia Puentes; Toby Harris; Viktor Sauer; Lj Santos; Steffany Andrade; Dora Sauceda;Saji Erazo Instructions Patient Instructions: Dizziness Fainting Causes, BPPV Discharge Orders/Prescriptions Prescriptions: Continued aspirin 81 mg tablet,delayed release (DR/EC) 81 mg PO DAILY omega-3 fatty acids [Fish Oil Concentrate] 1,000 mg capsule 1,000 mg PO DAILY Florical 3.75 (8.25)-145 (364) mg capsule 1 cap PO DAILY lisinopril 10 mg tablet 10 mg PO DAILY cholecalciferol (vitamin D3) 1,000 unit capsule 1,000 unit PO DAILY multivitamin [Daily Multi-Vitamin] Tablet 1 tab PO DAILY Referrals / Follow Up: Isaias Nuñez MD [Primary Care Provider] - Within 1 Week Disposition Disposition (needs filled in before D/C Order can be placed): Home, Self Care 04/13/231643<Electronically signed by Adela Salazar MD>Adela Salazar MD CC: Linda Brown; Nithin Ribeiro; Jeri Jerome; Toby Dempsey; Ana Hess MD;Noelle Kingston MD; Dusty Aleman MD; Dr. Saji Erazo DO; Dr. Sherman Craft MD; Dr. Rabia Watts MD; Dr. Elias Blandon MD; Dr. Enmanuel Drew MD; Dr. Isaias Nuñez MD; Dr. Christophe Cervantes DO; Dr. Amalia Puentes MD; Dr. Perez Bates MD; Dr. Viktor Sauer MD; Dr. Lj Santos MD; Dr. Steffany Andrade MD; Swati Meeks DO; Dora Sauceda MD ~ Signed [facility] Work Phone: Discharge summary Note Date & Type Note Facility Discharge summary Note Date/Time April 13, 2023 4:49pm [facility] Medical Records Department [address] [place] [id number] Discharge Summary 04/13/231643 MR#: [id number] Acct: [id number] Name: INGE WEEMS Rep #:[id number] : 1945 77 From: Adela Salazra MD PCP: Dr. Isaias Nuñez MD Status:CARL AMAYA Location: [facility] [id number] Providers Date of Admission: 04/13/23 Date of Discharge: 04/13/23 Primary Care Physician: Dr. Isaias Nuñez MD Consultations 04/13/23 02:29 Consult: Tele-Neurology Routine Consulting Provider: [facility] Reason for Consult: Acute Ischemic Stroke/TIA EMERGENT Consult: No MD Notified: Yes Date Notified: 04/13/23 Time Notified: 02:47 Method of Notification: Answering Service Method of Consult:: Telemedicine Comments:: [facility] answering service notified Nursing Unit Staff Notify [facility] of Tele-Neurology Consult: Yes Reason For Visit: TIA Diagnosis Discharge Diagnosis (1) TIA (transient ischemic attack): Status: Acute Code(s): G45.9 - Transient cerebral ischemic attack, unspecified Plan #TIA * admitted with transient dizziness and ataxic gait. * CT of the brain showed no evidence of any stroke. * Patient cannot have an MRI because of presence of evette from remote surgery many years ago. He is unable to give any further information about that. He cannot have an MRI of the head and neck either. * Will get a repeat CT of the brain after 24 hours as well as a CT of the head and neck * 2D echo also ordered. PT OT on board. Fall precautions. * Neurology consulted and recommended MRI of the brain. However, patient cannot have MRI as stated above. 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 * IV Zofran also. * Will benefit from vestibular rehabilitation * #Benign essential hypertension: Blood pressure meds on hold while stroke is being ruled out. #Obesity: BMI is 32. Complicates acute care, expected recovery and prognosis. #History of umbilical hernia: Stable #DVT prophylaxis: Lovenox * . Medications at Discharge Home Medications aspirin 81 mg tablet,delayed release 81 mg PO DAILY 02/22/19 cholecalciferol (vitamin D3) 25 mcg (1,000 unit) capsule 1,000 unit PO DAILY 02/22/19 lisinopril 10 mg tablet 10 mg PO DAILY 02/22/19 omega-3 fatty acids 1,000 mg capsule (Fish Oil Concentrate) 1,000 mg PO DAILY 02/22/19 sod fluoride-Ca carbonate 3.75 mg (8.25)-145 mg (364) capsule (Florical) 1 cap PO DAILY 02/22/19 multivitamin (Daily Multi-Vitamin tablet) 1 tab PO DAILY 04/12/23 meclizine 25 mg tablet 25 mg PO BID PRN dizziness #30 tabs 01/22/24 Hospital Course Operations None Procedures 2-D Echocardiogram Summary of Care Provided Minutes Spent on Discharge: 55 Hospital Course: Patient is a 77-year-old male with a past medical history as outlined was admitted through the ED on 04/13/2023 with a complaint of dizziness and ataxic gait. His symptoms are started about 45 minutes prior to his arrival after he had just finished eating dinner. He tried to get up and moved his head and suddenly started feeling very dizzy and had difficulty ambulation. His symptomshad resolved by the time he came into the ED. He had no associated symptoms. He had never been diagnosed with BPPV. 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 He was supposed to see his ENT physician on April 25, 2023. NIH stroke scale was [address] of the brain was negative. He was admitted and managed for dizziness andataxia to rule out a stroke. His symptoms were thought to be more in line with TIA and possible BPPV. Patient symptoms did not recur during this admission. Due to his history of stapedectomy with evette from 1985, radiology did not clear patient for MRI. [facility] was consulted and reviewed patient. They had recommended an MRI but after I spoke to the physician who saw him and informed him that patient could not have MRI. Radiology, the neurologist statedthat the symptoms were more likely due to BPPV and less likely due to TIA. Neurology therefore did not recommend a repeat CT scan but recommended carotid ultrasound and 2D echo. This had already been ordered. Carotid ultrasound showed less than 50% stenosis of the right and left extracranial internal carotid and patent antegrade vertebrals bilaterally. 2D echo done showed EF of 55% with normal EF and no regional wall motion abnormalities noted. Bubble study was also negative. Patient did well with physical therapy and remained stable. He was discharged home on 04/13/2023. He was discharged on p.o. [id number] mg daily. He is follow-up with his primary care doctor and ENT physician within 1 to 2 weeks. Patient was seen and examined prior to discharge. He felt well and had no complaints. He had an uneventful night. Review of systems otherwise negative. Labs and vitals reviewed. Home medication reviewed and reconciled. Physical Exam Const alert, oriented x3, no apparent distress, average body habitus, healthy appearing and well nourished General Appearance: cooperative, comfortable, well kempt and well developed HEENT normocephalic, head/scalp atraumatic, hearing grossly normal bilaterally, moist oral mucous membranes and oropharynx normal Mouth: oral and palatal mucosa normal Eyes PERRL and EOMs intact bilaterally Neck no lymphadenopathy, supple and no JVD Lymph Lymphatic: no lymphadenopathy noted and no lymphedema noted Resp normal respiratory effort, normal air movement, no retractions, no use of accessory muscles and clear to auscultation bilaterally Cardio regular rate, regular rhythm, S1 normal heart sound, S2 normal heart sound and no murmurs Peripheral Pulses: pulses 2+ throughout GI normal to inspection, nondistended, normoactive bowel sounds, soft to palpation,non-tender and non-distended Extremity normal to inspection, full ROM, normal capillary refill, no clubbing, cyanosis or edema and no calf tenderness General Extremity: no tenderness to palpation of joints or extremities Skin no rashes or lesions noted and no wounds Neuro oriented x3, CN's II-XII intact bilaterally, moves all extremities, no focal motor deficits, no sensory deficits noted and deep tendon reflexes 2+ bilaterally Sensorium / Orientation: awake, alert, oriented to person, oriented to place andoriented to time Speech: speech normal Motor Exam: strength 5/5 throughout and general weakness Psych thought process normal, cooperative and affect normal Appearance: appropriate Weight / BMI Weight Weight: 243 lb 9.773 oz Body Mass Index (BMI) 32.1 ABG / Lab / Microbiology Data 04/12/23 21:00 04/12/23 21:00 Laboratory: Laboratory Results - last 24 hr 04/12/23 21:00: WBC 7.3, RBC 4.33 L, Hgb 14.3, Hct 41.6, MCV 96.1 H, MCH 33.0 H,MCHC 34.4, RDW Std Deviation 48.0 H, RDW Coeff of Umm 13.6, Plt Count 144 L, MPV11.4, Immature Gran % (Auto) 0.300, Neut % (Auto) 67.5, Lymph % (Auto) 20.9, [place] % (Auto) 9.0, Eos % (Auto) 1.6, Baso % (Auto) 0.7, Absolute Neuts (auto) 4.9, Absolute Lymphs (auto) 1.53, Nucleated RBC % 0, PT 13.0, INR 1.0, APTT 24.2, Sodium 138, Potassium 4.3, Chloride 107, Carbon Dioxide 26.0, Anion Gap 5,BUN 21 H, Creatinine 1.19, Estim Creat Clear Calc 67.29, Est GFR (MDRD) Af Amer 76, Est GFR (MDRD) Non-Af 63, BUN/Creatinine Ratio 17.6, Glucose 109 H, Calcium 9.5, Troponin I High Sens 6, TSH 1.61, Ethyl Alcohol < 3.0 04/12/23 21:02: POC Glucose 111 H 04/13/23 05:20: Triglycerides 97, Cholesterol 198, LDL Cholesterol 107, VLDL Cholesterol 19, HDL Cholesterol 72 Radiography Diagnostic Testing: Radiology Impression Brain CT 04/12/23 21:07 IMPRESSION: Negative head/brain CT without intravenous contrast. Electronically Signed: Jake Bo MD at 22:27 EST Reading Location ID and State: [facility] [place] Tel , Service support , ADDENDUM: 04/13/23 0836 IMPRESSION: undefined Chest X-Ray 04/12/23 21:07 IMPRESSION: No radiographic evidence of acute cardiopulmonary disease. Electronically Signed: Roni Mensah MD at 21:32 EST , Carotid Duplex 04/13/23 01:10 Interpretation Summary Mild (<50%) stenosis right extracranial internal carotid. Mild (<50%) stenosis left extracranial internal carotid. Patent and antegrade vertebrals bilaterally. Ordering Physician: Saji Erazo Referring Physician: Isaias Nuñez Performed By: Rosa Rodriguez, RVT Echocardiogram 04/13/23 01:10 Interpretation Summary Normal LV size. Left ventricular systolic function is normal. The estimated ejection fraction is 55 %. Mild tricuspid valve insufficiency. Bubble contrast study negative for right to left interatrial shunt. Ordering Physician: Saji Erazo Referring Physician: Isaias Nuñez Performed By: Alysha Vazquez RDCS D/C Instructions Discharge Diet: Low fat / Low cholesterol Weight Bearing Status: Weight bearing as tolerated Call your doctor if you observe: Fever of 101 or Higher, Shortness of breath, Dizziness, Swelling in the ankles and Chest pain Meaningful Use Info Meaningful Use Diagnoses (Choose all that apply): None applicable Discharge Plan Admission Admit Date/Time: 04/13/23 01:02 Primary Reason for Your Visit: dizziness, unsteady gait Attending Provider: Adela Salazar Primary Care Provider: Isaias Nuñez Consulting Providers: Dusty Aleman; Nithin Ribeiro; Noelle Kingston; Linda Brown; Ana Hess; Sherman Craft; Rabia Watts; Enmanuel Drew; Elias Blandon; Swati Meeks; Christophe Cervantes; Jeri Jerome; Perez Bates; Amalia Puentes; Toby Harris; Viktor Sauer; Lj Santos; Steffany Andrade; Dora Sauceda;Saji Erazo Instructions Patient Instructions: Dizziness Fainting Causes, BPPV Discharge Orders/Prescriptions Prescriptions: New meclizine 25 mg tablet 25 mg PO BID PRN (Reason: dizziness) Qty: 30 1RF Continued aspirin 81 mg tablet,delayed release (DR/EC) 81 mg PO DAILY omega-3 fatty acids [Fish Oil Concentrate] 1,000 mg capsule 1,000 mg PO DAILY Florical 3.75 (8.25)-145 (364) mg capsule 1 cap PO DAILY lisinopril 10 mg tablet 10 mg PO DAILY cholecalciferol (vitamin D3) 1,000 unit capsule 1,000 unit PO DAILY multivitamin [Daily Multi-Vitamin] Tablet 1 tab PO DAILY Referrals / Follow Up: Isaias Nuñez MD [Primary Care Provider] - Within 1 Week Disposition Disposition (needs filled in before D/C Order can be placed): Home, Self Care Charges/Coding Visit Charges Inpatient E&M: 07672 Disch Hosp >30min 04/13/23 1650 <Electronically signed by Adela Salazar MD> Cosigner Signature (if applicable): CC: Dr. Isaias Nuñez MD; Dr. Adela Salazar MD~ Signed [facility] Work Phone: Evaluation note Note Date & Type Note Facility Evaluation note No assessment information availa ble [facility] Work Phone: Evaluation note Note Date & Type Note Facility Evaluation note Diagnosis Onset Date Dizziness acute Gait disturbance acute TIA (transient ischemic attack) acute [facility] Work Phone: Reason for referral (narrative) Note Date & Type Note Facility Reason for referral (narrative) No reason for referral information available [facility] Work Phone: Advance Directives No Advanced Directives Records FoundDocuments on File Type Date Recorded 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 Advance Directive(s) 05/07/2016 7:27 AM Advance Directive Response Recorded Date/ Time Living Will Yes December 25 6:36am Power of Movie Machine Operator Yes December 25 013 6:36am Advance Directive Response Recorded Date/ Time Living Will Yes December 25 3 5:36am Power of Movie Machine Operator Yes December 25 013 5:36am Advance Directive Response Recorded Date/ Time Living Will No April 12 9:04pm Power of Movie Machine Operator No April 12, 2023 9:04pm Advance Directive Response Recorded Date/ Time Name of Medical Power of Movie Machine Operator Palma Oneal roberta April 13, 2023 1:23am Living Will Yes April 13 1:23am Power of Movie Machine Operator Yes April 13, 2023 1:23am Chief Complaint and Reason for Visit Chief Complaint NON TOXIC GOITER Chief Complaint TIA Reason for Visit Dizziness Gait disturbance TIA (transient ischemic attack) Chief Complaint TIA TIA (cardiology) Reason for Visit Dizziness Gait disturbance TIA (transient ischemic attack) Chief Complaint Admit Date NODULE May 03, 2024 10:26am 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 June 02, 2024 9:31am Family History No Family History Records Found Relationship Condition Age at Onset Recorded Date/T balaji father Malignant neoplasm Unknown mother Hypertension Unknown Summary Purpose Additional Source Comments Source Comments (unrecognize d section and content) In the event this informatio n is protected by the Federal Confidentiality of Alcohol and Drug Abuse Patient Records regulations: The Federal rules restrict any use of the information to criminally investigate or prosecute any alcohol or drug abuse patient.[facility] Goals (unrecognized section and content) Goals may be documented in a n alternate sectionGoals may be documented in an alternate sectionGoals may be documented in an alternate sectionGoals may be documented in an alternate sectionGoals may be documented in an alternate section Care Teams (unrecognized sec tion and content) Team Status: Active Member Role Status Dates Dr. Isaias Nuñez MD Family Provider Active Dr. Isaias Nuñez MD Primary Care Provider Active Team Status: Inactive Member Role Status Dates Dr. Isaias Nuñez MD Primary Care Provider, Attend ing Provider Active Team Status: Active Member Role Status Dates Dr. Isaias Nuñez MD Primary Care Provider Active Bart Romero MD Emergency Provider Active Dr. Saji Erazo DO Admit Provider, Attending Pr ovidpaul Active Team Status: Active Member Role Status Dates Dr. Isaias Nuñez MD Primary Care Provider Active Dr. Luis Enrique Avalos MD Attending Provider Active Team Status: Active Member Role Status Dates Dr. Isaias Nuñez MD Primary Care Provider Active Dr. Shekhar Delong MD Attending Provider Active Team Status: Active Member Role Status Dates Dr. Isaias Nuñez MD Primary Care Provider Active Bart Romero MD Emergency Provider Active Dr. Saji Erazo , DO Admit Provider, Other Provid er Active Dusty Aleman MD Other Provider Active Dr. Nithin Ribeiro MD Other Provider Active Noelle Kingston MD Other Provider Active Dr. Linda Brown DO Other Provider Active Dr. Ana Hess MD Other Provider Active Dr. Sherman Craft MD Other Provider Active Dr. Rabia Watts MD Other Provider Active Dr. Enmanuel Drew MD Other Provider Active Dr. Elias Blandon MD Other Provider Active Swati Meeks MD Other Provider Active Dr. Christophe Cervantes MD Other Provider Active Dr. Jeri Jerome MD Other Provider Active Dr. Perez Bates MD Other Provider Active Dr. Amalia Puentes MD Other Provider Active Dr. Toby Harris MD Other Provider Active Dr. Viktor Sauer MD Other Provider Active Dr. Lj Santos MD Other Provider Active Dr. Steffany Andrade MD Other Provider Active Dora Sauceda MD Other Provider Active Dr. Adela Salazar MD Attending Provider, Other Prov ider Active Team Status: Inactive Member Role Status Dates Dr. Isaias Nuñez MD Primary Care Provider Active Bart Romero MD Emergency Provider Active Dr. aSji Erazo , DO Admit Provider, Other Provid er Active Dusty Aleman MD Other Provider Active Dr. Nithin Ribeiro MD Other Provider Active Noelle Kingston MD Other Provider Active Dr. Linda Brown DO Other Provider Active Dr. Ana Hess MD Other Provider Active Dr. Sherman Craft MD Other Provider Active Dr. Rabia Watts MD Other Provider Active Dr. Enmanuel Drew MD Other Provider Active Dr. Elias Blandon MD Other Provider Active Swati Meeks MD Other Provider Active Dr. Christophe Cervantes MD Other Provider Active Dr. Jeri Jerome MD Other Provider Active Dr. Perez Bates MD Other Provider Active Dr. Amalia Puentes MD Other Provider Active Dr. Toby Harris MD Other Provider Active Dr. Viktor Sauer MD Other Provider Active Dr. Lj Santos MD Other Provider Active Dr. Steffany Andrade MD Other Provider Active Dora Sauceda MD Other Provider Active Dr. Adela Salazar MD Attending Provider Active Team Status: Active Member Role Status Dates Dr. Isaias Nuñez MD Primary Care Provider Active Team Status: Inactive Member Role Status Dates Dr. Isaias Nuñez MD Primary Care Provider Active Start: April 04, 2024 End: April 04, 2024 Dr. Isaias Nuñez MD Attending Provider Active Start: April 04, 2024 End: April 04, 2024 Dr. Isaias Nuñez MD Referring Provider Active Start: April 04, 2024 End: April 04, 2024 Team Status: Inactive Member Role Status Dates Dr. Isaias Nuñez MD Primary Care Provider Active Start: May 03, 2024 End: May 03, 2024 Dr. Isaias Nuñez MD Attending Provider Active Start: May 03, 2024 End: May 03, 2024 Dr. Isaias Nuñez MD Referring Provider Active Start: May 03, 2024 End: May 03, 2024 Team Status: Inactive Member Role Status Dates Dr. Isaias Nuñez MD Primary Care Provider Active Start: June 02, 2024 End: June 02, 2024 Dr. Isaias Nuñez MD Attending Provider Active Start: June 02, 2024 End: June 02, 2024 Dr. Isaias Nuñez MD Referring Provider Active Start: June 02, 2024 End: June 02, 2024 (unrecognized sect ion and content) No Status Records Found INFORMATION SOURCE (unrecogn ized section and content) DATE CREATED AUTHOR 06/25/2024 [facility] FOR RECORDS PERTAINING TO PATIENTS WHO [...] BE BASED ON THE PRIMARY CLINICAL RECORDS. [email or web address]. provides no warranty or guarantee of the accuracy or completeness of information in this document.
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
--- NOTE | 2024-09-10 16:20 | RAD_ITS ---
PROCEDURE: ELBOW MIN 3 VIEWS 09/10/2024 REASON FOR EXAM: INJURY TECHNIQUE: ELBOW MIN 3 VIEWS COMPARISON: None. FINDINGS: Bones: No obvious acute fracture. No aggressive osseous lesions. Joints: Normal alignment. Moderate degenerative changes. Soft tissues: Soft tissues are unremarkable. Other: No radiopaque foreign body. RAD/Elbow min 3 Views IMPRESSION: DEGENERATIVE OSTEOARTHROSIS. NO ACUTE FINDINGS. Reading Location: [id number]
--- NOTE | 2024-09-10 16:20 | RAD_ITS ---
PROCEDURE: HUMERUS MIN 2 VIEWS 09/10/2024 REASON FOR EXAM: PAIN TECHNIQUE: HUMERUS MIN 2 VIEWS COMPARISON: None. FINDINGS: Bones: No obvious acute fracture. No aggressive osseous lesions. Joints: Normal alignment. Moderate degenerative changes. Soft tissues: Soft tissues are unremarkable. Other: No radiopaque foreign body. RAD/Humerus min 2 Views IMPRESSION: DEGENERATIVE OSTEOARTHROSIS. NO ACUTE FINDINGS. Reading Location: [id number]
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
[2024-09-10 16:30] VITALS: BMI 31.9
[2024-09-10] MEDS: Diphth,Pertuss(Acell),Tet Vac 0.5 ML Vial IM (16:30)
[2024-09-10 17:00] VITALS: BP 130/58; PULSE 80; RESP 16; O2SAT 100
[2024-09-10 17:05] VITALS: BP 130/58; PULSE 83; RESP 14; TEMP 37; O2SAT 100
== END 2024-09-10 17:15 | disposition home or self-care (01) ==
PROVIDERS: Emergency Provider Emergency Medicine; PCP Family Medicine; Visit Provider Emergency Medicine
DX: S80.812A Abrasion, left lower leg, initial encounter (principal); S80.12XA Contusion of left lower leg, initial encounter; S46.212A Strain of muscle, fascia and tendon of other parts of biceps, left arm, initial encounter; V48.4XXA Person boarding or alighting a car injured in noncollision transport accident, initial encounter; I10 Essential (primary) hypertension; Z23 Encounter for immunization; Z79.82 Long term (current) use of aspirin; Z79.899 Other long term (current) drug therapy; Z87.891 Personal history of nicotine dependence
CPT/HCPCS: 73060; 73080; 73590; 90471; 90715; 99283

== ENCOUNTER → 2024-09-19 | Outpatient (CLI) | payer MEDICARE, OTHER, SELFPAY ==
--- NOTE | 2024-09-19 10:53 | VDLE_ITS ---
Reason For Study Reason For Study: Left leg swelling RIGHT LEFT CFV is compressible, spontaneous, phasic, competent GSV is normal. and demonstrates normal augmentation. CFV is compressible, spontaneous, phasic, competent, Procedure and demonstrates normal augmentation. This is a venous duplex using B-mode, color flow and FV is compressible, spontaneous, phasic, competent spectral Doppler. and demonstrates normal augmentation. Exam performed in department. POP V is compressible, spontaneous, phasic, competent A preliminary report was called and/or faxed to and demonstrates normal augmentation. Mau KEEN. T/P Trunk is compressible. PTV is compressible. LT PerV is compressible. Nonvascularized structure noted in the left calf muscle along area of bruise. VL/Venous Duplex US, Unilateral Interpretation Summary Deep veins of the left lower extremity are patent and compressible segmentally. There is no evidence of left lower extremity deep vein thrombosis. The left great saphenous vein appears patent an d compressible segmentally. Nonvascularized structure noted in the left calf muscle along area of ecchymosi s Ordering Physician: Renzo León Referring Physician: Isaias Nuñez Performed By: Rosa Rodriguez RVT
== END | disposition home or self-care (01) ==
LOC: CVS 10:50
PROVIDERS: PCP Family Medicine; Referring Provider Physician Assistant Surgical; Visit Provider Physician Assistant Surgical
DX: R22.42 Localized swelling, mass and lump, left lower limb (principal); S80.12XD Contusion of left lower leg, subsequent encounter; S80.812A Abrasion, left lower leg, initial encounter
CPT/HCPCS: 93971

== ENCOUNTER → 2024-11-02 | Outpatient (CLI) | payer MEDICARE, OTHER, SELFPAY ==
[2024-11-02 08:57] LABS: Mucous, Urine 0 SEEN /hpf (<or=2+); Red Blood Cells-Urine 0 SEEN /hpf (0-5); Squamous Epithelial Cells - UA 0 SEEN /hpf (0-5)
[2024-11-02 10:40] LABS: Hematocrit 40.4 % (40-54); Hemoglobin 14.1 g/dL (13.0-16.5); Immature Granulocytes Count 0.020 X10^3/uL (0.0-0.0); Mean Corp Hgb Conc 34.9 g/dL (32-36); Mean Corpuscular Volume 95.5 fL (80-94); Mean Platelet Vol. 11.6 fl (6.2-12.0); NRBC Flagged by Analyzer 0 % (0-5); Platelet Count 160 K/mm3 (150-450); RBC Distribution Width CV 13.4 % (11.6-14.6); RBC Distribution Width SD 47.0 fl (35.1-43.9); Red Blood Count 4.23 M/mm3 (4.6-6.2); White Blood Count 6.3 K/mm3 (4.4-11.0)
[2024-11-02 10:49] LABS: Color, Urine Yellow (Yellow); Glucose, Dipstick Normal (Normal); Ketone-Dipstick Negative (Negative); Leukocyte Esterase-Dipstick Negative /ul (Negative); Nitrite-Dipstick Negative (Negative); Occult Blood-Urine Negative /ul (Negative); Protein-Dipstick 15 mg/dl (Negative); Specific Gravity, Urine 1.010 (1.002-1.030); Urine Bilirubin Dipstick Negative (Negative)
[2024-11-02 11:20] LABS: AST(SGOT) 32 U/L (<=37); Alanine Aminotransfer ALT/SGPT 32 U/L (<=46); Albumin, Serum 4.4 g/dL (3.4-4.8); Alkaline Phosphatase 79 U/L (40-129); Anion Gap 12 (5-15); BUN 17 mg/dL (4-19); BUN/Creat Ratio 15.7 RATIO (10-20); Calcium,Total 10.1 mg/dL (7.6-11.0); Carbon Dioxide 21.5 mmol/L (21.0-32.0); Chloride 100 mmol/L (98-108); Cholesterol 183 mg/dL (<=200); Globulin 2.7 g/dL (2.2-4.2); Glucose 118 mg/dL (70-99); Low Density Lipoprotein Calc. 98 mg/dL; Potassium 5.0 mmol/L (3.3-5.1); Triglycerides 75 mg/dL; Very Low Density Lipoprotein 15 mg/dL (5-40); Vitamin D,25 Hydroxy 57.7 ng/mL (30-100); cholesterol:hdl ratio screen 2.61
[2024-11-02 11:49] LABS: PSA,Total - Annual Screen 1.78 ng/mL (0.02-4.00)
== END | disposition home or self-care (01) ==
PROVIDERS: PCP Family Medicine; Visit Provider Family Medicine
DX: I10 Essential (primary) hypertension (principal); E55.9 Vitamin D deficiency, unspecified; Z12.5 Encounter for screening for malignant neoplasm of prostate
CPT/HCPCS: 36415; 80053; 80061; 81001; 82306; 84153; 85025; G0103

== ENCOUNTER → 2024-11-04 | Outpatient (CLI) | payer MEDICARE, OTHER, SELFPAY ==
--- NOTE | 2024-11-04 14:35 | CT_ITS ---
PROCEDURE: EXTREMITY UPPER WITHOUT CONTRA 11/04/2024 REASON FOR EXAM: PRE OP/PAIN/CHRONIC OA TECHNIQUE: EXTREMITY UPPER WITHOUT CONTRA Coronal and Sagittal reconstruction series were provided. One or more dose reduction techniques were used (e.g., Automated exposure control, adjustment of the mA and/or kV according to patient size, use of iterative reconstruction technique. COMPARISON: None FINDINGS: High-riding humeral head likely related to chronic rotator cuff tear. Mild glenohumeral joint osteoarthritis including small marginal osteophytes and minimal joint space narrowing. Moderate acromioclavicular joint osteoarthritis with prominent marginal osteophytes including a distal clavicular osteophyte measuring up to 6 mm inferiorly. Negative for acute fracture or malalignment. No significant rotator cuff muscle atrophy. Diffuse pericardial calcification. Mild LAD coronary artery calcifications. Visualized left lung is clear. Soft tissues are within normal limits. CT/Extremity Upper without Contra IMPRESSION: 1. Mild glenohumeral and moderate acromioclavicular joint osteoarthritis. 2. No significant rotator cuff muscle atrophy. 3. High-riding humeral head which may relate to chronic rotator cuff tear. Reading Location: [facility]
== END | disposition home or self-care (01) ==
LOC: CT 14:33
PROVIDERS: PCP Family Medicine; Referring Provider Student in an Organized Health Care Education/Training Program; Visit Provider Student in an Organized Health Care Education/Training Program
DX: M19.012 Primary osteoarthritis, left shoulder (principal)
CPT/HCPCS: 73200

== ENCOUNTER 2024-11-24 10:58 | Observation (INO) | payer MEDICARE, OTHER, SELFPAY ==
--- NOTE | 2024-10-27 08:56 | EKG12_ITS ---
Test Reason : PRE OP Blood Pressure : */* mmHG Vent. Rate : 79 BPM Atrial Rate : 79 BPM P-R Int : 184 ms QRS Dur : 86 ms QT Int : 368 ms P-R-T Axes : * 36 25 degrees QTcB Int : 421 ms Normal sinus rhythm Normal ECG Confirmed by CASTILLO HUBBARD, FRANCHESCA ([id number]), senior editor SUNNY MAST ([id number]) on 10/28/2024 5:55:19 AM Referred By: Ruddy Mallory Confirmed By: FRANCHESCA CHONG MD
[2024-10-27 09:01] LABS: Hematocrit 39.6 % (40-54); Hemoglobin 13.7 g/dL (13.0-16.5); Immature Granulocytes Count 0.030 X10^3/uL (0.0-0.0); Mean Corp Hgb Conc 34.6 g/dL (32-36); Mean Corpuscular Volume 95.7 fL (80-94); Mean Platelet Vol. 11.1 fl (6.2-12.0); NRBC Flagged by Analyzer 0 % (0-5); Platelet Count 141 K/mm3 (150-450); RBC Distribution Width CV 13.3 % (11.6-14.6); RBC Distribution Width SD 46.9 fl (35.1-43.9); Red Blood Count 4.14 M/mm3 (4.6-6.2); White Blood Count 6.2 K/mm3 (4.4-11.0)
[2024-10-27 10:03] LABS: Albumin, Serum 4.4 g/dL (3.4-4.8); Anion Gap 12 (5-15); BUN 14 mg/dL (4-19); BUN/Creat Ratio 14.3 RATIO (10-20); Calcium,Total 9.5 mg/dL (7.6-11.0); Carbon Dioxide 22.8 mmol/L (21.0-32.0); Chloride 99 mmol/L (98-108); Glucose 114 mg/dL (70-99); Potassium 4.8 mmol/L (3.3-5.1)
[2024-10-27 10:07] LABS: Magnesium 2.2 mg/dL (1.5-2.2)
--- NOTE | 2024-11-02 16:45 | PAT.ANESEVAL ---
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 When Was Last Pacemaker Check QUESTION #4 FULL TEXT: You/Your Family Experience fever (hyperthermia) with Anesthesia Last Oral Intake Last Oral intake: Last Oral Intake NPO since Meds taken in AM with sips of water? 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 representative Female No 11/02/24 09:08 HX of Motion Sickness No 11/02/24 09:08 HX of N/V After Surgery No 11/02/24 09:08 Non-Smoker Yes 11/02/24 09:08 Duration of Surgery greater Yes 11/02/24 09:08 than 60 minutes Number of Risk Factors 2 11/02/24 09:08 PONV Score Moderate Risk 11/02/24 09:08 Height & Weight Height & Weight: Anesthesia: Height & Weight Height 6 ft 09/10/24 14:33 Respiratory Assessment Respiratory Assessment - apparel trimmings sales representative: Respiratory Tract Infection Hx - apparel trimmings sales representative Hx Respiratory Tract Infection No 11/02/24 09:08 STOP Sleep Apnea STOP Sleep Apnea - apparel trimmings sales representative: STOP Sleep Apnea - apparel trimmings sales representative Hx Hypertension Yes: CONTROLLED WITH MED 11/02/24 09:08 Hx Sleep Apnea No 11/02/24 09:08 CPAP No 04/13/23 01:23 BIPAP No 04/13/23 01:23 Do you snore loudly (louder No 11/02/24 09:08 than talking or can be heard Do you often feel tired/ No 11/02/24 09:08 fatigued/ sleepy during daytime? Has anyone observed you stop No 11/02/24 09:08 breathing during sleep? STOP Results Negative 11/02/24 09:08 QUESTION #5 FULL TEXT : Do you snore loudly (louder than talking or can be heard through closed doors)? 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 Specify any problems Hx of Preganancy in last 3 N/A 11/02/24 09:08 Months Nurse Filling Out Transfusion DSCHRIBER 11/02/24 09:08 & Questions: Date: 11/02/24 11/02/24 09:08 Time: 09:10 11/02/24 09:08 Patient unable to answer at this time (ie. confused, unrespo /Reproduction History /Reproductive History - apparel trimmings sales representative: /Reproductive Hx- apparel trimmings sales representative Hx Now No 11/02/24 09:08 Gestational Age (in weeks): EDC: Hx Hx Para Hx Section SAB No 11/02/24 09:08 [facility] Medical History (Updated 11/02/24 @ 09:17 by Sherlyn Yu) Wears hearing aid Wears glasses Alcohol use Sleep apnea Gastric reflux Non-smoker History of edema History of echocardiogram Uninodular goiter HTN (hypertension) Pericardial calcification Vitamin D deficiency Home Medications ?Medication ?Instructions ?Recorded ?Last Taken ?Type aspirin 81 mg tablet,delayed 81 mg PO DAILY 02/22/19 Unknown History release lisinopril 10 mg tablet 10 mg PO DAILY 02/22/19 Unknown History multivitamin (Daily Multi-Vitamin 1 tab PO DAILY 04/12/23 Unknown History tablet) calcium carbonate (Calcium 600) 600 mg PO DAILY 11/02/24 Unknown History omeprazole 40 mg capsule,delayed 20 mg PO QDAY 11/02/24 Unknown History release Allergy/AdvReac Type Severity Reaction Status Date / Time Sulfa (Sulfonamide Allergy Mild Rash Verified 11/02/24 09:02 Antibiotics) Family History Father Cancer Mother Hypertension Surgical History (Updated 11/02/24 @ 09:17 by Sherlyn Yu) Hx of right cataract extraction Hx of left cataract extraction Hx of colonoscopy Hx of tonsillectomy s/p stapedectomy History of uvulectomy History of umbilical hernia Social History Smoking Status: Never smoker alcohol intake: current alcohol intake frequency: holidays/special occasions only substance use type: does not use Audit: Pertinent Findings Pertinent Findings EKG Perinent findings: EKG 10/27/2024. Normal sinus rhythm Echo (EF%) pertinent findings: Echo 04/13/2023. EF 55%. Normal RV size. Normal systolic function. Recommendation Anesthesia Recommendation Anesthesia recommendation: OPTIMIZED for anesthesia
[2024-11-04 14:26] LABS: Magnesium 2.3 mg/dL (1.5-2.2)
[2024-11-24] VITALS (13 sets, daily range): BP systolic 90–133; BP diastolic 57–87; PULSE 41–91; RESP 16–23; TEMP 35.8–36.7; O2SAT 92–100; BMI 31.9
--- OUTSIDE RECORDS SUMMARY | 2024-11-24 07:17 | XMS RPT_ITS | CCD ---
Author Organization [facility] Care Team Providers Care Transfer Table Operator Helper Name Role Phone Isaias Walker Primary Care Provider Dr. Isaias Nuñez Primary Care Provider Dr. Shekhar Delong Attending Provider Dr. Luis Enrique Avalos Attending Provider [phone] MD Bart Romero Emergency Provider Dr. Saji Erazo Admit Provider Unavailabl e Dr. Saji Erazo Other Provider Unavailabl e MD Dusty Aleman Other Provider Unavailable Dr. Nithin Ribeiro Other Provider MD Noelle Kingston Other Provider Unavailable Dr. Linda Brown Other Provider Dr. Ana Hess Other Provider Dr. Sherman Craft Other Provider [phone] Rabia Watts Other Provider Dr. Enmanuel Drew Other Provider Dr. Elias Blandon Other Provider MD Swati Meeks Other Provider Dr. Christophe Cervantes Other Provider Dr. Jeri Jerome Other Provider Dr. Perez Bates Other Provider Dr. Amalia Puentes Other Provider Dr. Toby Harris Other Provider [phone] Viktor Sauer Other Provider Dr. Lj Santos Other Provider Dr. Steffany Andrade Other Provider Unavailable MD Dora Sauceda Other Provider Unavailable Dr. Adela Salazar Attending Provider Dr. Adela Salazar Other Provider Dr. Isaias Nuñez MD Primary Care Provider Savannah HUBBARD, Dr. Isaias Marie Attending Provider Dr. Isaias Nuñez MD Referring Provider Savannah HUBBARD, Dr. Isaias Marie Primary Care Provider [phone] Savannah HUBBARD, Dr. Isaias Marie Attending Provider Savannah HUBBARD, Dr. Isaias Marie Referring Provider Luisana HUBBARD, Dr. Javon Nguyen Attending Provider Dr. Jakob Page DO Emergency Provider Dr. Jakob Pgae DO Attending Provider Esgrace LEWIS Ray Attending Provider Mau LEWIS Ray Referring Provider Dr. Shekhar Delong MD Attending Provider Dr. Isaias Nuñez MD Primary Care Provider Dr. Luis Enrique Avalos MD Attending Provider Dr. Ruddy Mallory DO Referring Provider Dr. Isaias Nuñez MD Attending Provider Jewel RUDD-CDoug Other Provider Dr. Ruddy Mallory DO Attending Provider Ruddy Mallory Referring Unavailable Isaias Nuñez Primary Care Unavailable Ruddy Mallory Attending Unavailable Isaias Nuñez Attending Unavailable McMorrsteffen BOX HINGE AND LOCK ATTACHER, Doug Consulting Unavailable Isaias Nuñez Primary Care Unavailable Schinner, Isaias E Primary Care Unavailable Ruddy Mallory Attending Unavailable Ruddy Mallory Referring Unavailable Isaias Nuñez Primary Care Unavailable Isaias Nuñez Attending Unavailable Isaias Nuñez E Referring Unavailable Isaias Nuñez E Primary Care Unavailable Isaias Nuñez Attending Unavailable Isaias Nuñez E Referring Unavailable SchinIsaias paul E Primary Care Unavailable Isaias Nuñez E Attending Unavailable Isaias Nuñez E Referring Unavailable Isaias Nuñez E Primary Care Unavailable Renzo Garay Attending Unavailable Renzo Garay Referring Unavailable Isaias Nuñez Primary Care Unavailable Jakob Page Attending Unavailable Ruddy Mallory Referring Unavailable Luis Enrique Avalos Attending Unavailable Isaias Nuñez Primary Care Unavailable Isaias Nuñez Primary Care Unavailable Shekhar Delong Attending Unavailable Renzo Garay Referring Unavailable Allergies Allergy Classification Reported Allergen(s) Allergy Type Date of Onset Reaction(s) Facility (12 sources) Sulfonamides (Antibiotic); Translations: [Sulfa (Sulfonamide Antibiotics)] Propensity to adverse reactions 6 Rash [facility] Medications Current Medications Medication Drug Class(es) Dates Sig (Normalized) Sig (Original) aspirin 81 mg delayed release oral tablet (10 sources) Platelet Aggregation Inhibitor, Nonsteroidal Anti-inflammatory Drug Start: 02-22-2019 take 1 tablet by mouth once daily Aspirin 81 mg tablet,delayed release (DR/EC) Active 81 mg PO DAILY February 22, 2019 1:00am calcium carbonate 1500 mg oral tablet (2 sources) Start: 11-02-2024 take 1 tablet by mouth once daily Calcium Carbonate (Calcium 600) 600 mg calcium (1,500 mg) tablet Active 600 mg PO DAILY November 02, 2024 12:00am lisinopril 10 mg oral tablet (10 sources) Angiotensin Converting Enzyme Inhibitor Start: 02-22-2019 take 1 tablet by mouth once daily Lisinopril 10 mg tablet Active 10 mg PO DAILY February 22, 2019 1:00am Multivitamin (Daily Multi-Vitamin) tablet (7 sources) Start: 04-12-2023 Multivitamin (Daily Multi-Vitamin) tablet Active 1 {tbl} PO DAILY April 12, 2023 1:00am Start: 04-12-2023 take 1 tablet by yaz once daily Multivitamin (Daily Multi-Vitamin) tablet Active 1 TABLET PO DAILY April 12, 2023 12:00am Avant-3 Fatty Acids (Fish Oil Concentrate) 1,000 mg capsule (10 sources) Start: 02-22-2019 take 1 capsule by mouth once daily Avant-3 Fatty Acids (Fish Oil Concentrate) 1,000 mg capsule Active 1000 MG PO DAILY February 22, 2019 9:14am Start: 02-22-2019 End: 10-09-2023 take 1 capsule by mouth once daily Avant-3 Fatty Acids (Fish Oil Concentrate) 1,000 mg capsule Discontinued 1000 mg PO DAILY February 22, 2019 1:00am October 09, 2023 9:44am Start: 02-22-2019 take 1 capsule by mo uth once daily Avant-3 Fatty Acids (Fish Oil Concentrate) 1,000 mg capsule Active 1000 MG PO DAILY February 22, 2019 12:00am Start: 02-22-2019 take 1 capsule by mo uth once daily Avant-3 Fatty Acids (Fish Oil Concentrate) 1,000 mg capsule Active 1000 MG PO DAILY February 22, 2019 1:00am omeprazole 40 mg delayed release oral capsule (7 sources) Proton Pump Inhibitor Start: 11-02-2024 Omeprazole 40 mg capsule,delayed release(DR/EC) Active 20 mg PO daily November 02, 2024 12:00am swallow whole; do not crush, chew, dissolve, cut, break Start: 10-09-2023 End: 11-02-2024 take 1 capsule by mouth once daily Omeprazole 40 mg capsule,delayed release(DR/EC) Discontinued 40 mg PO daily 30 October 09, 2023 12:00am November 02, 2024 9:03am swallow whole; do not crush, chew, dissolve, cut, break Completed/Discontinued Medications Medication Drug Class(es) Dates Sig (Normalized) Sig (Original) acetaminophen 325 mg / oxyCODONE hydrochloride 5 mg oral tablet (5 sources) Opioid Agonist Start: 09-26-2023 End: 10-09-2023 Oxycodone-Acetaminop hen (Percocet) 5-325 mg tablet Discontinued 1 {tbl} PO EVERY 6 HOURS as needed for pain 12 3 0 September 26, 2023 October 09, 2023 9:44am Cholelithiasis Biliary colic Calculus of gallbladder without cholecystitis without obstruction Calculus of bile duct without cholangitis or cholecystitis without obstruction calcium carbonate 364 mg / sodium fluoride 8.3 mg oral capsule (10 sources) Start: 02-22-2019 End: 10-09-2023 take 3.75-145 mg by mouth once daily Sod Fluoride-Ca Carbonate (Florical) 3.75 (8.25)-145 (364) mg capsule Discontinued 1 NMA PO DAILY February 22, 2019 1:00am October 09, 2023 9:44am cholecalciferol 0.025 mg oral capsule (10 sources) Vitamin D Start: 02-22-2019 End: 10-09-2023 take 1 capsule by mouth once daily Cholecalciferol (Vitamin D3) 1,000 unit capsule Discontinued 1000 U PO DAILY February 22, 2019 1:00am October 09, 2023 9:45am meclizine hydrochloride 25 mg oral tablet (6 sources) Antiemetic Start: 04-13-2023 End: 10-09-2023 take 1 tablet by mouth twice daily as needed for dizziness Meclizine 25 mg tablet Discontinued 25 mg PO TWICE A DAY as needed for dizziness 30 1 April 13, 2023 1:00am October 09, 2023 9:44am ondansetron 4 mg disintegrating oral tablet (5 sources) Serotonin-3 Receptor Antagonist Start: 09-26-2023 End: 10-09-2023 take 1 tablet by mouth three times daily as needed for nausea and vomiting Ondansetron 4 mg tablet,disintegratin g Discontinued 4 mg PO THREE TIMES A DAY as needed for nausea and vomiting 21 0 September 26, 2023 7:23am October 09, 2023 9:44am Problems Active Problems Problem Classification Problem Date Documented Da te Episodic/Chronic Abdominal pain (5 sources) Tenderness of epigastrium; Translations: [Epigastric abdominal tenderness] 10-28-2023 Episodic Comment on above: Resolved Biliary tract disease (15 sources) Gallstone; Translations: [Calculus of gallbladder without cholecystitis without obstruction] 10-09-2023 Episodic Conditions associated with dizziness or vertigo (9 sources) Dizziness; Translations: [Dizziness and giddiness] 04-12-2023 Episodic Diverticulosis and diverticulitis (1 source) Diverticulosis of colon; Translations: [Diverticulosis of colon (without mention of hemorrhage)] 04-03-2006 Essential hypertension (6 sources) Hypertensive disorder; Translations: [Essential (primary) hypertension] Onset: 11-07-2024 10-04-2023 Chronic Hemorrhoids (1 source) Internal hemorrhoids; Translations: [Internal hemorrhoids without mention of complication] 04-03-2006 Episodic Occlusion or stenosis of precerebral arteries (1 source) Occlusion and stenosis of bilateral carotid arteries; Translations: [Occlusion and stenosis of bilateral carotid arteries] Onset: 06-11-2024 Chronic Osteoarthritis (1 source) Primary osteoarthritis, left shoulder; Translations: [Primary osteoarthritis, left shoulder] Onset: 11-08-2024 Chronic Other gastrointestinal disorders (5 sources) Abdominal bloating; Translations: [Abdominal distension (gaseous)] 10-28-2023 Episodic Comment on above: Resolved Other injuries and conditions due to external causes (1 source) Unspecified injury of left lower leg, initial encounter; Translations: [Unspecified injury of left lower leg, initial encounter] Onset: 09-16-2024 Episodic Other nervous system disorders (7 sources) Abnormal gait; Translations: [Unspecified abnormalities of gait and mobility] 04-12-2023 Episodic Other nervous system disorders (2 sources) Unspecified abnormalities of gait and mobility; Translations: [Abnormality of gait] 04-13-2023 Episodic Other skin disorders (1 source) Localized swelling, mass and lump, left lower limb; Translations: [Localized swelling, mass and lump, left lower limb] Onset: 09-21-2024 Episodic Sprains and strains (4 sources) Traumatic rupture of biceps tendon; Translations: [Strain of muscle, fascia and tendon of other parts of biceps, unspecified arm, initial encounter] 09-10-2024 Episodic Superficial injury; contusion (8 sources) Contusion of left lower leg, initial encounter; Translations: [Contusion of left lower extremity] 09-10-2024 Episodic Thyroid disorders (1 source) Nontoxic single thyroid nodule; Translations: [Nontoxic single thyroid nodule] Onset: 05-19-2024 Chronic Transient cerebral ischemia (9 sources) Transient cerebral ischemia; Translations: [Transient cerebral ischemic attack, unspecified] 04-13-2023 Chronic Unclassified (10 sources) Age more than 65 years; Translations: [Over 65 years old] 03-19-2021 Viral infection (10 sources) Disease caused by 2019-nCoV; Translations: [COVID-19] 03-19-2021 Episodic Past or Other Problems Problem Classification Problem Date Documented Da te Episodic/Chronic Unclassified (9 sources) s/p stapedectomy 10-16-2021 Results Test Name Value Interpretation Reference Range Facility Extremity Upper without Cont raon 11-04-2024 Extremity Upper without Contra [facility] [address] [place] [address] Extremity Upper without Contra MR#: [id number] Acct: [id number] Name: INGE WEEMS Rep #: [id number] : 1945 M 79 From: Skyler Jaffe PCP: Dr. Isaias Nuñez MD Status: REG CLI Study: Extremity Upper without Contra Date of Exam: 0 11/04/24 Exam# [id number] Ordering Dr: Ruddy Mallory DO PROCEDURE: EXTREMITY UPPER WITHOUT CONTRA 11/04/2024 REASON FOR EXAM: PRE OP/PAIN/CHRONIC OA TECHNIQUE: EXTREMITY UPPER WITHOUT CONTRA Coronal and Sagittal reconstruction series were provided. One or more dose reduction techniques were used (e.g., Automated exposure control, adjustment of the mA and/or kV according to patient size, use of iterative reconstruction technique. COMPARISON: None FINDINGS: High-riding humeral head likely related to chronic rotator cuff tear. Mild glenohumeral joint osteoarthritis including small marginal osteophytes and minimal joint space narrowing. Moderate acromioclavicular joint osteoarthritis with prominent marginal osteophytes including a distal clavicular osteophyte measuring up to 6 mm inferiorly. Negative for acute fracture or malalignment. No significant rotator cuff muscle atrophy. Diffuse pericardial calcification. Mild LAD coronary artery calcifications. Visualized left lung is clear. Soft tissues are within normal limits. CT/Extremity Upper without Contra IMPRESSION: 1. Mild glenohumeral and moderate acromioclavicular joint osteoarthritis. 2. No significant rotator cuff muscle atrophy. 3. High-riding humeral head which may relate to chronic rotator cuff tear. Reading Location: [facility] CC: Dr. Isaias Nuñez MD; Dr. Ruddy Spittle, DO Ground Operations Crew Member: Signed Normal [facility] Magnesiumon 11-04-2024 Magnesium [Mass/Vol] 2.3 mg/dL High 1.5-2.2 [facility] Comment on above: Performed By: #### L 501.5200 ####[facility] [address] [place], [address] Absolute lymphocyte countOrd ered By: Isaias Nuñez on 11-02-2024 Lymphocytes Auto (Unsp spec) [#/Vol] 0.99 10*3/uL 0.83-4.[address] [facility] Absolute neutrophil countOrd ered By: Isaias Nuñez on 11-02-2024 Neutrophils (Bld) [#/Vol] 4.4 10*3/uL 2.0-7.[address] [facility] Anion gap in Serum or Plasma Ordered By: Isaias Nuñez on 11-02-2024 Anion gap [Moles/Vol] 12 mmol/L 5-15 [facility] Automated lymphocyte count a s percentage of total leukocytesOrdered By: Isaias Nuñez on 11-02-2024 Lymphocytes/100 WBC Auto (Unsp spec) 15.6 % Low 19-[address] [facility] BUN/creatinine ratioOrdered By: Isaias Nuñez on 11-02-2024 Urea nitrogen/Creatinine [Mass ratio] 15.7 mg/mg 10-[address] [facility] Basophil percentageOrdered B y: Isaias Nuñez on 11-02-2024 Basophils/100 WBC (Bld) 0.5 % 0-1 [facility] Bilirubin Test strip Ql (U)O rdered By: Isaias Nuñez on 11-02-2024 Bilirubin Ql (U) Negative Negative [facility] Bilirubin, totalOrdered By: Isaias Nuñez on 11-02-2024 Bilirubin [Mass/Vol] 0.28 mg/dL 0.00-1.30 [facility] CBC W/Diff, Automatedon 10-21 Absolute Lymph 0.99 X10 3/uL Normal 0.83-4.[address] [facility] Comment on above: Order Comment: Order Date: 04/29/24Order Info: [id number] - CBCD Performed By: #### L 500.4050, L100.0100, L500.4100 ####[facility] [address] [place], [address] Absolute Neut 4.4 X10 3/uL Normal 2.0-7.[address] [facility] Comment on above: Order Comment: Order Date: 04/29/24Order Info: [id number] - CBCD Performed By: #### L 500.4050, L100.0100, L500.4100 ####[facility] [address] [place], [address] Basophils/100 WBC (Bld) 0.5 % Normal 0-1 [facility] Comment on above: Order Comment: Order Date: 04/29/24Order Info: [id number] - CBCD Performed By: #### L 500.4050, L100.0100, L500.4100 ####[facility] [address] [place], [address] Eosinophils/100 WBC (Bld) 4.4 % Normal 0-[address] [facility] Comment on above: Order Comment: Order Date: 04/29/24Order Info: [id number] - CBCD Performed By: #### L 500.4050, L100.0100, L500.4100 ####[facility] [address] [place], [address] Erythrocyte distribution width (RBC) [Ratio] 13.4 % Normal 11.6-14.[address] [facility] Comment on above: Order Comment: Order Date: 04/29/24Order Info: [id number] - CBCD Performed By: #### L 500.4050, L100.0100, L500.4100 ####[facility] [address] [place], [address] Hematocrit (Bld) [Volume fraction] 40.4 % Normal 40-[address] [facility] Comment on above: Order Comment: Order Date: 04/29/24Order Info: [id number] - CBCD Performed By: #### L 500.4050, L100.0100, L500.4100 ####[facility] [address] [place], [address] Hemoglobin (Bld) [Mass/Vol] 14.1 g/dL Normal 13.0-16.[address] [facility] Comment on above: Order Comment: Order Date: 04/29/24Order Info: [id number] - CBCD Performed By: #### L 500.4050, L100.0100, L500.4100 ####[facility] [address] [place], [address] IG% 0.300 Normal 0.0-0.[address] [facility] Comment on above: Order Comment: Order Date: 04/29/24Order Info: [id number]- - CBCD Result Comment: IG% - Immature Granulocytes (promyelocytes, myelocytes and metamyelocytes) > 1% indicates that a LEFT SHIFT is Present. Performed By: #### L 500.4050, L100.0100, L500.4100 ####[facility] [address] [place], [address] Lymphocytes/100 WBC (Bld) 15.6 % Low 19-[address] [facility] Comment on above: Order Comment: Order Date: 04/29/24Order Info: [id number]- - CBCD Performed By: #### L 500.4050, L100.0100, L500.4100 ####[facility] [address] [place], [address] MCH (RBC) [Entitic mass] 33.3 pg High 27.0-32.[address] [facility] Comment on above: Order Comment: Order Date: 04/29/24Order Info: [id number]- - CBCD Performed By: #### L 500.4050, L100.0100, L500.4100 ####[facility] [address] [place], [address] MCHC (RBC) [Mass/Vol] 34.9 g/dL Normal 32-36 [facility] Comment on above: Order Comment: Order Date: 04/29/24Order Info: [id number] - CBCD Performed By: #### L 500.4050, L100.0100, L500.4100 ####[facility] [address] [place], [address] MCV (RBC) [Entitic vol] 95.5 fL High 80-94 [facility] Comment on above: Order Comment: Order Date: 04/29/24Order Info: [id number] - CBCD Performed By: #### L 500.4050, L100.0100, L500.4100 ####[facility] [address] [place], [address] Monocytes/100 WBC (Bld) 9.3 % Normal 0-10 [facility] Comment on above: Order Comment: Order Date: 04/29/24Order Info: [id number] - CBCD Performed By: #### L 500.4050, L100.0100, L500.4100 ####[facility] [address] [place], [address] Neutrophils/100 WBC (Bld) 69.9 % Normal 47-[address] [facility] Comment on above: Order Comment: Order Date: 04/29/24Order Info: [id number] - CBCD Performed By: #### L 500.4050, L100.0100, L500.4100 ####[facility] [address] [place], [address] Nucleated RBC (Bld) [#/Vol] 0 10*3/uL Normal 0-[address] [facility] Comment on above: Order Comment: Order Date: 04/29/24Order Info: [id number] - CBCD Performed By: #### L 500.4050, L100.0100, L500.4100 ####[facility] [address] [place], [address] Platelet mean volume (Bld) [Entitic vol] 11.6 fL Normal 6.2-12.[address] [facility] Comment on above: Order Comment: Order Date: 04/29/24Order Info: [id number] - CBCD Performed By: #### L 500.4050, L100.0100, L500.4100 ####[facility] [address] [place], [address] Platelets (Bld) [#/Vol] 160 10*3/uL Normal 150-[address] [facility] Comment on above: Order Comment: Order Date: 04/29/24Order Info: [id number] - CBCD Performed By: #### L 500.4050, L100.0100, L500.4100 ####[facility] [address] [place], [address] RBC (Bld) [#/Vol] 4.23 10*6/uL Low 4.6-6.2 [facility] Comment on above: Order Comment: Order Date: 04/29/24Order Info: [id number] - CBCD Performed By: #### L 500.4050, L100.0100, L500.4100 ####[facility] [address] [place], [address] RDW SD 47.0 fl High 35.1-43.[address] [facility] Comment on above: Order Comment: Order Date: 04/29/24Order Info: [id number] - CBCD Performed By: #### L 500.4050, L100.0100, L500.4100 ####[facility] [address] [place], [address] WBC (Bld) [#/Vol] 6.3 10*3/uL Normal 4.4-11.0 [facility] Comment on above: Order Comment: Order Date: 04/29/24Order Info: [id number] - CBCD Performed By: #### L 500.4050, L100.0100, L500.4100 ####[facility] [address] [place], [address] Calculated very low density lipoprotein (VLDL) cholesterol measurementOrdered By: Isaias Nuñez on 11-02-2024 Calculated very low density lipoprotein (VLDL) cholesterol measurement 15 mg/dL 5-[address] [facility] Carbon dioxide, total [Moles /volume] in Central venous bloodOrdered By: Isaias Nuñez on 11-02-2024 CO2 [Moles/Vol] 21.5 mmol/L 21.0-32.[address] [facility] Chloride assayOrdered By: Gertrude Nuñez on 11-02-2024 Chloride [Moles/Vol] 100 mmol/L 98-108 [facility] Comprehensive Metabolic Prof ilon 11-02-2024 Albumin [Mass/Vol] 4.4 g/dL Normal 3.4-4.8 [facility] Comment on above: Order Comment: Order Date: 04/29/24Order Info: [id number] - CMPOrder Info: [id number] - LIPID Performed By: #### L 500.4050, L100.0100, L500.4100 ####[facility] [address] [place], [address] Albumin/Globulin [Mass ratio] 1.6 {ratio} Normal 0.9-2.[address] [facility] Comment on above: Order Comment: Order Date: 04/29/24Order Info: [id number] - CMPOrder Info: [id number] - LIPID Performed By: #### L 500.4050, L100.0100, L500.4100 ####[facility] [address] [place], [address] ALK PHOS 79 U/L Normal 40-[address] [facility] Comment on above: Order Comment: Order Date: 04/29/24Order Info: [id number] - CMPOrder Info: [id number] - LIPID Performed By: #### L 500.4050, L100.0100, L500.4100 ####[facility] [address] [place], [address] ALT [Catalytic activity/Vol] 32 U/L Normal <=[address] [facility] Comment on above: Order Comment: Order Date: 04/29/24Order Info: [id number] - CMPOrder Info: [id number] - LIPID Performed By: #### L 500.4050, L100.0100, L500.4100 ####[facility] [address] [place], [address] AST [Catalytic activity/Vol] 32 U/L Normal <=[address] [facility] Comment on above: Order Comment: Order Date: 04/29/24Order Info: [id number] - CMPOrder Info: [id number] - LIPID Performed By: #### L 500.4050, L100.0100, L500.4100 ####[facility] [address] [place], [address] Bilirubin [Mass/Vol] 0.28 mg/dL Normal 0.00-1.30 [facility] Comment on above: Order Comment: Order Date: 04/29/24Order Info: [id number] - CMPOrder Info: [id number] - LIPID Performed By: #### L 500.4050, L100.0100, L500.4100 ####[facility] [address] [place], [address] BUN/CRE 15.7 RATIO Normal 10-[address] [facility] Comment on above: Order Comment: Order Date: 04/29/24Order Info: [id number] - CMPOrder Info: [id number] - LIPID Performed By: #### L 500.4050, L100.0100, L500.4100 ####[facility] [address] [place], [address] Calcium [Mass/Vol] 10.1 mg/dL Normal 7.6-11.0 [facility] Comment on above: Order Comment: Order Date: 04/29/24Order Info: [id number] - CMPOrder Info: [id number] - LIPID Performed By: #### L 500.4050, L100.0100, L500.4100 ####[facility] [address] [place], [address] Chloride [Moles/Vol] 100 mmol/L Normal 98-108 [facility] Comment on above: Order Comment: Order Date: 04/29/24Order Info: [id number] - CMPOrder Info: [id number] - LIPID Performed By: #### L 500.4050, L100.0100, L500.4100 ####[facility] [address] [place], [address] CO2 [Moles/Vol] 21.5 mmol/L Normal 21.0-32.[address] [facility] Comment on above: Order Comment: Order Date: 04/29/24Order Info: [id number] - CMPOrder Info: [id number] - LIPID Performed By: #### L 500.4050, L100.0100, L500.4100 ####[facility] [address] [place], [address] Creatinine [Mass/Vol] 1.09 mg/dL Normal 0.70-1.20 [facility] Comment on above: Order Comment: Order Date: 04/29/24Order Info: [id number] - CMPOrder Info: [id number] - LIPID Performed By: #### L 500.4050, L100.0100, L500.4100 ####[facility] [address] [place], [address] GAP 12 Normal 5-[address] [facility] Comment on above: Order Comment: Order Date: 04/29/24Order Info: [id number] - CMPOrder Info: [id number] - LIPID Performed By: #### L 500.4050, L100.0100, L500.4100 ####[facility] [address] [place], [address] GFR/1.73 sq M.predicted among non-blacks MDRD (S/P/Bld) [Vol rate/Area] 68 mL/min/{1.73_m2} Normal >[address] [facility] Comment on above: Order Comment: Order Date: 04/29/24Order Info: [id number] - CMPOrder Info: [id number] - LIPID Result Comment: mL/m in/1.73m2 CKD-EPI Creatinine Equation (2020) Performed By: #### L 500.4050, L100.0100, L500.4100 ####[facility] [address] [place], [address] Globulin (S) [Mass/Vol] 2.7 g/dL Normal 2.2-4.2 [facility] Comment on above: Order Comment: Order Date: 04/29/24Order Info: [id number] - CMPOrder Info: [id number] - LIPID Performed By: #### L 500.4050, L100.0100, L500.4100 ####[facility] [address] [place], [address] Glucose [Mass/Vol] 118 mg/dL High 70-99 [facility] Comment on above: Order Comment: Order Date: 04/29/24Order Info: [id number] - CMPOrder Info: [id number] - LIPID Performed By: #### L 500.4050, L100.0100, L500.4100 ####[facility] [address] [place], [address] Potassium [Moles/Vol] 5.0 mmol/L Normal 3.3-5.1 [facility] Comment on above: Order Comment: Order Date: 04/29/24Order Info: [id number] - CMPOrder Info: [id number] - LIPID Performed By: #### L 500.4050, L100.0100, L500.4100 ####[facility] [address] [place], [address] Sodium [Moles/Vol] 134 mmol/L Normal 133-145 [facility] Comment on above: Order Comment: Order Date: 04/29/24Order Info: [id number] - CMPOrder Info: [id number] - LIPID Performed By: #### L 500.4050, L100.0100, L500.4100 ####[facility] [address] [place], [address] T PROT 7.1 g/dL Normal 5.9-8.[address] [facility] Comment on above: Order Comment: Order Date: 04/29/24Order Info: [id number] - CMPOrder Info: [id number] - LIPID Performed By: #### L 500.4050, L100.0100, L500.4100 ####[facility] [address] [place], [address] Urea nitrogen [Mass/Vol] 17 mg/dL Normal 4-[address] [facility] Comment on above: Order Comment: Order Date: 04/29/24Order Info: [id number] - CMPOrder Info: [id number] - LIPID Performed By: #### L 500.4050, L100.0100, L500.4100 ####[facility] [address] [place], [address] Eosinophil percentageOrdered By: Isaias Nuñez on 11-02-2024 Eosinophils/100 WBC (Bld) 4.4 % 0-[address] [facility] Erythrocyte distribution wid th ratioOrdered By: Isaias Nuñez on 11-02-2024 Erythrocyte distribution width (RBC) [Ratio] 13.4 % 11.6-14.[address] [facility] Erythrocyte distribution wid th standard deviationOrdered By: Isaias Nuñez on 11-02-2024 Erythrocyte distribution width (RBC) [Ratio] 47.0 fl High 35.1-43.[address] [facility] Glomerular filtration rate ( GFR) estimation/1.73 sq m using serum, plasma, or whole bOrdered By: Isaias Nuñez on 11-02-2024 GFR/1.73 sq M.predicted among non-blacks MDRD (S/P/Bld) [Vol rate/Area] 68 mL/min/{1.73_m2} >[address] [facility] Comment on above: mL/min/1.73m2 CKD-EP I Creatinine Equation (2020) Hematocrit Auto (Bld) [Volum e fraction]Ordered By: Isaias Nuñez on 11-02-2024 Hematocrit (Bld) [Volume fraction] 40.4 % 40-[address] [facility] Hemoglobin measurementOrdere d By: Isaias Nuñez on 11-02-2024 Hemoglobin (Bld) [Mass/Vol] 14.1 g/dL 13.0-16.[address] [facility] Immature granulocytes/100 WB C Auto (Bld)Ordered By: Isaias Nuñez on 11-02-2024 Immature granulocytes/100 WBC (Bld) 0.300 % 0.0-0.[address] [facility] Comment on above: IG% - Immature Granu locytes (promyelocytes, myelocytes and metamyelocytes) > 1% indicates that a LEFT SHIFT is Present. Ketones Test strip Ql (U)Ord ered By: Isaias Nuñez on 11-02-2024 Ketones Ql (U) Negative Negative [facility] LDL calc ser/plasOrdered By: Isaias Nuñez on 11-02-2024 Cholesterol in LDL [Mass/Vol] 98 mg/dL [facility] Comment on above: Zuyzgmegme=193-520 m g/dL & Higher Xppx=970 mg/dL or greaterFriedwald Equation for LDL-C Laboratory - Chemistry and C hemistry - challengeOrdered By: Isaias Nuñez on 11-02-2024 AST [Catalytic activity/Vol] 32 U/L <[address] [facility] Lipid Profileon 11-02-2024 CHOL:HDL 2.[address] [facility] Comment on above: Order Comment: Order Date: 04/29/24Order Info: [id number] - CMPOrder Info: [id number] - LIPID Performed By: #### L 500.4050, L100.0100, L500.4100 ####[facility] [address] [place], [address] Cholesterol [Mass/Vol] 183 mg/dL Normal <=200 [facility] Comment on above: Order Comment: Order Date: 04/29/24Order Info: [id number] - CMPOrder Info: [id number] - LIPID Result Comment: Chol esterol level, Desirable <200 mg/dL Borderline high cholesterol 200-239 mg/dL High cholesterol >=240 mg/dL Recommendations of the NCEP Adult Treatment Panel for the following risk-cutoff thresholds for the [place] population. Performed By: #### L 500.4050, L100.0100, L500.4100 ####[facility] [address] [place], [address] Cholesterol in HDL [Mass/Vol] 70 mg/dL Normal [facility] Comment on above: Order Comment: Order Date: 04/29/24Order Info: [id number] - CMPOrder Info: [id number] - LIPID Result Comment: Ingris onal Cholesterol Education Program (NCEP) guidelines: <40 mg/dL: Low HDL-cholesterol (major risk factor for CHD) >= 60 mg/dL: High HDL-cholesterol (negative risk factor for CHD) HDL-cholesterol is affected by a number of factors, e.g. smoking, exercise, hormones, sex and age. Performed By: #### L 500.4050, L100.0100, L500.4100 ####[facility] [address] [place], [address] Cholesterol in LDL [Mass/Vol] 98 mg/dL Normal [facility] Comment on above: Order Comment: Order Date: 04/29/24Order Info: [id number] - CMPOrder Info: [id number] - LIPID Result Comment: Bord tvwsra=581-490 mg/dL Higher Jbch=293 mg/dL or greater Friedwald Equation for LDL-C Performed By: #### L 500.4050, L100.0100, L500.4100 ####[facility] [address] [place], [address] Cholesterol in VLDL [Mass/Vol] 15 mg/dL Normal 5-[address] [facility] Comment on above: Order Comment: Order Date: 04/29/24Order Info: [id number] - CMPOrder Info: [id number] - LIPID Performed By: #### L 500.4050, L100.0100, L500.4100 ####[facility] [address] [place], [address] Triglyceride [Mass/Vol] 75 mg/dL Normal [facility] Comment on above: Order Comment: Order Date: 04/29/24Order Info: [id number] - CMPOrder Info: [id number] - LIPID Result Comment: The drugs N-Acetylcysteine and Metamizole may falsely depress this assay. Normal range: <150 mg/dL Borderline High: 150-199 mg/dL High: 200-499 mg/dL Very High: >500 mg/dL Performed By: #### L 500.4050, L100.0100, L500.4100 ####[facility] [address] [place], [address] MCV (mean corpuscular volume ) determinationOrdered By: Isaias Nuñez on 11-02-2024 MCV (RBC) [Entitic vol] 95.5 fL High 80-94 [facility] MR/PAT.ANEon 11-02-2024 MR/PAT.ANE [facility] Medical Records Department [address] [place] [address] PAT - Anesthesia 11/02/24 1645 MR#: [id number] Acct: [id number] Name: INGE WEEMS Rep #: [id number] : 1945 79 From: Riaz Heard MD PCP: Dr. 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 When Was Last Pacemaker Check QUESTION #4 FULL TEXT: You/Your Family Experience fever (hyperthermia) with Anesthesia Last Oral Intake Last Oral intake: Last Oral Intake NPO since Meds taken in AM with sips of water? 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 Has anyone observed you stop No 11/02/24 09:08 breathing during sleep? STOP Results Negative 11/02/24 09:08 QUESTION #5 FULL TEXT : Do you snore loudly (louder than talking or can be heard through closed doors)? 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 Specify any problems Hx of Preganancy in last 3 N/A 11/02/24 09:08 Months Nurse Filling Out Transfusion DSCHRIBER 11/02/24 09:08 Questions: Date: 11/02/24 11/02/24 09:08 Time: 09:10 11/02/24 09:08 Patient unable to answer at this time (ie. 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: /Reproductiv e Hx- braille duplicating machine operator Hx Now No 11/02/24 09:08 Gestational Age (in weeks): EDC: Hx Hx Para Hx Section SAB No 11/02/24 09:08 [facility] Medical History (Updated 11/02/24 @ 09:17 by Sherlyn Yu) Wears hearing aid Wears glasses Alcohol use Sleep apnea Gastric reflux Non-smoker History of edema History of echocardiogram Uninodular goiter HTN (hypertension) Pericardial calcification Vitamin D deficiency Home Medications ???Medication ???Instructions ???Recorded ???Last Taken ???Type aspirin 81 mg tablet,delayed 81 mg PO DAILY 02/22/19 Unknown Hi story release lisinopril 10 mg tablet 10 mg PO DAILY 02/22/19 Unknown Hi story multivitamin (Daily Multi-Vitamin 1 tab PO DAILY 04/12/23 Unknown H istory tablet) calcium carbonate (Calcium 600) 600 mg PO DAILY 11/02/24 Unknown H istory omeprazole 40 mg capsule,delayed 20 mg PO QDAY 11/02/24 Unknown His tory release Allergy/AdvReac Type Severity Reaction Status Date / Time Sulfa (Sulfonamide Allergy Mi (more content not included)... Normal [facility] Mean corpuscular hemoglobin (MCH) determinationOrdered By: Isaias Nuñez on 11-02-2024 MCH (RBC) [Entitic mass] 33.3 pg High 27.0-32.[address] [facility] Mean corpuscular hemoglobin concentration (MCHC) determinationOrdered By: Isaias Nuñez on 11-02-2024 MCHC (RBC) [Mass/Vol] 34.9 g/dL 32-36 [facility] Mean platelet volume determi nationOrdered By: Isaias Nuñez on 11-02-2024 Platelet mean volume (Bld) [Entitic vol] 11.6 fL 6.2-12.[address] [facility] Microscopic analysis of urin e for red blood cells (RBC)Ordered By: Isaias Nuñez on 11-02-2024 Microscopic analysis of urine for red blood cells (RBC) 0 SEEN /hpf 0-[address] [facility] Monocyte percentageOrdered B y: Isaias Nuñez on 11-02-2024 Monocytes/100 WBC (Bld) 9.3 % 0-10 [facility] Mucus LM Ql (Urine sed)Order ed By: Isaias Nuñez on 11-02-2024 Mucus Ql (Urine sed) 0 SEEN /hpf [facility] Neutrophil percentageOrdered By: Isaias Nuñez on 11-02-2024 Neutrophils/100 WBC (Bld) 69.9 % 47-[address] [facility] Nitrite Test strip Ql (U)Ord ered By: Isaias Nuñez on 11-02-2024 Nitrite Ql (U) Negative Negative [facility] Nucleated red blood cell per centageOrdered By: Isaias Nuñez on 11-02-2024 Nucleated RBC/100 WBC (Bld) [Ratio] 0 % 0-[address] [facility] PSA,Total - Annual Screenon 11-02-2024 PSA,TOT SCREEN 1.78 ng/mL Normal 0.02-4.[address] [facility] Comment on above: Result Comment: This test was performed using the [employer] tPSA method. Measured values of a patient??sample can vary depending on the testing procedure used. PSA values determined on patient samples by different testing procedures cannot be used interchangeably. If there is a change in PSA assays while monitoring therapy, sequential testing should be performed to confirm baseline values. Performed By: #### L 501.9910 #### [facility] Laboratory [address] [place], [address] Platelet countOrdered By: Gertrude Nuñez on 11-02-2024 Platelets (Bld) [#/Vol] 160 10*3/uL 150-[address] [facility] Potassium measurement (mass/ volume)Ordered By: Isaias Nuñez on 11-02-2024 Potassium (Unsp spec) [Mass/Vol] 5.0 mmol/L 3.3-5.[address] [facility] Protein Test strip Ql (U)Ord ered By: Isaias Nuñez on 11-02-2024 Protein Ql (U) 15 mg/dl High Negative [facility] RBC Auto (Bld) [#/Vol]Ordere d By: Isaias Nuñez on 11-02-2024 RBC (Bld) [#/Vol] 4.23 10*6/uL Low 4.6-6.2 [facility] Screening total cholesterol/ high density lipoprotein (HDL) cholesterol ratioOrdered By: Isaias Nuñez on 11-02-2024 Cholesterol.total/Choles terol in HDL [Mass ratio] 2.61 {ratio} [facility] Serum creatinine measurement (mass/volume)Ordered By: Isaias Nuñez on 11-02-2024 Creatinine [Mass/Vol] 1.09 mg/dL 0.70-1.20 [facility] Serum globulin measurementOr dered By: Isaias Nuñez on 11-02-2024 Globulin (S) [Mass/Vol] 2.7 g/dL 2.2-4.2 [facility] Serum glucose measurement (m ass/volume)Ordered By: Isaias uNñez on 11-02-2024 Glucose [Mass/Vol] 118 mg/dL High 70-99 [facility] Serum or plasma alanine castaneda otransferase (ALT) measurementOrdered By: Isaias Nuñez on 11-02-2024 ALT [Catalytic activity/Vol] 32 U/L <[address] [facility] Serum or plasma albumin mt urement (mass/volume)Ordered By: Isaias Nuñez on 11-02-2024 Albumin [Mass/Vol] 4.4 g/dL 3.4-4.8 [facility] Serum or plasma albumin/glob ulin mass ratioOrdered By: Isaias Nuñez on 11-02-2024 Albumin/Globulin [Mass ratio] 1.6 {ratio} 0.9-2.[address] [facility] Serum or plasma alkaline koki sphatase measurementOrdered By: Isaias Nuñez on 11-02-2024 ALP [Catalytic activity/Vol] 79 U/L 40-[address] [facility] Serum or plasma calcium mt urement (mass/volume)Ordered By: Isaias Nuñez on 11-02-2024 Calcium [Mass/Vol] 10.1 mg/dL 7.6-11.0 [facility] Serum or plasma cholesterol in HDL measurement (mass/volume)Ordered By: Isaias Nuñez on 11-02-2024 Cholesterol in HDL [Mass/Vol] 70 mg/dL >[address] [facility] Comment on above: National Cholesterol Education Program (NCEP) guidelines:<40 mg/dL: Low HDL-cholesterol (major risk factor for CHD)>= 60 mg/dL: High HDL-cholesterol (negative risk factor for CHD)HDL-cholesterol is affected by a number of factors, e.g. smoking, exercise, hormones, sex and age. Serum or plasma cholesterol measurement (mass/volume)Ordered By: Isaias Nuñez on 11-02-2024 Cholesterol [Mass/Vol] 183 mg/dL <201 [facility] Comment on above: Cholesterol level, D esirable <200 mg/dLBorderline high cholesterol 200-239 mg/dLHigh cholesterol >=240 mg/dLRecommendations of the NCEP Adult Treatment Panel for the following risk-cutoff thresholds for the [place] population. Serum or plasma urea nitroge n measurement (mass/volume)Ordered By: Isaias Nuñez on 11-02-2024 Urea nitrogen [Mass/Vol] 17 mg/dL 4-[address] [facility] Sodium levelOrdered By: Isaias Nuñez on 11-02-2024 Sodium [Moles/Vol] 134 mmol/L 133-145 [facility] Squamous epithelial cells de tection in urine sediment by light microscopyOrdered By: Isaias Nuñez on 11-02-2024 Epithelial cells.squamous LM Ql (Urine sed) 0 SEEN /hpf 0-[address] [facility] Total proteinOrdered By: Meir Nuñez on 11-02-2024 Protein [Mass/Vol] 7.1 g/dL 5.9-8.4 [facility] Triglycerides measurementOrd ered By: Isaias Nuñez on 11-02-2024 Triglyceride [Mass/Vol] 75 mg/dL <199 [facility] Comment on above: The drugs N-Acetylcy steine and Metamizole may falsely depress this assay. Normal range: <150 mg/dLBorderline High: 150-199 mg/dLHigh: 200-499 mg/dLVery High: >500 mg/dL Urinalysis, Completeon 11-02 BACTERIA 0 SEEN Normal None Seen [facility] Comment on above: Order Comment: CLEAN CATCH Performed By: #### L 400.0001, L506.1001 ####[facility] [address] [place], [address] EPI,SQUAMOUS 0 SEEN Normal 0-[address] [facility] Comment on above: Order Comment: CLEAN CATCH Performed By: #### L 400.0001, L506.1001 ####[facility] [address] [place], [address] Mucus Ql (Urine sed) 0 SEEN Normal [facility] Comment on above: Order Comment: CLEAN CATCH Performed By: #### L 400.0001, L506.1001 ####[facility] [address] [place], [address] RBC 0 SEEN Normal [address] Comment on above: Order Comment: CLEAN CATCH Performed By: #### L 400.0001, L506.1001 ####[facility] [address] [place], [address] WBC 0 SEEN Normal [address] Comment on above: Order Comment: CLEAN CATCH Performed By: #### L 400.0001, L506.1001 ####[facility] [address] [place], [address] Urine clarityOrdered By: Meir Nuñez on 11-02-2024 Clarity (U) Clear Clear [facility] Urine color determinationOrd ered By: Isaias Nuñez on 11-02-2024 Color (U) Yellow Yellow [facility] Urine glucose detectionOrder ed By: Isaias Nuñez on 11-02-2024 Glucose Ql (U) Normal mg/dl Normal [facility] Urine leukocyte esterase det ection by dipstickOrdered By: Isaias Nuñez on 11-02-2024 Leukocyte esterase Test strip Ql (U) Negative Negative [facility] Urine pHOrdered By: Isaias flor on 11-02-2024 pH (U) 7.0 [pH] 5.0 - 8.[address] [facility] Urine sediment bacteria coun t by microscopy (number/high power field)Ordered By: Isaias Nuñez on 11-02-2024 Bacteria LM.HPF (Urine sed) [#/Area] 0 /[HPF] None Seen [facility] Urine specific gravity measu rementOrdered By: Isaias Nuñez on 11-02-2024 Specific gravity (U) [Rel density] 1.010 1.002-1.[address] [facility] Urine urobilinogen measureme ntOrdered By: Isaias Nuñez on 11-02-2024 Urobilinogen Ql (U) 1 mg/dl High Normal [facility] Vitamin D,25 Hydroxyon 11-02 Vitamin D 25-OH 57.7 ng/mL Normal 30-[address] [facility] Comment on above: Order Comment: Order Date: 04/29/24Order Info: [id number] - CMPOrder Info: [id number] - LIPID Result Comment: Isabel min D Status Deficiency: <20 ng/mL (50nmol/L) Insufficiency: 20-30 ng/mL (50-75 nmol/L) Sufficiency: 30-100 ng/mL (75-250 nmol/L) Toxicity: >100 ng/mL (>250 nmol/L) Performed By: #### L 400.0001, L506.1001 ####[facility] [address] [place], [place], [address] White blood cell (WBC) count Ordered By: Isaias Nuñez on 11-02-2024 WBC (Bld) [#/Vol] 6.3 10*3/uL 4.4-11.0 [facility] White blood cell countOrdere d By: Isaias Nuñez on 11-02-2024 White blood cell count 0 SEEN /hpf 0-5 [facility] MRSA/SAID NASAL SCREENon MRSA+SAID SCRN Reason for Exam: Surgery MRSA MRSA Negative S. AUREUS S. aureus Negative Normal [facility] Comment on above: Performed By: #### L 500.2500, L100.0100, L501.1800, M100.651 ####[facility] [address] [place], [address] 12 Lead EKGon 10-27-2024 12 Lead EKG [facility] Cardiovascular Services [address] [place] [address] 12 Lead EKG 10/27/24 0905 MR#: [id number] Acct: [id number] Name: INGE WEEMS Rep #: [id number] : 1945 79 From: Luis Enrique Avalos MD Attending Dr: Dr. Ruddy Mallory DO Status: REG [facility] Ordering Dr: Ruddy Mallory DO Date: 10/27/24 Location: [facility] Sex: M C Admitted: Test Reason : PRE OP Blood Pressure : */* mmHG Vent. Rate : 79 BPM Atrial Rate : 79 BPM P-R Int : 184 ms QRS Dur : 86 ms QT Int : 368 ms P-R-T Axes : * 36 25 degrees QTcB Int : 421 ms Normal sinus rhythm Normal ECG Confirmed by CASTILLO HUBBARD, LUIS ENRIQUE ([id number]), brands editor SUNNY MAST ([id number]) on 10/28/2024 5:55:19 AM Referred By: Ruddy Mallory Confirmed By: LUIS ENRIQUE AVALOS MD 10/28/24 0555 Date Luis Enrique Avalos MD CC: Dr. Isaias Nuñez MD; Dr. Ruddy Mallory DO Signed Normal [facility] Albumin, Serumon 10-27-2024 Albumin [Mass/Vol] 4.4 g/dL Normal 3.4-4.8 [facility] Comment on above: Performed By: #### L 500.2500, L100.0100, L501.1800, M100.651 ####[facility] [address] [place], [address] Basic Metabolic Profile (BMP )on 10-27-2024 BUN/CRE 14.3 RATIO Normal 10-[address] [facility] Comment on above: Performed By: #### L 500.2500, L100.0100, L501.1800, M100.651 ####[facility] [address] [place], [address] Calcium [Mass/Vol] 9.5 mg/dL Normal 7.6-11.0 [facility] Comment on above: Performed By: #### L 500.2500, L100.0100, L501.1800, M100.651 ####[facility] [address] [place], [address] Chloride [Moles/Vol] 99 mmol/L Normal 98-108 [facility] Comment on above: Performed By: #### L 500.2500, L100.0100, L501.1800, M100.651 ####[facility] [address] [place], [address] CO2 [Moles/Vol] 22.8 mmol/L Normal 21.0-32.[address] [facility] Comment on above: Performed By: #### L 500.2500, L100.0100, L501.1800, M100.651 ####[facility] [address] [place], [address] Creatinine [Mass/Vol] 1.00 mg/dL Normal 0.70-1.20 [facility] Comment on above: Performed By: #### L 500.2500, L100.0100, L501.1800, M100.651 ####[facility] [address] [place], [address] GAP 12 Normal 5-[address] [facility] Comment on above: Performed By: #### L 500.2500, L100.0100, L501.1800, M100.651 ####[facility] [address] [place], [address] GFR/1.73 sq M.predicted among non-blacks MDRD (S/P/Bld) [Vol rate/Area] 76 mL/min/{1.73_m2} Normal >[address] [facility] Comment on above: Result Comment: mL/m in/1.73m2 CKD-EPI Creatinine Equation (2020) Performed By: #### L 500.2500, L100.0100, L501.1800, M100.651 ####[facility] [address] [place], [address] Glucose [Mass/Vol] 114 mg/dL High 70-99 [facility] Comment on above: Performed By: #### L 500.2500, L100.0100, L501.1800, M100.651 ####[facility] [address] [place], [address] Potassium [Moles/Vol] 4.8 mmol/L Normal 3.3-5.1 [facility] Comment on above: Performed By: #### L 500.2500, L100.0100, L501.1800, M100.651 ####[facility] [address] [place], [address] Sodium [Moles/Vol] 134 mmol/L Normal 133-145 [facility] Comment on above: Performed By: #### L 500.2500, L100.0100, L501.1800, M100.651 ####[facility] [address] [place], [address] Urea nitrogen [Mass/Vol] 14 mg/dL Normal 4-[address] [facility] Comment on above: Performed By: #### L 500.2500, L100.0100, L501.1800, M100.651 ####[facility] [address] [place], [address] CBC W/Diff, Automatedon 08-0 Absolute Lymph 1.01 X10 3/uL Normal 0.83-4.[address] [facility] Comment on above: Performed By: #### L 500.2500, L100.0100, L501.1800, M100.651 ####[facility] [address] [place], [address] Absolute Neut 4.2 X10 3/uL Normal 2.0-7.[address] [facility] Comment on above: Performed By: #### L 500.2500, L100.0100, L501.1800, M100.651 ####[facility] [address] [place], [address] Basophils/100 WBC (Bld) 0.5 % Normal 0-1 [facility] Comment on above: Performed By: #### L 500.2500, L100.0100, L501.1800, M100.651 ####[facility] [address] [place], [address] Eosinophils/100 WBC (Bld) 4.2 % Normal 0-[address] [facility] Comment on above: Performed By: #### L 500.2500, L100.0100, L501.1800, M100.651 ####[facility] [address] [place], [address] Erythrocyte distribution width (RBC) [Ratio] 13.3 % Normal 11.6-14.[address] [facility] Comment on above: Performed By: #### L 500.2500, L100.0100, L501.1800, M100.651 ####[facility] [address] [place], [address] Hematocrit (Bld) [Volume fraction] 39.6 % Low 40-[address] [facility] Comment on above: Performed By: #### L 500.2500, L100.0100, L501.1800, M100.651 ####[facility] [address] [place], [address] Hemoglobin (Bld) [Mass/Vol] 13.7 g/dL Normal 13.0-16.[address] [facility] Comment on above: Performed By: #### L 500.2500, L100.0100, L501.1800, M100.651 ####[facility] [address] [place], [address] IG% 0.500 Normal 0.0-0.[address] [facility] Comment on above: Result Comment: IG% - Immature Granulocytes (promyelocytes, myelocytes and metamyelocytes) > 1% indicates that a LEFT SHIFT is Present. Performed By: #### L 500.2500, L100.0100, L501.1800, M100.651 ####[facility] [address] [place], [address] Lymphocytes/100 WBC (Bld) 16.4 % Low 19-[address] [facility] Comment on above: Performed By: #### L 500.2500, L100.0100, L501.1800, M100.651 ####[facility] [address] [place], [address] MCH (RBC) [Entitic mass] 33.1 pg High 27.0-32.[address] [facility] Comment on above: Performed By: #### L 500.2500, L100.0100, L501.1800, M100.651 ####[facility] [address] [place], [address] MCHC (RBC) [Mass/Vol] 34.6 g/dL Normal 32-36 [facility] Comment on above: Performed By: #### L 500.2500, L100.0100, L501.1800, M100.651 ####[facility] [address] [place], [address] MCV (RBC) [Entitic vol] 95.7 fL High 80-94 [facility] Comment on above: Performed By: #### L 500.2500, L100.0100, L501.1800, M100.651 ####[facility] [address] [place], [address] Monocytes/100 WBC (Bld) 9.7 % Normal 0-10 [facility] Comment on above: Performed By: #### L 500.2500, L100.0100, L501.1800, M100.651 ####[facility] [address] [place], [address] Neutrophils/100 WBC (Bld) 68.7 % Normal 47-[address] [facility] Comment on above: Performed By: #### L 500.2500, L100.0100, L501.1800, M100.651 ####[facility] [address] [place], [address] Nucleated RBC (Bld) [#/Vol] 0 10*3/uL Normal 0-[address] [facility] Comment on above: Performed By: #### L 500.2500, L100.0100, L501.1800, M100.651 ####[facility] [address] [place], [address] Platelet mean volume (Bld) [Entitic vol] 11.1 fL Normal 6.2-12.[address] [facility] Comment on above: Performed By: #### L 500.2500, L100.0100, L501.1800, M100.651 ####[facility] [address] [place], [address] Platelets (Bld) [#/Vol] 141 10*3/uL Low 150-[address] [facility] Comment on above: Performed By: #### L 500.2500, L100.0100, L501.1800, M100.651 ####[facility] [address] [place], [address] RBC (Bld) [#/Vol] 4.14 10*6/uL Low 4.6-6.2 [facility] Comment on above: Performed By: #### L 500.2500, L100.0100, L501.1800, M100.651 ####[facility] [address] [place], [address] RDW SD 46.9 fl High 35.1-43.[address] [facility] Comment on above: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 TSH Performed By: #### L 100.0100, L506.1000, L501.5200, L501.9520, L500.4050, L500.4100 #### [facility] [address] [place], [address] Chloride [Moles/Vol] 109 mmol/L High 98-107 [facility] Comment on above: Order Comment: Order Date: 10/13/23 Order Info: [id number] - CMP Order Info: [id number] - LIPID Order Info: [id number] - MG Order Info: [id number] - TSH Performed By: #### L 100.0100, L506.1000, L501.5200, L501.9520, L500.4050, L500.4100 #### [facility] [address] [place], [address] CO2 [Moles/Vol] 25.0 mmol/L Normal 21.0-32.[address] [facility] Comment on above: Order Comment: Order Date: 10/13/23 Order Info: 86-1 - CMP Order Info: [id number] - LIPID Order Info: [id number] - MG Order Info: 3 - TSH Performed By: #### L 100.0100, L506.1000, L501.5200, L501.9520, L500.4050, L500.4100 #### [facility] [address] [place], [address] Creatinine [Mass/Vol] 1.25 mg/dL Normal 0.70-1.30 [facility] Comment on above: Order Comment: Order Date: 10/13/23 Order Info: 785- - CMP Order Info: [id number] - LIPID Order Info: [id number] - MG Order Info: [id number] - TSH Result Comment: The validity of the calculated GFR GFRAA in patients over 70 years has not been determined. Clinical correlation is essential. Performed By: #### L 100.0100, L506.1000, L501.5200, L501.9520, L500.4050, L500.4100 #### [facility] [address] [place], [address] EST GFR - AA 71 mL/min Normal >[address] [facility] Comment on above: Order Comment: Order Date: 10/13/23 Order Info: [id number] - CMP Order Info: [id number] - LIPID Order Info: [id number] - MG Order Info: 3 - TSH Result Comment: Afri can Hungarian GFR Calc Performed By: #### L 100.0100, L506.1000, L501.5200, L501.9520, L500.4050, L500.4100 #### [facility] [address] [place], [address] GAP 4 Low 5-[address] [facility] Comment on above: Order Comment: Order Date: 10/13/23 Order Info: 07 - CMP Order Info: [id number] - LIPID Order Info: [id number] - MG Order Info: 3 - TSH Performed By: #### L 100.0100, L506.1000, L501.5200, L501.9520, L500.4050, L500.4100 #### [facility] [address] [place], [place], [address] GFR/1.73 sq M.predicted among non-blacks MDRD (S/P/Bld) [Vol rate/Area] 59 mL/min/{1.73_m2} Low >[address] [facility] Comment on above: Order Comment: Order Date: 10/13/23 Order Info: 86-1 - CMP Order Info: [id number] - LIPID Order Info: [id number] - MG Order Info: [id number] - TSH Result Comment: Non- GFR Calc Performed By: #### L 100.0100, L506.1000, L501.5200, L501.9520, L500.4050, L500.4100 #### [facility] [address] [place], [address] Globulin (S) [Mass/Vol] 3.4 g/dL Normal 2.2-4.2 [facility] Comment on above: Order Comment: Order Date: 10/13/23 Order Info: 785- - CMP Order Info: [id number] - LIPID Order Info: [id number] - MG Order Info: [id number] - TSH Performed By: #### L 100.0100, L506.1000, L501.5200, L501.9520, L500.4050, L500.4100 #### [facility] [address] [place], [address] Glucose [Mass/Vol] 111 mg/dL High 74-106 [facility] Comment on above: Order Comment: Order Date: 10/13/23 Order Info: 86-1 - CMP Order Info: [id number] - LIPID Order Info: [id number] - MG Order Info: [id number] - TSH Result Comment: Fast ing Glucose result from 100 to 125 mg/dL suggests IMPAIRED HOMEOSTASIS per A.D.A. criteria. Performed By: #### L 100.0100, L506.1000, L501.5200, L501.9520, L500.4050, L500.4100 #### [facility] [address] [place], [address] Potassium [Moles/Vol] 4.5 mmol/L Normal 3.5-5.1 [facility] Comment on above: Order Comment: Order Date: 10/13/23 Order Info: [id number] - CMP Order Info: [id number] - LIPID Order Info: [id number] - MG Order Info: [id number] - TSH Performed By: #### L 100.0100, L506.1000, L501.5200, L501.9520, L500.4050, L500.4100 #### [facility] [address] [place], [address] Sodium [Moles/Vol] 138 mmol/L Normal 136-145 [facility] Comment on above: Order Comment: Order Date: 10/13/23 Order Info: 785- - CMP Order Info: [id number] - LIPID Order Info: [id number] - MG Order Info: [id number] - TSH Performed By: #### L 100.0100, L506.1000, L501.5200, L501.9520, L500.4050, L500.4100 #### [facility] [address] [place], [address] T PROT 7.0 g/dL Normal 6.4-8.[address] [facility] Comment on above: Order Comment: Order Date: 10/13/23 Order Info: [id number] - CMP Order Info: [id number] - LIPID Order Info: [id number] - MG Order Info: [id number] - TSH Performed By: #### L 100.0100, L506.1000, L501.5200, L501.9520, L500.4050, L500.4100 #### [facility] [address] [place], [address] Urea nitrogen [Mass/Vol] 29 mg/dL High 7-[address] [facility] Comment on above: Order Comment: Order Date: 10/13/23 Order Info: [id number] - CMP Order Info: [id number] - LIPID Order Info: [id number] - MG Order Info: [id number] - TSH Performed By: #### L 100.0100, L506.1000, L501.5200, L501.9520, L500.4050, L500.4100 #### [facility] [place], [address] Eosinophil percentageOrdered By: Isaias Nuñez on 04-04-2024 Eosinophils/100 WBC (Bld) 4.1 % 0-[address] [facility] Epithelial cells.squamous LM Ql (Urine sed)Ordered By: Isaias Nuñez on 04-04-2024 Epithelial cells.squamous LM.HPF (Urine sed) [#/Area] 0 /[HPF] 0-[address] [facility] Erythrocyte distribution wid th ratioOrdered By: Isaias Nuñez on 04-04-2024 Erythrocyte distribution width (RBC) [Ratio] 14.0 % 11.6-14.[address] [facility] Erythrocyte distribution wid th standard deviationOrdered By: Isaias Nuñez on 04-04-2024 Erythrocyte distribution width (RBC) [Entitic vol] 48.7 fL High 35.1-43.[address] [facility] Estimated glomerular filtrat ion rate (GFR) AmericanOrdered By: Isaias Nuñez on 04-04-2024 Estimated GFR (MDRD) Amer 71 mL/min >[address] [facility] Comment on above: GFR Calc Glomerular filtration rate ( GFR) estimationOrdered By: Isaias Nuñez on 04-04-2024 Estimated GFR (MDRD) Non-Af Amer 59 mL/min Low >[address] [facility] Comment on above: Non- GFR Calc Glucose Ql (U)Ordered By: Gertrude Nuñez on 04-04-2024 Urine Glucose (UA) Normal mg/dl Normal [facility] Glucose measurementOrdered B y: Isaias Nuñez on 04-04-2024 Glucose [Mass/Vol] 111 mg/dL High 74-106 [facility] Comment on above: Fasting Glucose resu lt from 100 to 125 mg/dL suggests IMPAIRED HOMEOSTASIS per A.D.A. criteria. Hematocrit Auto (Bld) [Volum e fraction]Ordered By: Isaias Nuñez on 04-04-2024 Hematocrit (Bld) [Volume fraction] 39.7 % Low 40-[address] [facility] Hemoglobin A1con 04-04-2024 HbA1c (Bld) [Mass fraction] 5.2 % Normal 3.8-5.[address] [facility] Comment on above: Order Comment: PLEAS E ADD A1C Result Comment: Norm al < 5.7 % Prediabetic 5.7 - 6.4 % Diabetic >or= 6.5 % Please note range changes. Performed By: #### L 400.0001, L501.9985 #### [facility] [address] [place], [address] Hemoglobin A1c percentageOrd ered By: Isaias Nuñez on 04-04-2024 HbA1c (Bld) [Mass fraction] 5.2 % 3.8-5.[address] [facility] Comment on above: Normal < 5.7 % Predi abetic 5.7 - 6.4 % Diabetic >or= 6.5 % Please note range changes. Hemoglobin measurementOrdere d By: Isaias Nuñez on 04-04-2024 Hemoglobin (Bld) [Mass/Vol] 13.6 g/dL 13.0-16.[address] [facility] High density lipoprotein (HD L) measurementOrdered By: Isaias Nuñez on 04-04-2024 Cholesterol in HDL [Mass/Vol] 61 mg/dL >[address] [facility] Comment on above: The drugs N-Acetylcy steine and Metamizole may falsely depress this assay. Reference Range HDL <40 mg/dL Low HDL Cholesterol HDL >or= 60 mg/dL High HDL Cholesterol Immature granulocytes/100 WB C Auto (Bld)Ordered By: Isaias Nuñez on 04-04-2024 Immature granulocytes/100 WBC (Bld) 0.200 % 0.0-0.[address] [facility] Comment on above: IG% - Immature Granu locytes (promyelocytes, myelocytes and metamyelocytes) > 1% indicates that a LEFT SHIFT is Present. Ketones Test strip Ql (U)Ord ered By: Isaias Nuñez on 04-04-2024 Ketones Ql (U) Negative Negative [facility] - Chemistry and C hemistry - challengeOrdered By: Isaias Nuñez on 04-04-2024 AST [Catalytic activity/Vol] 36 U/L 15-[address] [facility] Lipid Profileon 04-04-2024 Cholesterol [Mass/Vol] 175 mg/dL Normal 200 [facility] Comment on above: Order Comment: Order Date: 10/13/23 Order Info: [id number] - CMP Order Info: [id number] - LIPID Order Info: [id number] - MG Order Info: [id number] - TSH Result Comment: <200 mg/dL Desirable 200-240 mg/dL Borderline >240 mg/dL High Risk Performed By: #### L 100.0100, L506.1000, L501.5200, L501.9520, L500.4050, L500.4100 #### [facility] [address] [place], [address] Cholesterol in HDL [Mass/Vol] 61 mg/dL Normal [facility] Comment on above: Order Comment: Order Date: 10/13/23 Order Info: [id number] - CMP Order Info: [id number] - LIPID Order Info: [id number] - MG Order Info: [id number] - TSH Result Comment: The drugs N-Acetylcysteine and Metamizole may falsely depress this assay. Reference Range HDL <40 mg/dL Low HDL Cholesterol HDL >or= 60 mg/dL High HDL Cholesterol Performed By: #### L 100.0100, L506.1000, L501.5200, L501.9520, L500.4050, L500.4100 #### [facility] [address] [place], [address] Cholesterol in LDL [Mass/Vol] 97 mg/dL Normal 0-[address] [facility] Comment on above: Order Comment: Order Date: 10/13/23 Order Info: [id number] - CMP Order Info: [id number] - LIPID Order Info: [id number] - MG Order Info: [id number] - TSH Performed By: #### L 100.0100, L506.1000, L501.5200, L501.9520, L500.4050, L500.4100 #### [facility] [address] [place], [place], [address] Cholesterol in VLDL [Mass/Vol] 17 mg/dL Normal 5-[address] [facility] Comment on above: Order Comment: Order Date: 10/13/23 Order Info: [id number] - CMP Order Info: [id number] - LIPID Order Info: [id number] - MG Order Info: [id number] - TSH Performed By: #### L 100.0100, L506.1000, L501.5200, L501.9520, L500.4050, L500.4100 #### [facility] [address] [place], [place], [address] Triglyceride [Mass/Vol] 86 mg/dL Normal [facility] Comment on above: Order Comment: Order Date: 10/13/23 Order Info: [id number] - CMP Order Info: [id number] - LIPID Order Info: [id number] - MG Order Info: [id number] - TSH Result Comment: The drugs N-Acetylcysteine and Metamizole may falsely depress this assay. Serum Triglycerides Reference Interval Normal <150 mg/dL Borderline high 150 - 199 mg/dL High 200 - 499 mg/dL Very High > or = 500 mg/dL Performed By: #### L 100.0100, L506.1000, L501.5200, L501.9520, L500.4050, L500.4100 #### [facility] [address] [place], [place], [id number] Low density lipoprotein (LDL ) cholesterol measurementOrdered By: Isaias Nuñez on 04-04-2024 Cholesterol in LDL [Mass/Vol] 97 mg/dL 0-[address] [facility] Lymphocytes Auto (Unsp spec) [#/Vol]Ordered By: Isaias Nuñez on 04-04-2024 Lymphocytes (Bld) [#/Vol] 0.96 10*3/uL 0.83-4.[address] [facility] Lymphocytes/100 WBC Auto (Un sp spec)Ordered By: Isaias Nuñez on 04-04-2024 Lymphocytes/100 WBC (Bld) 18.8 % Low 19-[address] [facility] MCV (mean corpuscular volume ) determinationOrdered By: Isaias Nuñez on 04-04-2024 MCV (RBC) [Entitic vol] 95.9 fL High 80-94 [facility] Magnesiumon 04-04-2024 Magnesium [Mass/Vol] 2.6 mg/dL Normal 1.6-2.6 [facility] Comment on above: Order Comment: Order Date: 10/13/23Order Info: [id number] - CMPOrder Info: [id number] - LIPIDOrder Info: [id number] - MGOrder Info: [id number] - TSH Performed By: #### L 100.0100, L506.1000, L501.5200, L501.9520, L500.4050, L500.4100 ####[facility] [address] [place], [address] Magnesium measurementOrdered By: Isaias Nuñez on 04-04-2024 Magnesium [Mass/Vol] 2.6 mg/dL 1.6-2.6 [facility] Mean corpuscular hemoglobin (MCH) determinationOrdered By: Isaias Nuñez on 04-04-2024 MCH (RBC) [Entitic mass] 32.9 pg High 27.0-32.[address] [facility] Mean corpuscular hemoglobin concentration (MCHC) determinationOrdered By: Isaias Nuñez on 04-04-2024 MCHC (RBC) [Mass/Vol] 34.3 g/dL 32-36 [facility] Mean platelet volume determi nationOrdered By: Isaias Nuñez on 04-04-2024 Platelet mean volume (Bld) [Entitic vol] 11.9 fL 6.2-12.[address] [facility] Microscopic analysis of urin e for red blood cells (RBC)Ordered By: Isaias Nuñez on 04-04-2024 Urine RBC 0 SEEN /hpf 0-[address] [facility] Monocyte percentageOrdered B y: Isaias Nuñez on 04-04-2024 Monocytes/100 WBC (Bld) 10.9 % High 0-10 [facility] Mucus LM Ql (Urine sed)Order ed By: Isaias Nuñez on 04-04-2024 Mucus Ql (Urine sed) 1+ /hpf [facility] Neutrophil percentageOrdered By: Isaias Nuñez on 04-04-2024 Neutrophils/100 WBC (Bld) 65.6 % 47-[address] [facility] Nitrite Test strip Ql (U)Ord ered By: Isaias Nuñez on 04-04-2024 Nitrite Ql (U) Negative Negative [facility] Nucleated red blood cell per centageOrdered By: Isaias Nuñez on 04-04-2024 Nucleated RBC/100 WBC (Bld) [Ratio] 0 % 0-[address] [facility] Platelet countOrdered By: Gertrude Nuñez on 04-04-2024 Platelets (Bld) [#/Vol] 145 10*3/uL Low 150-[address] [facility] Potassium measurementOrdered By: Isaias Nuñez on 04-04-2024 Potassium [Moles/Vol] 4.5 mmol/L 3.5-5.1 [facility] Protein Test strip Ql (U)Ord ered By: Isaias Nuñez on 04-04-2024 Protein Ql (U) 15 mg/dl High Negative [facility] RBC Auto (Bld) [#/Vol]Ordere d By: Isaias Nuñez on 04-04-2024 RBC (Bld) [#/Vol] 4.14 10*6/uL Low 4.6-6.2 [facility] Serum anion gap measurementO rdered By: Isaias Nuñez on 04-04-2024 Anion gap [Moles/Vol] 4 mmol/L Low 5-15 [facility] Serum globulin measurementOr dered By: Isaias Nuñez on 04-04-2024 Globulin (S) [Mass/Vol] 3.4 g/dL 2.2-4.2 [facility] Serum or plasma alanine castaneda otransferase (ALT) measurementOrdered By: Isaias Nuñez on 04-04-2024 ALT [Catalytic activity/Vol] 43 U/L 16-[address] [facility] Serum or plasma albumin mt urement (mass/volume)Ordered By: Isaias Nuñez on 04-04-2024 Albumin [Mass/Vol] 3.6 g/dL 3.2-5.0 [facility] Serum or plasma alkaline koki sphatase measurementOrdered By: Isaias Nuñez on 04-04-2024 ALP [Catalytic activity/Vol] 73 U/L 45-[address] [facility] Serum or plasma calcium mt urement (mass/volume)Ordered By: Isaias Nuñez on 04-04-2024 Calcium [Mass/Vol] 9.3 mg/dL 8.5-10.1 [facility] Serum or plasma cholesterol measurement (mass/volume)Ordered By: Isaias Nuñez on 04-04-2024 Cholesterol [Mass/Vol] 175 mg/dL <200 [facility] Comment on above: <200 mg/dL Desirable 200-240 mg/dL Borderline >240 mg/dL High Risk Serum or plasma creatinine m easurement (mass/volume)Ordered By: Isaias Nuñez on 04-04-2024 Creatinine [Mass/Vol] 1.25 mg/dL 0.70-1.30 [facility] Comment on above: The validity of the calculated GFR & GFRAA in patients over 70 years has not been determined. Clinical correlation is essential. Serum or plasma urea nitroge n measurement (mass/volume)Ordered By: Isaias Nuñez on 04-04-2024 Urea nitrogen [Mass/Vol] 29 mg/dL High 7-[address] [facility] Sodium levelOrdered By: Isaias Nuñez on 04-04-2024 Sodium [Moles/Vol] 138 mmol/L 136-145 [facility] TSH QnOrdered By: Isaias paul on 04-04-2024 Thyroid Stimulating Hormone (TSH) 1.710 uIU/mL 0.358-3.[address] [facility] Thyroid Stim Hormone (TSH)on 04-04-2024 TSH 1.710 uIU/mL Normal 0.358-3.[address] [facility] Comment on above: Order Comment: Order Date: 10/13/23Order Info: [id number] - CMPOrder Info: [id number] - LIPIDOrder Info: [id number] - MGOrder Info: [id number] - TSH Performed By: #### L 100.0100, L506.1000, L501.5200, L501.9520, L500.4050, L500.4100 ####[facility] [address] [place], [address] Total proteinOrdered By: Meir Nuñez on 04-04-2024 Protein [Mass/Vol] 7.0 g/dL 6.4-8.2 [facility] Triglycerides measurementOrd ered By: Isaias Nuñez on 04-04-2024 Triglyceride [Mass/Vol] 86 mg/dL <199 [facility] Comment on above: The drugs N-Acetylcy steine and Metamizole may falsely depress this assay.Serum Triglycerides Reference Interval Normal <150 mg/dL Borderline high 150 - 199 mg/dL High 200 - 499 mg/dL Very High > or = 500 mg/dL Urinalysis, Completeon 04-04 BACTERIA RARE Normal None Seen [facility] Comment on above: Order Comment: CLEAN CATCH Performed By: #### L 400.0001, L501.9985 #### [facility] [address] [place], [address] Mucus Ql (Urine sed) 1+ /hpf Normal [facility] Comment on above: Order Comment: CLEAN CATCH Performed By: #### L 400.0001, L501.9985 #### [facility] [address] [place], [address] WBC 0-5 SEEN Normal 0-[address] [facility] Comment on above: Order Comment: CLEAN CATCH Performed By: #### L 400.0001, L501.9985 #### [facility] [address] [place], [address] EPI,SQUAMOUS 0 SEEN Normal 0-[address] [facility] Comment on above: Order Comment: CLEAN CATCH Performed By: #### L 400.0001, L501.9985 #### [facility] [address] [place], [address] RBC 0 SEEN Normal 0-[address] [facility] Comment on above: Order Comment: CLEAN CATCH Performed By: #### L 400.0001, L501.9985 #### [facility] [address] [place], [address] Urine blood detectionOrdered By: Isaias Nuñez on 04-04-2024 Urine Occult Blood Negative Negative [facility] Urine clarityOrdered By: Meir Nuñez on 04-04-2024 Clarity (U) Clear Clear [facility] Urine color determinationOrd ered By: Isaias Nuñez on 04-04-2024 Color (U) Yellow Yellow [facility] Urine leukocyte esterase det ection by dipstickOrdered By: Isaias Nuñez on 04-04-2024 Leukocyte esterase Test strip Ql (U) 25 /ul High Negative [facility] Urine pHOrdered By: Isaias flor on 04-04-2024 pH (U) 5.0 [pH] 5.0 - 8.[address] [facility] Urine specific gravity measu rementOrdered By: Isaias Nuñez on 04-04-2024 Specific gravity (U) [Rel density] 1.020 1.002-1.[address] [facility] Urobilinogen Ql (U)Ordered B y: Isaias Nuñez on 04-04-2024 Urine Urobilinogen Normal mg/dl Normal [facility] Very low density lipoprotein (VLDL) cholesterol measurementOrdered By: Isaias Nuñez on 04-04-2024 VLDL Cholesterol 17 mg/dL 5-[address] [facility] Vitamin D,25 Hydroxyon 04-04 Vitamin D 25-OH 43.0 ng/mL Normal [facility] Comment on above: Order Comment: Order Date: 10/13/23Order Info: [id number] - [id number] Result Comment: Isabel min D 25(OH) Status Range Deficiency <20 ng/mL (50nmol/L) Insufficiency 20 - 30 ng/mL (50 - 75 nmol/L) Sufficiency 30 - 100 ng/mL (75 - 250 nmol/L) Toxicity >100 ng/mL (>250 nmol/L) Performed By: #### L 100.0100, L506.1000, L501.5200, L501.9520, L500.4050, L500.4100 ####[facility] [address] [place], [address] White blood cell (WBC) count Ordered By: Isaias Nuñez on 04-04-2024 WBC (Bld) [#/Vol] 5.1 10*3/uL 4.4-11.0 [facility] White blood cell countOrdere d By: Isaias Nuñez on 04-04-2024 Urine WBC 0-5 SEEN /hpf 0-[address] [facility] Basophil percentageOrdered B y: Saji Rivera on 04-13-2023 Cholesterol [Mass/Vol] 198 mg/dL <200 [facility] Comment on above: <200 mg/dL Desirable 200-240 mg/dL Borderline >240 mg/dL High Risk Triglyceride [Mass/Vol] 97 mg/dL <199 [facility] Comment on above: The drugs N-Acetylcy steine and Metamizole may falsely depress this assay.Serum Triglycerides Reference Interval Normal <150 mg/dL Borderline high 150 - 199 mg/dL High 200 - 499 mg/dL Very High > or = 500 mg/dL High density lipoprotein (HD L) measurementOrdered By: Saji Rivera on 04-13-2023 Cholesterol in HDL (Body fld) [Mass/Vol] 72 mg/dL >[address] [facility] Comment on above: The drugs N-Acetylcy steine and Metamizole may falsely depress this assay. Reference Range HDL <40 mg/dL Low HDL Cholesterol HDL >or= 60 mg/dL High HDL Cholesterol Low density lipoprotein (LDL ) cholesterol measurementOrdered By: Saji Rivera on 04-13-2023 Cholesterol in LDL (Body fld) [Moles/Vol] 107 mg/dL 0-[address] [facility] Very low density lipoprotein (VLDL) cholesterol measurementOrdered By: Saji Rivera on 04-13-2023 Cholesterol in VLDL Calc [Moles/Vol] 19 mg/dL 5-[address] [facility] Absolute lymphocyte countOrd ered By: Bart Romero on 04-12-2023 Lymphocytes Auto (Unsp spec) [#/Vol] 1.53 10*3/uL 0.83-4.[address] [facility] Activated partial thrombopla stin time (aPTT) in platelet poor plasma by coagulation aOrdered By: Bart Romero on 04-12-2023 aPTT Coag (PPP) [Time] 24.2 s 24.1-36.2 [facility] Automated lymphocyte count a s percentage of total leukocytesOrdered By: Bart Romero on 04-12-2023 Lymphocytes/100 WBC Auto (Unsp spec) 20.9 % 19-[address] [facility] Basophil percentageOrdered B y: Bart Romero on 04-12-2023 Basophils/100 WBC (Bld) 0.7 % 0-1 [facility] Chloride [Moles/Vol] 107 mmol/L 98-107 [facility] Eosinophils/100 WBC (Bld) 1.6 % 0-[address] [facility] Glucose [Mass/Vol] 109 mg/dL 74-106 [facility] Comment on above: Fasting Glucose resu lt from 100 to 125 mg/dL suggests IMPAIRED HOMEOSTASIS per A.D.A. criteria. Hemoglobin (Bld) [Mass/Vol] 14.3 g/dL 13.0-16.[address] [facility] Monocytes/100 WBC (Bld) 9.0 % 0-10 [facility] Neutrophils (Bld) [#/Vol] 4.9 10*3/uL 2.0-7.[address] [facility] Neutrophils/100 WBC (Bld) 67.5 % 47-[address] [facility] Potassium [Moles/Vol] 4.3 mmol/L 3.5-5.1 [facility] Sodium [Moles/Vol] 138 mmol/L 136-145 [facility] WBC (Bld) [#/Vol] 7.3 10*3/uL 4.4-11.0 [facility] Determination of erythrocyte mean corpuscular volume (MCV)Ordered By: Bart Romero on 04-12-2023 MCV (RBC) [Entitic vol] 96.1 fL 80-94 [facility] Erythrocyte distribution wid th ratioOrdered By: Bart Romero on 04-12-2023 Erythrocyte distribution width (RBC) [Ratio] 13.6 % 11.6-14.[address] [facility] Erythrocyte distribution wid th standard deviationOrdered By: Bart Romero on 04-12-2023 Erythrocyte distribution width (RBC) [Entitic vol] 48.0 fL 35.1-43.[address] [facility] Hematocrit Auto (Bld) [Volum e fraction]Ordered By: Bart Romero on 04-12-2023 Hematocrit (Bld) [Volume fraction] 41.6 % 40-[address] [facility] Immature granulocytes/100 WB C Auto (Bld)Ordered By: Bart Romero on 04-12-2023 Immature granulocytes/100 WBC (Bld) 0.300 % 0.0-0.[address] [facility] Comment on above: IG% - Immature Granu locytes (promyelocytes, myelocytes and metamyelocytes) > 1% indicates that a LEFT SHIFT is Present. International normalized rat io (INR) calculationOrdered By: Bart Romero on 04-12-2023 INR Coag (PPP) [Relative time] 1.0 {INR} [facility] Laboratory - Chemistry and C hemistry - challengeOrdered By: Bart Romero on 04-12-2023 CO2 [Moles/Vol] 26.0 mmol/L 21.0-32.[address] [facility] Urea nitrogen/Creatinine [Mass ratio] 17.6 mg/mg 10-[address] [facility] Laboratory - CoagulationOrde red By: Bart Romero on 04-12-2023 PT Coag (PPP) [Time] 13.0 s 11.7-14.9 [facility] Laboratory - Hematology and Cell countsOrdered By: Bart Romero on 04-12-2023 MCH (RBC) [Entitic mass] 33.0 pg 27.0-32.[address] [facility] MCHC (RBC) [Mass/Vol] 34.4 g/dL 32-36 [facility] Nucleated RBC/100 WBC (Bld) [Ratio] 0 % 0-[address] [facility] Platelets (Bld) [#/Vol] 144 10*3/uL 150-[address] [facility] No Panel InformationOrdered By: Bart Romero on 04-12-2023 Estimated Creatinine Clearance Calc 67.29 ml/min [facility] Estimated GFR (MDRD) Amer 76 mL/min >[address] [facility] Comment on above: GFR Calc Estimated GFR (MDRD) Non-Af Amer 63 mL/min >[address] [facility] Comment on above: Non- GFR Calc Troponin I High Sensitivity 6 pg/mL 3.0-78.[address] [facility] Comment on above: Please Note: New Mary t Units and Gender Specific Reference Ranges. For more information see Policy Stat Procedure Anderson High Sensitivity Troponin (TNIH) and attachments. No Panel InformationOrdered By: Saji Rivera on 04-12-2023 Ethyl Alcohol Level < 3.0 mg/dL [facility] Comment on above: The serum:whole bloo d [...] volume (Bld) [Entitic vol] 11.4 fL 6.2-12.[address] [facility] RBC Auto (Bld) [#/Vol]Ordere d By: Bart Romero on 04-12-2023 RBC (Bld) [#/Vol] 4.33 10*6/uL 4.6-6.2 [facility] Serum or plasma calcium mt urement (mass/volume)Ordered By: Bart Romero on 04-12-2023 Calcium [Mass/Vol] 9.5 mg/dL 8.5-10.1 [facility] Serum or plasma creatinine m easurement (mass/volume)Ordered By: Bart Romero on 04-12-2023 Creatinine [Mass/Vol] 1.19 mg/dL 0.70-1.30 [facility] Comment on above: The validity of the calculated GFR & GFRAA in patients over 70 years has not been determined. Clinical correlation is essential. Serum or plasma thyroid stim ulating hormone (TSH) measurement (units/volume)Ordered By: Saji Rivera on 04-12-2023 TSH Qn 1.61 uIU/mL 0.358-3.[address] [facility] Serum or plasma urea nitroge n measurement (mass/volume)Ordered By: Bart Romero on 04-12-2023 Urea nitrogen [Mass/Vol] 21 mg/dL 7-[address] [facility] Thin prep Papanicolaou smear with manual screeningOrdered By: Bart Romero on 04-12-2023 Thin prep Papanicolaou smear with manual screening 111 mg/dL 74-[address] [facility] Comment on above: MANAGEMENT OF PATIEN T CARE PER NURSING PROTOCOL Thin prep Papanicolaou smear with manual screening 5 5-[address] [facility] Basophil percentageOrdered B y: Isaias Nuñez on 03-05-2023 Bilirubin [Mass/Vol] 0.40 mg/dL 0.20-1.00 [facility] Comment on above: For patients on eltr ombopag therapy, use of Dimension Anderson TBIL is not recommended. Chloride [Moles/Vol] 109 mmol/L 98-107 [facility] Glucose [Mass/Vol] 128 mg/dL 74-106 [facility] Comment on above: Fasting Glucose resu lt greater than or equal to 126 mg/dL suggests DIABETES MELLITUS per A.D.A. criteria. Potassium [Moles/Vol] 4.8 mmol/L 3.5-5.1 [facility] Comment on above: Moderate Hemolysis, Result may be falsely increased. Protein [Mass/Vol] 6.7 g/dL 6.4-8.2 [facility] Sodium [Moles/Vol] 140 mmol/L 136-145 [facility] Laboratory - Chemistry and C hemistry - challengeOrdered By: Isaias Nuñez on 03-05-2023 ALP [Catalytic activity/Vol] 76 U/L 45-[address] [facility] ALT [Catalytic activity/Vol] 42 U/L 16-[address] [facility] CO2 [Moles/Vol] 26.0 mmol/L 21.0-32.[address] [facility] Globulin (S) [Mass/Vol] 3.1 g/dL 2.2-4.2 [facility] Urea nitrogen/Creatinine [Mass ratio] 25.0 mg/mg 10-[address] [facility] No Panel InformationOrdered By: Isaias Nuñez on 03-05-2023 Estimated GFR (MDRD) Amer 78 mL/min >[address] [facility] Comment on above: GFR Calc Estimated GFR (MDRD) Non-Af Amer 65 mL/min >[address] [facility] Comment on above: Non- GFR Calc Serum or plasma albumin mt urement (mass/volume)Ordered By: Isaias Nuñez on 03-05-2023 Albumin [Mass/Vol] 3.6 g/dL 3.2-5.0 [facility] Serum or plasma albumin/glob ulin mass ratioOrdered By: Isaias Nuñez on 03-05-2023 Albumin/Globulin [Mass ratio] 1.2 {ratio} 0.9-2.[address] [facility] Serum or plasma calcium mt urement (mass/volume)Ordered By: Isaias Nuñez on 03-05-2023 Calcium [Mass/Vol] 9.5 mg/dL 8.5-10.1 [facility] Serum or plasma creatinine m easurement (mass/volume)Ordered By: Isaias Nuñez on 03-05-2023 Creatinine [Mass/Vol] 1.16 mg/dL 0.70-1.30 [facility] Comment on above: The validity of the calculated GFR & GFRAA in patients over 70 years has not been determined. Clinical correlation is essential. Serum or plasma urea nitroge n measurement (mass/volume)Ordered By: Isaias Nuñez on 03-05-2023 Urea nitrogen [Mass/Vol] 29 mg/dL 7-[address] [facility] Thin prep Papanicolaou smear with manual screeningOrdered By: Isaias Nuñez on 03-05-2023 Thin prep Papanicolaou smear with manual screening 34 U/L 15-[address] [facility] Comment on above: Moderate Hemolysis, Result may be falsely increased. Thin prep Papanicolaou smear with manual screening 5 5-[address] [facility] Whole blood hemoglobin A1c/t otal hemoglobin ratio (mass fraction)Ordered By: Isaias Nuñez on 03-05-2023 HbA1c (Bld) [Mass fraction] 5.0 % 3.8-5.[address] [facility] Comment on above: Normal < 5.7 % Predi abetic 5.7 - 6.4 % Diabetic >or= 6.5 % Please note range changes. Absolute lymphocyte countOrd ered By: Isaias Nuñez on 02-25-2023 Lymphocytes Auto (Unsp spec) [#/Vol] 0.98 10*3/uL 0.83-4.[address] [facility] Basophil percentageOrdered B y: Isaias Nuñez on 02-25-2023 Basophil percentage 0 [facility] WBC (Bld) 0.8 % 0-1 [facility] Bilirubin [Mass/Vol] 0.40 mg/dL 0.20-1.00 [facility] Comment on above: For patients on eltr ombopag therapy, use of Dimension Anderson TBIL is not recommended. Chloride [Moles/Vol] 109 mmol/L 98-107 [facility] Cholesterol [Mass/Vol] 170 mg/dL <200 [facility] Comment on above: <200 mg/dL Desirable 200-240 mg/dL Borderline >240 mg/dL High Risk Eosinophils/100 WBC (Bld) 2.5 % 0-[address] [facility] Glucose [Mass/Vol] 110 mg/dL 74-106 [facility] Comment on above: Fasting Glucose resu lt from 100 to 125 mg/dL suggests IMPAIRED HOMEOSTASIS per A.D.A. criteria. Neutrophils (Bld) [#/Vol] 3.2 10*3/uL 2.0-7.[address] [facility] Neutrophils/100 WBC (Bld) 66.2 % 47-[address] [facility] Potassium [Moles/Vol] 4.3 mmol/L 3.5-5.1 [facility] Protein [Mass/Vol] 6.8 g/dL 6.4-8.2 [facility] Sodium [Moles/Vol] 139 mmol/L 136-145 [facility] Triglyceride [Mass/Vol] 62 mg/dL <199 [facility] Comment on above: The drugs N-Acetylcy steine and Metamizole may falsely depress this assay.Serum Triglycerides Reference Interval Normal <150 mg/dL Borderline high 150 - 199 mg/dL High 200 - 499 mg/dL Very High > or = 500 mg/dL WBC (Bld) [#/Vol] 4.8 10*3/uL 4.4-11.0 [facility] Bilirubin Test strip Ql (U)O rdered By: Isaias Nuñez on 02-25-2023 Bilirubin Ql (U) Negative Negative [facility] Blood erythrocytes count (nu mber/volume)Ordered By: Isaias Nuñez on 02-25-2023 RBC (Bld) [#/Vol] 4.32 10*6/uL 4.6-6.2 [facility] Blood hemoglobin measurement (mass/volume)Ordered By: Isaias Nuñez on 02-25-2023 Hemoglobin (Bld) [Mass/Vol] 13.9 g/dL 13.0-16.[address] [facility] Blood lymphocytes/100 leukoc ytesOrdered By: Isaias Nuñez on 02-25-2023 Lymphocytes/100 WBC (Bld) 20.5 % 19-[address] [facility] Blood monocytes/100 leukocyt esOrdered By: Isaias Nuñez on 02-25-2023 Monocytes/100 WBC (Bld) 9.6 % 0-10 [facility] Blood platelet mean volumeOr dered By: Isaias Nuñez on 02-25-2023 Platelet mean volume (Bld) [Entitic vol] 11.7 fL 6.2-12.[address] [facility] Determination of erythrocyte mean corpuscular volume (MCV)Ordered By: Isaias Nuñez on 02-25-2023 MCV (RBC) [Entitic vol] 97.0 fL 80-94 [facility] Hematocrit Auto (Bld) [Volum e fraction]Ordered By: Isaias Nuñez on 02-25-2023 Hematocrit (Bld) [Volume fraction] 41.9 % 40-[address] [facility] Ketones Test strip Ql (U)Ord ered By: Isaias Nuñez on 02-25-2023 Ketones Ql (U) 5 mg/dl Negative [facility] Laboratory - Chemistry and C hemistry - challengeOrdered By: Isaias Nuñez on 02-25-2023 ALP [Catalytic activity/Vol] 70 U/L 45-[address] [facility] ALT [Catalytic activity/Vol] 41 U/L 16-[address] [facility] CO2 [Moles/Vol] 24.0 mmol/L 21.0-32.[address] [facility] Globulin (S) [Mass/Vol] 3.2 g/dL 2.2-4.2 [facility] Urea nitrogen/Creatinine [Mass ratio] 15.8 mg/mg 10-[address] [facility] Laboratory - Hematology and Cell countsOrdered By: Isaias Nuñez on 02-25-2023 Erythrocyte distribution width (RBC) [Entitic vol] 48.8 fL 35.1-43.[address] [facility] Erythrocyte distribution width (RBC) [Ratio] 13.7 % 11.6-14.[address] [facility] Immature granulocytes/100 WBC (Bld) 0.400 % 0.0-0.[address] [facility] Comment on above: IG% - Immature Granu locytes (promyelocytes, myelocytes and metamyelocytes) > 1% indicates that a LEFT SHIFT is Present. MCH (RBC) [Entitic mass] 32.2 pg 27.0-32.[address] [facility] Nucleated RBC/100 WBC (Bld) [Ratio] 0 % 0-[address] [facility] MCHC Auto (RBC) [Mass/Vol]Or dered By: Isaias Nuñez on 02-25-2023 MCHC (RBC) [Mass/Vol] 33.2 g/dL 32-36 [facility] Mucus LM Ql (Urine sed)Order ed By: Isaias Nuñez on 02-25-2023 Mucus Ql (Urine sed) 0 SEEN /hpf [facility] Nitrite Test strip Ql (U)Ord ered By: Isaias Nuñez on 02-25-2023 Nitrite Ql (U) Negative Negative [facility] No Panel InformationOrdered By: Isaias Nuñez on 02-25-2023 Estimated GFR (MDRD) Amer 92 mL/min >[address] [facility] Comment on above: GFR Calc Estimated GFR (MDRD) Non-Af Amer 76 mL/min >[address] [facility] Comment on above: Non- GFR Calc Vitamin D 25-Hydroxy 48.3 ng/mL [facility] Comment on above: Vitamin D 25(OH) Sta tus Range Deficiency <20 ng/mL (50nmol/L) Insufficiency 20 - 30 ng/mL (50 - 75 nmol/L) Sufficiency 30 - 100 ng/mL (75 - 250 nmol/L) Toxicity >100 ng/mL (>250 nmol/L) Platelets bldOrdered By: Meir Nuñez on 02-25-2023 Platelets (Bld) [#/Vol] 128 10*3/uL 150-[address] [facility] Protein Test strip Ql (U)Ord ered By: Isaias Nuñez on 02-25-2023 Protein Ql (U) Negative Negative [facility] Serum or plasma albumin mt urement (mass/volume)Ordered By: Isaias Nuñez on 02-25-2023 Albumin [Mass/Vol] 3.6 g/dL 3.2-5.0 [facility] Serum or plasma albumin/glob ulin mass ratioOrdered By: Isaias Nuñez on 02-25-2023 Albumin/Globulin [Mass ratio] 1.1 {ratio} 0.9-2.[address] [facility] Serum or plasma calcium mt urement (mass/volume)Ordered By: Isaias Nuñez on 02-25-2023 Calcium [Mass/Vol] 8.5 mg/dL 8.5-10.1 [facility] Serum or plasma cholesterol in HDL measurement (mass/volume)Ordered By: Isaias Nuñez on 02-25-2023 Cholesterol in HDL [Mass/Vol] 59 mg/dL >[address] [facility] Comment on above: The drugs N-Acetylcy steine and Metamizole may falsely depress this assay. Reference Range HDL <40 mg/dL Low HDL Cholesterol HDL >or= 60 mg/dL High HDL Cholesterol Serum or plasma cholesterol in VLDL measurement (mass/volume)Ordered By: Isaias Nuñez on 02-25-2023 Cholesterol in VLDL [Mass/Vol] 12 mg/dL 5-[address] [facility] Serum or plasma creatinine m easurement (mass/volume)Ordered By: Isaias Nuñez on 02-25-2023 Creatinine [Mass/Vol] 1.01 mg/dL 0.70-1.30 [facility] Comment on above: The validity of the calculated GFR & GFRAA in patients over 70 years has not been determined. Clinical correlation is essential. Serum or plasma low density lipoprotein (LDL) cholesterol measurement (mass/volume)Ordered By: Isaias Nuñez on 02-25-2023 Cholesterol in LDL [Mass/Vol] 99 mg/dL 0-[address] [facility] Serum or plasma urea nitroge n measurement (mass/volume)Ordered By: Isaias Nuñez on 02-25-2023 Urea nitrogen [Mass/Vol] 16 mg/dL 7-[address] [facility] Squamous epithelial cells de tection in urine sediment by light microscopyOrdered By: Isaias Nuñez on 02-25-2023 Epithelial cells.squamous LM Ql (Urine sed) 0-5 SEEN /hpf 0-[address] [facility] Thin prep Papanicolaou smear with manual screeningOrdered By: Isaias Nuñez on 02-25-2023 Thin prep Papanicolaou smear with manual screening 32 U/L 15-[address] [facility] Thin prep Papanicolaou smear with manual screening 6 5-[address] [facility] Urine blood detectionOrdered By: Isaias Nuñez on 02-25-2023 RBC Ql (U) Negative Negative [facility] RBC Ql (U) 0 SEEN /hpf 0-[address] [facility] Urine clarityOrdered By: Meir Nuñez on 02-25-2023 Clarity (U) Sl. Cloudy Clear [facility] Urine color determinationOrd ered By: Isaias Nuñez on 02-25-2023 Color (U) Yellow Yellow [facility] Urine glucose detectionOrder ed By: Isaias Nuñez on 02-25-2023 Glucose Ql (U) Normal mg/dl Normal [facility] Urine leukocyte esterase det ection by dipstickOrdered By: Isaias Nuñez on 02-25-2023 Leukocyte esterase Test strip Ql (U) Negative Negative [facility] Urine pHOrdered By: Isaias flor on 02-25-2023 pH (U) 6.0 [pH] 5.0 - 8.[address] [facility] Urine sediment bacteria coun t by microscopy (number/high power field)Ordered By: Isaias Nuñez on 02-25-2023 Bacteria LM.HPF (Urine sed) [#/Area] 0 /[HPF] None Seen [facility] Urine specific gravity measu rementOrdered By: Isaias Nuñez on 02-25-2023 Specific gravity (U) [Rel density] 1.010 1.002-1.[address] [facility] Urobilinogen Auto test strip Ql (U)Ordered By: Isaias Nuñez on 02-25-2023 Urobilinogen Ql (U) Normal mg/dl Normal [facility] Absolute lymphocyte countOrd ered By: Dr. Nuñez on 08-26-2022 Lymphocytes Auto (Unsp spec) [#/Vol] 1.18 10*3/uL 0.83-4.[address] [facility] Basophil percentageOrdered B y: Dr. Nuñez on 08-26-2022 Basophil percentage 0 SEEN /hpf 0-5 [facility] Basophils/100 WBC (Bld) 0.4 % 0-1 [facility] Bilirubin [Mass/Vol] 0.70 mg/dL 0.20-1.00 [facility] Comment on above: For patients on eltr ombopag therapy, use of Dimension Anderson TBIL is not recommended. Chloride [Moles/Vol] 105 mmol/L 98-107 [facility] Cholesterol [Mass/Vol] 185 mg/dL <200 [facility] Comment on above: <200 mg/dL Desirable 200-240 mg/dL Borderline >240 mg/dL High Risk Eosinophils/100 WBC (Bld) 1.7 % 0-[address] [facility] Glucose [Mass/Vol] 92 mg/dL 74-106 [facility] Neutrophils (Bld) [#/Vol] 3.4 10*3/uL 2.0-7.[address] [facility] Neutrophils/100 WBC (Bld) 65.3 % 47-[address] [facility] Potassium [Moles/Vol] 4.7 mmol/L 3.5-5.1 [facility] Protein [Mass/Vol] 7.2 g/dL 6.4-8.2 [facility] Sodium [Moles/Vol] 134 mmol/L 136-145 [facility] Triglyceride [Mass/Vol] 57 mg/dL <199 [facility] Comment on above: The drugs N-Acetylcy steine and Metamizole may falsely depress this assay.Serum Triglycerides Reference Interval Normal <150 mg/dL Borderline high 150 - 199 mg/dL High 200 - 499 mg/dL Very High > or = 500 mg/dL WBC (Bld) [#/Vol] 5.2 10*3/uL 4.4-11.0 [facility] Bilirubin Test strip Ql (U)O rdered By: Dr. Nuñez on 08-26-2022 Bilirubin Ql (U) Negative Negative [facility] Blood erythrocytes count (nu mber/volume)Ordered By: Dr. Nuñez on 08-26-2022 RBC (Bld) [#/Vol] 4.51 10*6/uL 4.6-6.2 [facility] Blood hemoglobin measurement (mass/volume)Ordered By: Dr. Nuñez on 08-26-2022 Hemoglobin (Bld) [Mass/Vol] 14.8 g/dL 13.0-16.[address] [facility] Blood lymphocytes/100 leukoc ytesOrdered By: Dr. Nuñez on 08-26-2022 Lymphocytes/100 WBC (Bld) 22.5 % 19-[address] [facility] Blood monocytes/100 leukocyt esOrdered By: Dr. Nuñez on 08-26-2022 Monocytes/100 WBC (Bld) 9.9 % 0-10 [facility] Blood platelet mean volumeOr dered By: Dr. Nuñez on 08-26-2022 Platelet mean volume (Bld) [Entitic vol] 11.5 fL 6.2-12.[address] [facility] Determination of erythrocyte mean corpuscular volume (MCV)Ordered By: Dr. Nuñez on 08-26-2022 MCV (RBC) [Entitic vol] 95.8 fL 80-94 [facility] Hematocrit Auto (Bld) [Volum e fraction]Ordered By: Dr. Nuñez on 08-26-2022 Hematocrit (Bld) [Volume fraction] 43.2 % 40-[address] [facility] Ketones Test strip Ql (U)Ord ered By: Dr. Nuñez on 08-26-2022 Ketones Ql (U) Negative Negative [facility] Laboratory - Chemistry and C hemistry - challengeOrdered By: Dr. Nuñez on 08-26-2022 ALP [Catalytic activity/Vol] 76 U/L 45-[address] [facility] ALT [Catalytic activity/Vol] 53 U/L 16-[address] [facility] CO2 [Moles/Vol] 23.0 mmol/L 21.0-32.[address] [facility] Globulin (S) [Mass/Vol] 3.3 g/dL 2.2-4.2 [facility] Urea nitrogen/Creatinine [Mass ratio] 21.9 mg/mg 10-[address] [facility] Laboratory - Hematology and Cell countsOrdered By: Dr. Nuñez on 08-26-2022 Erythrocyte distribution width (RBC) [Entitic vol] 46.6 fL 35.1-43.[address] [facility] Erythrocyte distribution width (RBC) [Ratio] 13.2 % 11.6-14.[address] [facility] Immature granulocytes/100 WBC (Bld) 0.200 % 0.0-0.[address] [facility] Comment on above: IG% - Immature Granu locytes (promyelocytes, myelocytes and metamyelocytes) > 1% indicates that a LEFT SHIFT is Present. MCH (RBC) [Entitic mass] 32.8 pg 27.0-32.[address] [facility] Nucleated RBC/100 WBC (Bld) [Ratio] 0 % 0-[address] [facility] MCHC Auto (RBC) [Mass/Vol]Or dered By: Dr. Nuñez on 08-26-2022 MCHC (RBC) [Mass/Vol] 34.3 g/dL 32-36 [facility] Mucus LM Ql (Urine sed)Order ed By: Dr. Nuñez on 08-26-2022 Mucus Ql (Urine sed) 0 SEEN /hpf [facility] Nitrite Test strip Ql (U)Ord ered By: Dr. Nuñez on 08-26-2022 Nitrite Ql (U) Negative Negative [facility] No Panel InformationOrdered By: Dr. Nuñez on 08-26-2022 Estimated GFR (MDRD) Amer 88 mL/min >[address] [facility] Comment on above: GFR Calc Estimated GFR (MDRD) Non-Af Amer 72 mL/min >[address] [facility] Comment on above: Non- GFR Calc Thyroid Stimulating Hormone (TSH) 1.49 uIU/mL 0.358-3.[address] [facility] Vitamin D 25-Hydroxy 61.3 ng/mL [facility] Comment on above: Vitamin D 25(OH) Sta tus Range Deficiency <20 ng/mL (50nmol/L) Insufficiency 20 - 30 ng/mL (50 - 75 nmol/L) Sufficiency 30 - 100 ng/mL (75 - 250 nmol/L) Toxicity >100 ng/mL (>250 nmol/L) Platelets bldOrdered By: Dr. Nuñez on 08-26-2022 Platelets (Bld) [#/Vol] 149 10*3/uL 150-[address] [facility] Protein Test strip Ql (U)Ord ered By: Dr. Nuñez on 08-26-2022 Protein Ql (U) Negative Negative [facility] Serum or plasma albumin mt urement (mass/volume)Ordered By: Dr. Nuñez on 08-26-2022 Albumin [Mass/Vol] 3.9 g/dL 3.2-5.0 [facility] Serum or plasma albumin/glob ulin mass ratioOrdered By: Dr. Nuñez on 08-26-2022 Albumin/Globulin [Mass ratio] 1.2 {ratio} 0.9-2.[address] [facility] Serum or plasma calcium mt urement (mass/volume)Ordered By: Dr. Nuñez on 08-26-2022 Calcium [Mass/Vol] 8.9 mg/dL 8.5-10.1 [facility] Serum or plasma cholesterol in HDL measurement (mass/volume)Ordered By: Dr. Nuñez on 08-26-2022 Cholesterol in HDL [Mass/Vol] 63 mg/dL >[address] [facility] Comment on above: The drugs N-Acetylcy steine and Metamizole may falsely depress this assay. Reference Range HDL <40 mg/dL Low HDL Cholesterol HDL >or= 60 mg/dL High HDL Cholesterol Serum or plasma cholesterol in VLDL measurement (mass/volume)Ordered By: Dr. Nuñez on 08-26-2022 Cholesterol in VLDL [Mass/Vol] 11 mg/dL 5-[address] [facility] Serum or plasma creatinine m easurement (mass/volume)Ordered By: Dr. Nuñez on 08-26-2022 Creatinine [Mass/Vol] 1.05 mg/dL 0.70-1.30 [facility] Comment on above: The validity of the calculated GFR & GFRAA in patients over 70 years has not been determined. Clinical correlation is essential. Serum or plasma low density lipoprotein (LDL) cholesterol measurement (mass/volume)Ordered By: Dr. Nuñez on 08-26-2022 Cholesterol in LDL [Mass/Vol] 111 mg/dL 0-[address] [facility] Serum or plasma urea nitroge n measurement (mass/volume)Ordered By: Dr. Nuñez on 08-26-2022 Urea nitrogen [Mass/Vol] 23 mg/dL 7-[address] [facility] Squamous epithelial cells de tection in urine sediment by light microscopyOrdered By: Dr. Nuñez on 08-26-2022 Epithelial cells.squamous LM Ql (Urine sed) 0 SEEN /hpf 0-[address] [facility] Thin prep Papanicolaou smear with manual screeningOrdered By: Dr. Nuñez on 08-26-2022 Thin prep Papanicolaou smear with manual screening 34 U/L 15-[address] [facility] Thin prep Papanicolaou smear with manual screening 6 5-[address] [facility] Urine blood detectionOrdered By: Dr. uNñez on 08-26-2022 RBC Ql (U) Negative Negative [facility] RBC Ql (U) 0 SEEN /hpf 0-[address] [facility] Urine clarityOrdered By: Dr. Nuñez on 08-26-2022 Clarity (U) Clear Clear [facility] Urine color determinationOrd ered By: Dr. Nuñez on 08-26-2022 Color (U) Yellow Yellow [facility] Urine glucose detectionOrder ed By: Dr. Nuñez on 08-26-2022 Glucose Ql (U) Normal mg/dl Normal [facility] Urine leukocyte esterase det ection by dipstickOrdered By: Dr. Nuñez on 08-26-2022 Leukocyte esterase Test strip Ql (U) Negative Negative [facility] Urine pHOrdered By: Dr. Joaquín miller on 08-26-2022 pH (U) 6.0 [pH] 5.0 - 8.[address] [facility] Urine sediment bacteria coun t by microscopy (number/high power field)Ordered By: Dr. Nuñez on 08-26-2022 Bacteria LM.HPF (Urine sed) [#/Area] 0 /[HPF] None Seen [facility] Urine specific gravity measu rementOrdered By: Dr. Nuñez on 08-26-2022 Specific gravity (U) [Rel density] 1.015 1.002-1.[address] [facility] Urobilinogen Auto test strip Ql (U)Ordered By: Dr. Nuñez on 08-26-2022 Urobilinogen Ql (U) Normal mg/dl Normal [facility] Whole blood hemoglobin A1c/t otal hemoglobin ratio (mass fraction)on 09-02-2021 HbA1c (Bld) [Mass fraction] 5.1 % 3.8-5.[address] [facility] Work Phone: Comment on above: Normal < 5.7 % Predi abetic 5.7 - 6.4 % Diabetic >or= 6.5 % Please note range changes. Absolute lymphocyte counton 08-30-2021 Lymphocytes Auto (Unsp spec) [#/Vol] 1.06 10*3/uL 0.83-4.[address] [facility] Work Phone: Basophil percentageon 2021 Basophil percentage 0 SEEN /hpf [facility] Work Phone: Basophils/100 WBC (Bld) 0.7 % 0-1 [facility] Work Phone: Bilirubin [Mass/Vol] 0.30 mg/dL 0.20-1.00 [facility] Work Phone: Comment on above: For patients on eltr ombopag therapy, use of Dimension Anderson TBIL is not recommended. Chloride [Moles/Vol] 109 mmol/L 98-107 [facility] Work Phone: Cholesterol [Mass/Vol] 176 mg/dL <200 [facility] Work Phone: Comment on above: <200 mg/dL Desirable 200-240 mg/dL Borderline >240 mg/dL High Risk Eosinophils/100 WBC (Bld) 3.0 % 0-[address] [facility] Work Phone: Glucose [Mass/Vol] 112 mg/dL 74-106 [facility] Work Phone: Comment on above: Fasting Glucose resu lt from 100 to 125 mg/dL suggests IMPAIRED HOMEOSTASIS per A.D.A. criteria. Neutrophils (Bld) [#/Vol] 2.7 10*3/uL 2.0-7.[address] [facility] Work Phone: Neutrophils/100 WBC (Bld) 61.7 % 47-[address] [facility] Work Phone: Potassium [Moles/Vol] 4.6 mmol/L 3.5-5.1 [facility] Work Phone: Protein [Mass/Vol] 7.0 g/dL 6.4-8.2 [facility] Work Phone: Sodium [Moles/Vol] 140 mmol/L 136-145 [facility] Work Phone: Triglyceride [Mass/Vol] 64 mg/dL [facility] Work Phone: Comment on above: The drugs N-Acetylcy steine and Metamizole may falsely depress this assay.Serum Triglycerides Reference Interval Normal <150 mg/dL Borderline high 150 - 199 mg/dL High 200 - 499 mg/dL Very High > or = 500 mg/dL WBC (Bld) [#/Vol] 4.4 10*3/uL 4.4-11.0 [facility] Work Phone: Bilirubin Test strip Ql (U)o n 08-30-2021 Bilirubin Ql (U) Negative Negative [facility] Work Phone: Blood erythrocytes count (nu mber/volume)on 08-30-2021 RBC (Bld) [#/Vol] 4.38 10*6/uL 4.6-6.2 [facility] Work Phone: Blood hemoglobin measurement (mass/volume)on 08-30-2021 Hemoglobin (Bld) [Mass/Vol] 14.3 g/dL 13.0-16.[address] [facility] Work Phone: Blood lymphocytes/100 leukoc yteson 08-30-2021 Lymphocytes/100 WBC (Bld) 24.1 % 19-[address] [facility] Work Phone: Blood monocytes/100 leukocyt eson 08-30-2021 Monocytes/100 WBC (Bld) 10.3 % 0-10 [facility] Work Phone: Blood platelet mean volumeon 08-30-2021 Platelet mean volume (Bld) [Entitic vol] 11.4 fL 6.2-12.[address] [facility] Work Phone: [phone] Determination of erythrocyte mean corpuscular volume (MCV)on 08-30-2021 MCV (RBC) [Entitic vol] 95.4 fL 80-94 [facility] Work Phone: Hematocrit Auto (Bld) [Volum e fraction]on 08-30-2021 Hematocrit (Bld) [Volume fraction] 41.8 % 40-[address] [facility] Work Phone: Ketones Test strip Ql (U)on 08-30-2021 Ketones Ql (U) Negative Negative [facility] Work Phone: [phone] Laboratory - Chemistry and C hemistry - challengeon 08-30-2021 ALP [Catalytic activity/Vol] 63 U/L 45-[address] [facility] Work Phone: [phone] ALT [Catalytic activity/Vol] 43 U/L 16-[address] [facility] Work Phone: [phone] CO2 [Moles/Vol] 26.0 mmol/L 21.0-32.[address] [facility] Work Phone: [phone] Globulin (S) [Mass/Vol] 3.2 g/dL 2.2-4.2 [facility] Work Phone: [phone] Urea nitrogen/Creatinine [Mass ratio] 16.7 mg/mg 10-[address] [facility] Work Phone: [phone] Laboratory - Hematology and Cell countson 08-30-2021 Erythrocyte distribution width (RBC) [Entitic vol] 47.5 fL 35.1-43.[address] [facility] Work Phone: [phone] Erythrocyte distribution width (RBC) [Ratio] 13.5 % 11.6-14.[address] [facility] Work Phone: [phone] Immature granulocytes/100 WBC (Bld) 0.200 % 0.0-0.[address] [facility] Work Phone: [phone] Comment on above: IG% - Immature Granu locytes (promyelocytes, myelocytes and metamyelocytes) > 1% indicates that a LEFT SHIFT is Present. MCH (RBC) [Entitic mass] 32.6 pg 27.0-32.[address] [facility] Work Phone: Nucleated RBC/100 WBC (Bld) [Ratio] 0 % 0-[address] [facility] Work Phone: MCHC Auto (RBC) [Mass/Vol]on 08-30-2021 MCHC (RBC) [Mass/Vol] 34.2 g/dL 32-36 [facility] Work [facility]: Mucus LM Ql (Urine sed)on Mucus Ql (Urine sed) 0 SEEN /hpf [facility] Work Phone: Nitrite Test strip Ql (U)on 08-30-2021 Nitrite Ql (U) Negative Negative [facility] Work Phone: No Panel Informationon 08-30 Estimated GFR (MDRD) Amer 85 mL/min >[address] [facility] Work Phone: Comment on above: GFR Calc Estimated GFR (MDRD) Non-Af Amer 70 mL/min >[address] [facility] Work Phone: Comment on above: Non- GFR Calc Prostate Specific Antigen Screen 1.83 ng/mL 0.00-4.[address] [facility] Work Phone: Comment on above: This test was perfor med using the TPSA assay method for [employer] chemistry system. Values obtained with differentassay methods cannot be used interchangably.When changing PSA assays in the course of monitoring apatient, additional sequential testing should be carriedout to confirm baseline values. Thyroid Stimulating Hormone (TSH) 1.85 uIU/mL 0.358-3.[address] [facility] Work Phone: Vitamin D 25-Hydroxy 55.9 ng/mL [facility] Work Phone: Comment on above: Vitamin D 25(OH) Sta tus Range Deficiency <20 ng/mL (50nmol/L) Insufficiency 20 - 30 ng/mL (50 - 75 nmol/L) Sufficiency 30 - 100 ng/mL (75 - 250 nmol/L) Toxicity >100 ng/mL (>250 nmol/L) Platelets bldon 08-30-2021 Platelets (Bld) [#/Vol] 141 10*3/uL 150-[address] [facility] Work Phone: [phone] Protein Test strip Ql (U)on 08-30-2021 Protein Ql (U) Negative Negative [facility] Work Phone: [phone] Serum or plasma albumin mt urement (mass/volume)on 08-30-2021 Albumin [Mass/Vol] 3.8 g/dL 3.2-5.0 [facility] Work Phone: Serum or plasma albumin/glob ulin mass ratioon 08-30-2021 Albumin/Globulin [Mass ratio] 1.2 {ratio} 0.9-2.[address] [facility] Work Phone: Serum or plasma calcium mt urement (mass/volume)on 08-30-2021 Calcium [Mass/Vol] 9.4 mg/dL 8.5-10.1 [facility] Work Phone: Serum or plasma cholesterol in HDL measurement (mass/volume)on 08-30-2021 Cholesterol in HDL [Mass/Vol] 60 mg/dL [facility] Work Phone: Comment on above: The drugs N-Acetylcy steine and Metamizole may falsely depress this assay. Reference Range HDL <40 mg/dL Low HDL Cholesterol HDL >or= 60 mg/dL High HDL Cholesterol Serum or plasma cholesterol in VLDL measurement (mass/volume)on 08-30-2021 Cholesterol in VLDL [Mass/Vol] 13 mg/dL 5-[address] [facility] Work Phone: Serum or plasma creatinine m easurement (mass/volume)on 08-30-2021 Creatinine [Mass/Vol] 1.08 mg/dL 0.70-1.30 [facility] Work Phone: Comment on above: The validity of the calculated GFR & GFRAA in patients over 70 years has not been determined. Clinical correlation is essential. Serum or plasma low density lipoprotein (LDL) cholesterol measurement (mass/volume)on 08-30-2021 Cholesterol in LDL [Mass/Vol] 103 mg/dL 0-[address] [facility] Work Phone: Serum or plasma urea nitroge n measurement (mass/volume)on 08-30-2021 Urea nitrogen [Mass/Vol] 18 mg/dL 7-[address] [facility] Work Phone: Squamous epithelial cells de tection in urine sediment by light microscopyon 08-30-2021 Epithelial cells.squamous LM Ql (Urine sed) 0 SEEN /hpf [facility] Work Phone: Thin prep Papanicolaou smear with manual screeningon 08-30-2021 Thin prep Papanicolaou smear with manual screening 26 U/L 15-[address] [facility] Work Phone: Thin prep Papanicolaou smear with manual screening 5 5-[address] [facility] Work Phone: Urine blood detectionon 08-21 RBC Ql (U) Negative Negative [facility] Work Phone: RBC Ql (U) 0 SEEN /hpf [facility] Work Phone: Urine clarityon 08-30-2021 Clarity (U) Clear Clear [facility] Work Phone: Urine color determinationon 08-30-2021 Color (U) Yellow Yellow [facility] Work Phone: Urine glucose detectionon Glucose Ql (U) Normal mg/dl Normal [facility] Work Phone: Urine leukocyte esterase det ection by dipstickon 08-30-2021 Leukocyte esterase Test strip Ql (U) Negative Negative [facility] Work Phone: Urine pHon 08-30-2021 pH (U) 5.0 [pH] [facility] Work Phone: Urine sediment bacteria coun t by microscopy (number/high power field)on 08-30-2021 Bacteria LM.HPF (Urine sed) [#/Area] 0 /[HPF] None Seen [facility] Work Phone: Urine specific gravity measu rementon 08-30-2021 Specific gravity (U) [Rel density] 1.[address] [facility] Work Phone: Urobilinogen Auto test strip Ql (U)on 08-30-2021 Urobilinogen Ql (U) Normal mg/dl Normal [facility] Work Phone: Absolute lymphocyte counton 05-23-2021 Lymphocytes Auto (Unsp spec) [#/Vol] 0.99 10*3/uL 0.83-4.[address] [facility] Work Phone: Basophil percentageon 2021 Basophils/100 WBC (Bld) 0.5 % 0-1 [facility] Work Phone: Bilirubin [Mass/Vol] 0.60 mg/dL 0.20-1.00 [facility] Work Phone: Comment on above: For patients on eltr ombopag therapy, use of Dimension Anderson TBIL is not recommended. Chloride [Moles/Vol] 107 mmol/L 98-107 [facility] Work Phone: Eosinophils/100 WBC (Bld) 1.3 % 0-[address] [facility] Work Phone: Glucose [Mass/Vol] 110 mg/dL 74-106 [facility] Work Phone: Comment on above: Fasting Glucose resu lt from 100 to 125 mg/dL suggests IMPAIRED HOMEOSTASIS per A.D.A. criteria. Neutrophils (Bld) [#/Vol] 3.9 10*3/uL 2.0-7.[address] [facility] Work Phone: Neutrophils/100 WBC (Bld) 71.4 % 47-[address] [facility] Work Phone: Potassium [Moles/Vol] 4.4 mmol/L 3.5-5.1 [facility] Work Phone: Protein [Mass/Vol] 7.1 g/dL 6.4-8.2 [facility] Work Phone: Sodium [Moles/Vol] 137 mmol/L 136-145 [facility] Work Phone: WBC (Bld) [#/Vol] 5.5 10*3/uL 4.4-11.0 [facility] Work Phone: Blood erythrocytes count (nu mber/volume)on 05-23-2021 RBC (Bld) [#/Vol] 4.43 10*6/uL 4.6-6.2 [facility] Work Phone: Blood hemoglobin measurement (mass/volume)on 05-23-2021 Hemoglobin (Bld) [Mass/Vol] 14.3 g/dL 13.0-16.[address] [facility] Work Phone: Blood lymphocytes/100 leukoc yteson 05-23-2021 Lymphocytes/100 WBC (Bld) 18.0 % 19-[address] [facility] Work Phone: [phone] monocytes/100 leukocyt eson 05-23-2021 Monocytes/100 WBC (Bld) 8.4 % 0-10 [facility] Work Phone: Blood platelet mean volumeon 05-23-2021 Platelet mean volume (Bld) [Entitic vol] 11.1 fL 6.2-12.[address] [facility] Work Phone: [phone] Determination of erythrocyte mean corpuscular volume (MCV)on 05-23-2021 MCV (RBC) [Entitic vol] 96.4 fL 80-94 [facility] Work Phone: [phone] Hematocrit Auto (Bld) [Volum e fraction]on 05-23-2021 Hematocrit (Bld) [Volume fraction] 42.7 % 40-[address] [facility] Work Phone: Laboratory - Chemistry and C hemistry - challengeon 05-23-2021 ALP [Catalytic activity/Vol] 68 U/L 45-[address] [facility] Work Phone: ALT [Catalytic activity/Vol] 40 U/L 16-[address] [facility] Work Phone: [phone] CO2 [Moles/Vol] 26.0 mmol/L 21.0-32.[address] [facility] Work Phone: Cobalamin (Vitamin B12) [Mass/Vol] 317 pg/mL 211-[address] [facility] Work Phone: [phone] Free T4 [Mass/Vol] 0.93 ng/dL 0.76-1.46 [facility] Work Phone: Globulin (S) [Mass/Vol] 3.5 g/dL 2.2-4.2 [facility] Work Phone: [phone] Urea nitrogen/Creatinine [Mass ratio] 18.0 mg/mg 10-[address] [facility] Work Phone: [phone] Laboratory - Hematology and Cell countson 05-23-2021 Erythrocyte distribution width (RBC) [Entitic vol] 49.0 fL 35.1-43.[address] [facility] Work Phone: [phone] Erythrocyte distribution width (RBC) [Ratio] 13.7 % 11.6-14.[address] [facility] Work Phone: [phone] Immature granulocytes/100 WBC (Bld) 0.400 % 0.0-0.[address] [facility] Work Phone: [phone] Comment on above: IG% - Immature Granu locytes (promyelocytes, myelocytes and metamyelocytes) > 1% indicates that a LEFT SHIFT is Present. MCH (RBC) [Entitic mass] 32.3 pg 27.0-32.[address] [facility] Work Phone: [phone] Nucleated RBC/100 WBC (Bld) [Ratio] 0 % 0-[address] [facility] Work Phone: [phone] MCHC Auto (RBC) [Mass/Vol]on 05-23-2021 MCHC (RBC) [Mass/Vol] 33.5 g/dL 32-36 [facility] Work Phone: No Panel Informationon 05-23 Estimated GFR (MDRD) Amer 93 mL/min >[address] [facility] Work Phone: [phone] Comment on above: GFR Calc Estimated GFR (MDRD) Non-Af Amer 77 mL/min >[address] [facility] Work Phone: [phone] Comment on above: Non- GFR Calc Thyroid Stimulating Hormone (TSH) 1.34 uIU/mL 0.358-3.[address] [facility] Work Phone: Platelets bldon 05-23-2021 Platelets (Bld) [#/Vol] 156 10*3/uL 150-[address] [facility] Work Phone: [phone] Serum or plasma albumin mt urement (mass/volume)on 05-23-2021 Albumin [Mass/Vol] 3.6 g/dL 3.2-5.0 [facility] Work Phone: Serum or plasma albumin/glob ulin mass ratioon 05-23-2021 Albumin/Globulin [Mass ratio] 1.0 {ratio} 0.9-2.[address] [facility] Work Phone: Serum or plasma calcium mt urement (mass/volume)on 05-23-2021 Calcium [Mass/Vol] 9.1 mg/dL 8.5-10.1 [facility] Work Phone: Serum or plasma creatinine m easurement (mass/volume)on 05-23-2021 Creatinine [Mass/Vol] 1.00 mg/dL 0.70-1.30 [facility] Work Phone: Comment on above: The validity of the calculated GFR & GFRAA in patients over 70 years has not been determined. Clinical correlation is essential. Serum or plasma urea nitroge n measurement (mass/volume)on 05-23-2021 Urea nitrogen [Mass/Vol] 18 mg/dL 7-[address] [facility] Work Phone: Thin prep Papanicolaou smear with manual screeningon 05-23-2021 Thin prep Papanicolaou smear with manual screening 25 U/L 15-[address] [facility] Work Phone: Thin prep Papanicolaou smear with manual screening 4 5-[address] [facility] Work Phone: Whole blood hemoglobin A1c/t otal hemoglobin ratio (mass fraction)on 05-23-2021 HbA1c (Bld) [Mass fraction] 5.1 % 3.8-5.[address] [facility] Work Phone: Comment on above: Normal < 5.7 % Predi abetic 5.7 - 6.4 % Diabetic >or= 6.5 % Please note range changes. Otheron 05-15-2000 CONVERTED ELECTRONIC SIGNATURE ROHIT GRAY M.D., PATHOLOGIST (Electronic signature on file) Final Signed Out: 05/15/2000 12:55 [facility] CONVERTED FINAL DIAGNOSIS A) LEFT TONSIL AND UVULA, EXCISION - TONSIL WITH REACTIVE LYMPHOID HYPERPLASIA AND CHRONIC INFLAMMATION. UVULA WITH EDEMA AND VASCULAR CONGESTION. B) RIGHT TONSIL, EXCISION - REACTIVE LYMPHOID HYPERPLASIA. [facility] CONVERTED ORDERING PROVIDER Ordering Provider: JOSE SHEPPARD [facility] Vital Signs Date Time Vital Sign Value Performing Clinician Riddhi kaye 09-10-2024 17:05-0400 Body temperature 98.6 [degF] Dr. Isaias Nuñez MD Work Phone: [facility] 09-10-2024 17:05-0400 Diastolic blood pressure 58 mm[Hg] Dr. Isaias Nuñez MD Work Phone: [facility] 09-10-2024 17:05-0400 Heart rate 83 /min Dr. Isaias Nuñez MD Work Phone: [facility] 09-10-2024 17:05-0400 Respiratory rate 14 /min Dr. Isaias Nuñez MD Work Phone: [facility] 09-10-2024 17:05-0400 SaO2% (BldA) [Mass fraction] 100 % Dr. Isaias Nuñez MD Work Phone: [facility] 09-10-2024 17:05-0400 Systolic blood pressure 130 mm[Hg] Dr. Isaias Nuñez MD Work Phone: [facility] 09-10-2024 16:30-0400 Body mass index (BMI) [Ratio] 31.9 kg/m2 Dr. Isaias Nuñez MD Work Phone: [facility] 09-10-2024 16:30-0400 Body weight 106.[address] Isaias Nuñez MD Work Phone: [facility] 09-10-2024 14:33-0400 Body height 182.[address] Isaias Nuñez MD Work Phone: [facility] 04-13-2023 16:53-0500 Body mass index (BMI) [Ratio] 32.1 kg/m2 Dr. Isaias Nuñez Work Phone: [facility] 04-13-2023 13:32-0500 Body temperature 98 [degF] Dr. Isaias Nuñez Work Phone: [facility] 04-13-2023 13:32-0500 Diastolic blood pressure 67 mm[Hg] Dr. Isaias Nuñez Work Phone: [facility] 04-13-2023 13:32-0500 Heart rate 76 /min Dr. Isaias Nuñez Work Phone: [facility] 04-13-2023 13:32-0500 Respiratory rate 16 /min Dr. Isaias Nuñez Work Phone: [facility] 04-13-2023 13:32-0500 SaO2% (BldA) [Mass fraction] 95 % Dr. Isaias Nuñez Work Phone: [facility] 04-13-2023 13:32-0500 Systolic blood pressure 143 mm[Hg] Dr. Isaias Nuñez Work Phone: [facility] 04-13-2023 01:23-0500 Body height 185.[address] Isaias Nuñez Work Phone: [facility] 04-13-2023 01:23-0500 Body weight 110.[address] Isaias Nuñez Work Phone: [facility] 04-13-2023 01:00-0500 Diastolic blood pressure 82 mm[Hg] [facility] 04-13-2023 01:00-0500 Heart rate 63 /min [facility] 04-13-2023 01:00-0500 Respiratory rate 15 /min [facility] 04-13-2023 01:00-0500 SaO2% (BldA) [Mass fraction] 96 % [facility] 04-13-2023 01:00-0500 Systolic blood pressure 136 mm[Hg] [facility] 04-12-2023 23:44-0500 Body temperature 97.8 [degF] [facility] 04-12-2023 21:04-0500 Body height 187.96 cm [facility] 01-21-2024 21:04-0500 Body mass index (BMI) [Ratio] 31.9 kg/m2 [facility] 04-12-2023 21:040500 Body weight 113 kg [facility] Encounters Encounter Date Encounter Type Care Provider Facility Start: 11-18-2024 Encounter for other preprocedural examination Ruddy Congrosario [facility] Start: 11-04-2024 End: 11-04-[address] Isaias Nuñez MD Work Phone: -Cat Scan [facility] Start: 11-04-2024 End: 11-04-[address] Ruddy Mallory DO -Cat Scan [facility] Work Phone: Start: 11-04-2024 End: 11-04-[facility] Start: 11-02-2024 End: 11-02-[address] Isaias Nuñez MD Work Phone: -Laboratory [facility] Start: 11-02-2024 End: 11-02-[address] Isaias Nuñez MD -Laboratory [facility] Start: 11-02-2024 End: 11-02-2024 ambulatory Isaias Nuñez Facility:[facility] Start: 10-27-2024 ambulatory Ruddy Mallory Facili ty:[facility] Start: 10-27-2024 Non-patient / Non-visit Dr. Raysa HUBBARD -[facility] Work Phone: Start: 09-19-2024 Non-patient / Non-visit Dr. Shekhar dave MD -[facility] Start: 09-19-2024 End: 09-19-[address] Isaias Nuñez MD Work Phone: -Cardiovascular Services Start: 09-19-2024 End: 09-19-2024 Patient encounter procedure Renzo León PA-C -Cardiovascular Services Work Phone: Start: 09-19-2024 End: 09-19-2024 ambulatory Isaias Nuñez Facility:[facility] Start: 09-10-2024 End: 09-10-2024 Emergency department patient visit Dr. Isaias Nuñez MD Work Phone: -Emergency Department Work Phone: Start: 06-02-2024 End: 06-02-[address] Isaias Nuñez MD Work Phone: [facility] Work Phone: Start: 06-02-2024 End: 06-02-[address] Isaias Nuñez MD -Cardiovascular Services Work Phone: Start: 06-02-2024 End: 06-02-2024 ambulatory Isaias Nuñez Facility:[facility] Start: 05-03-2024 End: 05-03-[address] Isaias Nuñez MD -Ultrasound, [facility] Work Phone: Start: 05-03-2024 End: 05-03-2024 ambulatory Isaias Nuñez Facility:[facility] Start: 04-04-2024 End: 04-04-[address] Isaias Nuñez MD -Laboratory, [facility] Start: 04-04-2024 End: 04-04-2024 ambulatory Isaias Nuñez Facility:[facility] Start: 04-13-2023 Non-patient / Non-visit Dr. Gertrude Nuñez Work Phone: [facility] Work Phone: Start: 04-13-2023 Non-patient / Non-visit Dr. Gertrude Nuñez Work Phone: [facility] Start: 04-13-2023 Non-patient / Non-visit Dr. Gertrude Nuñez Work Phone: [facility] Start: 04-13-2023 End: 04-13-2023 Evaluation and management of inpatient [facility]-Progressive Care Unit Work Phone: Start: 04-13-2023 End: 04-13-[address] Isaias Nuñez Work Phone: [facility] Work Phone: Start: 03-05-2023 End: 03-05-2023 Patient encounter procedure [facility] Start: 02-25-2023 End: 02-25-[address] [facility] Work Phone: Start: 02-25-2023 End: 02-25-2023 Patient encounter procedure [facility] Start: 08-26-2022 End: 08-26-[address] [facility] Work Phone: Start: 08-26-2022 End: 08-26-2022 Patient encounter procedure [facility] Start: 08-30-2021 End: 08-30-2021 Patient encounter procedure [facility] Start: 05-29-2021 End: 05-29-2021 Patient encounter procedure [facility]-Ultrasound, [facility] Start: 05-23-2021 End: 05-23-2021 [facility] Start: 05-14-2000 End: 05-14-2000 Patient encounter procedure Jose Sheppard [facility] Start: 05-14-2000 Results Only Josejolie Hickey [facility] Procedures Date Procedure Procedure Detail Performing Clinician Start: 11-04-2024 CT of upper limb wit hout contrast Dr. Isaias Nuñez MD Work Phone: Start: 11-02-2024 Prostate specific an tigen measurement Dr. Isaias Nuñez MD Work Phone: Comment on above: This test was perfor med using the [employer] tPSA method. Measured values of a patient sample can vary depending on the testing procedure used. PSA values determined on patient samples by different testing procedures cannot be used interchangeably. If there is a change in PSA assays while monitoring therapy, sequential testing should be performed to confirm baseline values. Start: 11-02-2024 Urnls dip stick/tabl et reagent auto microscopy Dr. Isaias Nuñez MD Work Phone: Start: 11-02-2024 Vitamin D, 25-hydrox y measurement Dr. Isaias Nuñez MD Work Phone: Comment on above: Vitamin D StatusDefi ciency: <20 ng/mL (50nmol/L)Insufficiency: 20-30 ng/mL (50-75 nmol/L)Sufficiency: 30-100 ng/mL (75-250 nmol/L)Toxicity: >100 ng/mL (>250 nmol/L) Start: 09-10-2024 Plain x-ray of elbow Dr Danny Nuñez MD Work Phone: Start: 09-10-2024 Plain x-ray of humerus Dr. Isaias Nuñez MD Work Phone: Start: 09-10-2024 Plain X-ray of tibia and fibula Dr. Isaias Nuñez MD Work Phone: Start: 05-03-2024 US scan of thyroid Dr. Isaias Nuñez MD Work Phone: Start: 04-12-2023 CT of head without contrast Start: 04-12-2023 Plain chest X-ray Start: 05-29-2021 US scan of thyroid Start: 05-07-2016 Colonoscopy Jose Hinton Start: 05-14-2000 CONVERTED SURGICAL PATHOLOGY Jose Sheppard Plan of Treatment Date Care Activity Detail Author Start: 05-07-2026 Colonoscopy COLONOSCOPY [facility] Start: 11-24-2024 ambulatory Ambulatory Facility:[facility] Start: 09-10-[address] [facility] Start: 04-13-2023 Patient discharge [facility] Start: 04-13-2023 Following clinical pathway protocol [facility] Start: 04-13-2023 Cardiac monitoring [facility] Start: 04-13-2023 Catheterization of vein [facility] Start: 04-13-2023 Continuous pulse oximetry [facility] Start: 04-13-2023 Elevation of head of bed [facility] Start: 04-13-[address] [facility] Start: 04-13-2023 Implementation of planned interventions [facility] Start: 04-13-2023 Notification of physician [facility] Start: 04-13-2023 O[address] therapy [facility] Start: 04-13-2023 Referral to occupational therapist [facility] Start: 04-13-2023 Referral to service [facility] Start: 04-13-2023 Speech therapy assessment [facility] Start: 04-13-2023 Telemedicine consultation with patient [facility] Start: 04-13-2023 Tobacco use cessation education [facility] Start: 04-13-[address] [facility] Start: 04-13-2023 Vital signs measurements [facility] Start: 04-13-2023 MRI of brain without contrast Brain without Contrast [facility] Start: 04-13-2023 Admission procedure [facility] Start: 04-12-2023 Hospital admission, emergency, from emergency room, medical nature [facility] Start: 04-12-2023 Oxygen therapy [facility] Start: 04-12-[address] [facility] Start: 11-22-2019 Influenza vaccination INFLUENZA (#1) [facility] Start: 11-19-2018 DIABETES SCREEN DIABETES SCREEN [facility] Start: 09-19-2008 ADVANCE DIRECTIVE DISCUSSION ADVANCE DIRECTIVE DISCUSSION [facility] Start: 09-19-2008 PNEUMOVAX AGE 65 AND OVER WITH 5YR LOOKBACK (#1) PNEUMOVAX AGE 65 AND OVER WITH 5YR LOOKBACK (#1) [facility] Start: 09-19-1993 SHINGRIX VACCINE (1 of 2) SHINGRIX VACCINE (1 of 2) [facility] Start: 09-19-1978 LIPID SCREEN LIPID SCREEN [facility] Start: 09-19-1962 Urine microalbumin profile DTAP,TDAP,TD (1 - Tdap) [facility] Start: 09-19-1961 HEPATITIS C SCREENING HEPATITIS C SCREENING [facility] Patient Education [facility] Work Phone: Patient referral [facility] Work Phone: Immunizations Immunization Date Immunization Notes Care Provider Anna beatty 09-10-2024 tetanus toxoid, redu susan diphtheria toxoid, and acellular pertussis vaccine, adsorbed Dr. Isaias Nuñez MD Work Phone: [facility] Payers Date Payer Category Payer Self-pay [id number] 2024 Unknown [id number] 2008 Medicare [id number] Unknown [id number] 2.16.8 [id number] Unknown [id number] 2.16.8 [id number] Unknown [id number] 2.16.8 [id number] Unknown [id number] 2.16.8 [id number] Unknown [id number] 2.16.8 [id number] Unknown [id number] 2.16.8 [id number] Unknown [id number] 2.16.8 [id number] Unknown [id number] 2.16.8 [id number] Unknown [id number] 2.16.8 [id number] Unknown [id number] 2.16.8 [id number] Social History Date Type Detail [facility] Sex Assigned At Not on file [facility] Start: 03-19-2021 End: 04-13-2023 Tobacco smoking status NHIS Unknown if ever smoked [facility] Start: 1945 Sex Assigned At Male [facility] Start: 04-13-2023 Non-smoker [facility] Start: 10-09-2023 End: 09-10-2024 Tobacco smoking status NHIS Ex-smoker (finding) [facility] Start: 06-11-2024 Sex Male (finding) [facility] Start: 11-02-2024 Tobacco smoking stat us ORIS Never smoked tobacco (finding) [facility] Medical Equipment Procedure Code Equipment Code Equipment Origin al Text Equipment Identifier Dates STAPES IMPLANT F ROM SURGERY ?1985 FDA Start: 03-23-1985 STAPES IMPLANT F ROM SURGERY ?1985 FDA Start: 03-23-1985 STAPES IMPLANT F ROM SURGERY ?1985 FDA Start: 03-23-1985 STAPES IMPLANT F ROM SURGERY ?1985 FDA Start: 03-23-1985 STAPES IMPLANT F ROM SURGERY ?1985 FDA Start: 03-23-1985 Goals Date Patient Goal Desired Activity /State Functional Status Date Assessment Result Facility 04-13-2023 Functional status Ambulates;Fei r;Bathroom Privilege [facility] Work Phone: Mental Status Date Assessment Result Facility 04-13-2023 Cognitive function Voice/Name [facility] Work Phone: 04-12-2023 Cognitive function Voice/Name [facility] Work Phone: Clinical Notes 04-13-2023 to 11-05-2024 Note Date & Type Note Facility 11-05-2024 Radiology Diagnostic study note [facility] Imaging Services [address], [place] [id number] Extremity Upper without Contra MR#: [id number] Acct: [id number] Name: INGE WEEMS Rep #: [id number] : 1945 M 79 From: Carlos Eduardo Mullins DO PCP: Dr. Isaias Nuñez MD Status: RE G CLI Study:Extremity Upper without Contra Date of Exam: 11/04/24 Exam# [id number] Ordering Dr: Ruddy Mallory DO PROCEDURE: EXTREMITY UPPER WITHOUT CONTRA 11/04/2024 REASON FOR EXAM: PRE OP/PAIN/CHRONIC OA TECHNIQUE: EXTREMITY UPPER WITHOUT CONTRA Coronal and Sagittal reconstruction series were provided. One or more dose reduction techniques were used (e.g., Automated exposure control, adjustment of the mA and/or kV according to patient size, use of iterative reconstruction technique. COMPARISON: None FINDINGS: High-riding humeral head likely related to chronic rotator cuff tear. Mild glenohumeral joint osteoarthritis including small marginal osteophytes and minimal joint space narrowing. Moderate acromioclavicular joint osteoarthritis with prominent marginal osteophytes including a distal clavicular osteophyte measuring up to 6 mm inferiorly. Negative for acute fracture or malalignment. No significant rotator cuff muscle atrophy. Diffuse pericardial calcification. Mild LAD coronary artery calcifications. Visualized left lung is clear. Soft tissues are within normal limits. CT/Extremity Upper without Contra IMPRESSION: 1. Mild glenohumeral and moderate acromioclavicular joint osteoarthritis. 2. No significant rotator cuff muscle atrophy. 3. High-riding humeral head which may relate to chronic rotator cuff tear. Reading Location: [facility] CC: Dr. Isaias Nuñez MD; Dr. Ruddy Mallory DO ~ Ground Operations Crew Member: Signed [facility] 09-10-2024 Radiology Diagnostic study note [facility] Imaging Services [address] [place] [id number] Tibia & Fibula 2 Views MR#: [id number] Acct: [id number] Name: INGE WEEMS Rep #: [id number] : 1945 M 78 From: Patti Corado MD PCP: Dr. Isaias Nuñez MD Status: RE G ER Study:Tibia & Fibula 2 Views Date of Exam: 09/10/24 Exam# [id number] Ordering Dr: Tenisha Page DO PROCEDURE: TIBIA FIBULA 2 VIEWS 09/10/2024 REASON FOR EXAM: LATERAL INJURY TECHNIQUE: 3 views of the left tibia and fibula COMPARISON: None. FINDINGS: Bones: No obvious acute fracture. No aggressive osseous lesions. Joints: Normal alignment. Moderate degenerative changes. Soft tissues: Soft tissues are unremarkable. Other: No radiopaque foreign body. RAD/Tibia & Fibula 2 Views IMPRESSION: DEGENERATIVE OSTEOARTHROSIS. NO ACUTE FINDINGS. Reading Location: [id number] CC: Dr. Jakob Page DO; Dr. Isaias Nuñez MD ~ Ground Operations Crew Member: Signed [facility] 09-10-2024 Radiology Diagnostic study note [facility] Imaging Services [address] [place] [address] Elbow min 3 Views MR#: [id number] Acct: [id number] Name: INGE WEEMS Rep #: [id number] : 1945 M 78 From: Patti Corado MD PCP: Dr. Isaias Nuñez MD Status: RE G ER Study:Elbow min 3 Views Date of Exam: Exam# [id number] Ordering Dr: Tenisha Page DO PROCEDURE: ELBOW MIN 3 VIEWS 09/10/2024 REASON FOR EXAM: INJURY TECHNIQUE: ELBOW MIN 3 VIEWS COMPARISON: None. FINDINGS: Bones: No obvious acute fracture. No aggressive osseous lesions. Joints: Normal alignment. Moderate degenerative changes. Soft tissues: Soft tissues are unremarkable. Other: No radiopaque foreign body. RAD/Elbow min 3 Views IMPRESSION: DEGENERATIVE OSTEOARTHROSIS. NO ACUTE FINDINGS. Reading Location: [facility] CC: Dr. Jakob Page DO; Dr. Isaias Nuñez MD ~ Ground Operations Crew Member: Signed [facility] 09-10-2024 Radiology Diagnostic study note [facility] Imaging Services [address], [place] [id number] Humerus min 2 Views MR#: [id number] Acct: [id number] Name: INGE WEEMS Rep #: [id number] : 1945 M 78 From: Patti Corado MD PCP: Dr. Isaias Nuñez MD Status: RE G ER Study:Humerus min 2 Views Date of Exam: 09/10/24 Exam# [id number] Ordering Dr: Tenisha Page DO PROCEDURE: HUMERUS MIN 2 VIEWS 09/10/2024 REASON FOR EXAM: PAIN TECHNIQUE: HUMERUS MIN 2 VIEWS COMPARISON: None. FINDINGS: Bones: No obvious acute fracture. No aggressive osseous lesions. Joints: Normal alignment. Moderate degenerative changes. Soft tissues: Soft tissues are unremarkable. Other: No radiopaque foreign body. RAD/Humerus min 2 Views IMPRESSION: DEGENERATIVE OSTEOARTHROSIS. NO ACUTE FINDINGS. Reading Location: [id number] CC: Dr. Jakob Page DO; Dr. Isaias Nuñez MD ~ Ground Operations Crew Member: Signed [facility] 04-13-2023 Progress note Note Date/Time April 13, 2023 2:52pm [facility] Medical Records Department [address] [place] [address] Progress Note 04/13/23 1450 MR#: [id number] Acct: [id number] Name: INGE WEEMS Rep #:[id number] : 1945 77 From: Adela Salazar MD PCP: Dr. Isaias Nuñez MD Status:[facility] Location: [place] [address] Subjective Subjective Patient seen and examined. He [...] 76 16 143/67 H 95 Room Air 04/13/23 13:32 04/13/23 13:32 04/13/23 13:32 04/13/23 [...] % (Auto) 67.5, Lymph % (Auto) 20.9, [place] % (Auto) 9.0, Eos % (Auto) 1.6, [...] * . Charges/Coding Visit Charges Inpatient E&M: 46345 Subs Hosp L2 04/13/23 2674 <Electronically signed by Adela Salazar MD> Adela Salazar MD Cosigner Signature (if applicable): CC: ~ Signed [facility] Work Phone: 1(297) 276-750501-22-2024 Consult note Author Enmanuel Drew [facility] April 13, 2023 1:14pm Note Date/Time April 13, 2023 1 :04pm [facility] Medical Records Department [address] [place] [address] Consultation - Neurology 04/13/23 1248 MR#: [id number] Acct: [id number] Name: INGE WEEMS Rep #:[id number] : 1945 77 From: Enmanuel Drew MD PCP: Dr. Isaias Nuñez MD Status:AD M MONIQUE Location: [place] [address] Assessment and Plan: Neuro Assessment/Plan INGE WEEMS [...] emesis. Neurovascular was consulted for further evaluation [facility] Medical History HTN (hypertension) Pericardial calcification [...] 4 Status: Active hours and PRN Freq: [id number] Protocol: Activity Type Activity Date Activity User [...] normal Motor Exam: strength 5/5 throughout Coordination: wvbxvy-qg-kzgb test normal Lab / Micro Data 04/12/23 21:00 04/12/23 21:00 Labs: Laboratory Results - last 24 hr 01/21/24 21:00: WBC 7.3, RBC 4.33 L, Hgb 14.3, Hct 41.6, MCV 96.1 H, MCH 33.0 H, MCHC 34.4, RDW Std Deviation 48.0 H, RDW Coeff of Umm 13.6, Plt Count 144 L, MPV 11.4, Immature Gran % (Auto) 0.300, Neut % (Auto) 67.5, Lymph % (Auto) 20.9, Charles [place] % (Auto) 9.0, Eos % (Auto) 1.6, [...] 04/13/23 02:29 04/13/23 03:20 IV 70 mls/hr .[id number] PAYTON Administration Meclizine HCl 25 mg 04/13/23 06:44 Meclizine Hcl 25 Mg Tablet PO TID PRN PRN VERTIGO Multivitamins 1 tablet 04/13/23 08:00 04/13/23 09:50 Multivitamins,Therapeutic Tablet PO 1 tablet DAILYCM PAYTON Administration Cqmac-0-Gzde Ethyl Esters 1 gm 04/13/23 10:00 04/13/23 09:50 Avant-3 Acid Ethyl Esters 1 Gm Capsule PO [...] Swati Meeks DO; Dora Sauceda MD~ Signed [facility] Work Phone: 1(569) 133-970301-22-2024 History and physical note Author Saji Rivera [facility] April 13, 2023 6:44am Note Date/Time April 12, 2023 1 1:31pm [facility] Medical Records Department [address] [place] [address] H&P Exam - Hospitalist 04/12/23 2330 MR#: [id number] Acct: [id number] Name: INGE WEEMS Rep #:[id number] : 1945 77 From: Saji Bryan DO PCP: Dr. Isaias Nuñez MD Status:AD M [id number] HPI - General General Date of [...] tinnitus and impaired hearing [facility] of dizziness and ataxic gait. Mr. [...] an appointment to be evaluated by an qm consultant on April 28, 2023. In the ER he was noted to havea negative head CT and no signs of acute neurovascular insult with an NIH score of 0 and he was then admitted to the CDU under observation status for ongoing care and a TIA workup for a stay that is expected to be less than 48 hours. [facility] Medical History HTN (hypertension) Pericardial calcification [...] % (Auto) 67.5, Lymph % (Auto) 20.9, Charles Mix % (Auto) 9.0, Eos % (Auto) 1.6, [...] to see this patient in the AM on- rounds with help appreciated in advance. 2. Suspected [...] 45 minutes. Charges/Coding Visit Charges OBSV E&M: 28030 Observ/hosp same date L1 04/13/23 0644 <Electronically signed by Saji Erazo DO> Cosigner Signature (if applicable): CC: Dr. Saji Erazo DO; Dr. Isaias Nuñez MD~ Signed [facility] Work Phone: 1(836) 364-161001-22-2024 Discharge summary Author Bart Romero [facility] April 12, 2023 11:38pm Note Date/Time April 12, 2023 9 :11pm [facility] Medical Records Department [address] [place] [address] Emergency Department Summary 04/12/23 MR#: [id number] Acct: [id number] Name: INGE WEEMS Rep #:[id number] : [...] headache. No chest pain, no other symptoms. PFSH PFSH Medical History HTN (hypertension) Pericardial calcification [...] 1.19. Glucose is appropriately elevated at 109. Hmbsc-tv-wwaj glucose was 111. High-sensitivity troponin is 6. [...] % (Auto) 67.5 Lymph % (Auto) 20.9 Charles Mix % (Auto) 9.0 Eos % (Auto) 1.6 [...] Gait disturbance Disposition Disposition: Acute Care Hospital [facility] What to do if you have Problems For any increased pain, shortness of breath, bleeding, nausea or vomiting, chestpain, or any unexpected problems, contact your Primary Care Provider. Call [facility] ([phone]) or report to the closest Emergency Room. Call 911 if necessary. 04/12/23 1396 <Electronically signed by Bart Romero MD> Cosigner Signature (if applicable): CC: Dr. Isaias Nuñez MD ~ Signed [facility] Work Phone: 1([phone]) 120-351801-22-2024 Discharge summary Author Bart Romero [facility] April 12, 2023 11:38pm Note Date/Time April 12, 2023 9 :11pm [facility] Medical Records Department [address] [place] [address] Emergency Department Summary 04/12/23 MR#: [id number] Acct: [id number] Name: PHILLIPINGE HUERTA Rep #:[id number] : 1945 77 From: [...] headache. No chest pain, no other symptoms. [facility] Medical History HTN (hypertension) Pericardial calcification [...] 1.19. Glucose is appropriately elevated at 109. Axero-eu-fhrr glucose was 111. High-sensitivity troponin is 6. [...] % (Auto) 67.5 Lymph % (Auto) 20.9 Charles Mix % (Auto) 9.0 Eos % (Auto) 1.6 [...] Gait disturbance Disposition Disposition: Acute Care Hospital [facility] What to do if you have Problems For any increased pain, shortness of breath, bleeding, nausea or vomiting, chestpain, or any unexpected problems, contact your Primary Care Provider. Call [facility] ([phone]) or report to the closest Emergency Room. Call 911 if necessary. 04/12/235 <Electronically signed by Bart Romero MD> Cosigner Signature (if applicable): CC: Dr. Isaias Nuñez MD ~ Signed [facility] Work Phone: Discharge summary Author [facility] April 13, 2023 4:44pm Note Date/Time April 13, 2023 4 :44pm [facility] Medical Records Department [address] [place] [address] Instructions for Home/Discharge Instructions 04/13/23 1643 MR#: [id number] Acct: [id number] Name: INGE WEEMS Rep #:[id number] : [...] be discussed in further detail at your follow- up appointment, if applicable. Discharge Plan Admission Admit [...] Order can be placed): Home, Self Care 04/13/23 8024<Electronically signed by Adela Salazar MD>Adela Salazar MD [...] Swati Meeks DO; Dora Sauceda MD ~ [facility] Work Phone: Discharge summary Author [facility] April 13, 2023 4:50pm Note Date/Time April 13, 2023 4 :49pm [facility] Medical Records Department [address] [place] [address] Discharge Summary 04/13/23 1644 MR#: [id number] Acct: [id number] Name: INGE WEEMS Rep #:[id number] : 1945 77 From: Adela Salazar MD PCP: Dr. Isaias Nuñez MD Status:[facility] Location: [place] [id number]- [id number] Providers Date of Admission: 04/13/23 Date [...] PO BID PRN dizziness #30 tabs 04/13/23 Hospital Course Operations None Procedures 2-D Echocardiogram [...] on 04/13/2023. He was discharged on p.o. wdukxss72 mg daily. He is follow-up with his [...] % (Auto) 67.5, Lymph % (Auto) 20.9, Charles Mix % (Auto) 9.0, Eos % (Auto) 1.6, [...] Isaias Nuñez Performed By: Rosa Rodriguez RVT Echocardiogram 04/13/23 01:10 Interpretation Summary Normal [...] Nithin Ribeiro; Noelle Kingston; Linda Brown; Ana Hses; [place] Craft; Rabia Watts; Enmanuel Drew; Elias [...] Self Care Charges/Coding Visit Charges Inpatient E&M: 29085 Disch Hosp >30min 04/13/23 1650 <Electronically signed by Adela Salazar MD> Cosigner Signature (if applicable): CC: Dr. Isaias Nuñez MD; Dr. Adela Salazar MD~ Signed [facility] Work Phone: Evaluation noteNo assessment information available [facility] Work Phone: Evaluation note* Diagnosis Onset Date Resolution Status Dizziness acute Gait disturbance acute TIA (transient ischemic attack) acute [facility] Work Phone: Reason for referral (narrative)No reason for referral information availableWAdena [facility] Work Phone: Advance Directives No Advanced Directives Records FoundDocuments on File Type Date Recorded Patient Physical Therapy Aide Expl anation Advance Directive(s) 05/07/2016 7:27 AM Advance Directive Response Recorded Date/ Time Living Will Yes December 25 6:36am Power of Sales Representative [employer] Yes December 25 6:36am Advance Directive Response Recorded Date/ Time Living Will Yes December 25 3 5:36am Power of Sales Representative [employer] Yes December 25 013 5:36am Advance Directive Response Recorded Date/ Time Living Will No April 12 9:04pm Power of Sales Representative [employer] No April 12, 2023 9:04pm Advance Directive Response Recorded Date/ Time Name of Medical Power of Sales Representative [employer] [place] April 13, 2023 1:23am Living Will Yes April 13 1:23am Power of Sales Representative [employer] Yes April 13, 2023 1:23am Advance Directive Response Recorded Date/ Time Do you have a Healthcare Power of Sales Representative [employer]? 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 June 02, 2024 9:31am CAROTID STENOSIS June 02, 2024 9:3 8am drug by car September 10, 2024 2:30 pm Chief Complaint Admit Date 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 June 02, 2024 9:31am CAROTID STENOSIS June 02, 2024 9:3 8am drug by car September 10, 2024 2:30 pm SWELLING LLE September 19, 2024 10:5 0am Chief Complaint Admit Date drug by car September 10, 2024 2:30 pm SWELLING LLE September 19, 2024 10:5 0am PREOP October 27, 2024 9:0 5am LEFT SHOULDER TEO PROTOCAL PRE OP Augus t 2024 2:32pm Family History No Family History Records Found [...] any alcohol or drug abuse patient.[facility] Goals (unrecognized section and content) [...] Saji Erazo DO Admit Provider, Attending Pr ovider Active Team Status: Active Member Role Status [...] Active Dr. Saji Erazo DO Admit Provider, Other Provid er Active [...] Active Dr. Saji Erazo DO Admit Provider, Other Provid er Active [...] June 02, 2024 End: June 02, 2024 Team Status: Active Member Role Status Dates Dr. Javon Lieberman MD Attending Provider Active Start: June 02, 2024 Dr. Isaias Nuñez MD Referring Provider Active Start: June 02, 2024 Team Status: Inactive Member Role Status Dates Dr. Isaias Nuñez MD Primary Care Provider Active Start: September 10, 2024 End: September 10, 2024 Dr. Jakob Page DO Emergency Provider Active Start: September 10, 2024 End: September 10, 2024 Team Status: Active Member Role/Relationship Status Dates Dr. Isaias Nuñez MD Primary Care Provider Active Team Status: Inactive Member Role/Relationship Status Dates Dr. Isaias Nuñez MD Primary Care Provider Active Start: June 02, 2024 End: June 02, 2024 Dr. Isaias Nuñez MD Attending Provider Active Start: June 02, 2024 End: June 02, 2024 Dr. Isaias Nuñez MD Referring Provider Active Start: June 02, 2024 End: June 02, 2024 Team Status: Active Member Role/Relationship Status Dates Dr. Javon Lieberman MD Attending Provider Active Start: June 02, 2024 Dr. Isaias Nuñez MD Referring Provider Active Start: June 02, 2024 Team Status: Inactive Member Role/Relationship Status Dates Dr. Isaias Nuñez MD Primary Care Provider Active Start: September 10, 2024 End: September 10, 2024 Dr. Jakob Page DO Attending Provider Active Start: September 10, 2024 End: September 10, 2024 Dr. Jakob Page DO Emergency Provider Active Start: September 10, 2024 End: September 10, 2024 Team Status: Inactive Member Role/Relationship Status Dates Dr. Isaias Nuñez MD Primary Care Provider Active Start: September 19, 2024 End: September 19, 2024 Renzo KEEN PA-C Attending Provider Active Start: September 19, 2024 End: September 19, 2024 Renzo KEEN PA-C Referring Provider Active Start: September 19, 2024 End: September 19, 2024 Team Status: Active Member Role/Relationship Status Dates Dr. Isaias Nuñez MD Primary Care Provider Active Start: September 19, 2024 Dr. Shekhar Delong MD Attending Provider Active S tart: September 19, 2024 Team Status: Inactive Member Role/Relationship Status Dates Dr. Isaias Nuñez MD Primary Care Provider Active Start: September 10, 2024 End: September 10, 2024 Dr. Jakob Page DO Attending Provider Active Start: September 10, 2024 End: September 10, 2024 Dr. Jakob Page DO Emergency Provider Active Start: September 10, 2024 End: September 10, 2024 Team Status: Inactive Member Role/Relationship Status Dates Dr. Isaias Nuñez MD Primary Care Provider Active Start: September 19, 2024 End: September 19, 2024 Renzo KEEN PA-C Attending Provider Active Start: September 19, 2024 End: September 19, 2024 Renzo KEEN PA-C Referring Provider Active Start: September 19, 2024 End: September 19, 2024 Team Status: Active Member Role/Relationship Status Dates Dr. Isaias Nuñez MD Primary Care Provider Active Start: September 19, 2024 Dr. Shekhar Delong MD Attending Provider Active S tart: September 19, 2024 Renzo KEEN PA-C Referring Provider Active Start: September 19, 2024 Team Status: Active Member Role/Relationship Status Dates Dr. Isaias Nuñez MD Primary Care Provider Active Start: October 27, 2024 Dr. Luis Enrique Avalos MD Attending Provider Active S tart: October 27, 2024 Dr. Ruddy Mallory DO Referring Provider Active Start: October 27, 2024 Team Status: Inactive Member Role/Relationship Status Dates Dr. Isaias Nuñez MD Primary Care Provider Active Start: November 02, 2024 End: November 02, 2024 Dr. Isaias Nuñez MD Attending Provider Active Start: November 02, 2024 End: November 02, 2024 Doug Holloway BOX HINGE [employer] LOCK ATTACHER, B[employer]OCK ATT[employer]ER-C Other Provider Active St art: November 02, 2024 End: November 02, 2024 Team Status: Active Member Role/Relationship Status Dates Dr. Isaias Nuñez MD Primary Care Provider Active Start: November 04, 2024 Dr. Ruddy Mallory DO Attending Provider Active Start: November 04, 2024 Dr. Ruddy Mallory DO Referring Provider Active Start: November 04, 2024 Team Status: Inactive Member Role/Relationship Status Dates Dr. Isaias Nuñez MD Primary Care Provider Active Start: November 04, 2024 End: November 04, 2024 Dr. Ruddy Mallory DO Attending Provider Active Start: November 04, 2024 End: November 04, 2024 Dr. Ruddy Mallory , DO Referring Provider Active Start: November 04, 2024 End: November 04, 2024 (unrecognized sect ion and content) No Status Records Found INFORMATION SOURCE (unrecogn ized section and content) DATE CREATED AUTHOR 11/19/2024 [facility] FOR RECORDS PERTAINING TO PATIENTS WHO [...] BE BASED ON THE PRIMARY CLINICAL RECORDS. [employer] provides no warranty or guarantee of the accuracy or completeness of information in this document.
[2024-11-24] MEDS: LR 1,000 ML - BOLUS PREOP 999 ML IV (08:03)
[2024-11-24] MEDS: Magnesium 1 GM over 15 mins IV (08:03)
[2024-11-24] MEDS: Midazolam 2 MG/2 ML Syringe IV (08:32)
--- NOTE | 2024-11-24 08:45 | PRE.ANES_ITS ---
ASA Classification* ASA Classification ASA Classification: 3 Assessment & Plan Anesthesia* Anesthesia Assessment Anesthesia Assessment: Discussed sedation and/or anesthesia options, risks, benefits, and alternatives with patient/parents/legal guardian/POA. Questions invited. The patient/parents/legal guardian/POA seems to understand and agrees to proceed with anesthesia plan. Reviewed the physical assessment, medical history, allergy history and patient home medications list prior to surgery/procedure/anesthetic and documented any changes. Performed airway and anesthesia risk assessments. Anesthesia Type Anesthesia Type: General and Block (Left Interscalene) Anesthesia Focused Assessment* Temperature: 97.7 F Pulse Rate: 79 Blood Pressure: 132/75 Respiratory Rate: 16 Pulse Ox: 96 Airway Assessment Mouth opens: >3 cm Mallampati Score: II Labs Anesthesia Preop lab: CBC WBC 6.3 K/mm3 (4.4-11.0) 11/02/24 08:51 11/02/24 RBC 4.23 M/mm3 (4.6-6.2) L 11/02/24 08:51 11/02/24 Hgb 14.1 g/dL (13.0-16.5) 11/02/24 08:51 11/02/24 Hct 40.4 % (40-54) 11/02/24 08:51 11/02/24 Plt Count 160 K/mm3 (150-450) 11/02/24 08:51 11/02/24 CHEMISTRY Potassium 5.0 mmol/L (3.3-5.1) 11/02/24 08:51 11/02/24 Sodium 134 mmol/L (133-145) 11/02/24 08:51 11/02/24 Magnesium 2.3 mg/dL (1.5-2.2) H 11/04/24 13:25 11/04/24 BUN 17 mg/dL (4-19) 11/02/24 08:51 11/02/24 Creatinine 1.09 mg/dL (0.70-1.20) 11/02/24 08:51 11/02/24 Glucose 118 mg/dL (70-99) H 11/02/24 08:51 11/02/24 POC Glucose 111 mg/dL (74-106) H 04/12/23 21:02 04/12/23 TSH 1.710 uIU/mL (0.358-3.740) 04/04/24 08:57 03/23 06/14 COAG PT 13.0 SECONDS (11.7-14.9) 04/12/23 21:00 Pre-Assessment Diagnosis/Proposed Procedure Planned Operative Procedure(s): LEFT REVERSE TOTAL SHOULDER ARTHROPLASTY Anesthesia History 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 When Was Last Pacemaker Check QUESTION #4 FULL TEXT: You/Your Family Experience fever (hyperthermia) with Anesthesia Last Oral Intake Last Oral intake: Last Oral Intake NPO since 05:30 11/24/24 07:42 Meds taken in AM with sips of Yes 11/24/24 07:42 water? Meds patient instructed to take am of surgery PONV PONV - pattern generator operator: PONV - pattern generator operator Female No 11/02/24 09:08 HX of Motion Sickness No 11/02/24 09:08 HX of N/V After Surgery No 11/02/24 09:08 Non-Smoker Yes 11/02/24 09:08 Duration of Surgery greater Yes 11/02/24 09:08 than 60 minutes Number of Risk Factors 2 11/02/24 09:08 PONV Score Moderate Risk 11/02/24 09:08 Height & Weight Height & Weight: Anesthesia: Height & Weight Height 6 ft 11/24/24 07:42 Weight: 106.9 kg 11/24/24 07:42 Body Mass Index (BMI) 31.9 11/24/24 07:42 Respiratory Assessment Respiratory Assessment - pattern generator operator: Respiratory Tract Infection Hx - pattern generator operator Hx Respiratory Tract Infection No 11/02/24 09:08 STOP Sleep Apnea STOP Sleep Apnea - pattern generator operator: STOP Sleep Apnea - pattern generator operator Hx Hypertension Yes: CONTROLLED WITH MED 11/02/24 09:08 Hx Sleep Apnea No 11/02/24 09:08 CPAP No 04/13/23 01:23 BIPAP No 04/13/23 01:23 Do you snore loudly (louder No 11/02/24 09:08 than talking or can be heard Do you often feel tired/ No 11/02/24 09:08 fatigued/ sleepy during daytime? Has anyone observed you stop No 11/02/24 09:08 breathing during sleep? STOP Results Negative 11/02/24 09:08 QUESTION #5 FULL TEXT : Do you snore loudly (louder than talking or can be heard through closed doors)? Tobacco Use History Tobacco Use History - pattern generator operator: Tobacco Use History - pattern generator operator Tobacco Use Non-smoker 04/13/23 16:53 Smoking Status Never smoker 11/02/24 09:08 Hx Tobacco Use No 11/02/24 09:08 Years Smoking Packs Smoked per Day Smoking Cessation Date was within the last 15 years Hx Smoking Cessation Date Hx Smoking Cessation Counseling Hematologic Medial History Hematologic Hx - pattern generator operator: Hematologic Medical Hx - dentofacial orthopedics dentist Hx of Blood Transfusion No 11/02/24 09:08 Hx of Transfusion in last 3 No 11/02/24 09:08 Months Date of Last Transfusion (if within last 3 months) Ever experience any problems No 11/02/24 09:08 with transfusion(s)? Specify any problems Hx of Preganancy in last 3 N/A 11/02/24 09:08 Months Nurse Filling Out Transfusion DSCHRIBER 11/02/24 09:08 & Questions: Date: 11/02/24 11/02/24 09:08 Time: 09:10 11/02/24 09:08 Patient unable to answer at this time (ie. confused, unrespo /Reproduction History /Reproductive History - pattern generator operator: /Reproductive Hx- pattern generator operator Hx Now No 11/02/24 09:08 Gestational Age (in weeks): EDC: Hx Hx Para Hx Section SAB No 11/02/24 09:08 Active Medications Active Medications: Current Medications Generic Name Dose Route Start Last Admin Trade Name Freq PRN Reason Stop Dose Admin Acetaminophen 1,000 mg 11/24/24 09:15 11/24/24 08:04 Acetaminophen 500 Mg Tablet PO 11/24/24 09:16 1,000 mg PREOP ONE Administration Dexamethasone Sodium Phosphate 10 mg 11/24/24 09:15 Dexamethasone 10 Mg/Ml Vial IV 11/24/24 09:16 INTRAOP ONE Gabapentin 600 mg 11/24/24 09:15 11/24/24 08:04 Gabapentin 600 Mg Tablet PO 11/24/24 09:16 600 mg PREOP ONE Administration Lactated Ringer's 1,000 mls @ 999 mls/hr 11/24/24 09:15 11/24/24 08:03 IV 11/24/24 10:15 999 mls/hr .Q1H1M PAYTON Administration Cefazolin Sodium 2 gm/ Sodium 110 mls @ 150 mls/hr 11/24/24 09:15 Chloride IV 11/24/24 09:58 INTRAOP ONE Tranexamic Acid 1,000 mg/ 110 mls @ 660 mls/hr 11/24/24 09:15 Sodium Chloride IV 11/24/24 09:24 INTRAOP ONE Tranexamic Acid 1,000 mg/ 110 mls @ 660 mls/hr 11/24/24 09:15 Sodium Chloride IV 11/24/24 09:24 INTRAOP ONE Lactated Ringer's 1,000 mls @ 125 mls/hr 11/24/24 09:15 IV 11/24/24 17:14 .[facility] Magnesium Sulfate 1 gm/ 102 mls @ 408 mls/hr 11/24/24 09:15 11/24/24 08:03 Dextrose IV 11/24/24 09:29 408 mls/hr PREOP ONE Administration Lactated Ringer's 1,000 mls @ 15 mls/hr 11/24/24 07:30 IV .Q48H [facility] Insulin Human Lispro 1 - 6 unit 11/24/24 09:15 Insulin Lispro 100 Unit/Ml Insuln.Pen SC Q4H PRN PRN BG>/= 180, SEE PROTOCOL Protocol PFSH Medical History (Updated 11/02/24 @ 09:17 by Sherlyn Yu) Wears hearing aid Wears glasses Alcohol use Sleep apnea Gastric reflux Non-smoker History of edema History of echocardiogram Uninodular goiter HTN (hypertension) Pericardial calcification Vitamin D deficiency Home Medications ?Medication ?Instructions ?Recorded ?Last Taken ?Type aspirin 81 mg tablet,delayed 81 mg PO DAILY 02/22/19 0 11/18/24 History release lisinopril 10 mg tablet 10 mg PO DAILY 02/22/1907/15 05:30 History multivitamin (Daily Multi-Vitamin 1 tab PO DAILY 04/1211/18/24 History tablet) calcium carbonate (Calcium 600) 600 mg PO DAILY 11/20/24 History omeprazole 40 mg capsule,delayed 20 mg PO QDAY 5 11/22/24 History release Allergy/AdvReac Type Severity Reaction Status Date / Time Sulfa (Sulfonamide Allergy Mild Rash Verified 11/24/24 07:38 Antibiotics) Family History Father Cancer Mother Hypertension Surgical History (Updated 11/02/24 @ 09:17 by Sherlyn Yu) Hx of right cataract extraction Hx of left cataract extraction Hx of colonoscopy Hx of tonsillectomy s/p stapedectomy History of uvulectomy History of umbilical hernia Social History Smoking Status: Former smoker alcohol intake: current alcohol intake frequency: holidays/special occasions only substance use type: does not use Review of Systems (Anesthesia) ROS Narrative System reviewed and no additional complaints, except as documented.
[2024-11-24] MEDS: Cefazolin 1 GM/5 ML Vial 2 GM IV (08:52)
[2024-11-24] MEDS: Lidocaine 1% (5 ml sdv) 5 ML Vial 8 ML IV (08:57)
[2024-11-24] MEDS: TRANEXAMIC ACID 1,000 MG/10 ML ML 2000 MG IV (10:27)
--- NOTE | 2024-11-24 10:54 | PCM.POST.ANE ---
Anesthesia: Postop Eval I Current Vital Signs Temperature: 97.8 F Pulse Rate: 73 Blood Pressure: 108/62 Respiratory Rate: 16 Pulse Ox: 94 Assessment Airway patent: Yes Spontaneous unlabored respirations: Yes nausea: No Vomiting: No Anesthesia Complication: No Fluid Hydration Crystalloid volume administer (ml): 1,200 Total IV fluid infused: 1,200 Progress Note Anesthesia document: Postop Eval 1 completed: Yes
--- NOTE | 2024-11-24 10:54 | PCM.OPRPT ---
Operative Report (Standard) Operative Information Date of Procedure: 11/24/24 Pre-Operative Diagnosis: Left shoulder massive rotator cuff tear Post-Operative Diagnosis: Left shoulder massive rotator cuff tear Surgery/Procedure Performed: Left reverse total shoulder arthroplasty performance reporter: Yes Sales Order Clerk: Karma Calderon Tasks completed by server service assistant: Opening & closing, Implanting device, Hemostasis: Electrocautery and Retracting Type of Anesthesia: General/Regional RN Documented Start/Stop Times: Operation Date: 11/24/24 09:15 Case Time Into Pre-Op 11/24/24 07:16 Anesthesia Start 11/24/24 08:52 Into Room 11/24/24 08:52 Out of Pre-Op 11/24/24 08:52 Procedure Start 11/24/24 09:23 Procedure End 11/24/24 10:39 Anesthesia End 11/24/24 10:49 Out of Room 11/24/24 10:49 Procedure Start Time: 09:23 Procedure Stop Time: 10:39 Select all DRAINS/GRAFTS/IMPLANTS that apply: Implanted device Implanted device details: Tornier Aequalis PerFORM+ reversed baseplate 29 mm diameter +6 mm lateralization, standard glenosphere cobalt chrome 42 mm diameter, Tornier perform inlay stem size #3, + 6 mm retentive size number 3 42 mm diameter polyethylene insert, short central post and peripheral screws x4. Estimated Blood Loss: 200 cc Specimen collected: No Description of surgery: Patient arrived to [facility] morning of the procedure and was greeted by the same day surgery staff. Prior to his procedure, I greeted the patient in the preoperative holding area I identified the patient by name, record number, and date of . Informed consent was confirmed. The operative extremity was marked. All questions were answered to patient satisfaction. An interscalene block was administered prior to procedure by anesthesia staff for postoperative and intraoperative analgesia. At time of his procedure, patient was brought to the operative suite and positioned supine on a standard table with a beachchair attachment. General anesthesia was induced after all bony prominences were well-padded. Endotracheal tube was placed. After adequate anesthesia and securing the tube, we prepared the patient to be positioned in the beachchair position. A well-padded screwhead polisher was applied. The nonoperative extremity was placed in a well arm negron. He was then brought into the beachchair position after we confirmed an appropriate blood pressure. We then spun the bed 45 degrees. The operative extremity was then prepared. In the butterfly wing of the bed was removed and a well-padded torso strap was applied to secure the patient to the bed. The operative extremity was now free. We then prepped and draped the left upper extremity in normal, sterile orthopedic fashion. We then performed a timeout with all parties in attendance in agreement with the side, site, and operation be performed. 2 g Ancef was administered prior to incision by anesthesia staff, as well as 1 g TXA IV. No concerns were voiced and we elected to proceed. I first marked a standard deltopectoral incision just lateral to the coracoid process in line with the long axis of the humerus. Skin was sharply incised with 10 blade scalpel. I then dissected bluntly through the subcutaneous layers and found the fat stripe between the deltoid and pectoralis major. The cephalic vein was then identified and protected. It was retracted laterally with the deltoid. I then bluntly dissected underneath the deltoid with a Morel elevator. Daysi retractor was placed. The upper 1 cm of the pectoralis major was released. Long biceps tendon was remotely ruptured it was not identified. This identified the lesser and greater tuberosities. The subscapularis and supraspinatus was completely torn and retracted with an exposed greater tuberosity. I released the remainder of the capsule along the inferior humeral neck. Humeral head was then dislocated anteriorly. Appropriate access to the humeral head was confirmed. I then subluxed the humeral head posteriorly with a Fukuda retractor placed around the posterior lip of the glenoid. Inferior capsule was tension. I was able to palpate the axillary nerve. Inferior capsule was then released to the 4 o'clock position of the glenoid face. I then removed the Fukuda retractor and redislocated the shoulder anteriorly. I then made a anatomic neck cut of the cartilaginous surface of the humeral head. Sizing plate for a size # 3 stem was utilized to determine appropriate reaming size. A central pin was placed engaging the lateral cortex of the humerus. A size # 3 reamer was used to ream the humeral metaphysis and prepare for the inlay stem. A canal finding reamer was utilized prior to sequential broaching to a size # 3 short stem with excellent rotational and axial purchase in the humerus. I remove the broach handle left the size # [address] I then subluxed the humerus posterior to the glenoid. I then placed retractors around the posterior and anterior glenoid to expose the glenoid. Glenoid labrum was removed with Bovie cautery protecting the axillary nerve. We then used the custom guide from [employer] to position our centering pin, exiting approximately 25 mm from the joint surface along the anterior scapula. Guide was removed and pin was analyzed and compared to preoperative planning. It appeared to be in appropriate position. The Nautilus shaped reamer was then placed over top of the centering pin. I reamed a flat surface of the glenoid. We then removed the reamer and used the cannulated drill for the short central post. Post and baseplate was assembled on the back table. We then inserted the baseplate and central post the assembled baseplate to an appropriate depth with good press-fit purchase. A [place] was used to confirm depth. Cortical screws then were placed in the peripheral holes with good purchase. The baseplate had excellent purchase and the entire scapula would rotate with rotation of the baseplate. We then impacted the 42 mm glenosphere with a standard eccentricity and tightened the locking screw mechanism. We then removed retractors and turned our attention back to the humerus. I placed a +6 millimeters retentive polyethylene insert. I then reduced the shoulder. There was excellent range of motion and stability in all planes of motion. We selected this as our final size. We removed trials from the humerus after final dislocation. I copiously irrigated the canal. Broach was placed on hand and then impacted to an appropriate depth. Final + 6 mm retentive polyethylene insert was placed. Final reduction was then performed. The subscapularis was then identified with a tagging suture. Repair would have been likely under undue tension and likely failed. I elected to not perform a subscapularis repair. We then copiously irrigated the wound with sterile Betadine and normal saline solution. We reapproximated the interval with 0 Vicryl suture. Subcutaneous layers were reapproximated with 2 -0 Vicryl suture. Skin was finally running V-Loc 3-0 Monocryl suture and Dermabond. A sterile silver Mepilex dressing was applied. Patient was then placed in an ultra sling. Patient tolerated procedure well without complication. He was positioned back in the supine position extubated in the operative suite. He was transferred to the rburt and subsequently to PACU in stable condition. Need for skilled press assistant and feeder: Karma Calderon PA-C was critical to the outcome of the case. During the course of the procedure the physician press assistant and feeder played a vital role. Her intimate knowledge of my steps in the procedure aided in safe and expedient completion of the procedure. The PA played a vital role in positioning particularly in obtaining the appropriate positioning. The PA was also vital in the retraction of soft tissues during the exposure and protecting vital structures. The PA was also vital and protecting soft tissues during times of bony cuts. She also played a vital role in closure with my direct supervision. The PA was also important during reduction and dislocation of the joint and trials intraoperatively. Intraoperative medications: 2 g Ancef IV, 1 g TXA IV x2 Post Operative Plan: Patient will be admitted for observation overnight due to age and comorbidities. Anticipate discharge home tomorrow. Weightbearing: Nonweightbearing left upper extremity, okay for pendulums. Range of motion of wrist elbow and hand as tolerated. Antibiotics: 2 g Ancef IV prior to incision, 24 hours IV antibiotics postoperatively DVT Prophylaxis: Aspirin enteric-coated 81 mg twice daily starting tomorrow Shoemaker: None Dressing: Maintain silver dressing x5 days. Okay to shower dressing on started on day 4 X-Rays: 2 weeks postop in the office Pain Medication: Oxycodone Rx upon discharge Follow-up: 2 weeks post-operatively with me in the office Surgical Findings: Massive left rotator cuff tear. Stable left shoulder from final reduction. Complications Complications: No Admit VTE Documentation VTE Present on Admission: No VTE Mechan Device Prophylaxis: SCD's VTE Pharm Prophylaxis ordered?: Yes
--- NOTE | 2024-11-24 11:00 | RAD_ITS ---
PROCEDURE: SHOULDER MIN 2 VIEWS 11/24/2024 REASON FOR EXAM: POST OP TECHNIQUE: Left shoulder two views COMPARISON: September 10, 2024 FINDINGS: There is a reverse shoulder prosthesis in position. Soft tissue air is noted consistent with recent surgery. The AC joint is aligned. Vascular calcifications are visible. RAD/Shoulder min 2 Views IMPRESSION: Hardware in position. Reading Location: [facility]
[2024-11-24] MEDS: LR 1,000 ML - 125 ML/HR (POST BOLUS) POST OP IV (12:30)
--- NOTE | 2024-11-24 15:21 | POSTOPAN2_ITS ---
Anesthesia Postop Eval I Sum Postop Eval Completion status Anesthesia document: Postop Eval 1 completed: Yes Anesthesia Postop Eval I Summary Anesthesia Postop Eval I Summary: Anesthesia Postop Eval I: Assessment Summary Airway patent Yes 11/24/24 10:54 [email or web address] [email or web address] Spontaneous unlabored Yes 11/24/24 10:54 [email or web address] [email or web address] respirations Mental status nausea No 11/24/24 10:54 [email or web address] Vomiting No 11/24/24 10:54 [email or web address] [email or web address] Anesthesia Postop Eval I: Fluid Summary Crystalloid volume administer 1,200 11/24/24 10:54 [email or web address] [email or web address] (ml) Colloids volume administered ( ml) Blood Product volume administered (ml) Total IV fluid infused 1,200 11/24/24 10:54 [email or web address] [email or web address] Anesthesia Postop Eval I: Summary Notes Anesthesia Complication No 11/24/24 10:54 [email or web address] Anesthesia Complication Comment: Post-operative progress note Anesthesia: Postop Eval II Evaluation Mental status: Awake and Calm Pain Level: 2 nausea: No Vomiting: No Complications Anesthesia Complication: No
--- NOTE | 2024-11-24 15:21 | PCM.POSTANE2 ---
Anesthesia Postop Eval I Sum Postop Eval Completion status Anesthesia document: Postop Eval 1 completed: Yes Anesthesia Postop Eval I Summary Anesthesia Postop Eval I Summary: Anesthesia Postop Eval I: Assessment Summary Airway patent Yes 11/24/24 10:54 QC [email or web address] Spontaneous unlabored Yes 11/24/24 10:54 QC [email or web address] respirations Mental status nausea No 11/24/24 10:54 QC [email or web address] Vomiting No 11/24/24 10:54 [email or web address] Anesthesia Postop Eval I: Fluid Summary Crystalloid volume administer 1,200 11/24/24 10:54 QC [email or web address] (ml) Colloids volume administered ( ml) Blood Product volume administered (ml) Total IV fluid infused 1,200 11/24/24 10:54 [email or web address] Anesthesia Postop Eval I: Summary Notes Anesthesia Complication No 11/24/24 10:54 QC [email or web address] Anesthesia Complication Comment: Post-operative progress note Anesthesia: Postop Eval II Evaluation Mental status: Awake and Calm Pain Level: 2 nausea: No Vomiting: No Complications Anesthesia Complication: No
[2024-11-24] MEDS: Cefazolin 1 GM/50 ML BAG IV (16:04)
[2024-11-24] MEDS: Senna/Docusate Sodium 1 Tablet 2 TABLET PO (21:44)
[2024-11-25 00:05] VITALS: BP 127/68; PULSE 77; RESP 16; TEMP 36.7; O2SAT 96
[2024-11-25] MEDS: Cefazolin 1 GM/50 ML BAG IV (00:32)
[2024-11-25 04:04] VITALS: BP 136/67; PULSE 80; RESP 16; TEMP 36.6; O2SAT 99
[2024-11-25 06:40] LABS: Hematocrit 32.1 % (40-54); Hemoglobin 11.3 g/dL (13.0-16.5); Mean Corp Hgb Conc 35.2 g/dL (32-36); Mean Corpuscular Volume 94.1 fL (80-94); Mean Platelet Vol. 11.7 fl (6.2-12.0); Platelet Count 141 K/mm3 (150-450); RBC Distribution Width CV 13.3 % (11.6-14.6); RBC Distribution Width SD 45.8 fl (35.1-43.9); Red Blood Count 3.41 M/mm3 (4.6-6.2); White Blood Count 15.8 K/mm3 (4.4-11.0)
[2024-11-25 08:17] LABS: Anion Gap 10 (5-15); BUN 15 mg/dL (4-19); BUN/Creat Ratio 16.3 RATIO (10-20); Calcium,Total 9.0 mg/dL (7.6-11.0); Carbon Dioxide 21.6 mmol/L (21.0-32.0); Chloride 105 mmol/L (98-108); Estimated Creatinine Clearance 80.43 ml/min (50-250); Glucose 162 mg/dL (70-99); Potassium 4.2 mmol/L (3.3-5.1)
[2024-11-25 08:36] VITALS: BP 145/80; PULSE 71; RESP 16; TEMP 36.7; O2SAT 97
[2024-11-25] MEDS: Senna/Docusate Sodium 1 Tablet 2 TABLET PO (08:42)
[2024-11-25] MEDS: Aspirin E.C. 81 MG Tablet PO (08:42)
--- NOTE | 2024-11-25 09:23 | CASEMGMT ---
TALBERT Met with patient to complete TALBERT form. TALBERT form and its content were verbally explained and patient's questions were answered to the best of my ability.? Patient voiced understanding and signed TALBERT form.? Patient provided a copy of signed TALBERT form and original placed in patient's chart.? Patient had no further questions. Ju Allison, Discharge Planning Asst
--- NOTE | 2024-11-25 11:45 | PCM.DC.SUM ---
Providers Date of Admission: 11/24/24 Date of Discharge: 11/25/24 Primary Care Physician: Dr. Isaias Nuñez MD Reason For Visit: LEFT REVERSE TOTAL SHOULDER ARTHOPLASTY, ERAS (L) Diagnosis Discharge Diagnosis (1) Status post total shoulder arthroplasty: Status: Acute Code(s): Z96.619 - Presence of unspecified artificial shoulder joint Plan: Status post left reverse total shoulder arthroplasty postop day 1 1. Will continue PT today. Sling at all times nonweightbearing to left upper extremity. 2. plan for discharge this afternoon following PT 3. Patient will follow up for post op appointment as previously scheduled 4. Patient has outpatient PT appointment previously scheduled 5. WBC 15.8 acute reactive leukocytosis: secondary to pre operative decadron. no acute systemic signs of infection. will monitor, and likely self resolve. 6. H/H 11.3/32.1: post operavtive anemia secondary to acute blood loss intraoperatively. Patient is asymptomatic at this time. No intraoperative complications. will continue to monitor. no acute interventions. 7. DVT prophylaxis : Aspirin 81 mg twice daily x 2 weeks 8. Pain control: patient instructed to take tylenol 500mg 2 tablets TID. and oxycodone 1-2 tablets every 4-6 hours only as needed for pain control. 9. ok to remove post op dressing. post op day 5 Medications at Discharge Home Medications aspirin 81 mg tablet,delayed release 81 mg PO DAILY 02/22/19 Held on 11/25/24. Instructions: Resume on 12/09/24. lisinopril 10 mg tablet 10 mg PO DAILY 02/22/19 multivitamin (Daily Multi-Vitamin tablet) 1 tab PO DAILY 04/12/23 calcium carbonate (Calcium 600) 600 mg PO DAILY 11/02/24 omeprazole 40 mg capsule,delayed release 20 mg PO QDAY 11/02/24 acetaminophen 500 mg tablet 1,000 mg (2 x 500 mg) PO Q8 #180 tabs 11/25/24 aspirin 81 mg tablet,delayed release 81 mg PO BID 2 weeks #28 tabs 11/25/24 meloxicam 7.5 mg tablet 7.5 mg PO BID #60 tabs 11/25/24 oxycodone 5 mg tablet 5 - 10 mg (1 - 2 x 5 mg) PO Q4H PRN PRN Pain Score 4-10 7 days #20 tabs 11/25/24 sennosides 8.6 mg-docusate sodium 50 mg tablet (Stimulant Laxative Plus) 2 tab PO BID #14 tabs 11/25/24 Hospital Course Summary of Care Provided Hospital Course: Patient is s/p left reverse total shoulder arthroplasty with Dr. Mallory 11/24/24. Patient resting comfortably in bed. Rates pain 5/10. States taking Tylenol and oxycodone as needed and ice help to relieve pain. Patient has been up with therapy. Sling at all times. Nonweightbearing left upper extremity. Afebrile, no chest pain, shortness of breath, negative calf pain/ erythema, and no other signs of DVT. Physical Exam Narrative Patient resting comfortably in bedside chair. Sling in place No signs of acute distress Satting well on room air Limb is warm to touch, Sensation intact throughout entire left upper extremity, Radial pulses bounding Dressing clean dry intact Calf nontender to palpation, no erythema, no edema. Negative Homans Weight / BMI Weight Weight: 106.9 kg Body Mass Index (BMI) 31.9 ABG / Lab / Microbiology Data 11/25/24 05:59 11/25/24 05:59 Laboratory: Laboratory Results - last 24 hr 11/25/24 05:59: WBC 15.8 H, RBC 3.41 L, Hgb 11.3 L, Hct 32.1 L, MCV 94.1 H, MCH 33.1 H, MCHC 35.2, RDW Std Deviation 45.8 H, RDW Coeff of Umm 13.3, Plt Count 141 L, MPV 11.7, Sodium 136, Potassium 4.2, Chloride 105, Carbon Dioxide 21.6, Anion Gap 10, BUN 15, Creatinine 0.91, Estim Creat Clear Calc 80.43, Est GFR (MDRD) Non-Af 85, BUN/Creatinine Ratio 16.3, Glucose 162 H, Calcium 9.0 Microbiology: Microbiology 10/27/24 08:32 Swab (Method) Nasal Screen MRSA/MSSA - Final Radiography Diagnostic Testing: Radiology Impression Shoulder X-Ray 11/24/24 11:00 IMPRESSION: Hardware in position. Reading Location: [facility] Instructions Discharge Activity: May Not Drive Weight Bearing Status: No weight bearing (Left upper extremity) Additional Activity Instructions: Sling at all times to left upper extremity Call your doctor if your incision/area has: Continuous Slow Oozing, Sudden Increased Bleeding, Increased Pain/ Swelling, Increased Redness, Foul Smelling Discharge and Swelling at the incision site Call your doctor if you observe: Fever of 101 or Higher, Inability to urinate, Inability to have a bowel movement, Shortness of breath, Dizziness, Chest pain, Increased palpitations (irregular heartbeat) and Calf discomfort Remove Dressing in: 5 days Cleanse incision/area with: Soap & Water and Keep Dressing Clean & Dry DC O2, CPAP, BIPAP Needs Home O2 Discharge instructions: No DC home with Oxygen: No When: With [facility] as previously scheduled Meaningful Use Info Meaningful Use Meaningful Use Diagnoses (Choose all that apply): None applicable Discharge Plan Admission Admit Date/Time: 11/24/24 10:58 Attending Provider: Ruddy Mallory Primary Care Provider: Isaias Nuñez Discharge Orders/Prescriptions Prescriptions: New acetaminophen 500 mg Tablet 1,000 mg PO Q8 Qty: 180 0RF aspirin 81 mg Tablet,Delayed Release (Dr/Ec) 81 mg PO BID 14 Days Qty: 28 0RF meloxicam 7.5 mg Tablet 7.5 mg PO BID Qty: 60 0RF sennosides-docusate sodium [Stimulant Laxative Plus] 8.6-50 mg Tablet 2 tab PO BID Qty: 14 0RF oxycodone 5 mg Tablet 5 - 10 mg PO Q4H PRN PRN (Reason: Pain Score 4-10) 7 Days Qty: 20 0RF Continued lisinopril 10 mg tablet 10 mg PO DAILY multivitamin [Daily Multi-Vitamin] Tablet 1 tab PO DAILY calcium carbonate [Calcium 600] 600 mg calcium (1,500 mg) tablet 600 mg PO DAILY omeprazole 40 mg capsule,delayed release(DR/EC) 20 mg PO QDAY Rx Instructions: swallow whole; do not crush, chew, dissolve, cut, break Held aspirin 81 mg tablet,delayed release (DR/EC) 81 mg PO DAILY Hold Instructions: Resume on 12/09/24. Referrals / Follow Up: Isaias Nuñez MD [Primary Care Provider] - Disposition Disposition (needs filled in before D/C Order can be placed): Home, Self Care
[2024-11-25] MEDS: 0.9% Saline Lock 10 ML Syringe IV (11:57)
[2024-11-25] MEDS: HYDROmorphone 0.5 MG/0.5 ML SYRINGE IV (11:57)
[2024-11-25 14:20] VITALS: BP 129/70; PULSE 69; RESP 16; TEMP 36.7; O2SAT 98
--- NOTE | 2024-11-25 14:56 | CASEMGMT ---
Addendum entered by Inge Bernal 11/25/24 15:35: Pt nurse updated that pt is dc'ing this date. She requests pharmacy to be called for meds to be delivered to room. TC to pharmacy at this time for this. Original Note: RN CM into pt room, pt sitting up in chair in no distress. Pt agreeable to dc planning discussion. Pt states he has been painful and nauseated this morning and he is staying tonight for pain control. Pt states he lives alone but his dtr lives a mile away but works. Pt does not typically use AD and has been ambulating with therapy. 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 Pt denies any homegoing needs at this time and states he will be fine when his pain is under control. DC Plan: Home
== END 2024-11-25 18:30 | disposition home or self-care (01) ==
LOC: SDC 11:20 → MS3 11:20
PROVIDERS: Anesthesiology; Admitting Provider Student in an Organized Health Care Education/Training Program; PCP Family Medicine; Referring Provider Student in an Organized Health Care Education/Training Program; Visit Provider Student in an Organized Health Care Education/Training Program
PROC: (CPT 23472; principal; 2024-11-24 08:45)
DX: S46.012A Strain of muscle(s) and tendon(s) of the rotator cuff of left shoulder, initial encounter (principal); V58.2XXA Person on outside of pick-up truck or van injured in noncollision transport accident in nontraffic accident, initial encounter; I10 Essential (primary) hypertension; G47.30 Sleep apnea, unspecified; Z79.899 Other long term (current) drug therapy; K21.9 Gastro-esophageal reflux disease without esophagitis; Z87.891 Personal history of nicotine dependence; Z79.82 Long term (current) use of aspirin; E04.1 Nontoxic single thyroid nodule
CPT/HCPCS: 23472; 01638; 36415; 73030; 80048; 82040; 82962; 83735; 85025; 85027; 87081; 93005; 94668; 96361; 96365; 96366; 96375; 97110; 97166; 97530; 99221; C1776; A4216; G0378; J2405; J3475